=== PATIENT | male | born 1960 | race Caucasian/White ===

== ENCOUNTER 2020-04-09 18:22 | Inpatient (IN) | payer SELFPAY ==
[~2020-04-09] VITALS: Ht 182 cm; Wt 145.0 kg
[2020-04-09] MEDS ORDERED: LACTATED RINGERS 1,000 ML IV ONE (18:55)
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
[2020-04-09 19:14] LABS: BILIRUBIN,URINE 1+ (NEGATIVE); CLARITY,URINE CLEAR; COLOR,URINE YELLOW; GLUCOSE, URINE (UA) NEGATIVE (NEGATIVE); KETONES,URINE NEGATIVE (NEGATIVE); LEUKOCYTE ESTERASE ,URINE NEGATIVE (NEGATIVE); NITRITE,URINE NEGATIVE (NEGATIVE); PROTEIN,URINE 2+ (NEGATIVE)
[2020-04-09] MEDS: dilTIAZem DRIP PRE-MIX 125 ML IV SCH (19:18)
[2020-04-09 19:27] LABS: BACTERIA,URINE FEW /HPF
[2020-04-09 19:33] LABS: BASOPHILS % (AUTO) 0 % (0-10); EOSINOPHILS % (AUTO) 0 % (0-10); HEMATOCRIT 43 % (40-54); HEMOGLOBIN 14.7 G/DL (13.3-17.7); LYMPHOCYTES # (AUTO) 1.2 X 10^3 (1.0-4.0); LYMPHOCYTES % (AUTO) 7 % (12-44); MEAN CORPUSCULAR HEMOGLOBIN 32 PG (25-34); MEAN CORPUSCULAR HGB CONC 35 G/DL (32-36); MEAN CORPUSCULAR VOLUME 92 FL (80-99); MEAN PLATELET VOLUME 11.6 FL (7.4-10.4); MONOCYTES % (AUTO) 6 % (0-12); NEUTROPHILS # (AUTO) 15.4 X 10^3 (1.8-7.8); NEUTROPHILS % (AUTO) 87 % (42-75); PLATELET COUNT 99 10^3/uL (130-400); WHITE BLOOD COUNT 17.6 10^3/uL (4.3-11.0)
[2020-04-09 19:45] LABS: ALBUMIN 3.5 GM/DL (3.2-4.5); CHLORIDE 94 MMOL/L (98-107); SODIUM 127 MMOL/L (135-145)
[2020-04-09 19:46] LABS: CALCIUM 8.5 MG/DL (8.5-10.1)
[2020-04-09 19:47] LABS: GLUCOSE 124 MG/DL (70-105); INR 1.4 (0.8-1.4); PROTHROMBIN TIME PATIENT 17.5 SEC (12.2-14.7); TOTAL PROTEIN 6.8 GM/DL (6.4-8.2)
[2020-04-09 19:48] LABS: CARBON DIOXIDE 21 MMOL/L (21-32)
[2020-04-09 19:51] LABS: ALKALINE PHOSPHATASE 64 U/L (40-136); CREATININE SERUM 1.47 MG/DL (0.60-1.30); GFR ESTIMATED 49
[2020-04-09 19:52] LABS: BUN/CREATININE RATIO 16
[2020-04-09 19:54] LABS: ALANINE AMINOTRANSFERASE 63 U/L (0-55)
--- NOTE | 2020-04-09 19:58 | Diagnostic Imaging Report ---
EXAMINATION: Chest radiograph, portable AP view. DATE: 04/09/2020 7:51 PM. INDICATION: 59-year-old male, sepsis. COMPARISON: None. FINDINGS: There are technical limitations of the study relating to patient body habitus and difficulties with exposure. The heart appears enlarged. There is no identified pneumothorax. There is nonspecific left basilar airspace consolidation. The right lung is grossly clear. IMPRESSION: 1. Technically limited study relating to patient body habitus and difficulties with exposure. 2. Nonspecific left basilar airspace consolidation which could relate to soft tissue overlap, atelectasis, infiltrate and/or effusion. 3. Suspected cardiomegaly. Dictated by: Dictated on workstation # [id number]
--- NOTE | 2020-04-09 19:59 | Diagnostic Imaging Report ---
EXAMINATION: Left tibia and fibula radiographs, 2 views, 3 images. COMPARISON: None. HISTORY: 59-year-old male, left tibia and fibula pain. Blister medially with leakage. FINDINGS: There is a very large abnormal soft tissue prominence medially located at the level of the mid to distal tibial diaphysis which is not specific and not well evaluated radiographically. There is diffuse reticulation of the subcutaneous fat within the included field of view which may relate to nonspecific diffuse subcutaneous edema. There is no identified radiopaque foreign body. There is no identified acute fracture. There is no cortical or aggressive bone destruction. There is no identified periosteal reaction. There is mild degenerative type enthesopathy at the Achilles tendon insertion. IMPRESSION: 1. Very large abnormal soft tissue prominence medially located at the level of the mid to distal tibial diaphysis which is not well evaluated radiographically. 2. Suspected diffuse subcutaneous edema throughout the included field of view of imaging. 3. No acute osseous abnormality. 4. No identified radiopaque foreign body. Dictated by: Dictated on workstation # [id number]
[2020-04-09] MEDS ORDERED: PIPERACILLIN SODIUM/TAZOBACTAM 4.5 GM in NS (IVPB) 100 ML IV ONE (20:00)
[2020-04-09 20:09] LABS: BAND NEUTROPHILS 1 %; LYMPHOCYTES % (MANUAL) 9 %; MONOCYTES % (MANUAL) 4 %; NEUTROPHILS % (MANUAL) 86 %; RBC MORPH NORMAL
[2020-04-09] MEDS ORDERED: LACTATED RINGERS 1,000 ML IV STA ×2 (20:26→20:50)
[2020-04-09] MEDS ORDERED: fentaNYL INJECTION 100 MCG/2 ML AMP IVP STA (20:27)
[2020-04-09] MEDS ORDERED: ENOXAPARIN 100 MG/1 ML (LOVENOX) SYR SC ONE (21:00)
[2020-04-09] MEDS: VANCOMYCIN INJECTION 1,000 MG in NS (IVPB) 250 ML IV SCH ×2 (21:23→22:24)
--- NOTE | 2020-04-09 21:42 | Diagnostic Imaging Report ---
EXAMINATION: Chest radiograph, portable AP view. DATE: 04/09/2020 9:38 PM. INDICATION: 59-year-old male, central line placement. COMPARISON: April 09, 2020 at 1941 hours. FINDINGS: The newly placed right internal jugular central venous line overlies the mid SVC. Heart size and mediastinal contours are unchanged. There is no identified pneumothorax. There is persistent nonspecific left basilar airspace consolidation. There are mildly prominent pulmonary vascular markings, bilaterally, which are increased since the comparison exam. IMPRESSION: 1. Newly placed right internal jugular central venous line overlying the mid SVC. 2. No identified pneumothorax. 3. Persistent and unchanged nonspecific nonspecific left basilar airspace consolidation. 4. More prominent pulmonary vascular markings which potentially could reflect pulmonary edema or atypical infection. Dictated by: Dictated on workstation # [id number]
[2020-04-09 23:00] VITALS: BP 100/72
[2020-04-09] MEDS: LACTATED RINGERS 1,000 ML IV SCH (23:00)
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
[2020-04-09] MEDS ORDERED: VANCOMYCIN INJECTION 0.1 MG in NS (IVPB) 250 ML IV SCH (23:30)
[2020-04-10] VITALS (25 sets, daily range): BP systolic 85–134; BP diastolic 62–97
[2020-04-10] MEDS ORDERED: NS (IVPB) 100 ML ONE (02:16)
[2020-04-10] MEDS ORDERED: PIPERACILLIN/TAZO 4.5 GM VIAL (ZOSYN) IV ONE (02:16)
[2020-04-10] MEDS: PIPERACILLIN/TAZOBACTAM (BULK) 4.5 GM in NS (IVPB) 100 ML IV SCH ×3 (02:38→19:42)
[2020-04-10] MEDS: dilTIAZem DRIP PRE-MIX 125 ML IV SCH ×2 (02:39→23:48)
[2020-04-10] MEDS: LACTATED RINGERS 1,000 ML IV SCH ×6 (02:39→21:19)
[2020-04-10 04:57] LABS: BASOPHILS % (AUTO) 0 % (0-10); EOSINOPHILS % (AUTO) 0 % (0-10); HEMATOCRIT 38 % (40-54); HEMOGLOBIN 12.6 G/DL (13.3-17.7); LYMPHOCYTES # (AUTO) 1.2 X 10^3 (1.0-4.0); LYMPHOCYTES % (AUTO) 8 % (12-44); MEAN CORPUSCULAR HEMOGLOBIN 31 PG (25-34); MEAN CORPUSCULAR HGB CONC 33 G/DL (32-36); MEAN CORPUSCULAR VOLUME 93 FL (80-99); MEAN PLATELET VOLUME 11.6 FL (7.4-10.4); MONOCYTES # (AUTO) 0.9 X 10^3 (0.0-1.0); MONOCYTES % (AUTO) 6 % (0-12); NEUTROPHILS # (AUTO) 13.2 X 10^3 (1.8-7.8); NEUTROPHILS % (AUTO) 86 % (42-75); PLATELET COUNT 92 10^3/uL (130-400); WHITE BLOOD COUNT 15.3 10^3/uL (4.3-11.0)
[2020-04-10 05:13] LABS: ALBUMIN 2.9 GM/DL (3.2-4.5)
[2020-04-10 05:14] LABS: POTASSIUM 3.8 MMOL/L (3.6-5.0)
[2020-04-10 05:15] LABS: CALCIUM 7.9 MG/DL (8.5-10.1)
[2020-04-10 05:16] LABS: TOTAL PROTEIN 5.8 GM/DL (6.4-8.2)
[2020-04-10 05:18] LABS: BILIRUBIN,TOTAL 1.9 MG/DL (0.1-1.0)
[2020-04-10 05:19] LABS: PHOSPHORUS 3.1 MG/DL (2.3-4.7)
[2020-04-10 05:20] LABS: CREATININE SERUM 1.33 MG/DL (0.60-1.30)
[2020-04-10 05:22] LABS: MAGNESIUM 1.7 MG/DL (1.6-2.4)
[2020-04-10] MEDS: fentaNYL INJECTION 100 MCG/2 ML AMP IV PRN (05:53)
[2020-04-10] MEDS: CLINDAMYCIN 600 MG/50 ML IVPB 50 ML IV SCH ×3 (05:54→22:00)
[2020-04-10] MEDS ORDERED: FLU QUADRIvalent (3YOA+) 60 mcg/0.5 ml 2020-21 (AFLURIA) IM ONE (07:30)
--- NOTE | 2020-04-10 08:03 | Diagnostic Imaging Report ---
PROCEDURE: CT left lower extremity without contrast. TECHNIQUE: Multiple contiguous axial images were obtained through the left lower extremity without the use of intravenous contrast. Sagittal and coronal reformations were then performed. Auto Exposure Controls were utilized during the CT exam to meet ALARA standards for radiation dose reduction. INDICATION: Left leg pain and cellulitis. COMPARISON: None available. FINDINGS: Left thigh: No soft tissue gas or fluid collection within the left thigh. Mild subcutaneous reticulations may be due to reported cellulitis. No fracture of the femur. Left hip is normal alignment. Multiple enlarged left inguinal lymph nodes are likely reactive in nature. The largest measures 4.4 cm in size. There is also some lymphadenopathy along the left external iliac chain with lymph node measuring up to 3.0 cm. Left lower leg: Extensive subcutaneous reticulations. There is a superficial blister/bulla present along the medial aspect of the right lower leg. No deep fluid collections are appreciated or soft tissue gas. No fracture or osseous erosions within the tibia or fibula. IMPRESSION: 1. Large superficial bolus/blister on the medial aspect of the calf. No deep soft tissue fluid collection or soft tissue gas within the lower extremity. 2. No CT features to suggest osteomyelitis. 3. Multiple enlarged left inguinal and pelvic lymph nodes are likely reactive in nature. 4. Findings are in agreement with the preliminary report. Dictated by: Dictated on workstation # [id number]
--- NOTE | 2020-04-10 08:29 | Diagnostic Imaging Report ---
CHEST 1 VIEW, AP/PA ONLY Indication: Cellulitis, A. fib with RVR. Comparison: 04/09/2020 Findings: Stable right IJ central venous catheter. Unchanged enlargement of cardiac silhouette. No consolidation. No pleural effusion or pneumothorax. Impression: 1. Stable right central venous catheter. 3. No adverse development. Dictated by: Dictated on workstation # [id number]
--- NOTE | 2020-04-10 08:55 | Progress Note - Surgery ---
MANUEL LOPEZ MED STUDENT 04/10/20 0855: Subjective Date Seen by a Provider: Apr 10, 2020 Time Seen by a Provider: 08:30 Subjective/Events-last exam Zheng states he did not sleep well because the hospital CPAP machine was inferior to his home one. He reports his RLE pain is almost absent except with leg movement or contact to the blister. He states his right thigh cellulitis has spread upwards since yesterday and he thought his blister has changed in appearance overnight but was unable to specify what that meant. The patient denies abdominal pain, chest pain, SOB, other extremity pain. No fever or chills in the past 24 hours. Focused Exam Lactate Level 04/09/20 19:13: Lactic Acid Level 1.98 Objective Exam Vital Signs Date Time Temp Pulse Resp B/P (MAP) Pulse Ox O2 Delivery O2 Flow Rate FiO2 04/10/20 08:00 93 30 124/76 (92) 91 Nasal Cannula 2.00 04/10/20 07:00 101 04/10/20 07:00 112 23 102/91 (95) 99 Nasal Cannula 2.00 04/10/20 06:00 112 21 103/79 (87) 96 Nasal Cannula 2.00 04/10/20 05:05 109 100 36.00 04/10/20 05:00 118 22 105/89 (94) 98 Nasal Cannula 2.00 04/10/20 04:00 99 Nasal Cannula 2.00 04/10/20 04:00 120 20 112/72 (85) 99 Nasal Cannula 2.00 04/10/20 03:00 117 17 94/67 (76) 96 Nasal Cannula 2.00 04/10/20 02:00 103 28 85/62 (70) 96 Nasal Cannula 2.00 04/10/20 01:00 105 22 93/65 (74) 95 Nasal Cannula 2.00 04/10/20 01:00 125 04/10/20 00:30 121 30 114/97 (103) 96 Nasal Cannula 2.00 04/10/20 00:24 96 NIV Bilevel 2.00 04/10/20 00:00 115 27 119/68 (85) 96 Nasal Cannula 2.00 04/09/20 23:45 139 04/09/20 23:00 130 25 100/72 (81) 98 Nasal Cannula 2.00 04/09/20 22:40 36.0 04/09/20 22:40 96 Nasal Cannula 2.00 04/09/20 22:20 36.8 130 23 101/83 98 Nasal Cannula 2.00 04/09/20 18:30 37.2 96 20 105/66 (79) 97 I & O 04/10/20 07:00 Intake Total 2550 ml Output Total 600 ml Balance 1950 ml Capillary Refill : Greater Than 3 Seconds General Appearance: No Apparent Distress, WD/WN, Obese HEENT: PERRL/EOMI, Pharynx Normal Neck: Non Tender, Supple Respiratory: Lungs Clear, Normal Breath Sounds Cardiovascular: No Murmur, Irregularly Irregular, Tachycardia Peripheral Pulses: 0 Dorsalis Pedis (R); 1+ Left Dors-Pedis (L) Neurologic/Psychiatric: Alert, Oriented x3 Skin: Other (minimal LLE swelling. area of erythema at the left medial thigh spreading upwards, stopping about 5 cm inferior to the inguinal ligament. Deep red skin discoloration at the left lower leg extending to the ankle. Large bulla on the left medial jessica draining serosanguinous fluid. Second smaller bulla posterior to the medial malleolus. Tender to touch over the deep red skin, m inimally tender distal to that. ) Results Lab Laboratory Tests 04/09/20 19:05: Urine Color YELLOW, Urine Clarity CLEAR, Urine pH 6.0, Urine Specific [place] 1.025H, Urine Protein 2+H, Urine Glucose (UA) NEGATIVE, Urine Ketones NEGATIVE, Urine Nitrite NEGATIVE, Urine Bilirubin 1+H, Urine Urobilinogen 1.0, Urine Leukocyte Esterase NEGATIVE, Urine RBC (Auto) 3+H, Urine RBC NONE, Urine WBC 2- 5, Urine Crystals NONE, Urine Bacteria FEWH, Urine Casts PRESENT, Urine Coarse Granular Casts 2-5H, Urine Mucus NEGATIVE, Urine Culture Indicated NO 04/09/20 19:13: White Blood Count 17.6H, Red Blood Count 4.65, Hemoglobin 14.7, Hematocrit 43, Mean Corpuscular Volume 92, Mean Corpuscular Hemoglobin 32, Mean Corpuscular Hem oglobin Concent 35, Red Cell Distribution Width 13.5, Platelet Count 99L, Mean Platelet Volume 11.6H, Neutrophils (%) (Auto) 87H, Lymphocytes (%) (Auto) 7L, Monocytes (%) (Auto) 6, Eosinophils (%) (Auto) 0, Basophils (%) (Auto) 0, Neutrophils # (Auto) 15.4H, Lymphocytes # (Auto) 1.2, Monocytes # (Auto) 1.0, Eosinophils # (Auto) 0.0, Basophils # (Auto) 0.0, Neutrophils % (Manual) 86, Lymphocytes % (Manual) 9, Monocytes % (Manual) 4, Band Neutrophils 1, Blood Morphology Comment NORMAL, Prothrombin Time 17.5H, INR Comment 1.4, Activated Partial Thromboplast Time 33, Sodium Level 127L, Potassium Level 4.0, Chloride Level 94L, Carbon Dioxide Level 21, Anion Gap 12, Blood Urea Nitrogen 24H, Cr eatinine 1.47H, Estimat Glomerular Filtration Rate 49, BUN/Creatinine Ratio 16, Glucose Level 124H, Lactic Acid Level 1.98, Calcium Level 8.5, Corrected Calcium 8.9, Total Bilirubin 2.0H, Aspartate Amino Transf (AST/SGOT) 94H, Alanine Aminotransferase (ALT/SGPT) 63H, Alkaline Phosphatase 64, Troponin I < 0.028, Total Protein 6.8, Albumin 3.5 04/10/20 00:40: Total Creatine Kinase 1371H 04/10/20 04:50: White Blood Count 15.3H, Red Blood Count 4.09L, Hemoglobin 12.6L, Hematocrit 38L , Mean Corpuscular Volume 93, Mean Corpuscular Hemoglobin 31, Mean Corpuscular Hemoglobin Concent 33, Red Cell Distribution Width 13.5, Platelet Count 92L, Mean Platelet Volume 11.6H, Neutrophils (%) (Auto) 86H, Lymphocytes (%) (Auto) 8L, Monocytes (%) (Auto) 6, Eosinophils (%) (Auto) 0, Basophils (%) (Auto) 0, Neutrophils # (Auto) 13.2H, Lymphocytes # (Auto) 1.2, Monocytes # (Auto) 0.9, Eosinophils # (Auto) 0.0, Basophils # (Auto) 0.0, Sodium Level 128L, Potassium Level 3.8, Chloride Level 95L, Carbon Dioxide Level 23, Anion Gap 10, Blood Urea Nitrogen 25H, Creatinine 1.33H, Estimat Glomerular Filtration Rate 55, BUN/Creatinine Ratio 19, Glucose Level 118H, Calcium Level 7.9L, Corrected Calcium 8.8, Total Bilirubin 1.9H, Aspartate Amino Transf (AST/SGOT) 75H, Alanine Aminotransferase (ALT/SGPT) 53, Alkaline Phosphatase 51, Total Protein 5.8L, Albumin 2.9L, Phosphorus Level 3.1, Magnesium Level 1.7 Assessment/Plan Assessment/Plan Assessment/Plan left leg cellulitis afib rvr large blister left lower extremity central line placed by ED BREN on CPAP continue antibiotics no fx visualized by x ray or CT outline skin cellulitis to track going forward Clinical Quality Measures DVT/VTE Risk/Contraindication: Risk Factor Score Per Nursin RFS Level Per Nursing on Admit: 4+=Very High KEZIA KHOURY DO 04/10/20 1645: Subjective Subjective/Events-last exam Left leg is feeling better. Less tenderness to left lower extremity. Able to move better. Left blister popped. Denies n/v fever sweats chills shortness of breath or chest pain. Objective Exam General Appearance: No Apparent Distress, WD/WN HEENT: PERRL/EOMI, Normal ENT Inspection Neck: Full Range of Motion, Non Tender Respiratory: Chest Non Tender, No Accessory Muscle Use, No Respiratory Distress Cardiovascular: Irregularly Irregular, Tachycardia Gastrointestinal: non tender, soft Extremity: Swelling, Other (left lower extremity less erythema, large blister popped decreasing in size) Neurologic/Psychiatric: Alert, Oriented x3 Skin: Erythema (lle), Other (minimal LLE swelling. area of erythema at the left medial thigh spreading upwards, stopping about 5 cm inferior to the inguinal ligament. Deep red skin discoloration at the left lower leg extending to the ankle. Large bulla on the left medial jessica draining serous fluid. Second smaller bulla posterior to the medial malleolus. Tender to touch over the deep red skin, minimally tender distal to that. ) Lymphatic: No Adenopathy Assessment/Plan Assessment/Plan Assessment/Plan left leg cellulitis afib rvr large blister left lower extremity central line placed by ED BREN on CPAP continue antibiotics no fx visualized by x ray or CT consistent with cellulitis outline skin cellulitis to track going forward and patient feeling better no surgical intervention will follow Supervisory-Addendum Brief Verification & Attestation Participated in pt care: history, MDM, physical Personally performed: exam, history, MDM, supervision of care Care discussed with: Medical Student Procedures: n/a Results interpretation: Verified all documentation Verification and Attestation of Medical Student E/M Service A medical student performed and documented this service in my presence. I reviewed and verified all information documented by the medical student and made modifications to such information, when appropriate. I personally performed the physical exam and medical decision making. Kezia Khoury, Apr 10, 2020,16:51 MANUEL LOPEZ MED STUDENT Apr 10, 2020 08:55 KEZIA KHOURY DO Apr 10, 2020 16:45
[2020-04-10] MEDS: VANCOMYCIN 1500 MG/NS 500 ML IVPB IV SCH ×4 (08:59→21:19)
[2020-04-10] MEDS ORDERED: NICOTINE 14 MG (NICODERM) PATCH TD SCH (10:30)
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
[2020-04-10] MEDS ORDERED: meTOproloL SUCCINATE 50 MG (TOPROL XL) TAB PO SCH (11:30)
[2020-04-10] MEDS: ENOXAPARIN 300 MG/3 ML (LOVENOX) MULTI-DOSE VIAL SQ SCH ×2 (11:52→23:00)
[2020-04-10] MEDS: meTOproloL SUCCINATE 50 MG (TOPROL XL) TAB PO SCH (11:52)
--- NOTE | 2020-04-10 12:00 | NUR ---
CONTACTED [facility] FOR INSPECTION OF PT'S HOME CPAP DUE TO PT VERY UPSET ABOUT NOT BEING ABLE TO USE HIS OWN AFTER BRINING IT IN FROM HOME. MALACHI FROM [facility] SAID TO INSPECT THE ELECTRICAL COMPONENTS OF UNIT (BATTERY PACK AND ELECTRICAL CORD) WELL MAKING SURE EQUIPMENT IS CLEAN WITH NO MOLD GROWING. THE PT'S HOME CPAP WAS DISASSEMBLED AND CLEANED WITH BLEACH AND COTTON SWABS. ALL VISIBLE ELECTRICAL COMPONENTS ARE INTACT WITH NO BARE WIRES. PT CPAP WAS REASSEMBLED AND PT WAS ALLOWED TO USE HIS HOME EQUIPMENT.
[2020-04-10] MEDS: NICOTINE PATCH REMOVAL TP SCH (12:36)
--- NOTE | 2020-04-10 12:38 | NUR ---
NICOTINE PATCH REMOVED FROM LUE BY PATIENT. PATIENT REPORTS THAT THE 14MG PATCH WAS MAKING HIM TOO JITTERY.
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
[2020-04-10] MEDS ORDERED: ALPRAZolam 0.25 MG (XANAX) TAB PO ONE (17:15)
[2020-04-11] VITALS (13 sets, daily range): BP systolic 104–127; BP diastolic 65–91
[2020-04-11] MEDS: PIPERACILLIN/TAZOBACTAM (BULK) 4.5 GM in NS (IVPB) 100 ML IV SCH ×3 (01:58→18:09)
[2020-04-11 03:08] LABS: BASOPHILS # (AUTO) 0.1 10^3/uL (0.0-0.1); BASOPHILS % (AUTO) 1 % (0-10); EOSINOPHILS % (AUTO) 0 % (0-10); HEMATOCRIT 38 % (40-54); HEMOGLOBIN 12.7 G/DL (13.3-17.7); LYMPHOCYTES # (AUTO) 1.7 X 10^3 (1.0-4.0); LYMPHOCYTES % (AUTO) 9 % (12-44); MEAN CORPUSCULAR HEMOGLOBIN 31 PG (25-34); MEAN CORPUSCULAR HGB CONC 33 G/DL (32-36); MEAN CORPUSCULAR VOLUME 94 FL (80-99); MEAN PLATELET VOLUME 11.7 FL (7.4-10.4); MONOCYTES # (AUTO) 1.1 X 10^3 (0.0-1.0); MONOCYTES % (AUTO) 6 % (0-12); NEUTROPHILS # (AUTO) 14.9 X 10^3 (1.8-7.8); NEUTROPHILS % (AUTO) 84 % (42-75); PLATELET COUNT 116 10^3/uL (130-400); WHITE BLOOD COUNT 17.8 10^3/uL (4.3-11.0)
[2020-04-11 03:20] LABS: POTASSIUM 3.9 MMOL/L (3.6-5.0)
[2020-04-11 03:21] LABS: CALCIUM 8.2 MG/DL (8.5-10.1)
[2020-04-11 03:25] LABS: PHOSPHORUS 3.5 MG/DL (2.3-4.7)
[2020-04-11 03:26] LABS: CREATININE SERUM 1.3 MG/DL (0.60-1.30)
[2020-04-11] MEDS: LACTATED RINGERS 1,000 ML IV SCH (05:40)
--- NOTE | 2020-04-11 06:13 | NUR ---
PT SITTING AT FOOT OF BED, LEAD WIRES ALL OFF, CENTRAL LINE PULLED TIGHT. YELLS "I CAN'T BE TIED UP ANYMORE" DR BRUCE NOTIFIED, STATED PT COULD GO AMA. WENT BACK INTO PTS ROOM AND HE SAID HE WOULD STAY BUT CAN'T HAVE ALL THIS STUFF HOOKED UP TO HIM
--- NOTE | 2020-04-11 06:38 | NUR ---
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
[2020-04-11] MEDS: CLINDAMYCIN 600 MG/50 ML IVPB 50 ML IV SCH ×3 (06:45→22:17)
--- NOTE | 2020-04-11 07:53 | Diagnostic Imaging Report ---
INDICATION: Atrial fibrillation Frontal chest obtained at 3:04 a.m. and compared to the previous day. There is cardiomegaly. There is no change in right IJ central catheter tip overlying the upper SVC. There is minimal central vascular prominence. There is no focal infiltrate or pneumothorax or pleural fluid. IMPRESSION: Cardiomegaly with mild vascular prominence. No focal acute abnormality and no change from the previous day. Dictated by: Dictated on workstation # [id number]
[2020-04-11] MEDS: meTOproloL SUCCINATE 50 MG (TOPROL XL) TAB PO SCH (08:08)
[2020-04-11] MEDS: VANCOMYCIN 1500 MG/NS 500 ML IVPB IV SCH ×4 (08:08→20:24)
[2020-04-11] MEDS: ENOXAPARIN 300 MG/3 ML (LOVENOX) MULTI-DOSE VIAL SQ SCH (08:09)
[2020-04-11] MEDS ORDERED: meTOproloL SUCCINATE 50 MG (TOPROL XL) TAB PO SCH (09:00)
[2020-04-11] MEDS ORDERED: NICOTINE 14 MG (NICODERM) PATCH TD SCH ×2 (09:00)
[2020-04-11] MEDS: APIXABAN 5 MG (ELIQUIS) TABLET PO SCH ×2 (10:00→20:24)
--- NOTE | 2020-04-11 10:02 | Cardiology Progress Note ---
Subjective Date Seen by Provider: Apr 11, 2020 Time Seen by Provider: 10:00 Subjective/Events-last exam Patient is laying down in bed, feeling better, reporting improvement in his symptoms. Heart rate is better Review of Systems General: No Chills, No Night Sweats, No Fatigue, No Malaise, No Appetite, No Other HEENT: No Head Aches, No Visual Changes, No Eye Pain, No Ear Pain, No Dysphasia, No Sinus Congestion, No Post Nasal Drip, No Sore Throat, No Other Pulmonary: No Dyspnea, No Cough, No Pleuritic Chest Pain, No Other Cardiovascular: No: Chest Pain, Palpitations, Orthopnea, Paroxysmal Noc. Dyspnea, Edema, Lt Headedness, Other Focused Exam Lactate Level 04/09/20 19:13: Lactic Acid Level 1.98 Objective-Cardiology Exam Last Set of Vital Signs Vital Signs 04/10/20 04/11/20 18:00 09:00 Pulse 89 Resp 24 B/P (MAP) 104/77 (86) Pulse Ox 95 O2 Delivery Room Air O2 Flow Rate 2.00 Capillary Refill : Less Than 3 Seconds I&O Intake and Output 04/11/20 00:00 Intake Total 4015 ml Output Total 1850 ml Balance 2165 ml Intake Oral 2450 ml IV Total 1565 ml Output Urine Total 1850 ml # Bowel Movements 3 General: Alert, Oriented X3, Cooperative HEENT: Atraumatic, PERRLA Neck: Supple, No JVD, No Thyromegaly Lungs: Clear to Auscultation, Normal Air Movement Heart: Normal S1, Normal S2, No Murmurs, Other (atrial fibrillation with rapid ventricular response) Abdomen: Normal Bowel Sounds, Soft, No Tenderness, No Hepatosplenomegaly, No Masses Extremities: No Clubbing, No Cyanosis, Normal Pulses, No Tenderness/Swelling, Other (peripheral edema) Skin: Other (blister and cellulitis on the left leg) Neuro: Normal Speech, Normal Tone, Sensation Intact Psych/Mental Status: Mental Status NL, Mood NL Results Lab Laboratory Tests 04/11/20 03:00 A/P-Cardiology Admission Diagnosis Sepsis Atrial fibrillation Hypertension Obstructive sleep apnea Assessment/Plan Cellulitis, sepsis, managed by medical team Atrial fibrillation with rapid ventricular response, I will change diltiazem to oral and evaluate tolerance and response, started on oral anticoagulation Hypertension, maintain on Cardizem drip, continue to monitor blood pressure Acute renal insufficiency, receiving IV fluid, monitor renal function closely Elevated BNP, probably secondary to tachycardia, evaluate 2-D echo COPD/obstructive sleep apnea, maintained on C Pap. Morbid obesity, BMI 46, discussed weight loss Clinical Quality Measures DVT/VTE Risk/Contraindication: Risk Factor Score Per Nursin RFS Level Per Nursing on Admit: 4+=Very High JOSE HERNANDEZ MD Apr 11, 2020 10:02
--- NOTE | 2020-04-11 10:20 | Progress Note - Surgery ---
MANUEL LOPEZ MED STUDENT 04/11/20 1020: Subjective Date Seen by a Provider: Apr 11, 2020 Time Seen by a Provider: 08:05 Subjective/Events-last exam Zheng states he feels better today. Decreased leg pain, states cellulitis seems to be improving. Pain from bullae unchanged compared to yesterday, notes a new bulla formed on the left leg. Denies fever, chills, abdominal pain, chest pain, other extremity pain, SOB. Focused Exam Lactate Level 04/09/20 19:13: Lactic Acid Level 1.98 Objective Exam Vital Signs Date Time Temp Pulse Resp B/P (MAP) Pulse Ox O2 Delivery O2 Flow Rate FiO2 04/11/20 10:00 80 27 118/86 (97) 94 Room Air 04/11/20 09:00 89 24 104/77 (86) 95 Room Air 04/11/20 08:00 Room Air 04/11/20 08:00 35.8 04/11/20 08:00 81 21 116/79 (91) 93 Room Air 04/11/20 07:00 88 19 115/74 (88) 91 NIV CPAP 04/11/20 07:00 85 04/11/20 06:00 108 27 92 NIV CPAP 04/11/20 05:00 87 23 104/78 (87) 93 NIV CPAP 04/11/20 04:00 106 32 123/67 (85) 93 NIV CPAP 04/11/20 04:00 Room Air 04/11/20 04:00 36.2 04/11/20 03:00 99 20 110/66 (81) 93 NIV CPAP 04/11/20 02:00 92 31 127/65 (85) 92 NIV CPAP 04/11/20 01:00 91 04/11/20 01:00 106 28 116/91 (99) 92 NIV CPAP 04/11/20 00:00 101 30 112/78 (89) 94 NIV CPAP 04/11/20 00:00 Room Air 04/11/20 00:00 36.2 04/10/20 23:20 NIV CPAP 04/10/20 23:00 107 20 115/77 (90) 95 Room Air 04/10/20 22:00 101 20 96/80 (85) 93 Room Air 04/10/20 21:00 86 20 110/90 (97) 94 Room Air 04/10/20 20:00 Room Air 04/10/20 20:00 92 15 124/84 (97) 94 Room Air 04/10/20 19:00 106 04/10/20 19:00 108 20 113/78 (90) 95 Room Air 04/10/20 18:00 112 18 134/95 (108) 94 NIV CPAP 2.00 04/10/20 17:00 96 30 106/82 (90) 95 NIV CPAP 2.00 04/10/20 16:15 36.4 04/10/20 16:15 NIV CPAP 04/10/20 16:15 NIV CPAP 04/10/20 16:00 98 28 123/64 (83) 94 Nasal Cannula 2.00 04/10/20 15:00 86 25 113/81 (92) 96 Nasal Cannula 2.00 04/10/20 14:00 86 24 109/85 (93) 95 Nasal Cannula 2.00 04/10/20 13:00 98 27 111/75 (87) 97 Nasal Cannula 2.00 04/10/20 12:50 112 04/10/20 12:00 117 33 115/95 (102) 95 Nasal Cannula 2.00 04/10/20 12:00 NIV CPAP 04/10/20 12:00 36.0 04/10/20 11:00 102 26 119/79 (92) 99 Nasal Cannula 2.00 I & O 04/11/20 07:00 Intake Total 4365 ml Output Total 1850 ml Balance 2515 ml Capillary Refill : Less Than 3 Seconds General Appearance: No Apparent Distress, WD/WN, Obese HEENT: PERRL/EOMI, Normal ENT Inspection Neck: Full Range of Motion, Non Tender Respiratory: Chest Non Tender, Lungs Clear, Normal Breath Sounds, No Accessory Muscle Use, No Respiratory Distress Cardiovascular: Irregularly Irregular, Other (regular rate) Peripheral Pulses: 1+ Dorsalis Pedis (R), 1+ Left Dors-Pedis (L) Gastrointestinal: non tender, soft, no organomegaly Extremity: Calf Tenderness (left LE tenderness over erythematous areas), Swelling (left LE at the foot), Other (left lower extremity less erythema, large blister with serosanguinous drainage possibly smaller than yesterday, blister at medial malleolus appears unchanged compared to yesterday, new third smaller blister formed on medial inferior left lower leg, ) Neurologic/Psychiatric: Alert, Oriented x3 Skin: Erythema (lle) Lymphatic: No Adenopathy Results Lab Laboratory Tests 04/11/20 03:00: White Blood Count 17.8H, Red Blood Count 4.07L, Hemoglobin 12.7L, Hematocrit 38L , Mean Corpuscular Volume 94, Mean Corpuscular Hemoglobin 31, Mean Corpuscular Hemoglobin Concent 33, Red Cell Distribution Width 13.5, Platelet Count 116L, Mean Platelet Volume 11.7H, Neutrophils (%) (Auto) 84H, Lymphocytes (%) (Auto) 9L, Monocytes (%) (Auto) 6, Eosinophils (%) (Auto) 0, Basophils (%) (Auto) 1, Neutrophils # (Auto) 14.9H, Lymphocytes # (Auto) 1.7, Monocytes # (Auto) 1.1H, Eosinophils # (Auto) 0.0, Basophils # (Auto) 0.1, Sodium Level 131L, Potassium Level 3.9, Chloride Level 97L, Carbon Dioxide Level 23, Anion Gap 11, Blood Urea Nitrogen 30H, Creatinine 1.30, Estimat Glomerular Filtration Rate 57, BUN/Creatinine Ratio 23, Glucose Level 116H, Calcium Level 8.2L, Phosphorus Level 3.5, Magnesium Level 2.0, Total Creatine Kinase 558H Microbiology 04/09/20 Blood Culture - Preliminary, Resulted No growth 04/09/20 Urine Culture - Final, Complete NO GROWTH Assessment/Plan Assessment/Plan Assessment/Plan left leg cellulitis afib rvr large blister left lower extremity central line placed by ED ct scan left lower extremity 04/09 no fractures WBC up slightly 17.8 from 15.3 CXR this morning without signs of respiratory infection or atelectasis, central line still in place continue antibiotics elevate leg to relieve edema monitor left leg for any changes no surgical intervention at this time will follow Clinical Quality Measures DVT/VTE Risk/Contraindication: Risk Factor Score Per Nursin RFS Level Per Nursing on Admit: 4+=Very High KEZIA KHOURY DO 04/11/20 1100: Subjective Subjective/Events-last exam Feeling better today. Leg maybe a little less tender. He feels the redness overall improving. Serous fluid drainag from big blister that had small hole in it. Blisters lower is getting bigger. Can move foot and leg. Denies n/v fever sweats chills shortness of breath or chest pain. Objective Exam General Appearance: No Apparent Distress, WD/WN, Obese HEENT: PERRL/EOMI, Normal ENT Inspection Neck: Full Range of Motion, Non Tender Respiratory: Chest Non Tender, No Accessory Muscle Use, No Respiratory Distress Cardiovascular: Irregularly Irregular Gastrointestinal: non tender, soft, no organomegaly Extremity: Calf Tenderness (left LE tenderness over erythematous areas), Swelling (left LE at the foot), Other (left lower extremity overall less erythema, large blister with serous drainage possibly smaller than yesterday, blister at medial malleolus appears unchanged compared to yesterday, new third smaller blister formed on medial inferior left lower leg, ) Neurologic/Psychiatric: Alert, Oriented x3 Skin: Erythema (lle), Other (blisters as noted above) Lymphatic: No Adenopathy Assessment/Plan Assessment/Plan Assessment/Plan left leg cellulitis afib rvr large blister left lower extremity 2 smaller blisters now as well central line placed by ED ct scan left lower extremity 04/09 no fractures WBC up slightly 17.8 from 15.3 CXR this morning without signs of respiratory infection or atelectasis, central line still in place continue antibiotics elevate leg to relieve edema monitor left leg for any changes no surgical intervention at this time will follow Supervisory-Addendum Brief Verification & Attestation Participated in pt care: history, MDM, physical Personally performed: exam, history, MDM, supervision of care Care discussed with: Medical Student Procedures: n/a Results interpretation: Verified all documentation Verification and Attestation of Medical Student E/M Service A medical student performed and documented this service in my presence. I reviewed and verified all information documented by the medical student and made modifications to such information, when appropriate. I personally performed the physical exam and medical decision making. Kezia Khoury, Apr 11, 2020,11:00 MANUEL LOPEZ MED STUDENT Apr 11, 2020 10:20 KEZIA KHOURY DO Apr 11, 2020 11:00
--- NOTE | 2020-04-11 11:44 | NUR ---
report given to Lucrecia CAMP
--- NOTE | 2020-04-11 11:44 | NUR ---
Report from Cha CAMP, patient to room 426, patient oriented to room, and call light. Patient sitting in chair with call light within reach. Denies any pain or discomfort at this time. Patient verbalizes understanding of calling for help when needed to get up out of the chair. Will assume care of patient at this time.
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
[2020-04-11] MEDS: ALPRAZolam 0.25 MG (XANAX) TAB PO PRN (22:17)
[2020-04-12] VITALS: BP 106/61
[2020-04-12] MEDS: PIPERACILLIN/TAZOBACTAM (BULK) 4.5 GM in NS (IVPB) 100 ML IV SCH ×3 (01:20→18:28)
[2020-04-12 03:19] VITALS: BP 97/61
[2020-04-12] MEDS: CLINDAMYCIN 600 MG/50 ML IVPB 50 ML IV SCH ×3 (05:28→23:11)
[2020-04-12 05:33] LABS: BASOPHILS # (AUTO) 0.1 10^3/uL (0.0-0.1); BASOPHILS % (AUTO) 1 % (0-10); EOSINOPHILS % (AUTO) 0 % (0-10); HEMATOCRIT 38 % (40-54); HEMOGLOBIN 12.5 G/DL (13.3-17.7); LYMPHOCYTES # (AUTO) 1.8 X 10^3 (1.0-4.0); LYMPHOCYTES % (AUTO) 10 % (12-44); MEAN CORPUSCULAR HEMOGLOBIN 31 PG (25-34); MEAN CORPUSCULAR HGB CONC 33 G/DL (32-36); MEAN CORPUSCULAR VOLUME 95 FL (80-99); MEAN PLATELET VOLUME 11.7 FL (7.4-10.4); MONOCYTES # (AUTO) 1.3 X 10^3 (0.0-1.0); MONOCYTES % (AUTO) 7 % (0-12); NEUTROPHILS # (AUTO) 15.7 X 10^3 (1.8-7.8); NEUTROPHILS % (AUTO) 83 % (42-75); PLATELET COUNT 165 10^3/uL (130-400); WHITE BLOOD COUNT 18.9 10^3/uL (4.3-11.0)
[2020-04-12 05:51] LABS: CHLORIDE 101 MMOL/L (98-107); POTASSIUM 3.8 MMOL/L (3.6-5.0); SODIUM 134 MMOL/L (135-145)
[2020-04-12 05:53] LABS: CALCIUM 8.1 MG/DL (8.5-10.1); GLUCOSE 123 MG/DL (70-105)
[2020-04-12 05:55] LABS: CARBON DIOXIDE 24 MMOL/L (21-32)
[2020-04-12 05:57] LABS: CREATININE SERUM 1.12 MG/DL (0.60-1.30); GFR ESTIMATED > 60; PHOSPHORUS 3.6 MG/DL (2.3-4.7)
[2020-04-12 05:58] LABS: BUN/CREATININE RATIO 24
[2020-04-12 06:00] LABS: MAGNESIUM 2.1 MG/DL (1.6-2.4)
[2020-04-12 08:00] VITALS: BP 107/67
[2020-04-12] MEDS: VANCOMYCIN 1500 MG/NS 500 ML IVPB IV SCH ×4 (08:57→20:06)
[2020-04-12] MEDS: NICOTINE PATCH REMOVAL TP SCH ×2 (09:00→10:03)
[2020-04-12] MEDS: NICOTINE 7 MG (NICODERM) PATCH TD SCH ×2 (09:00→09:55)
--- NOTE | 2020-04-12 09:10 | Progress Note - Surgery ---
MANUEL LOPEZ MED STUDENT 04/12/20 0910: Subjective Date Seen by a Provider: Apr 12, 2020 Time Seen by a Provider: 07:15 Subjective/Events-last exam Zheng states no significant change from yesterday. Reports leg looks about the same or a little better to him. Pain worsens with movement or pressure. He denies fever, chills, abdominal pain, nausea, vomiting, chest pain, SOB. Focused Exam Lactate Level 04/09/20 19:13: Lactic Acid Level 1.98 Objective Exam Vital Signs Date Time Temp Pulse Resp B/P (MAP) Pulse Ox O2 Delivery O2 Flow Rate FiO2 04/12/20 08:00 35.5 113 20 107/67 (80) 93 Room Air 04/12/20 07:00 88 04/12/20 03:19 36.0 85 26 97/61 (73) 94 NIV CPAP 04/12/20 01:00 81 04/12/20 00:00 36.1 89 24 106/61 (76) 93 NIV CPAP 04/11/20 20:22 36.6 90 22 104/72 (83) 92 Room Air 04/11/20 19:30 Room Air 04/11/20 19:00 107 04/11/20 16:00 35.6 87 22 111/73 (86) 96 Room Air 04/11/20 12:34 105 04/11/20 11:35 99 20 105/66 (79) 94 Room Air 04/11/20 10:00 80 27 118/86 (97) 94 Room Air I & O 04/12/20 07:00 Intake Total 3065 ml Output Total 1725 ml Balance 1340 ml Capillary Refill : Less Than 3 Seconds General Appearance: No Apparent Distress, Obese HEENT: PERRL/EOMI, Pharynx Normal Neck: Normal Inspection, Supple Respiratory: Lungs Clear, Normal Breath Sounds, No Respiratory Distress Cardiovascular: No Murmur, Irregularly Irregular, Other (regular rate) Peripheral Pulses: 1+ Dorsalis Pedis (R), 1+ Left Dors-Pedis (L) Gastrointestinal: non tender, soft, no organomegaly Extremity: Inflammation, Swelling (Left foot swelling decreased slightly compared to yesterday) Neurologic/Psychiatric: Alert, Oriented x3, No Motor/Sensory Deficits, Normal Mood/Affect Skin: Erythema (left leg with erythema and warmth, several large blisters on the lower leg. Upper leg erythema staying within margins drawn on skin 2 days ago. ), Mottled Lymphatic: No Adenopathy Results Lab Laboratory Tests 04/12/20 05:30: White Blood Count 18.9H, Red Blood Count 4.03L, Hemoglobin 12.5L, Hematocrit 38L , Mean Corpuscular Volume 95, Mean Corpuscular Hemoglobin 31, Mean Corpuscular Hemoglobin Concent 33, Red Cell Distribution Width 13.8, Platelet Count 165, Mean Platelet Volume 11.7H, Neutrophils (%) (Auto) 83H, Lymphocytes (%) (Auto) 10L, Monocytes (%) (Auto) 7, Eosinophils (%) (Auto) 0, Basophils (%) (Auto) 1, Neutrophils # (Auto) 15.7H, Lymphocytes # (Auto) 1.8, Monocytes # (Auto) 1.3H, Eosinophils # (Auto) 0.0, Basophils # (Auto) 0.1, Sodium Level 134L, Potassium Level 3.8, Chloride Level 101, Carbon Dioxide Level 24, Anion Gap 9, Blood Urea Nitrogen 27H, Creatinine 1.12, Estimat Glomerular Filtration Rate > 60, BUN/Creatinine Ratio 24, Glucose Level 123H, Calcium Level 8.1L, Phosphorus Level 3.6, Magnesium Level 2.1 Microbiology 04/09/20 Blood Culture - Preliminary, Resulted No growth 04/09/20 Urine Culture - Final, Complete NO GROWTH Assessment/Plan Assessment/Plan Assessment/Plan left leg cellulitis afib rvr large blister left lower extremity 2 smaller blisters now as well central line placed by ED ct scan left lower extremity 04/09 no fractures WBC slightly up again 18.9 from 17.8 yesterday continue antibiotics elevate leg to relieve edema monitor left leg for any changes no surgical intervention at this time will follow Clinical Quality Measures DVT/VTE Risk/Contraindication: Risk Factor Score Per Nursin RFS Level Per Nursing on Admit: 4+=Very High KEZIA KHOURY DO 04/12/202051: Subjective Subjective/Events-last exam Leg feeling minimally better than yesterday. Pain occurs when tries to move with big motions or puts pressure on it. WBC up slightly. On Zosyn, Vanc and Clinda. Still serous drainage from popped blister. States the other blisters slightly larger. Denies n/v fever sweats chills shortness of breath or chest pain at this time. Objective Exam General Appearance: No Apparent Distress, Obese HEENT: PERRL/EOMI; No Scleral Icterus (L), No Scleral Icterus (R) Neck: Non Tender, Supple Respiratory: Chest Non Tender, No Accessory Muscle Use, No Respiratory Distress Cardiovascular: No JVD, Irregularly Irregular Gastrointestinal: non tender, soft, no organomegaly Extremity: Inflammation (left lower extremity), Swelling (left lower ext remity/foot), Other (blistering medial aspect 3 larger) Skin: Erythema (left leg with erythema and warmth, several large blisters on the lower leg. Upper leg erythema staying within margins drawn on skin 2 days ago. ), Mottled, Other (skin blistered and serous drainage) Lymphatic: No Adenopathy Assessment/Plan Assessment/Plan Assessment/Plan left leg cellulitis afib rvr large blister left lower extremity 2 smaller blisters now as well central line placed by ED ct scan left lower extremity 04/09 no fractures WBC slightly up again 18.9 from 17.8 yesterday continue antibiotics Vanc/Zosyn/Clinda elevate leg to relieve edema monitor left leg for any changes no surgical intervention at this time will follow u/s left lower extremity no evidence of dvt Supervisory-Addendum Brief Verification & Attestation Participated in pt care: history, MDM, physical Personally performed: exam, history, MDM, supervision of care Care discussed with: Medical Student Procedures: n/a Results interpretation: Verified all documentation Verification and Attestation of Medical Student E/M Service A medical student performed and documented this service in my presence. I reviewed and verified all information documented by the medical student and made modifications to such information, when appropriate. I personally performed the physical exam and medical decision making. Kezia Khoury, Apr 12, 2020,20:54 MANUEL LOPEZ MED STUDENT Apr 12, 2020 09:10 KEZIA KHOURY DO Apr 12, 2020 20:52
--- NOTE | 2020-04-12 09:12 | Diagnostic Imaging Report ---
INDICATION: Left leg pain. Left leg venous Doppler study was performed in the routine fashion with color flow Doppler and waveform analysis. FINDINGS: The left common femoral vein, superficial femoral vein, popliteal vein and visualized portion of the posterior tibial vein show normal compressibility and venous flow patterns. There is normal augmentation. IMPRESSION: No evidence of deep vein thrombosis of the major veins of the left leg. Dictated by: Dictated on workstation # [id number]
[2020-04-12] MEDS: meTOproloL SUCCINATE 50 MG (TOPROL XL) TAB PO SCH (09:55)
[2020-04-12] MEDS: APIXABAN 5 MG (ELIQUIS) TABLET PO SCH ×2 (09:55→20:05)
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
--- NOTE | 2020-04-12 11:53 | NUR ---
SPOKE WITH THE PT (I CALLED HER ROOM PHONE) TO COMPLETE THE MED REC PT DENIES TAKING ANY PRESCRIPTION OR OTC MEDICATIONS I DID UPDATE HIS PREFERRED PHARMACY TO [facility]
[2020-04-12 12:00] VITALS: BP 91/56
--- NOTE | 2020-04-12 14:47 | NUR ---
"RD ASSESSMENT PMHx: unknown PMHx PT INTERACTION: Pt was awake and pleasant during nutrition assessment. Pt states current appetite has been going down for the last 2-3 weeks. Note avg PO intake 83% x2d, per chart review. Pt states following a regular diet at home, and has no issues with chewing/swallowing food. Pt states no recent issues with nausea, vomiting, constipation, or diarrhea. Note last BM was 04/12, and pt not currently on bowel regimen per chart review. Pt states no recent wt changes. Note unable to determine recent wt hx, per chart review. Note presence of wound (L leg), per chart review. ABNORMAL NUTRITION-RELATED LAB VALUES LOW: Na 134; Ca 8.1; HIGH: BUN 27; glu 123 Est. kcal needs: 2025 kcal | 25 kcal/kg IBW, based on IBW of 81 kg (178#) Est. Pro needs: 97 g Pro | 1.2 g Pro/kg IBW PES STATEMENT: Inadequate protein intake ([id number]) related to increased protein needs as evidenced by presence of wound (L leg) INTERVENTION: Continue with current diet order of Regular diet. Add Ensure HP (vary) to meals TID. Provides 160 kcal and 16 g Pro per serving, for perceived benefit to wound healing. Will continue to follow and reassess as pt needs, intake, and status change. Too Santoyo, MS, RD, LD"
[2020-04-12 16:00] VITALS: BP 102/63
--- NOTE | 2020-04-12 17:32 | Cardiology Progress Note ---
Cardiology SOAP Progress Note Subjective: No acute cardiac complaints. Objective: I&O/Vital Signs 04/15/20 04/15/20 04/15/20 08:00 08:00 12:00 Temp 35.6 35.6 Pulse 107 80 Resp 20 20 B/P (MAP) 133/89 (104) 123/76 (92) Pulse Ox 97 98 93 O2 Delivery Room Air NIV CPAP Room Air O2 Flow Rate 0.00 04/15/20 00:00 Intake Total 1640 ml Output Total 600 ml Balance 1040 ml Constitutional: AAO x 3 Respiratory: chest is bilaterally symmetric, lungs clear to auscultation Cardiovascular: irregularly irregular, S1 and S2 Gastrointestional: soft, distended, audible bowel sounds Extremities: abrasion, significant edema, wound Neurologic/Psychiatric: no motor/sensory deficits, alert, normal mood/affect, oriented x 3 Skin: ulcerations on exposed areas Results/Procedures: Labs Laboratory Tests 04/15/20 05:40: White Blood Count 8.6, Red Blood Count 4.18L, Hemoglobin 12.9L, Hematocrit 41, Mean Corpuscular Volume 97, Mean Corpuscular Hemoglobin 31, Mean Corpuscular Hemoglobin Concent 32, Red Cell Distribution Width 13.6, Platelet Count 256, Mean Platelet Volume 10.6, Immature Granulocyte % (Auto) 4, Neutrophils (%) (Auto) 62, Lymphocytes (%) (Auto) 21, Monocytes (%) (Auto) 11, Eosinophils (%) (Auto) 1, Basophils (%) (Auto) 1, Neutrophils # (Auto) 5.4, Lymphocytes # (Auto) 1.8, Monocytes # (Auto) 0.9, Eosinophils # (Auto) 0.1, Basophils # (Auto) 0.1, Immature Granulocyte # (Auto) 0.4H, Sodium Level 138, Potassium Level 4.7, Chloride Level 101, Carbon Dioxide Level 29, Anion Gap 8, Blood Urea Nitrogen 16, Creatinine 1.01, Estimat Glomerular Filtration Rate > 60, BUN/Creatinine Ratio 16, Glucose Level 98, Calcium Level 8.9, Phosphorus Level 4.0, Magnesium Level 1.6 Microbiology 04/14/20 Gram Stain, Resulted Pending 04/14/20 Wound Culture - Preliminary, Resulted No growth 04/09/20 Blood Culture - Preliminary, Resulted No growth 04/09/20 Urine Culture - Final, Complete NO GROWTH A/P: Assessment/Dx: Sepsis, severe lower extremity cellulitis, Persistent Atrial fibrillation Hypertension Obstructive sleep apnea Plan: Cellulitis, sepsis, managed by medical team Persistent Atrial fibrillation with rapid ventricular response, on by mouth Cardizem and oral anticoagulation. Hypertension, Cardizem. Acute renal insufficiency, receiving IV fluid, monitor renal function closely Elevated BNP, probably secondary to tachycardia, evaluate 2-D echo COPD/obstructive sleep apnea, maintained on C Pap. Morbid obesity, BMI 46, discussed weight loss Thank you for your consultation. Please call me if you have any questions. Ralph Christie MD, FACP, FACC, FSCAI, FHRS, CCDS Interventional Cardiology Cardiac Electrophysiology Vascular Medicine and Endovascular Interventions Focused Exam Lactate Level Eva CHRISTIE MD Apr 12, 2020 17:32
[2020-04-12 20:00] VITALS: BP 97/62
[2020-04-12] MEDS: ALPRAZolam 0.25 MG (XANAX) TAB PO PRN (20:05)
[2020-04-13] VITALS: BP 94/53
[2020-04-13] MEDS: PIPERACILLIN/TAZOBACTAM (BULK) 4.5 GM in NS (IVPB) 100 ML IV SCH ×3 (01:06→18:37)
[2020-04-13] MEDS: fentaNYL INJECTION 100 MCG/2 ML AMP IV PRN (03:28)
[2020-04-13 04:00] VITALS: BP 106/64
[2020-04-13 04:58] LABS: BASOPHILS # (AUTO) 0.1 10^3/uL (0.0-0.1); BASOPHILS % (AUTO) 0 % (0-10); EOSINOPHILS # (AUTO) 0.1 10^3/uL (0.0-0.3); EOSINOPHILS % (AUTO) 1 % (0-10); HEMATOCRIT 39 % (40-54); HEMOGLOBIN 12.7 G/DL (13.3-17.7); LYMPHOCYTES % (AUTO) 12 % (12-44); MEAN CORPUSCULAR HEMOGLOBIN 31 PG (25-34); MEAN CORPUSCULAR HGB CONC 33 G/DL (32-36); MEAN CORPUSCULAR VOLUME 96 FL (80-99); MEAN PLATELET VOLUME 11.3 FL (7.4-10.4); MONOCYTES # (AUTO) 1.5 X 10^3 (0.0-1.0); MONOCYTES % (AUTO) 9 % (0-12); NEUTROPHILS # (AUTO) 12.5 X 10^3 (1.8-7.8); NEUTROPHILS % (AUTO) 78 % (42-75); PLATELET COUNT 210 10^3/uL (130-400); WHITE BLOOD COUNT 16.1 10^3/uL (4.3-11.0)
[2020-04-13] MEDS: CLINDAMYCIN 600 MG/50 ML IVPB 50 ML IV SCH ×3 (05:02→22:03)
[2020-04-13 05:11] LABS: CHLORIDE 103 MMOL/L (98-107); POTASSIUM 3.7 MMOL/L (3.6-5.0); SODIUM 136 MMOL/L (135-145)
[2020-04-13 05:12] LABS: CALCIUM 8.2 MG/DL (8.5-10.1)
[2020-04-13 05:13] LABS: GLUCOSE 110 MG/DL (70-105)
[2020-04-13 05:14] LABS: CARBON DIOXIDE 25 MMOL/L (21-32)
[2020-04-13 05:16] LABS: PHOSPHORUS 3.8 MG/DL (2.3-4.7)
[2020-04-13 05:17] LABS: BUN/CREATININE RATIO 20; CREATININE SERUM 0.98 MG/DL (0.60-1.30); GFR ESTIMATED > 60
[2020-04-13 05:19] LABS: MAGNESIUM 1.9 MG/DL (1.6-2.4)
[2020-04-13] MEDS: NICOTINE PATCH REMOVAL TP SCH (07:58)
[2020-04-13 08:00] VITALS: BP 116/88
[2020-04-13] MEDS: meTOproloL SUCCINATE 50 MG (TOPROL XL) TAB PO SCH (08:53)
[2020-04-13] MEDS: APIXABAN 5 MG (ELIQUIS) TABLET PO SCH ×2 (08:54→22:03)
[2020-04-13] MEDS: NICOTINE 7 MG (NICODERM) PATCH TD SCH (08:54)
--- NOTE | 2020-04-13 10:12 | Progress Note - Surgery ---
JESSICAMANUEL MED STUDENT 04/13/20 1012: Subjective Date Seen by a Provider: Apr 13, 2020 Time Seen by a Provider: 07:10 Subjective/Events-last exam Zheng reports his leg feels a little better. Admits his bowel movements have been more frequent over the past several days, states they are "firming up". Denies fever, chills, chest pain, SOB, nausea, vomiting, abdominal pain, blood in the stool. Objective Exam Vital Signs Date Time Temp Pulse Resp B/P (MAP) Pulse Ox O2 Delivery O2 Flow Rate FiO2 04/13/20 08:03 Room Air 04/13/20 08:00 35.6 99 20 116/88 (97) 95 Room Air 04/13/20 04:00 35.8 81 18 106/64 (78) 96 Room Air 0.00 0.00 04/13/20 01:00 82 04/13/20 00:00 35.8 76 16 94/53 (67) 96 NIV CPAP 0.00 04/12/20 20:00 Room Air 04/12/20 20:00 36.0 79 16 97/62 (74) 94 Room Air 04/12/20 19:00 92 04/12/20 16:00 35.9 93 20 102/63 (76) 95 Room Air 04/12/20 13:00 88 04/12/20 12:00 35.9 99 20 91/56 (68) 95 Room Air I & O 04/13/20 07:00 Intake Total 2525 ml Output Total 2170 ml Balance 355 ml Capillary Refill : Less Than 3 Seconds General Appearance: No Apparent Distress, Obese HEENT: PERRL/EOMI; No Scleral Icterus (L), No Scleral Icterus (R) Neck: Non Tender, Supple Respiratory: Chest Non Tender, No Accessory Muscle Use, No Respiratory Distress Cardiovascular: No JVD, Irregularly Irregular Peripheral Pulses: 1+ Dorsalis Pedis (R), 1+ Left Dors-Pedis (L) Gastrointestinal: non tender, soft, no organomegaly Extremity: Inflammation (left lower extremity), Swelling (left lower extremity/foot. Decreased compared to yesterday), Other (blistering medial aspect 3 larger) Neurologic/Psychiatric: Alert, Oriented x3 Skin: Erythema (left leg with erythema and warmth, several large blisters on the lower leg. Upper leg erythema staying within margins drawn on skin 3 days ago, erythema is decreased compared to yesterday.), Other (skin blistered and serous drainage) Lymphatic: No Adenopathy Results Lab Laboratory Tests 04/13/20 04:45: White Blood Count 16.1H, Red Blood Count 4.09L, Hemoglobin 12.7L, Hematocrit 39L , Mean Corpuscular Volume 96, Mean Corpuscular Hemoglobin 31, Mean Corpuscular Hemoglobin Concent 33, Red Cell Distribution Width 14.0, Platelet Count 210, Mean Platelet Volume 11.3H, Neutrophils (%) (Auto) 78H, Lymphocytes (%) (Auto) 12, Monocytes (%) (Auto) 9, Eosinophils (%) (Auto) 1, Basophils (%) (Auto) 0, Neutrophils # (Auto) 12.5H, Lymphocytes # (Auto) 2.0, Monocytes # (Auto) 1.5H, Eosinophils # (Auto) 0.1, Basophils # (Auto) 0.1, Sodium Level 136, Potassium Level 3.7, Chloride Level 103, Carbon Dioxide Level 25, Anion Gap 8, Blood Urea Nitrogen 20H, Creatinine 0.98, Estimat Glomerular Filtration Rate > 60, BUN/Creatinine Ratio 20, Glucose Level 110H, Calcium Level 8.2L, Phosphorus Level 3.8, Magnesium Level 1.9 Microbiology 04/09/20 Blood Culture - Preliminary, Resulted No growth 04/09/20 Urine Culture - Final, Complete NO GROWTH Assessment/Plan Assessment/Plan Assessment/Plan left leg cellulitis afib rvr large blister left lower extremity 2 smaller blisters now as well central line placed by ED ct scan left lower extremity 04/09 no fractures u/s left lower extremity no evidence of dvt WBC decreased 16.1 from 18.9 yesterday continue antibiotics. Vanc completed last night. Continue Zosyn/Clinda elevate leg to relieve edema monitor left leg for any changes no surgical intervention at this time will follow Clinical Quality Measures DVT/VTE Risk/Contraindication: Risk Factor Score Per Nursin RFS Level Per Nursing on Admit: 4+=Very High KEZIA KHOURY DO 04/14/202023: Subjective Subjective/Events-last exam Left leg same to a little better. Erythema on leg slighly better. WBC slightly down. Pain controlled. Denies n/v fever sweats chills shortness of breath or chest pain. Objective Exam General Appearance: No Apparent Distress, Obese HEENT: PERRL/EOMI, Normal ENT Inspection Neck: Non Tender, Supple Respiratory: Chest Non Tender, No Accessory Muscle Use, No Respiratory Distress Cardiovascular: No JVD, Irregularly Irregular Gastrointestinal: non tender, soft, no organomegaly Extremity: Inflammation (left lower extremity), Swelling (left lower e xtremity/foot. Decreased compared to yesterday), Other (blistering medial aspect 3 larger, slightly draining serous fluid) Neurologic/Psychiatric: Alert, Oriented x3 Skin: Erythema (left leg with erythema and warmth, several large blisters on the lower leg. Upper leg erythema staying within margins drawn on skin 3 days ago, erythema is decreased compared to yesterday.), Other (skin blistered and serous drainage) Lymphatic: No Adenopathy Assessment/Plan Assessment/Plan Assessment/Plan left leg cellulitis afib rvr large blister left lower extremity 2 smaller blisters now as well central line placed by ED ct scan left lower extremity 04/09 no fractures u/s left lower extremity no evidence of dvt WBC decreased 16.1 from 18.9 yesterday continue antibiotics. elevate leg to relieve edema monitor left leg for any changes no surgical intervention at this time will follow Supervisory-Addendum Brief Verification & Attestation Participated in pt care: history, MDM, physical Personally performed: exam, history, MDM, supervision of care Care discussed with: Medical Student Procedures: n/a Results interpretation: Verified all documentation Verification and Attestation of Medical Student E/M Service A medical student performed and documented this service in my presence. I reviewed and verified all information documented by the medical student and made modifications to such information, when appropriate. I personally performed the physical exam and medical decision making. Kezia Khoury, Apr 13, 2020,20:24 MANUEL LOPEZ MED STUDENT Apr 13, 2020 10:12 KEZIA KHOURY DO Apr 14, 2020 20:24
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
[2020-04-13 12:00] VITALS: BP 120/82
[2020-04-13] MEDS: HYDROcodone/APAP 5 MG/325 MG (LORTAB) TAB PO PRN ×2 (12:07→22:03)
--- NOTE | 2020-04-13 15:26 | Physical Therapy Progress Note ---
Therapy Progress Note Patient declined to perform standing with therapy on this date. Education on exercises to increase ROM left LE due to edema issued (AP, HS, SLR). Patient continues to have copious amounts of drainage from left LE blisters. Patient did agree to begin in a.m. with PT and ambulating. 1 visit EULALIO REYES PT Apr 13, 2020 15:26
[2020-04-13 15:52] VITALS: BP 108/80
--- NOTE | 2020-04-13 17:52 | Cardiology Progress Note ---
Cardiology SOAP Progress Note Subjective: No cardiac complaints. Objective: I&O/Vital Signs 04/15/20 04/15/20 04/15/20 08:00 08:00 12:00 Temp 35.6 35.6 Pulse 107 80 Resp 20 20 B/P (MAP) 133/89 (104) 123/76 (92) Pulse Ox 97 98 93 O2 Delivery Room Air NIV CPAP Room Air O2 Flow Rate 0.00 04/15/20 00:00 Intake Total 1640 ml Output Total 600 ml Balance 1040 ml Constitutional: AAO x 3 Respiratory: chest is bilaterally symmetric, lungs clear to auscultation Cardiovascular: irregularly irregular, S1 and S2 Gastrointestional: soft, audible bowel sounds Extremities: significant edema, wound Neurologic/Psychiatric: no motor/sensory deficits, alert, normal mood/affect, oriented x 3 Skin: ulcerations on exposed areas Results/Procedures: Labs Laboratory Tests 04/15/20 05:40: White Blood Count 8.6, Red Blood Count 4.18L, Hemoglobin 12.9L, Hematocrit 41, Mean Corpuscular Volume 97, Mean Corpuscular Hemoglobin 31, Mean Corpuscular Hemoglobin Concent 32, Red Cell Distribution Width 13.6, Platelet Count 256, Mean Platelet Volume 10.6, Immature Granulocyte % (Auto) 4, Neutrophils (%) (Auto) 62, Lymphocytes (%) (Auto) 21, Monocytes (%) (Auto) 11, Eosinophils (%) (Auto) 1, Basophils (%) (Auto) 1, Neutrophils # (Auto) 5.4, Lymphocytes # (Auto) 1.8, Monocytes # (Auto) 0.9, Eosinophils # (Auto) 0.1, Basophils # (Auto) 0.1, I mmature Granulocyte # (Auto) 0.4H, Sodium Level 138, Potassium Level 4.7, Chloride Level 101, Carbon Dioxide Level 29, Anion Gap 8, Blood Urea Nitrogen 16, Creatinine 1.01, Estimat Glomerular Filtration Rate > 60, BUN/Creatinine Ratio 16, Glucose Level 98, Calcium Level 8.9, Phosphorus Level 4.0, Magnesium Level 1.6 Microbiology 04/14/20 Gram Stain, Resulted Pending 04/14/20 Wound Culture - Preliminary, Resulted No growth 04/09/20 Blood Culture - Preliminary, Resulted No growth 04/09/20 Urine Culture - Final, Complete NO GROWTH A/P: Assessment/Dx: Sepsis, severe lower extremity cellulitis, Persistent Atrial fibrillation Hypertension Obstructive sleep apnea Plan: Plan: Cellulitis, sepsis, managed by medical team Persistent Atrial fibrillation with controlled ventricular response, on by mouth Cardizem and oral anticoagulation. Hypertension, Cardizem. Acute renal insufficiency, receiving IV fluid, monitor renal function closely Elevated BNP, probably secondary to tachycardia, evaluate 2-D echo COPD/obstructive sleep apnea, maintained on C Pap. Morbid obesity Thank you for your consultation. Please call me if you have any questions. Ralph Christie MD, FACP, FACC, FSCAI, FHRS, CCDS Interventional Cardiology Cardiac Electrophysiology Vascular Medicine and Endovascular Interventions Eva CHRISTIE MD Apr 13, 2020 17:52
[2020-04-13 19:36] VITALS: BP 112/82
[2020-04-14 00:47] VITALS: BP 117/81
--- NOTE | 2020-04-14 01:14 | NUR ---
0100- called to Pt room, Pt asked to have his rectal area wiped, Pt stood while this RN wiped for him. Pt sat back down on edge of bed. When this RN asked if there was anything further Pt needed, he asked to be wiped again. Informed Pt that in working on rehabilitation him to go back home it is important for him to work on performing ADLS as much as he can on his own. This RN went to get Pt more wipes so he could perform self care. 0110- called to pt room again, Pt very upset claiming that he was told not to perform self cares. This nurse and Sneha RN explained to Pt that now that he is on this floor and working with PT he needs to try to work on performing self cares as much as possible. Pt verbalized understanding.
[2020-04-14 04:20] VITALS: BP 139/89
[2020-04-14 05:03] LABS: BASOPHILS # (AUTO) 0.1 10^3/uL (0.0-0.1); BASOPHILS % (AUTO) 1 % (0-10); EOSINOPHILS # (AUTO) 0.1 10^3/uL (0.0-0.3); EOSINOPHILS % (AUTO) 1 % (0-10); HEMATOCRIT 41 % (40-54); HEMOGLOBIN 13.2 g/dL (13.3-17.7); LYMPHOCYTES # (AUTO) 1.9 10^3/uL (1.0-4.0); LYMPHOCYTES % (AUTO) 16 % (12-44); MEAN CORPUSCULAR HEMOGLOBIN 31 pg (25-34); MEAN CORPUSCULAR HGB CONC 32 g/dL (32-36); MEAN CORPUSCULAR VOLUME 96 fL (80-99); MEAN PLATELET VOLUME 10.7 fL (9.0-12.2); MONOCYTES % (AUTO) 9 % (0-12); NEUTROPHILS # (AUTO) 7.8 10^3/uL (1.8-7.8); NEUTROPHILS % (AUTO) 68 % (42-75); PLATELET COUNT 257 10^3/uL (130-400); WHITE BLOOD COUNT 11.5 10^3/uL (4.3-11.0)
[2020-04-14 05:19] LABS: BUN/CREATININE RATIO 19; CALCIUM 8.8 MG/DL (8.5-10.1); CARBON DIOXIDE 27 MMOL/L (21-32); CHLORIDE 103 MMOL/L (98-107); CREATININE SERUM 0.99 MG/DL (0.60-1.30); GFR ESTIMATED > 60; GLUCOSE 102 MG/DL (70-105); MAGNESIUM 1.7 MG/DL (1.6-2.4); PHOSPHORUS 4.4 MG/DL (2.3-4.7); POTASSIUM 4.4 MMOL/L (3.6-5.0); SODIUM 138 MMOL/L (135-145)
[2020-04-14] MEDS: CLINDAMYCIN 600 MG/50 ML IVPB 50 ML IV SCH ×3 (05:38→22:14)
[2020-04-14] MEDS: NICOTINE PATCH REMOVAL TP SCH (07:30)
[2020-04-14] MEDS: NICOTINE 7 MG (NICODERM) PATCH TD SCH (07:31)
[2020-04-14 08:00] VITALS: BP 127/83
--- NOTE | 2020-04-14 08:53 | Physical Therapy Evaluation ---
PT Evaluation-General Medical Diagnosis Admission Date Apr 09, 2020 at 22:07 Medical Diagnosis: sepsis due to cellulitis, left leg Onset Date: Apr 09, 2020 Therapy Diagnosis Therapy Diagnosis: Impaired mobility and ROM Precautions Precautions/Isolations: Fall Prevention, Standard Precautions Weight Bear Status Right Lower Extremity: Right Weight Bearing/Tolerated Left Lower Extremity: Left Weight Bearing/Tolerated Referral Physician: Aaliyah Reason for Referral: Evaluation/Treatment Medical History Pertinent Medical History: Smoking Additional Medical History Appendectomy Reviewed History: Yes Social History Home: Multilevel Current Living Status: Alone Entry Into Home: Stairs Without Railing PT Steps Inside Home: 10 Pt is living in old school house that is 5 floors tall. 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 Prior Prior Level of Function SCALE: Activities may be completed with or without assistive devices. 0-[id number]-[id number] completes the activity by him/herself with no assistance from a helper. 5-Set-up or Clean-up Assistance-helper sets up or cleans up; patient completes activity. Hiland assists only prior to or following the activity. 4-Supervision or Touching Assistance-helper provides verbal cues and/or touching/steadying and/or contact guard assistance as patient completes activity. Assistance may be provided throughout the activity or intermittently. 3-Partial/Moderate Assistance-helper does LESS THAN HALF the effort. Hiland lifts, holds or supports trunk or limbs, but provides less than half the effort. 2-Substantial/Maximal Assistance-helper does MORE THAN HALF the effort. Hiland lifts or holds trunk or limbs and provides more than half the effort. 5-Tzgmhjdqw-mnokgd does ALL the effort. Patient does none of the effort to complete the activity. Or, the assistance of 2 or more helpers is required for the patient to complete the activity. If activity was not attempted, code reason: 7-Patient Refused. 9-Not Applicable-not attempted and the patient did not perform the activity before the current illness, exacerbation or injury. 10-Not Attempted due to Environmental Limitations-(lack of equipment, weather restraints, etc.). 88-Not Attempted due to Medical Conditions or Safety Concerns. Bed Mobility: 6 Transfers (B,C,W/C): 6 Gait: 6 Stairs: 6 Indoor Mobility (Ambulation): Independent Stairs: Independent Prior Devices Use: None PT Evaluation-Current Subjective Pt present supine in bed. Pt agrees to PT. Pt reports discomfort in LLE and describes the skin as tight which is limiting his ROM. 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) Objective Patient Orientation: Person, Place, Time, Eyes Open, Situation ROM/Strength ROM Lower Extremities R WFL L limited by blisters Strength Lower Extremities R gross 5/5 L unable to assess due to blistering Sensory Hearing: Functional Sensation Right Lower Extremit: Intact Sensation Left Lower Extremity: Intact Sensation Lower Extremities B LE sensation intact to light touch L2-S2 Transfers Roll Left to Right (QC): 3 Sit to Lying (QC): 3 Lying to Sitting/Side of Bed(Q: 3 Sit to Stand (QC): 5 Pt required verbal cueing to complete bed mobility without handrail/pull-bar Gait Does the Patient Walk?: No and Walking Goal IS indicated Comments/Gait Description No ambulation at this time, patient has very large seeping blisters on his left leg that will leak all over the floor if he ambulates, also cannot get a non- skid sock on the left foot. Balance Sitting Static: Normal Sitting Dynamic: Normal Standing Static: Normal Treatment RLE: seated LAQ, ankle pumps x20; unable to complete motions on L side B seated hip abd/add x20 Standing Balance 1 min w/o UE support Assessment/Needs Pt limited in LLE ROM, strength, endurance, and weightbearing abilities due to excessive blistering. Rehab Potential: Fair PT Halfway Goals Halfway Goals PT Halfway Goals Time Frame: Apr 21, 2020 Roll Left & Right (QC): 6 Sit to Lying (QC): 6 Lying-Sitting on Side/Bed(QC): 6 Sit to Stand (QC): 6 Chair/Dlc-ek-Gsdmq Xfer(QC): 6 Toilet Transfer (QC): 6 Car Transfer (QC): 5 Does the Patient Walk: No and Walking Goal IS indicated Walk 10 feet (QC): 4 Walk 50ft with 2 Turns (QC): 4 Walk 150 ft (QC): 4 1 Step (curb) (QC): 4 4 Steps (QC): 4 12 Steps (QC): 4 PT Plan Problem List Problem List: Activity Tolerance, Functional Strength, Safety, Balance, Gait, Transfer, Bed Mobility, ROM Treatment/Plan Treatment Plan: Continue Plan of Care Treatment Plan: Bed Mobility, Education, Functional Activity Alondra, Functional Strength, Gait, Safety, Therapeutic Exercise, Transfers Treatment Duration: Apr 21, 2020 Frequency: 6 times per week Estimated Hrs Per Day: .25 hour per day Patient and/or Family Agrees t: Yes Safety Risks/Education Patient Education: Transfer Techniques, Correct Positioning, Safety Issues Teaching Recipient: Patient Teaching Methods: Demonstration, Discussion Response to Teaching: Reinforcement Needed Discharge Recommendations Plan Plan to address LE strengthening, ROM, gait training including weight shifting and stairs, functional activities, balance, and endurance. Therapy Discharge Recommendati: Home & Family Time/GCodes Time In: 819 Time Out: 44 Total Billed Treatment Time: 24 Total Billed Treatment 1 visit EVL 15' EX 9' ERICK QUICK PT Apr 14, 2020 08:53
[2020-04-14] MEDS: meTOproloL SUCCINATE 50 MG (TOPROL XL) TAB PO SCH (10:10)
[2020-04-14] MEDS: APIXABAN 5 MG (ELIQUIS) TABLET PO SCH ×2 (10:10→22:14)
[2020-04-14] MEDS: PIPERACILLIN/TAZOBACTAM (BULK) 4.5 GM in NS (IVPB) 100 ML IV SCH ×2 (10:25→17:54)
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
[2020-04-14 12:00] VITALS: BP 136/97
[2020-04-14] MEDS: LACTOBACILLUS ACIDOPHILUS (PROBIOTIC) CAPSULE PO SCH ×2 (12:40→17:56)
[2020-04-14] MEDS: HYDROcodone/APAP 5 MG/325 MG (LORTAB) TAB PO PRN ×3 (12:40→22:28)
--- NOTE | 2020-04-14 13:39 | Progress Note - Surgery ---
MANUEL LOPEZ MED STUDENT 04/14/20 1339: Subjective Date Seen by a Provider: Apr 14, 2020 Time Seen by a Provider: 06:50 Subjective/Events-last exam Zheng is doing well. states pain level is about the same as yesterday. Admits his left upper leg cellulitis has become less red. Notes blisters are still draining serous drainage. the patient denies fever, chills, chest pain, nausea, vomiting, cough, and SOB. States no new health concerns since yesterday. Objective Exam Vital Signs Date Time Temp Pulse Resp B/P (MAP) Pulse Ox O2 Delivery O2 Flow Rate FiO2 04/14/20 12:00 36.2 82 18 136/97 (110) 97 Room Air 04/14/20 08:00 Room Air 04/14/20 08:00 35.7 98 18 127/83 (98) 97 Room Air 04/14/20 06:36 75 04/14/20 04:20 35.8 91 16 139/89 (106) 97 Room Air 04/14/20 01:00 106 04/14/20 00:47 35.8 91 22 117/81 (93) 95 NIV CPAP 04/13/20 20:15 Room Air 04/13/20 19:36 36.4 74 20 112/82 (92) 98 Room Air 04/13/20 19:00 78 04/13/20 15:52 36.2 75 22 108/80 (89) 97 Room Air I & O 04/14/20 07:00 Intake Total 3785 ml Output Total 1225 ml Balance 2560 ml Capillary Refill : Less Than 3 Seconds General Appearance: No Apparent Distress, Chronically ill, Obese HEENT: PERRL/EOMI; No Scleral Icterus (L), No Scleral Icterus (R) Neck: Non Tender, Supple Respiratory: Lungs Clear, No Respiratory Distress Cardiovascular: Regular Rate, Rhythm, No Murmur Peripheral Pulses: 1+ Dorsalis Pedis (R), 1+ Left Dors-Pedis (L) Gastrointestinal: non tender, soft, no organomegaly Extremity: Other (left leg with persistent but imprving erythema with large draning bullae) Neurologic/Psychiatric: Alert, Oriented x3 Skin: Erythema (left leg with erythema and warmth, several large blisters on the lower leg. ), Other (skin blistered and serous drainage) Lymphatic: No Adenopathy Results Lab Laboratory Tests 04/14/20 03:00: White Blood Count 11.5H, Red Blood Count 4.29L, Hemoglobin 13.2L, Hematocrit 41, Mean Corpuscular Volume 96, Mean Corpuscular Hemoglobin 31, Mean Corpuscular Hemoglobin Concent 32, Red Cell Distribution Width 13.7, Platelet Count 257, Mean Platelet Volume 10.7, Immature Granulocyte % (Auto) 6, Neutrophils (%) (Auto) 68, Lymphocytes (%) (Auto) 16, Monocytes (%) (Auto) 9, Eosinophils (%) (Auto) 1, Basophils (%) (Auto) 1, Neutrophils # (Auto) 7.8, Lymphocytes # (Auto) 1.9, Monocytes # (Auto) 1.0, Eosinophils # (Auto) 0.1, Basophils # (Auto) 0.1, Immature Granulocyte # (Auto) 0.7H, Sodium Level 138, Potassium Level 4.4, Chloride Level 103, Carbon Dioxide Level 27, Anion Gap 8, Blood Urea Nitrogen 19H, Creatinine 0.99, Estimat Glomerular Filtration Rate > 60, BUN/Creatinine Ratio 19, Glucose Level 102, Calcium Level 8.8, Phosphorus Level 4.4, Magnesium Level 1.7 Microbiology 04/09/20 Blood Culture - Preliminary, Resulted No growth 04/09/20 Urine Culture - Final, Complete NO GROWTH Assessment/Plan Assessment/Plan Assessment/Plan left leg cellulitis afib rvr large blister left lower extremity 2 smaller blisters now as well ct scan left lower extremity 04/09 no fractures u/s left lower extremity no evidence of dvt WBC decreased 13.2 from 16.1 yesterday continue antibiotics: Vanc completed 2 days ago. Continue Zosyn/Clinda elevate leg to relieve edema monitor left leg for any changes no surgical intervention at this time will follow Clinical Quality Measures DVT/VTE Risk/Contraindication: Risk Factor Score Per Nursin RFS Level Per Nursing on Admit: 4+=Very High KEZIA KHOURY DO 04/14/202030: Subjective Subjective/Events-last exam Sitting up in chair. Leg he feels is improving, discomfort about the same, pain controlled. Serous drainage from blisters. Denies n/v fever sweats chills shortness of breath or chest pain. patient wbc down. No new complaints. Objective Exam General Appearance: No Apparent Distress, Obese HEENT: PERRL/EOMI Neck: Non Tender, Supple Respiratory: Chest Non Tender, No Accessory Muscle Use, No Respiratory Distress Cardiovascular: Regular Rate, Rhythm, No JVD Gastrointestinal: non tender, soft, no organomegaly Extremity: Other (left leg with persistent but imprving erythema with large draning bullae and 2 others medial aspect) Neurologic/Psychiatric: Alert, Oriented x3, Normal Mood/Affect Skin: Normal Color, Warm/Dry, Erythema (left leg with erythema and warmth, several large blisters on the left lower leg. ), Other (skin blistered and serous drainage) Lymphatic: No Adenopathy Assessment/Plan Assessment/Plan Assessment/Plan left leg cellulitis afib rvr large blister left lower extremity 2 smaller blisters now as well ct scan left lower extremity 04/09 no fractures u/s left lower extremity no evidence of dvt WBC decreased 13.2 from 16.1 yesterday continue antibiotics elevate leg to relieve edema monitor left leg for any changes no surgical intervention at this time will follow Supervisory-Addendum Brief Verification & Attestation Participated in pt care: history, MDM, physical Personally performed: exam, history, MDM, supervision of care Care discussed with: Medical Student Procedures: n/a Results interpretation: Verified all documentation Verification and Attestation of Medical Student E/M Service A medical student performed and documented this service in my presence. I reviewed and verified all information documented by the medical student and made modifications to such information, when appropriate. I personally performed the physical exam and medical decision making. Kezia Khoury, Apr 14, 2020,20:33 MANUEL LOPEZ MED STUDENT Apr 14, 2020 13:39 KEZIA KHOURY DO Apr 14, 2020 20:31
[2020-04-14 16:25] VITALS: BP 134/78
--- NOTE | 2020-04-14 17:26 | Cardiology Progress Note ---
Cardiology SOAP Progress Note Subjective: No cardiac complaints. Objective: I&O/Vital Signs 04/15/20 04/15/20 04/15/20 08:00 08:00 12:00 Temp 35.6 35.6 Pulse 107 80 Resp 20 20 B/P (MAP) 133/89 (104) 123/76 (92) Pulse Ox 97 98 93 O2 Delivery Room Air NIV CPAP Room Air O2 Flow Rate 0.00 04/15/20 00:00 Intake Total 1640 ml Output Total 600 ml Balance 1040 ml Constitutional: AAO x 3 Respiratory: chest is bilaterally symmetric, lungs clear to auscultation Cardiovascular: irregularly irregular, S1 and S2 Gastrointestional: soft Extremities: significant edema, wound Neurologic/Psychiatric: no motor/sensory deficits, alert, normal mood/affect, oriented x 3 Skin: normal color, warm/dry, ulcerations on exposed areas Results/Procedures: Labs Laboratory Tests 04/15/20 05:40: White Blood Count 8.6, Red Blood Count 4.18L, Hemoglobin 12.9L, Hematocrit 41, Mean Corpuscular Volume 97, Mean Corpuscular Hemoglobin 31, Mean Corpuscular Hemoglobin Concent 32, Red Cell Distribution Width 13.6, Platelet Count 256, Mean Platelet Volume 10.6, Immature Granulocyte % (Auto) 4, Neutrophils (%) (Auto) 62, Lymphocytes (%) (Auto) 21, Monocytes (%) (Auto) 11, Eosinophils (%) (Auto) 1, Basophils (%) (Auto) 1, Neutrophils # (Auto) 5.4, Lymphocytes # (Auto) 1.8, Monocytes # (Auto) 0.9, Eosinophils # (Auto) 0.1, Basophils # (Auto) 0.1, Immature Granulocyte # (Auto) 0.4H, Sodium Level 138, Potassium Level 4.7, Chloride Level 101, Carbon Dioxide Level 29, Anion Gap 8, Blood Urea Nitrogen 16, Creatinine 1.01, Estimat Glomerular Filtration Rate > 60, BUN/Creatinine Ratio 16, Glucose Level 98, Calcium Level 8.9, Phosphorus Level 4.0, Magnesium Level 1.6 Microbiology 04/14/20 Gram Stain, Resulted Pending 04/14/20 Wound Culture - Preliminary, Resulted No growth 04/09/20 Blood Culture - Preliminary, Resulted No growth 04/09/20 Urine Culture - Final, Complete NO GROWTH A/P: Assessment/Dx: Sepsis, severe lower extremity cellulitis, Persistent Atrial fibrillation Hypertension Obstructive sleep apnea Morbid obesity Plan: Cellulitis, sepsis, managed by medical team Persistent Atrial fibrillation with controlled ventricular response, on by mouth Cardizem and oral anticoagulation. Hypertension, Cardizem. Acute renal insufficiency, receiving IV fluid, monitor renal function closely Elevated BNP, probably secondary to tachycardia, evaluate 2-D echo COPD/obstructive sleep apnea, maintained on C Pap. Morbid obesity Thank you for your consultation. Please call me if you have any questions. Ralph Christie MD, FACP, FACC, FSCAI, FHRS, CCDS Interventional Cardiology Cardiac Electrophysiology Vascular Medicine and Endovascular Interventions Eva CHRISTIE MD Apr 14, 2020 17:26
[2020-04-14] MEDS: fentaNYL INJECTION 100 MCG/2 ML AMP IV PRN (17:53)
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
[2020-04-14 20:55] VITALS: BP 115/98
[2020-04-15 00:15] VITALS: BP 104/70
[2020-04-15] MEDS: PIPERACILLIN/TAZOBACTAM (BULK) 4.5 GM in NS (IVPB) 100 ML IV SCH ×3 (01:06→16:05)
[2020-04-15 04:15] VITALS: BP 118/86
[2020-04-15] MEDS: HYDROcodone/APAP 5 MG/325 MG (LORTAB) TAB PO PRN ×3 (05:29→20:40)
[2020-04-15 05:55] LABS: BASOPHILS # (AUTO) 0.1 10^3/uL (0.0-0.1); BASOPHILS % (AUTO) 1 % (0-10); EOSINOPHILS # (AUTO) 0.1 10^3/uL (0.0-0.3); EOSINOPHILS % (AUTO) 1 % (0-10); HEMATOCRIT 41 % (40-54); HEMOGLOBIN 12.9 g/dL (13.3-17.7); LYMPHOCYTES # (AUTO) 1.8 10^3/uL (1.0-4.0); LYMPHOCYTES % (AUTO) 21 % (12-44); MEAN CORPUSCULAR HEMOGLOBIN 31 pg (25-34); MEAN CORPUSCULAR HGB CONC 32 g/dL (32-36); MEAN CORPUSCULAR VOLUME 97 fL (80-99); MEAN PLATELET VOLUME 10.6 fL (9.0-12.2); MONOCYTES # (AUTO) 0.9 10^3/uL (0.0-1.0); MONOCYTES % (AUTO) 11 % (0-12); NEUTROPHILS # (AUTO) 5.4 10^3/uL (1.8-7.8); NEUTROPHILS % (AUTO) 62 % (42-75); PLATELET COUNT 256 10^3/uL (130-400); WHITE BLOOD COUNT 8.6 10^3/uL (4.3-11.0)
[2020-04-15 06:04] LABS: CHLORIDE 101 MMOL/L (98-107); POTASSIUM 4.7 MMOL/L (3.6-5.0); SODIUM 138 MMOL/L (135-145)
[2020-04-15 06:05] LABS: CALCIUM 8.9 MG/DL (8.5-10.1)
[2020-04-15 06:06] LABS: GLUCOSE 98 MG/DL (70-105)
[2020-04-15 06:08] LABS: CARBON DIOXIDE 29 MMOL/L (21-32)
[2020-04-15 06:10] LABS: CREATININE SERUM 1.01 MG/DL (0.60-1.30); GFR ESTIMATED > 60
[2020-04-15 06:11] LABS: BUN/CREATININE RATIO 16
[2020-04-15 06:12] LABS: MAGNESIUM 1.6 MG/DL (1.6-2.4)
[2020-04-15] MEDS: LACTOBACILLUS ACIDOPHILUS (PROBIOTIC) CAPSULE PO SCH ×3 (07:38→17:08)
[2020-04-15 08:00] VITALS: BP 133/89
[2020-04-15] MEDS: meTOproloL SUCCINATE 50 MG (TOPROL XL) TAB PO SCH (08:39)
[2020-04-15] MEDS: APIXABAN 5 MG (ELIQUIS) TABLET PO SCH ×2 (08:39→20:40)
[2020-04-15] MEDS: NICOTINE PATCH REMOVAL TP SCH (08:40)
[2020-04-15] MEDS: NICOTINE 7 MG (NICODERM) PATCH TD SCH (09:00)
--- NOTE | 2020-04-15 10:10 | Physical Therapy Daily Note ---
PT Daily Note-Current Subjective Patient just completed a shower independently and returned to bed to elevate LE's. Agrees to exercises. Transfers SCALE: Activities may be completed with or without assistive devices. 7-Yjpxhlaftj-alecfdy completes the activity by him/herself with no assistance from a helper. 5-Set-up or Clean-up Assistance-helper sets up or cleans up; patient completes activity. [place]efors assists only prior to or following the activity. 4-Supervision or Touching Assistance-helper provides verbal cues and/or touching/steadying and/or contact guard assistance as patient completes activity. Assistance may be provided throughout the activity or intermittently. 3-Partial/Moderate Assistance-helper does LESS THAN HALF the effort. [place]efors lifts, holds or supports trunk or limbs, but provides less than half the effort. 2-Substantial/Maximal Assistance-helper does MORE THAN HALF the effort. [place]efors lifts or holds trunk or limbs and provides more than half the effort. 0-Fzpvffeic-iqmpha does ALL the effort. Patient does none of the effort to complete the activity. Or, the assistance of 2 or more helpers is required for the patient to complete the activity. If activity was not attempted, code reason: 7-Patient Refused. 9-Not Applicable-not attempted and the patient did not perform the activity before the current illness, exacerbation or injury. 10-Not Attempted due to Environmental Limitations-(lack of equipment, weather restraints, etc.). 88-Not Attempted due to Medical Conditions or Safety Concerns. Weight Bearing Right Lower Extremity: Right Weight Bearing/Tolerated Left Lower Extremity: Left Weight Bearing/Tolerated Exercises Supine Ex: Ankle pumps, Quad Set, Heel Slides, Straight leg raise Supine Reps: 15 Assessment Patient instructed to perform exercises independently during day to increase mobility and reduce edema. Patient voices understanding. PT Prison Goals Prison Goals PT Prison Goals Time Frame: Apr 21, 2020 Roll Left & Right (QC): 6 Sit to Lying (QC): 6 Lying-Sitting on Side/Bed(QC): 6 Sit to Stand (QC): 6 Chair/Uzp-cr-Qsnaj Xfer(QC): 6 Toilet Transfer (QC): 6 Car Transfer (QC): 5 Does the Patient Walk: No and Walking Goal IS indicated Walk 10 feet (QC): 4 Walk 50ft with 2 Turns (QC): 4 Walk 150 ft (QC): 4 1 Step (curb) (QC): 4 4 Steps (QC): 4 12 Steps (QC): 4 PT Plan Treatment/Plan Treatment Plan: Continue Plan of Care Treatment Plan: Bed Mobility, Education, Functional Activity Alondra, Functional Strength, Gait, Safety, Therapeutic Exercise, Transfers Treatment Duration: Apr 21, 2020 Frequency: 6 times per week Estimated Hrs Per Day: .25 hour per day Patient and/or Family Agrees t: Yes Time/GCodes Time In: 820 Time Out: 831 Total Billed Treatment Time: 11 Total Billed Treatment 1 visit EX 11 min EULALIO REYES PT Apr 15, 2020 10:10
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
[2020-04-15 12:00] VITALS: BP 123/76
--- NOTE | 2020-04-15 12:49 | Progress Note - Surgery ---
MANUEL LOPEZ MED STUDENT 04/15/20 1249: Subjective Date Seen by a Provider: Apr 15, 2020 Time Seen by a Provider: 07:10 Subjective/Events-last exam Zheng states his pain is the same as yesterday. Reports his left leg has become less red. Denies fever, chills, nausea, vomiting, chest pain, abdominal pain, SOB, and cough. Objective Exam Vital Signs Date Time Temp Pulse Resp B/P (MAP) Pulse Ox O2 Delivery O2 Flow Rate FiO2 04/15/20 12:00 35.6 80 20 123/76 (92) 93 Room Air 04/15/20 08:00 98 NIV CPAP 0.00 04/15/20 08:00 35.6 107 20 133/89 (104) 97 Room Air 04/15/20 04:15 35.8 96 20 118/86 (97) 98 NIV CPAP 04/15/20 00:15 35.4 89 22 104/70 (81) 94 NIV CPAP 04/14/20 21:55 Room Air 04/14/20 20:55 35.9 106 18 115/98 (104) 98 Room Air 04/14/20 19:00 90 04/14/20 16:25 36.2 88 18 134/78 (96) 97 NIV CPAP I & O 04/15/20 07:00 Intake Total 1840 ml Output Total 1200 ml Balance 640 ml Capillary Refill : Less Than 3 Seconds General Appearance: No Apparent Distress, Chronically ill, Obese HEENT: PERRL/EOMI Neck: Non Tender, Supple Respiratory: Lungs Clear, Normal Breath Sounds, No Accessory Muscle Use, No Respiratory Distress Cardiovascular: Regular Rate, Rhythm, No JVD, No Murmur Peripheral Pulses: 1+ Dorsalis Pedis (R), 1+ Left Dors-Pedis (L) Gastrointestinal: non tender, soft, no organomegaly Extremity: Other (erythema improving but still persistent on the lower calf, bullae apparent and draining. Edema of the left foot) Neurologic/Psychiatric: Alert, Oriented x3 Skin: Normal Color, Warm/Dry, Erythema (left leg with erythema and warmth, several large blisters on the left lower leg. ), Other (skin blistered and serous drainage) Lymphatic: No Adenopathy Results Lab Laboratory Tests 04/15/20 05:40: White Blood Count 8.6, Red Blood Count 4.18L, Hemoglobin 12.9L, Hematocrit 41, Mean Corpuscular Volume 97, Mean Corpuscular Hemoglobin 31, Mean Corpuscular Hemoglobin Concent 32, Red Cell Distribution Width 13.6, Platelet Count 256, Mean Platelet Volume 10.6, Immature Granulocyte % (Auto) 4, Neutrophils (%) (Auto) 62, Lymphocytes (%) (Auto) 21, Monocytes (%) (Auto) 11, Eosinophils (%) (Auto) 1, Basophils (%) (Auto) 1, Neutrophils # (Auto) 5.4, Lymphocytes # (Auto) 1.8, Monocytes # (Auto) 0.9, Eosinophils # (Auto) 0.1, Basophils # (Auto) 0.1, Immature Granulocyte # (Auto) 0.4H, Sodium Level 138, Potassium Level 4.7, Chloride Level 101, Carbon Dioxide Level 29, Anion Gap 8, Blood Urea Nitrogen 16, Creatinine 1.01, Estimat Glomerular Filtration Rate > 60, BUN/Creatinine Ratio 16, Glucose Level 98, Calcium Level 8.9, Phosphorus Level 4.0, Magnesium Level 1.6 Microbiology 04/14/20 Gram Stain, Resulted Pending 04/14/20 Wound Culture - Preliminary, Resulted No growth 04/09/20 Blood Culture - Preliminary, Resulted No growth 04/09/20 Urine Culture - Final, Complete NO GROWTH Assessment/Plan Assessment/Plan Assessment/Plan left leg cellulitis afib rvr large blister left lower extremity 2 smaller blisters now as well ct scan left lower extremity 04/09 no fractures u/s left lower extremity no evidence of dvt WBC at 8.6 decreased from 11.5 yesterday continue antibiotics elevate leg to relieve edema monitor left leg for any changes no surgical intervention at this time will follow Clinical Quality Measures DVT/VTE Risk/Contraindication: Risk Factor Score Per Nursin RFS Level Per Nursing on Admit: 4+=Very High KEZIA KHOURY DO 04/16/202115: Subjective Subjective/Events-last exam Patient states legs doing little bit better to same. His leg is less erythematous. He feels the swelling is gone down minimally. Not having any significant pain in the left lower extremity. Patient states he is elevating the leg some. Slight yellowish serous drainage. Denies any fever sweats chills shortness of breath or chest pain. Objective Exam General Appearance: No Apparent Distress, Chronically ill, Obese HEENT: PERRL/EOMI Neck: Non Tender, Supple Respiratory: Chest Non Tender, No Accessory Muscle Use, No Respiratory Distress Cardiovascular: Regular Rate, Rhythm, No JVD Gastrointestinal: non tender, soft, no organomegaly Extremity: Other (erythema improving but still persistent on the lower calf, bullae apparent and draining. Edema of the left foot) Neurologic/Psychiatric: Alert, Oriented x3 Skin: Erythema (left leg with erythema and warmth, several large blisters on the left lower leg. ), Other (skin blistered and serous drainage) Lymphatic: No Adenopathy Assessment/Plan Assessment/Plan Assessment/Plan left leg cellulitis afib rvr large blister left lower extremity 2 smaller blisters now as well ct scan left lower extremity 04/09 no fractures u/s left lower extremity no evidence of dvt WBC at 8.6 decreased from 11.5 yesterday continue antibiotics elevate leg to relieve edema monitor left leg for any changes no surgical intervention at this time will follow Supervisory-Addendum Brief Verification & Attestation Participated in pt care: history, MDM, physical Personally performed: exam, history, MDM, supervision of care Care discussed with: Medical Student Procedures: n/a Results interpretation: Verified all documentation Verification and Attestation of Medical Student E/M Service A medical student performed and documented this service in my presence. I reviewed and verified all information documented by the medical student and made modifications to such information, when appropriate. I personally performed the physical exam and medical decision making. Kezia Khoury, Apr 15, 2020,21:15 MANUEL LOPEZ MED STUDENT Apr 15, 2020 12:49 KEZIA KHOURY DO Apr 16, 2020 21:16
[2020-04-15 16:00] VITALS: BP 112/77
[2020-04-15 20:00] VITALS: BP 102/51
[2020-04-16] VITALS: BP 133/87
[2020-04-16] MEDS: PIPERACILLIN/TAZOBACTAM (BULK) 4.5 GM in NS (IVPB) 100 ML IV SCH ×4 (00:07→23:34)
[2020-04-16] MEDS: HYDROcodone/APAP 5 MG/325 MG (LORTAB) TAB PO PRN ×4 (01:06→20:03)
[2020-04-16 04:00] VITALS: BP 130/80
[2020-04-16] MEDS: fentaNYL INJECTION 100 MCG/2 ML AMP IV PRN ×3 (04:08→16:00)
[2020-04-16 04:36] LABS: CHLORIDE 98 MMOL/L (98-107); POTASSIUM 4.4 MMOL/L (3.6-5.0); SODIUM 135 MMOL/L (135-145)
[2020-04-16 04:37] LABS: BASOPHILS # (AUTO) 0.1 10^3/uL (0.0-0.1); BASOPHILS % (AUTO) 1 % (0-10); CALCIUM 8.9 MG/DL (8.5-10.1); EOSINOPHILS # (AUTO) 0.1 10^3/uL (0.0-0.3); EOSINOPHILS % (AUTO) 1 % (0-10); HEMATOCRIT 42 % (40-54); HEMOGLOBIN 13.2 g/dL (13.3-17.7); LYMPHOCYTES # (AUTO) 3.1 10^3/uL (1.0-4.0); LYMPHOCYTES % (AUTO) 30 % (12-44); MEAN CORPUSCULAR HEMOGLOBIN 31 pg (25-34); MEAN CORPUSCULAR HGB CONC 32 g/dL (32-36); MEAN CORPUSCULAR VOLUME 97 fL (80-99); MEAN PLATELET VOLUME 10.7 fL (9.0-12.2); MONOCYTES # (AUTO) 1.1 10^3/uL (0.0-1.0); MONOCYTES % (AUTO) 10 % (0-12); NEUTROPHILS # (AUTO) 5.7 10^3/uL (1.8-7.8); NEUTROPHILS % (AUTO) 55 % (42-75); PLATELET COUNT 309 10^3/uL (130-400); WHITE BLOOD COUNT 10.5 10^3/uL (4.3-11.0)
[2020-04-16 04:38] LABS: GLUCOSE 104 MG/DL (70-105)
[2020-04-16 04:39] LABS: CARBON DIOXIDE 29 MMOL/L (21-32)
[2020-04-16 04:42] LABS: GFR ESTIMATED > 60; PHOSPHORUS 3.8 MG/DL (2.3-4.7)
[2020-04-16 04:43] LABS: BUN/CREATININE RATIO 15
[2020-04-16 04:44] LABS: MAGNESIUM 1.5 MG/DL (1.6-2.4)
[2020-04-16] MEDS: APIXABAN 5 MG (ELIQUIS) TABLET PO SCH ×2 (07:57→20:03)
[2020-04-16] MEDS: meTOproloL SUCCINATE 50 MG (TOPROL XL) TAB PO SCH (07:57)
[2020-04-16] MEDS: LACTOBACILLUS ACIDOPHILUS (PROBIOTIC) CAPSULE PO SCH ×3 (07:57→18:29)
[2020-04-16] MEDS: NICOTINE PATCH REMOVAL TP SCH (07:57)
[2020-04-16] MEDS: NICOTINE 7 MG (NICODERM) PATCH TD SCH (07:57)
[2020-04-16 08:00] VITALS: BP 96/57
--- NOTE | 2020-04-16 09:14 | NUR ---
Received order from Dr Christie for EKG to confirm patient is out of afib.
--- NOTE | 2020-04-16 09:44 | Physical Therapy Progress Note ---
Therapy Progress Note PT assessed patient who is up independently in room and is performing exercises left LE with AP, HS and SLR independently. Patient voices no concern. PT to dismiss patient from services secondary to independent LOF with exercise and mobility safely. 1 visit (905) EULALIO REYES PT Apr 16, 2020 09:44
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
[2020-04-16 12:00] VITALS: BP 135/83
--- NOTE | 2020-04-16 14:16 | Progress Note - Surgery ---
MANUEL LOPEZ MED STUDENT 04/16/20 1416: Subjective Date Seen by a Provider: Apr 16, 2020 Time Seen by a Provider: 07:10 Subjective/Events-last exam Zheng states his left leg is less red and his foot is less swollen. He complains of pain when he lowers his leg due to swelling at the foot. He denies chest pain, abdominal pain, SOB, fever, chills, and new rashes. Objective Exam Vital Signs Date Time Temp Pulse Resp B/P (MAP) Pulse Ox O2 Delivery O2 Flow Rate FiO2 04/16/20 12:00 36.1 117 18 135/83 (100) 97 Room Air 04/16/20 08:05 NIV CPAP 04/16/20 08:00 35.4 88 20 96/57 (70) 95 Room Air 04/16/20 04:00 36.0 95 20 130/80 (97) 92 Room Air 04/16/20 00:00 36.1 96 20 133/87 (102) 94 Room Air 04/15/20 20:00 NIV CPAP 04/15/20 20:00 35.9 89 20 102/51 (68) 96 Room Air 04/15/20 16:00 36.1 97 20 112/77 (89) 96 Room Air I & O 04/16/20 07:00 Intake Total 1200 ml Output Total 2150 ml Balance -950 ml Capillary Refill : Less Than 3 Seconds General Appearance: No Apparent Distress, Chronically ill, Obese HEENT: PERRL/EOMI Neck: Non Tender, Supple Respiratory: No Accessory Muscle Use, No Respiratory Distress Cardiovascular: Regular Rate, Rhythm, No JVD, No Murmur Peripheral Pulses: 1+ Dorsalis Pedis (R), 1+ Left Dors-Pedis (L) Gastrointestinal: non tender, soft, no organomegaly Extremity: Other (continued improving erythema, large bullae apparent still with drainage) Neurologic/Psychiatric: Alert, Oriented x3 Skin: Normal Color, Warm/Dry, Erythema (left leg with erythema and warmth, several large blisters on the left lower leg. ) Lymphatic: No Adenopathy Results Lab Laboratory Tests 04/16/20 04:19: White Blood Count 10.5, Red Blood Count 4.29L, Hemoglobin 13.2L, Hematocrit 42, Mean Corpuscular Volume 97, Mean Corpuscular Hemoglobin 31, Mean Corpuscular Hemoglobin Concent 32, Red Cell Distribution Width 13.6, Platelet Count 309, Mean Platelet Volume 10.7, Immature Granulocyte % (Auto) 4, Neutrophils (%) (Auto) 55, Lymphocytes (%) (Auto) 30, Monocytes (%) (Auto) 10, Eosinophils (%) (Auto) 1, Basophils (%) (Auto) 1, Neutrophils # (Auto) 5.7, Lymphocytes # (Auto) 3.1, Monocytes # (Auto) 1.1H, Eosinophils # (Auto) 0.1, Basophils # (Auto) 0.1, Immature Granulocyte # (Auto) 0.4H, Sodium Level 135, Potassium Level 4.4, Chloride Level 98, Carbon Dioxide Level 29, Anion Gap 8, Blood Urea Nitrogen 16, Creatinine 1.10, Estimat Glomerular Filtration Rate > 60, BUN/Creatinine Ratio 15, Glucose Level 104, Calcium Level 8.9, Phosphorus Level 3.8, Magnesium Level 1.5L Microbiology 04/14/20 Gram Stain - Final, Resulted 04/14/20 Wound Culture - Preliminary, Resulted No growth 04/09/20 Blood Culture - Final, Complete No growth 04/09/20 Urine Culture - Final, Complete NO GROWTH Assessment/Plan Assessment/Plan Assessment/Plan left leg cellulitis afib rvr large blister left lower extremity 2 smaller blisters now as well ct scan left lower extremity 04/09 no fractures u/s left lower extremity no evidence of dvt WBC increased slightly to 10.5 from 8.6 yesterday left foot edema appears improved compared to yesterday continue antibiotics elevate leg to relieve edema monitor left leg for any changes no surgical intervention at this time will follow Clinical Quality Measures DVT/VTE Risk/Contraindication: Risk Factor Score Per Nursin RFS Level Per Nursing on Admit: 4+=Very High KEZIA KHOURY DO 04/16/202122: Subjective Subjective/Events-last exam Leg has improved today he states. Less redness less edema. He has an elevated today. Patient states overall feeling better. Denies any nausea vomiting fever sweats chills shortness of breath or chest pain. Still with some serous drainage. Objective Exam General Appearance: No Apparent Distress, Chronically ill, Obese HEENT: PERRL/EOMI, Normal ENT Inspection Neck: Non Tender, Supple Respiratory: Chest Non Tender, No Accessory Muscle Use, No Respiratory Distress Cardiovascular: Regular Rate, Rhythm, No JVD Gastrointestinal: non tender, soft, no organomegaly Extremity: Pedal Edema, Other (continued improving erythema, large bullae apparent still with drainage) Neurologic/Psychiatric: Alert, Oriented x3 Skin: Erythema (left leg with erythema and warmth, several large blisters on the left lower leg. ) Lymphatic: No Adenopathy Assessment/Plan Assessment/Plan Assessment/Plan left leg cellulitis afib rvr large blister left lower extremity 2 smaller blisters now as well ct scan left lower extremity 04/09 no fractures u/s left lower extremity no evidence of dvt WBC increased slightly to 10.5 from 8.6 yesterday left foot edema appears improved compared to yesterday continue antibiotics elevate leg to relieve edema monitor left leg for any changes no surgical intervention at this time will follow Supervisory-Addendum Brief Verification & Attestation Participated in pt care: history, MDM, physical Personally performed: exam, history, MDM, supervision of care Care discussed with: Medical Student Procedures: n/a Results interpretation: Verified all documentation Verification and Attestation of Medical Student E/M Service A medical student performed and documented this service in my presence. I reviewed and verified all information documented by the medical student and made modifications to such information, when appropriate. I personally performed the physical exam and medical decision making. Kezia Khoury, Apr 16, 2020,21:25 MANUEL LOPEZ MED STUDENT Apr 16, 2020 14:16 KEZIA KHOURY DO Apr 16, 2020 21:23
--- NOTE | 2020-04-16 15:09 | Cardiology Progress Note ---
Cardiology SOAP Progress Note Subjective: No cardiac complaints. No palpitations. Objective: I&O/Vital Signs 04/16/20 04/16/20 04/16/20 04/16/20 04:00 08:00 08:05 12:00 Temp 36.0 35.4 36.1 Pulse 95 88 117 Resp 20 20 18 B/P (MAP) 130/80 (97) 96/57 (70) 135/83 (100) Pulse Ox 92 95 97 O2 Delivery Room Air Room Air NIV CPAP Room Air 04/16/20 00:00 Intake Total 850 ml Output Total 1400 ml Balance -550 ml Constitutional: AAO x 3 Respiratory: chest is bilaterally symmetric, lungs clear to auscultation Cardiovascular: regular rate-rhythm, S1 and S2 Gastrointestional: soft Extremities: significant edema, wound Neurologic/Psychiatric: no motor/sensory deficits, alert, normal mood/affect, oriented x 3 Skin: normal color, warm/dry, ulcerations on exposed areas Results/Procedures: Labs Laboratory Tests 04/16/20 04:19: White Blood Count 10.5, Red Blood Count 4.29L, Hemoglobin 13.2L, Hematocrit 42, Mean Corpuscular Volume 97, Mean Corpuscular Hemoglobin 31, Mean Corpuscular Hemoglobin Concent 32, Red Cell Distribution Width 13.6, Platelet Count 309, Mean Platelet Volume 10.7, Immature Granulocyte % (Auto) 4, Neutrophils (%) (Auto) 55, Lymphocytes (%) (Auto) 30, Monocytes (%) (Auto) 10, Eosinophils (%) ( Auto) 1, Basophils (%) (Auto) 1, Neutrophils # (Auto) 5.7, Lymphocytes # (Auto) 3.1, Monocytes # (Auto) 1.1H, Eosinophils # (Auto) 0.1, Basophils # (Auto) 0.1, Immature Granulocyte # (Auto) 0.4H, Sodium Level 135, Potassium Level 4.4, Chloride Level 98, Carbon Dioxide Level 29, Anion Gap 8, Blood Urea Nitrogen 16, Creatinine 1.10, Estimat Glomerular Filtration Rate > 60, BUN/Creatinine Ratio 15, Glucose Level 104, Calcium Level 8.9, Phosphorus Level 3.8, Magnesium Level 1.5L Microbiology 04/14/20 Gram Stain - Final, Resulted 04/14/20 Wound Culture - Preliminary, Resulted No growth 04/09/20 Blood Culture - Final, Complete No growth 04/09/20 Urine Culture - Final, Complete NO GROWTH A/P: Assessment/Dx: Sepsis, severe lower extremity cellulitis, Persistent Atrial fibrillation Hypertension Obstructive sleep apnea Morbid obesity Plan: Cellulitis, sepsis, managed by medical team Persistent Atrial fibrillation with controlled ventricular response, on by mouth Cardizem and oral anticoagulation. Regular heart rate today. I will request EKG. Hypertension, Cardizem. Acute renal insufficiency, receiving IV fluid, monitor renal function closely Elevated BNP, probably secondary to tachycardia, evaluate 2-D echo COPD/obstructive sleep apnea, maintained on C Pap. Morbid obesity Thank you for your consultation. Please call me if you have any questions. Ralph Christie MD, FACP, FACC, FSCAI, FHRS, CCDS Interventional Cardiology Cardiac Electrophysiology Vascular Medicine and Endovascular Interventions Eva CHRISTIE MD Apr 16, 2020 15:09
[2020-04-16 16:42] VITALS: BP 155/89
[2020-04-16 20:09] VITALS: BP 104/65
[2020-04-16] MEDS: ALPRAZolam 0.25 MG (XANAX) TAB PO PRN (23:34)
[2020-04-17] VITALS: BP 105/65
[2020-04-17] MEDS: fentaNYL INJECTION 100 MCG/2 ML AMP IV PRN ×4 (03:29→23:42)
[2020-04-17] MEDS: HYDROcodone/APAP 5 MG/325 MG (LORTAB) TAB PO PRN ×4 (03:29→16:07)
[2020-04-17 03:32] VITALS: BP 129/79
[2020-04-17 05:28] LABS: BASOPHILS % (AUTO) 1 % (0-10); EOSINOPHILS # (AUTO) 0.1 10^3/uL (0.0-0.3); EOSINOPHILS % (AUTO) 1 % (0-10); HEMATOCRIT 38 % (40-54); HEMOGLOBIN 12.1 g/dL (13.3-17.7); LYMPHOCYTES % (AUTO) 26 % (12-44); MEAN CORPUSCULAR HEMOGLOBIN 31 pg (25-34); MEAN CORPUSCULAR HGB CONC 32 g/dL (32-36); MEAN CORPUSCULAR VOLUME 97 fL (80-99); MEAN PLATELET VOLUME 10.6 fL (9.0-12.2); MONOCYTES # (AUTO) 0.8 10^3/uL (0.0-1.0); MONOCYTES % (AUTO) 11 % (0-12); NEUTROPHILS # (AUTO) 4.5 10^3/uL (1.8-7.8); NEUTROPHILS % (AUTO) 60 % (42-75); PLATELET COUNT 246 10^3/uL (130-400); WHITE BLOOD COUNT 7.4 10^3/uL (4.3-11.0)
[2020-04-17 05:33] LABS: CHLORIDE 98 MMOL/L (98-107); POTASSIUM 4.2 MMOL/L (3.6-5.0); SODIUM 136 MMOL/L (135-145)
[2020-04-17 05:34] LABS: CALCIUM 8.6 MG/DL (8.5-10.1)
[2020-04-17 05:35] LABS: GLUCOSE 106 MG/DL (70-105)
[2020-04-17 05:36] LABS: CARBON DIOXIDE 30 MMOL/L (21-32)
[2020-04-17 05:38] LABS: PHOSPHORUS 3.8 MG/DL (2.3-4.7)
[2020-04-17 05:39] LABS: CREATININE SERUM 1.04 MG/DL (0.60-1.30); GFR ESTIMATED > 60
[2020-04-17 05:40] LABS: BUN/CREATININE RATIO 16
[2020-04-17 05:41] LABS: MAGNESIUM 1.5 MG/DL (1.6-2.4)
[2020-04-17] MEDS: PIPERACILLIN/TAZOBACTAM (BULK) 4.5 GM in NS (IVPB) 100 ML IV SCH ×3 (07:54→23:42)
[2020-04-17] MEDS: LACTOBACILLUS ACIDOPHILUS (PROBIOTIC) CAPSULE PO SCH ×3 (07:55→17:22)
[2020-04-17] MEDS: NICOTINE 7 MG (NICODERM) PATCH TD SCH (07:55)
[2020-04-17] MEDS: NICOTINE PATCH REMOVAL TP SCH (07:55)
[2020-04-17] MEDS: APIXABAN 5 MG (ELIQUIS) TABLET PO SCH ×2 (07:55→20:09)
[2020-04-17 08:00] VITALS: BP 111/84
[2020-04-17] MEDS: meTOproloL SUCCINATE 50 MG (TOPROL XL) TAB PO SCH (09:14)
--- NOTE | 2020-04-17 11:51 | Progress Note - Surgery ---
Subjective Time Seen by a Provider: 10:33 Subjective/Events-last exam Pt seen and examined, he states no new changes and thinks leg looks better. Has some pain but it is controlled; worse if he walks. Review of Systems Pulmonary: No Dyspnea, No Cough Cardiovascular: No: Chest Pain, Palpitations Gastrointestinal: No: Nausea, Vomiting, Abdominal Pain Musculoskeletal: leg pain Objective Exam Vital Signs Date Time Temp Pulse Resp B/P (MAP) Pulse Ox O2 Delivery O2 Flow Rate FiO2 04/17/20 08:00 94 Room Air 0.00 04/17/20 08:00 35.9 97 20 111/84 (93) 94 Room Air 04/17/20 03:32 36.0 72 20 129/79 (96) 95 Room Air 04/17/20 00:00 36.4 71 14 105/65 (78) 93 Room Air 04/16/20 20:09 36.2 85 20 104/65 (78) 96 Room Air 04/16/20 20:00 NIV CPAP 04/16/20 16:42 36.0 70 22 155/89 (111) 92 Room Air 04/16/20 12:00 36.1 117 18 135/83 (100) 97 Room Air I & O 04/17/20 07:00 Intake Total 2275 ml Output Total 1785 ml Balance 490 ml Capillary Refill : Less Than 3 Seconds General Appearance: No Apparent Distress, Obese HEENT: PERRL/EOMI Respiratory: Chest Non Tender, Lungs Clear, Normal Breath Sounds, No Accessory Muscle Use, No Respiratory Distress Cardiovascular: Regular Rate, Rhythm, No JVD Peripheral Pulses: 1+ Dorsalis Pedis (R), 1+ Left Dors-Pedis (L) Gastrointestinal: non tender, soft, no organomegaly, other (has some bruising on abdomen) Extremity: Pedal Edema, Other (continued improving erythema, large bullae apparent still with drainage) Neurologic/Psychiatric: Alert, Oriented x3 Skin: Erythema (left leg with erythema and warmth, several large blisters on the left lower leg. ) Results Lab Laboratory Tests 04/17/20 04:40: White Blood Count 7.4, Red Blood Count 3.88L, Hemoglobin 12.1L, Hematocrit 38L, Mean Corpuscular Volume 97, Mean Corpuscular Hemoglobin 31, Mean Corpuscular Hemoglobin Concent 32, Red Cell Distribution Width 13.3, Platelet Count 246, Mean Platelet Volume 10.6, Immature Granulocyte % (Auto) 1, Neutrophils (%) (Auto) 60, Lymphocytes (%) (Auto) 26, Monocytes (%) (Auto) 11, Eosinophils (%) (Auto) 1, Basophils (%) (Auto) 1, Neutrophils # (Auto) 4.5, Lymphocytes # (Auto) 2.0, Monocytes # (Auto) 0.8, Eosinophils # (Auto) 0.1, Basophils # (Auto) 0.0, Immature Granulocyte # (Auto) 0.1, Sodium Level 136, Potassium Level 4.2, Chloride Level 98, Carbon Dioxide Level 30, Anion Gap 8, Blood Urea Nitrogen 17, Creatinine 1.04, Estimat Glomerular Filtration Rate > 60, BUN/Creatinine Ratio 16, Glucose Level 106H, Calcium Level 8.6, Phosphorus Level 3.8, Magnesium Level 1.5L Microbiology 04/14/20 Gram Stain - Final, Resulted 04/14/20 Wound Culture - Preliminary, Resulted No growth 04/09/20 Blood Culture - Final, Complete No growth 04/09/20 Urine Culture - Final, Complete NO GROWTH Assessment/Plan Assessment/Plan Assessment/Plan Left leg cellulitis Afib with RVR Multiple large blisters left lower extremity u/s left lower extremity no evidence of dvt WBC is 7.4 today, left foot edema appears improved compared to yesterday continue antibiotics elevate leg to relieve edema monitor left leg for any changes no surgical intervention at this time will follow Clinical Quality Measures DVT/VTE Risk/Contraindication: Risk Factor Score Per Nursin RFS Level Per Nursing on Admit: 4+=Very High DAWSON NUGENT DO Apr 17, 2020 11:51
[2020-04-17 12:00] VITALS: BP 124/84
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
--- NOTE | 2020-04-17 15:30 | NUR ---
ASSUMED CARE OF THE PATIENT AT THIS TIME. REPORT RECEIVED FROM ZOË FELIPE. PATIENT HAS HOME CPAP ON AND IS RESTING WITH EYES CLOSED. WILL CONTINUE TO MONITOR.
[2020-04-17 16:14] VITALS: BP 108/73
--- NOTE | 2020-04-17 17:18 | Cardiology Progress Note ---
Cardiology SOAP Progress Note Subjective: no cardiac complaints. Objective: I&O/Vital Signs 04/17/20 04/17/20 04/17/20 04/17/20 08:00 08:00 12:00 16:14 Temp 35.9 36.0 36.2 Pulse 97 106 75 Resp 20 18 20 B/P (MAP) 111/84 (93) 124/84 (97) 108/73 (85) Pulse Ox 94 94 96 96 O2 Delivery Room Air Room Air Room Air Room Air O2 Flow Rate 0.00 04/17/20 00:00 Intake Total 1425 ml Output Total 1510 ml Balance -85 ml Constitutional: AAO x 3 Respiratory: chest is bilaterally symmetric, lungs clear to auscultation Cardiovascular: irregularly irregular, S1 and S2 Gastrointestional: soft Extremities: significant edema, wound Neurologic/Psychiatric: no motor/sensory deficits, alert, normal mood/affect, oriented x 3 Skin: normal color, warm/dry, ulcerations on exposed areas Results/Procedures: Labs Laboratory Tests 04/17/20 04:40: White Blood Count 7.4, Red Blood Count 3.88L, Hemoglobin 12.1L, Hematocrit 38L, Mean Corpuscular Volume 97, Mean Corpuscular Hemoglobin 31, Mean Corpuscular Hemoglobin Concent 32, Red Cell Distribution Width 13.3, Platelet Count 246, Mean Platelet Volume 10.6, Immature Granulocyte % (Auto) 1, Neutrophils (%) (Auto) 60, Lymphocytes (%) (Auto) 26, Monocytes (%) (Auto) 11, Eosinophils (%) (Auto) 1, Basophils (%) (Auto) 1, Neutrophils # (Auto) 4.5, Lymphocytes # (Auto) 2.0, Monocytes # (Auto) 0.8, Eosinophils # (Auto) 0.1, Basophils # (Auto) 0.0, Immature Granulocyte # (Auto) 0.1, Sodium Level 136, Potassium Level 4.2, Chloride Level 98, Carbon Dioxide Level 30, Anion Gap 8, Blood Urea Nitrogen 17, Creatinine 1.04, Estimat Glomerular Filtration Rate > 60, BUN/Creatinine Ratio 16, Glucose Level 106H, Calcium Level 8.6, Phosphorus Level 3.8, Magnesium Level 1.5L Microbiology 04/14/20 Gram Stain - Final, Complete 04/14/20 Wound Culture - Final, Complete No growth 04/09/20 Blood Culture - Final, Complete No growth 04/09/20 Urine Culture - Final, Complete NO GROWTH A/P: Assessment/Dx: Sepsis, severe lower extremity cellulitis, Persistent Atrial fibrillation Hypertension Obstructive sleep apnea Morbid obesity Plan: Cellulitis, sepsis, managed by medical team Persistent Atrial fibrillation with controlled ventricular response, on by mouth Cardizem and oral anticoagulation. still in atrial fibrillation. Hypertension, Cardizem. Acute renal insufficiency, receiving IV fluid, monitor renal function closely Elevated BNP, probably secondary to tachycardia, evaluate 2-D echo COPD/obstructive sleep apnea, maintained on C Pap. Morbid obesity Thank you for your consultation. Please call me if you have any questions. Ralph Christie MD, FACP, FACC, FSCAI, FHRS, CCDS Interventional Cardiology Cardiac Electrophysiology Vascular Medicine and Endovascular Interventions Eva CHRISTIE MD Apr 17, 2020 17:18
[2020-04-17 19:42] VITALS: BP 101/61
[2020-04-17] MEDS: ALPRAZolam 0.25 MG (XANAX) TAB PO PRN (23:42)
[2020-04-18] VITALS: BP 114/78
[2020-04-18] MEDS: HYDROcodone/APAP 5 MG/325 MG (LORTAB) TAB PO PRN ×5 (02:58→22:23)
[2020-04-18] MEDS: fentaNYL INJECTION 100 MCG/2 ML AMP IV PRN ×2 (02:59→05:51)
[2020-04-18 04:01] VITALS: BP 117/99
[2020-04-18 04:39] LABS: CHLORIDE 97 MMOL/L (98-107); SODIUM 135 MMOL/L (135-145)
[2020-04-18 04:40] LABS: CALCIUM 8.3 MG/DL (8.5-10.1)
[2020-04-18 04:41] LABS: GLUCOSE 99 MG/DL (70-105)
[2020-04-18 04:42] LABS: CARBON DIOXIDE 29 MMOL/L (21-32)
[2020-04-18 04:45] LABS: CREATININE SERUM 1.04 MG/DL (0.60-1.30); GFR ESTIMATED > 60; PHOSPHORUS 3.9 MG/DL (2.3-4.7)
[2020-04-18 04:46] LABS: BUN/CREATININE RATIO 15
[2020-04-18 04:47] LABS: MAGNESIUM 1.6 MG/DL (1.6-2.4)
[2020-04-18 04:56] LABS: BASOPHILS # (AUTO) 0.1 10^3/uL (0.0-0.1); BASOPHILS % (AUTO) 1 % (0-10); EOSINOPHILS # (AUTO) 0.1 10^3/uL (0.0-0.3); EOSINOPHILS % (AUTO) 1 % (0-10); HEMATOCRIT 38 % (40-54); HEMOGLOBIN 11.8 g/dL (13.3-17.7); LYMPHOCYTES % (AUTO) 28 % (12-44); MEAN CORPUSCULAR HEMOGLOBIN 30 pg (25-34); MEAN CORPUSCULAR HGB CONC 31 g/dL (32-36); MEAN CORPUSCULAR VOLUME 97 fL (80-99); MEAN PLATELET VOLUME 10.4 fL (9.0-12.2); MONOCYTES # (AUTO) 0.7 10^3/uL (0.0-1.0); MONOCYTES % (AUTO) 9 % (0-12); NEUTROPHILS # (AUTO) 4.4 10^3/uL (1.8-7.8); NEUTROPHILS % (AUTO) 60 % (42-75); PLATELET COUNT 242 10^3/uL (130-400); WHITE BLOOD COUNT 7.3 10^3/uL (4.3-11.0)
[2020-04-18] MEDS: LACTOBACILLUS ACIDOPHILUS (PROBIOTIC) CAPSULE PO SCH ×3 (07:55→16:54)
[2020-04-18 08:00] VITALS: BP 114/69
[2020-04-18] MEDS: NICOTINE 7 MG (NICODERM) PATCH TD SCH (08:43)
[2020-04-18] MEDS: NICOTINE PATCH REMOVAL TP SCH (08:43)
[2020-04-18] MEDS: meTOproloL SUCCINATE 50 MG (TOPROL XL) TAB PO SCH (09:05)
[2020-04-18] MEDS: APIXABAN 5 MG (ELIQUIS) TABLET PO SCH ×2 (09:05→19:51)
--- NOTE | 2020-04-18 10:18 | Progress Note - Surgery ---
Subjective Time Seen by a Provider: 09:25 Subjective/Events-last exam Pt seen and examined, states minimal pain. Review of Systems General: No Chills, No Night Sweats Pulmonary: No Dyspnea, No Cough Cardiovascular: No: Chest Pain, Palpitations Gastrointestinal: No: Nausea, Vomiting, Abdominal Pain Objective Exam Vital Signs Date Time Temp Pulse Resp B/P (MAP) Pulse Ox O2 Delivery O2 Flow Rate FiO2 04/18/20 08:00 NIV CPAP 04/18/20 08:00 36.5 110 20 114/69 (84) 96 Room Air 04/18/20 04:01 36.1 82 18 117/99 (105) 96 NIV CPAP 0.00 04/18/20 00:00 36.2 89 20 114/78 (90) 95 NIV CPAP 0.00 0.00 04/17/20 20:00 NIV CPAP 04/17/20 19:42 36.1 81 20 101/61 (74) 95 Room Air 04/17/20 16:14 36.2 75 20 108/73 (85) 96 Room Air 04/17/20 12:00 36.0 106 18 124/84 (97) 96 Room Air I & O 04/18/20 07:00 Intake Total 2499 ml Output Total 1660 ml Balance 839 ml Capillary Refill : Less Than 3 Seconds General Appearance: No Apparent Distress, Obese HEENT: PERRL/EOMI Respiratory: Lungs Clear, No Accessory Muscle Use, No Respiratory Distress, Other (CPAP in place) Cardiovascular: Regular Rate, Rhythm, No JVD Peripheral Pulses: 1+ Dorsalis Pedis (R), 1+ Left Dors-Pedis (L) Gastrointestinal: non tender, soft, no organomegaly, other (has some bruising on abdomen) Extremity: Other (persisent erythema of left lower extremity with bullae stilling draining but less so) Neurologic/Psychiatric: Alert, Oriented x3 Skin: Erythema (left leg with erythema and warmth, several large blisters on the left lower leg. ) Results Lab Laboratory Tests 04/18/20 03:45: White Blood Count 7.3, Red Blood Count 3.89L, Hemoglobin 11.8L, Hematocrit 38L, Mean Corpuscular Volume 97, Mean Corpuscular Hemoglobin 30, Mean Corpuscular Hemoglobin Concent 31L, Red Cell Distribution Width 13.2, Platelet Count 242, Mean Platelet Volume 10.4, Immature Granulocyte % (Auto) 1, Neutrophils (%) (Auto) 60, Lymphocytes (%) (Auto) 28, Monocytes (%) (Auto) 9, Eosinophils (%) (Auto) 1, Basophils (%) (Auto) 1, Neutrophils # (Auto) 4.4, Lymphocytes # (Auto) 2.0, Monocytes # (Auto) 0.7, Eosinophils # (Auto) 0.1, Basophils # (Auto) 0.1, Immature Granulocyte # (Auto) 0.1, Sodium Level 135, Potassium Level 4.0, Chloride Level 97L, Carbon Dioxide Level 29, Anion Gap 9, Blood Urea Nitrogen 16, Creatinine 1.04, Estimat Glomerular Filtration Rate > 60, BUN/Creatinine Ratio 15, Glucose Level 99, Calcium Level 8.3L, Phosphorus Level 3.9, Magnesium Level 1.6 Microbiology 04/14/20 Gram Stain - Final, Complete 04/14/20 Wound Culture - Final, Complete No growth 04/09/20 Blood Culture - Final, Complete No growth 04/09/20 Urine Culture - Final, Complete NO GROWTH Assessment/Plan Assessment/Plan Assessment/Plan Left leg cellulitis Afib with RVR Multiple large blisters left lower extremity u/s left lower extremity no evidence of dvt WBC is 7.4 today, left foot edema appears improved compared to yesterday continue antibiotics elevate leg to relieve edema This leg is not really improving, but not getting worse. He may need to have surgical debridement to get rid of necrotic tissue, I will discuss with Dr. Khoury. Clinical Quality Measures DVT/VTE Risk/Contraindication: Risk Factor Score Per Nursin RFS Level Per Nursing on Admit: 4+=Very High DAWSON NUGENT DO Apr 18, 2020 10:18
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
[2020-04-18 15:35] VITALS: BP 111/66
--- NOTE | 2020-04-18 15:42 | Cardiology Progress Note ---
Cardiology SOAP Progress Note Subjective: no cardiac complaints. Objective: I&O/Vital Signs 04/18/20 04/18/20 04/18/20 04/18/20 04:01 08:00 08:00 15:35 Temp 36.1 36.5 36.4 Pulse 82 110 85 Resp 18 20 21 B/P (MAP) 117/99 (105) 114/69 (84) 111/66 (81) Pulse Ox 96 96 94 O2 Delivery NIV CPAP Room Air NIV CPAP Room Air O2 Flow Rate 0.00 04/18/20 00:00 Intake Total 1779 ml Output Total 1175 ml Balance 604 ml Constitutional: AAO x 3 Respiratory: chest is bilaterally symmetric, lungs clear to auscultation Cardiovascular: irregularly irregular, S1 and S2 Gastrointestional: soft Extremities: significant edema, wound Neurologic/Psychiatric: no motor/sensory deficits, alert, normal mood/affect, oriented x 3 Skin: normal color, warm/dry, ulcerations on exposed areas Results/Procedures: Labs Laboratory Tests 04/18/20 03:45: White Blood Count 7.3, Red Blood Count 3.89L, Hemoglobin 11.8L, Hematocrit 38L, Mean Corpuscular Volume 97, Mean Corpuscular Hemoglobin 30, Mean Corpuscular Hemoglobin Concent 31L, Red Cell Distribution Width 13.2, Platelet Count 242, Mean Platelet Volume 10.4, Immature Granulocyte % (Auto) 1, Neutrophils (%) (Auto) 60, Lymphocytes (%) (Auto) 28, Monocytes (%) (Auto) 9, Eosinophils (%) (Auto) 1, Basophils (%) (Auto) 1, Neutrophils # (Auto) 4.4, Lymphocytes # (Auto) 2.0, Monocytes # (Auto) 0.7, Eosinophils # (Auto) 0.1, Basophils # (Auto) 0.1, Immature Granulocyte # (Auto) 0.1, Sodium Level 135, Potassium Level 4.0, Chloride Level 97L, Carbon Dioxide Level 29, Anion Gap 9, Blood Urea Nitrogen 16 , Creatinine 1.04, Estimat Glomerular Filtration Rate > 60, BUN/Creatinine Ratio 15, Glucose Level 99, Calcium Level 8.3L, Phosphorus Level 3.9, Magnesium Level 1.6 Microbiology 04/14/20 Gram Stain - Final, Complete 04/14/20 Wound Culture - Final, Complete No growth 04/09/20 Blood Culture - Final, Complete No growth 04/09/20 Urine Culture - Final, Complete NO GROWTH A/P: Assessment/Dx: Sepsis, severe lower extremity cellulitis, Persistent Atrial fibrillation Hypertension Obstructive sleep apnea Morbid obesity Plan: Cellulitis, sepsis, managed by medical team Persistent Atrial fibrillation with controlled ventricular response, on by mouth Cardizem and oral anticoagulation. still in atrial fibrillation. Hypertension, Cardizem. Acute renal insufficiency, receiving IV fluid, monitor renal function closely Elevated BNP, probably secondary to tachycardia, evaluate 2-D echo COPD/obstructive sleep apnea, maintained on C Pap. Morbid obesity Thank you for your consultation. Please call me if you have any questions. Ralph Christie MD, FACP, FACC, FSCAI, FHRS, CCDS Interventional Cardiology Cardiac Electrophysiology Vascular Medicine and Endovascular Interventions Eva CHRISTIE MD Apr 18, 2020 15:42
[2020-04-18] MEDS: AUGMENTIN 875 MG TAB (AMOXICILLIN/CLAVULANATE) PO SCH (16:54)
[2020-04-18 23:12] VITALS: BP 124/72
[2020-04-19] VITALS (11 sets, daily range): BP systolic 106–118; BP diastolic 71–83
[2020-04-19] MEDS: HYDROcodone/APAP 5 MG/325 MG (LORTAB) TAB PO PRN ×2 (02:51→08:25)
--- NOTE | 2020-04-19 06:06 | Progress Note - Surgery ---
MANUEL LOPEZ MED STUDENT 04/19/20 0606: Subjective Date Seen by a Provider: Apr 19, 2020 Time Seen by a Provider: 06:00 Subjective/Events-last exam States increased LLE pain since yesterday, reports intermittent fevers yesterday and stools slightly more loose. Measured as afebrile yesterday as well as this morning. Denies chest pain, abdominal pain, SOB, new rashes. Objective Exam Vital Signs Date Time Temp Pulse Resp B/P (MAP) Pulse Ox O2 Delivery O2 Flow Rate FiO2 04/18/20 23:12 36.0 82 20 124/72 (89) 95 Room Air 04/18/20 20:00 NIV CPAP 04/18/20 15:35 36.4 85 21 111/66 (81) 94 Room Air 04/18/20 08:00 NIV CPAP 04/18/20 08:00 36.5 110 20 114/69 (84) 96 Room Air I & O 04/19/20 07:00 Intake Total 1766 ml Output Total 2400 ml Balance -634 ml Capillary Refill : Less Than 3 Seconds General Appearance: No Apparent Distress, Chronically ill, Obese HEENT: PERRL/EOMI Neck: Normal Inspection, Other (central line in right neck) Respiratory: Lungs Clear, Normal Breath Sounds, No Accessory Muscle Use, No Respiratory Distress Cardiovascular: No Murmur, Irregularly Irregular Peripheral Pulses: 1+ Dorsalis Pedis (R), 1+ Left Dors-Pedis (L) Gastrointestinal: non tender, soft, no organomegaly Extremity: Other (persistent erythema but improving very gradually. Left foot edematous and mildly tender. Edema the same as 3 days ago. Able to move LLE phalanges.) Neurologic/Psychiatric: Alert, Oriented x3 Skin: Erythema (left lower leg with erythema and warmth, several large blisters on the left lower leg. ) Results Lab Microbiology 04/14/20 Gram Stain - Final, Complete 04/14/20 Wound Culture - Final, Complete No growth 04/09/20 Blood Culture - Final, Complete No growth 04/09/20 Urine Culture - Final, Complete NO GROWTH Assessment/Plan Assessment/Plan Assessment/Plan Left leg cellulitis Afib with RVR Multiple large blisters left lower extremity u/s left lower extremity no evidence of dvt continue antibiotics elevate leg to relieve edema remove central line insert PICC line Clinical Quality Measures DVT/VTE Risk/Contraindication: Risk Factor Score Per Nursin RFS Level Per Nursing on Admit: 4+=Very High KEZIA KHOURY DO 04/19/202007: Subjective Subjective/Events-last exam Patient left lower extremity slightly increased pain today. Still has serous drainage from the left lower extremity. The left upper thigh area he feels is improved though. Patient with central line still present. Denies any nausea vomiting fever sweats chills shortness of breath or chest pain at this time. Objective Exam General Appearance: No Apparent Distress, Chronically ill, Obese HEENT: PERRL/EOMI, Normal ENT Inspection Neck: Normal Inspection Respiratory: Chest Non Tender, No Accessory Muscle Use, No Respiratory Distress Cardiovascular: No JVD, Irregularly Irregular Gastrointestinal: non tender, soft, no organomegaly Extremity: No Normal Inspection; Pedal Edema, Other (persistent erythema but improving very gradually. Left foot edematous and mildly tender. Edema the same as 3 days ago. Able to move LLE phalanges.) Neurologic/Psychiatric: Alert, Oriented x3 Skin: No Normal Color; Erythema (left lower leg with erythema and warmth, several large blisters on the left lower leg, draining serous appearing fluid) Lymphatic: No Adenopathy Assessment/Plan Assessment/Plan Assessment/Plan Left leg cellulitis Afib with RVR Multiple large blisters left lower extremity u/s left lower extremity no evidence of dvtarterial study to be done today continue antibiotics elevate leg to relieve edema remove central line insert PICC line if IV access still needed. I do not feel there is any surgical intervention needed at this time. Feel the best thing to do is let this continue to have time to heal and declare the overall wound, the blistering skin is protective, there could be a time where this needs to be debrided and will maybe need further surgical intervention including large skin grafting possibly. Will follow Supervisory-Addendum Brief Verification & Attestation Participated in pt care: history, MDM, physical Personally performed: exam, history, MDM, supervision of care Care discussed with: Medical Student Procedures: n/a Results interpretation: Verified all documentation Verification and Attestation of Medical Student E/M Service A medical student performed and documented this service in my presence. I reviewed and verified all information documented by the medical student and made modifications to such information, when appropriate. I personally performed the physical exam and medical decision making. Kezia Khoury, Apr 19, 2020,20:08 MANUEL LOPEZ MED STUDENT Apr 19, 2020 06:06 KEZIA KHOURY DO Apr 19, 2020 20:08
[2020-04-19 06:25] LABS: BASOPHILS # (AUTO) 0.1 10^3/uL (0.0-0.1); BASOPHILS % (AUTO) 1 % (0-10); EOSINOPHILS # (AUTO) 0.1 10^3/uL (0.0-0.3); EOSINOPHILS % (AUTO) 1 % (0-10); HEMATOCRIT 39 % (40-54); HEMOGLOBIN 12.4 g/dL (13.3-17.7); LYMPHOCYTES % (AUTO) 23 % (12-44); MEAN CORPUSCULAR HEMOGLOBIN 31 pg (25-34); MEAN CORPUSCULAR HGB CONC 32 g/dL (32-36); MEAN CORPUSCULAR VOLUME 97 fL (80-99); MEAN PLATELET VOLUME 10.5 fL (9.0-12.2); MONOCYTES # (AUTO) 0.8 10^3/uL (0.0-1.0); MONOCYTES % (AUTO) 9 % (0-12); NEUTROPHILS # (AUTO) 5.8 10^3/uL (1.8-7.8); NEUTROPHILS % (AUTO) 66 % (42-75); PLATELET COUNT 253 10^3/uL (130-400); WHITE BLOOD COUNT 8.8 10^3/uL (4.3-11.0)
[2020-04-19 06:27] LABS: BUN/CREATININE RATIO 16; CALCIUM 8.4 MG/DL (8.5-10.1); CARBON DIOXIDE 30 MMOL/L (21-32); CHLORIDE 98 MMOL/L (98-107); CREATININE SERUM 0.92 MG/DL (0.60-1.30); GFR ESTIMATED > 60; GLUCOSE 99 MG/DL (70-105); MAGNESIUM 1.7 MG/DL (1.6-2.4); PHOSPHORUS 3.6 MG/DL (2.3-4.7); SODIUM 135 MMOL/L (135-145)
[2020-04-19] MEDS: AUGMENTIN 875 MG TAB (AMOXICILLIN/CLAVULANATE) PO SCH (08:24)
[2020-04-19] MEDS: LACTOBACILLUS ACIDOPHILUS (PROBIOTIC) CAPSULE PO SCH ×3 (08:24→17:45)
[2020-04-19] MEDS: APIXABAN 5 MG (ELIQUIS) TABLET PO SCH ×2 (08:24→17:20)
[2020-04-19] MEDS: meTOproloL SUCCINATE 50 MG (TOPROL XL) TAB PO SCH (08:29)
--- NOTE | 2020-04-19 09:32 | Cardiology Progress Note ---
Subjective Date Seen by Provider: Apr 19, 2020 Time Seen by Provider: 09:15 Subjective/Events-last exam Patient in bed with legs elevated, denies any chest pain or dyspnea. Review of Systems Pulmonary: Dyspnea Cardiovascular: Edema Objective-Cardiology Exam Last Set of Vital Signs Vital Signs 04/18/20 04/19/20 04:01 08:00 Temp 36.0 Pulse 90 Resp 20 B/P (MAP) 114/71 (85) Pulse Ox 95 O2 Delivery Room Air O2 Flow Rate 0.00 Capillary Refill : Less Than 3 Seconds I&O Intake and Output 04/19/20 00:00 Intake Total 2236 ml Output Total 2135 ml Balance 101 ml Intake Oral 2236 ml Output Urine Total 2135 ml # Voids 5 # Bowel Movements 3 General: Alert, Oriented X3, Cooperative HEENT: Atraumatic, PERRLA Neck: Supple, No JVD, No Thyromegaly Lungs: Clear to Auscultation, Normal Air Movement Heart: Normal S1, Normal S2, No Murmurs, Other (irregularly irregular) Abdomen: Normal Bowel Sounds, Soft, No Tenderness, No Hepatosplenomegaly, No Masses Extremities: No Clubbing, No Cyanosis, Normal Pulses, No Tenderness/Swelling, Other (peripheral edema, large blisters to LLE) Skin: Other (blister and cellulitis on the left leg) Neuro: Normal Speech, Normal Tone, Sensation Intact Psych/Mental Status: Mental Status NL, Mood NL Results Lab Laboratory Tests 04/19/20 05:15 A/P-Cardiology Admission Diagnosis Sepsis Atrial fibrillation Hypertension Obstructive sleep apnea Assessment/Plan Cellulitis, sepsis, managed by medical and surgical team, consider debridement, deteriorating, consider referral to a tertiary care center Persistent atrial fibrillation with controlled rate, Maintained on Toprol XL, Cardizem, Eliquis. Hypertension, controlled, continue to monitor. Acute renal insufficiency, improved, continue to monitor. Elevated BNP, probably secondary to tachycardia, 2D Echo COPD/obstructive sleep apnea, maintained on C Pap. Morbid obesity, BMI 46, discussed weight loss Patient was seen and evaluated with Fina, examination performed, management plan was discussed, agree with the current scribed note, I made few changes to the note using Italic font Patient was laying down in bed, his leg appeared to be worse with multiple bullae, discussed the management plan with Dr. George, recommended referral to a tertiary care center or ID consultation Continue on antibiotic at this time, managed by primary care team Clinical Quality Measures DVT/VTE Risk/Contraindication: Risk Factor Score Per Nursin RFS Level Per Nursing on Admit: 4+=Very High FINA HOOVER Apr 19, 2020 09:32 JOSE HERNANDEZ MD Apr 19, 2020 11:29
[2020-04-19] MEDS: NICOTINE 7 MG (NICODERM) PATCH TD SCH (10:48)
[2020-04-19] MEDS: NICOTINE PATCH REMOVAL TP SCH (10:48)
--- NOTE | 2020-04-19 12:05 | NUR ---
DR RANDOLPH GAVE ORDERS TO D/C RIGHT IJ AND TO PLACE ORDER FOR PICC LINE.
--- NOTE | 2020-04-19 12:45 | NUR ---
DR RANDOLPH NOTIFIED VIA PHONE OF PT NOT ON ANY IV FLUIDS AND ON PO ANTIBIOTICS AT THIS TIME. WOULD LIKE THIS RN TO CLARIFY WITH DR BRUCE IF PT NEEDS PICC LINE FOR ANTIBIOTICS. DR BRUCE NOTIFIED AND WILL LET THIS RN KNOW. ORDER LEFT IN PLACE AND SPOKE WITH PICC NURSE ABOUT WAITING TO HEAR BACK FROM DR IF NEEDING PICC LINE. PICC LINE NURSE WILL D/C ORDER IF NOT NEEDED.
--- NOTE | 2020-04-19 13:43 | NUR ---
"RD ASSESSMENT PMHx: unknown PMH PT INTERACTION: Pt was awake and pleasant during nutrition assessment. Pt states he has been eating well since last assessment. Note avg PO intake 100% x4d, per chart review. Pt states no issues with nausea, vomiting, constipation, or diarrhea since last assessment. Note last BM was 04/19, and pt not currently on bowel regimen per chart review. Note presence of wound (L lower extremity), per chart review. ABNORMAL NUTRITION-RELATED LAB VALUES LOW: Ca 8.4 HIGH: Est. kcal needs: 2025 kcal | 25 kcal/kg IBW, based on IBW of 81 kg (178#) Est. Pro needs: 97 g Pro 1.2 g Pro/kg IBW PES STATEMENT: Inadequate protein intake ([id number]) related to increased protein needs as evidenced by presence of wounds (L lower extremity) INTERVENTION: Continue with current diet order of Regular diet. Continue with current supplementation order of Ensure HP (vary) with meals TID. Provides 160 kcal and 16 g Pro per serving, for perceived benefit to wound healing. Will continue to follow and reassess as pt needs, intake, and status change. Too Santoyo, MS, RD, LD"
--- NOTE | 2020-04-19 13:50 | NUR ---
DR RANDOLPH NOTIFIED VIA PHONE OF CENTRAL LINE HAVING PURULENT DRAINAGE. ORDER RECEIVED TO CULTURE CATH TIP.
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
--- NOTE | 2020-04-19 15:59 | NUR ---
DR BRUCE NOTIFIED THIS RN OF PT NEEDING IV. PERIPHERAL IV TO BE PLACED D/T PICC LINE NURSE BEING GONE FOR THE DAY.
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
[2020-04-19] MEDS: cefTRIAXone FOR IV USE 2,000 MG in WATER (STERILE) FOR INJECTION 20 ML IV SCH (16:54)
[2020-04-19] MEDS ORDERED: MIDAZOLAM 5 MG/5 ML (VERSED) VIAL ONE (17:06)
[2020-04-19] MEDS ORDERED: fentaNYL INJECTION 100 MCG/2 ML AMP ONE (17:06)
[2020-04-19] MEDS ORDERED: LIDOCAINE 1% INJ 20 ML 20 ML VIAL ONE (17:06)
[2020-04-19] MEDS ORDERED: HEParin (CATH LAB) 2,000 ML IV ONE (17:07)
[2020-04-19] MEDS ORDERED: NS IV 1000 ML 1,000 ML ONE (17:07)
--- NOTE | 2020-04-19 17:40 | NUR ---
PT TAKEN OFF FLOOR TO HEART CATH
--- NOTE | 2020-04-19 18:39 | Peripheral Report ---
Peripheral Report Physician (s)/Mangle Operator Garments (s) Physician JOSE HERNANDEZ MD Pre-Procedure Diagnosis Pre-Procedure Diagnosis: nonhealing wound Post-Procedure Note Procedure Start Date: Apr 19, 2020 Name of Procedure: Abdominal aortogram Bilateral lower extremity runoff Third order to the level of the popliteal artery Additional imaging to the popliteal artery and the trifurcation Additional imaging at the level of the ankle Findings/Procedure Note PROCEDURE NOTE: 59 years old gentleman admitted with atrial fibrillation and sepsis with cellulitis, severe swelling on his leg with bullous on the left leg, did not respond to antibiotics and continued to deteriorate. There was a concern about ischemia, ultrasound was done and it was suggestive of total occlusion of the popliteal artery with monophasic waves below the trifurcation. After discussing with Dr. Mercer we decided to proceed with peripheral angiogram to evaluate the artery and possible revascularization. After explaining the procedure to the patient, all pros and cons were explained, all questions were answered. The patient signed the consent and then he was placed on the cardiac catheterization laboratory. The patient was placed on the cardiac catheterization laboratory. Groin was prepped SL fashion local anesthesia was used. Sheath placed in the right femoral artery, runoff to the right leg was done with 5 mL of contrast. A rim catheter was advanced to the trifurcation and runoff to the left leg was done, I used 10 mL of contrast and it was flushing very fast. Could not evaluate down at the popliteal level. I advanced a stork wire to the level of popliteal artery and advanced straight catheter down to the level of the popliteal artery, reevalua lynette runoff that showed patent popliteal artery the trifurcation was not well- visualized, I repeated the angiogram using DSA showing excellent flow with no obstructive disease at the trifurcation level. I repeated second imaging at the foot level using DSA and angiogram showed 3 vessel with excellent flow. The catheter was removed and I advanced pigtail catheter to the abdominal aorta performed abdominal aortogram. At the end of the procedure closure device was deployed in the right groin FINDINGS: Abdominal aortogram, normal abdominal aorta, normal renal artery, SMA and ABRIL, bifurcation is normal. No dissection or aneurysm Right lower extremity runoff, good runoff with no obstructive disease down to the trifurcation Left lower extremity runoff, multiple level of runoff was done as described above showing excellent blood flow with no obstructive disease down to the foot CONCLUSIONS: 1. No significant obstructive disease in the lower extremities with excellent flow in both lower extremities down to trifurcation 2. No significant obstructive disease below the trifurcation in the left leg down to the foot 4. Normal abdominal aorta and aortic bifurcation with no significant abnormality DISCUSSION AND RECOMMENDATIONS: The nonhealing inflammation and bullous material is not ischemic, underlying cause is still unknown. Anesthesia Type: Conscious Sedation Estimated blood loss (mL): 25 ml Contrast Amount: 70 ml Total Radiation Dose: 1073 mGy Post-Procedure Diagnosis Post-operative diagnosis: Nonhealing leg ulcer Paroxysmal atrial fibrillation Hypertension Tobaccoism JOSE HERNANDEZ MD Apr 19, 2020 6:39 pm
[2020-04-19] MEDS ORDERED: PATIENT MAY USE OWN MEDS, ALL PO SCH (18:45)
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
[2020-04-19] MEDS: LINEZOLID IVPB 300 ML IV SCH (22:15)
[2020-04-19] MEDS: NS IV 1000 ML 1,000 ML IV SCH (22:15)
--- NOTE | 2020-04-19 23:45 | NUR ---
PT TRANSFERRED BACK TO PREVIOUS ROOM. BEDSIDE REPORT GIVEN TO RECEIVING NURSE. DRESSING INTACT, NO SWELLING OR HARDENING NOTED TO SITE.
--- NOTE | 2020-04-19 23:45 | NUR ---
Pt back to floor from ICU. Report received from ZOË Lisa.
[2020-04-20] MEDS: HYDROcodone/APAP 5 MG/325 MG (LORTAB) TAB PO PRN ×4 (00:24→19:13)
[2020-04-20 03:37] VITALS: BP 104/69
[2020-04-20] MEDS: NS IV 1000 ML 1,000 ML IV SCH (04:33)
[2020-04-20 04:48] LABS: HEMOGLOBIN 12.5 g/dL (13.3-17.7); MEAN PLATELET VOLUME 10.2 fL (9.0-12.2)
[2020-04-20 04:58] LABS: CHLORIDE 101 MMOL/L (98-107); POTASSIUM 4.2 MMOL/L (3.6-5.0); SODIUM 134 MMOL/L (135-145)
[2020-04-20 05:00] LABS: CALCIUM 8.7 MG/DL (8.5-10.1); GLUCOSE 97 MG/DL (70-105)
[2020-04-20 05:01] LABS: CARBON DIOXIDE 25 MMOL/L (21-32)
[2020-04-20 05:04] LABS: CREATININE SERUM 0.95 MG/DL (0.60-1.30); GFR ESTIMATED > 60
[2020-04-20 05:05] LABS: BUN/CREATININE RATIO 14
[2020-04-20 08:00] VITALS: BP 119/80
[2020-04-20] MEDS: LACTOBACILLUS ACIDOPHILUS (PROBIOTIC) CAPSULE PO SCH ×3 (09:09→18:02)
[2020-04-20] MEDS: meTOproloL SUCCINATE 50 MG (TOPROL XL) TAB PO SCH (09:09)
[2020-04-20] MEDS: LINEZOLID IVPB 300 ML IV SCH ×2 (09:09→20:50)
[2020-04-20] MEDS: APIXABAN 5 MG (ELIQUIS) TABLET PO SCH ×2 (09:09→20:49)
[2020-04-20] MEDS: NICOTINE PATCH REMOVAL TP SCH (09:10)
[2020-04-20] MEDS: NICOTINE 7 MG (NICODERM) PATCH TD SCH (09:11)
--- NOTE | 2020-04-20 09:12 | Cardiology Progress Note ---
Subjective Date Seen by Provider: Apr 20, 2020 Time Seen by Provider: 09:07 Subjective/Events-last exam Patient was seen and evaluated, groin is healing well. No chest pain Review of Systems General: No Chills, No Night Sweats; Fatigue, Malaise; No Appetite, No Other HEENT: No Head Aches, No Visual Changes, No Eye Pain, No Ear Pain, No Dysphasia, No Sinus Congestion, No Post Nasal Drip, No Sore Throat, No Other Pulmonary: No Dyspnea, No Cough, No Pleuritic Chest Pain, No Other Cardiovascular: Edema; No: Chest Pain, Palpitations, Orthopnea, Paroxysmal Noc. Dyspnea, Lt Headedness, Other Objective-Cardiology Exam Last Set of Vital Signs Vital Signs 04/18/20 04/20/20 04:01 08:00 Temp 36.3 Pulse 96 Resp 16 B/P (MAP) 119/80 (93) Pulse Ox 96 O2 Delivery NIV CPAP O2 Flow Rate 0.00 Capillary Refill : Less Than 3 Seconds I&O Intake and Output 04/20/20 00:00 Intake Total 1075 ml Output Total 2135 ml Balance -1060 ml Intake Oral 1075 ml Output Urine Total 2135 ml # Bowel Movements 2 General: Alert, Oriented X3, Cooperative HEENT: Atraumatic, PERRLA Neck: Supple, No JVD, No Thyromegaly Lungs: Clear to Auscultation, Normal Air Movement Heart: Normal S1, Normal S2, No Murmurs, Other (irregularly irregular) Abdomen: Normal Bowel Sounds, Soft, No Tenderness, No Hepatosplenomegaly, No Masses Extremities: No Clubbing, No Cyanosis, Normal Pulses, No Tenderness/Swelling, Other (peripheral edema, large blisters to LLE) Skin: Other (blister and cellulitis on the left leg) Neuro: Normal Speech, Normal Tone, Sensation Intact Psych/Mental Status: Mental Status NL, Mood NL Results Lab Laboratory Tests 04/20/20 04:31 A/P-Cardiology Admission Diagnosis Sepsis Atrial fibrillation Hypertension Obstructive sleep apnea Assessment/Plan Cellulitis, sepsis, managed by medical and surgical team, Please consider referral to a tertiary care center Ultrasound was suggestive of severe peripheral arterial disease and possible critical limb ischemia, angiogram was done on April 19, 2020 which showed patent arteries with excellent brisk flow. No atherosclerotic disease was noted. Persistent atrial fibrillation with controlled rate, Maintained on Toprol XL, Cardizem, Eliquis. Hypertension, controlled, continue to monitor. Acute renal insufficiency, improved, continue to monitor. Elevated BNP, probably secondary to tachycardia, 2D Echo COPD/obstructive sleep apnea, maintained on C Pap. Morbid obesity, BMI 46, discussed weight loss Clinical Quality Measures DVT/VTE Risk/Contraindication: Risk Factor Score Per Nursin RFS Level Per Nursing on Admit: 4+=Very High JOSE HERNANDEZ MD Apr 20, 2020 09:12
[2020-04-20] MEDS: ALPRAZolam 0.25 MG (XANAX) TAB PO PRN (09:17)
[2020-04-20 12:00] VITALS: BP 117/77
--- NOTE | 2020-04-20 13:01 | Diagnostic Imaging Report ---
INDICATION: PICC line placement. COMPARISON: April 11, 2020. TECHNIQUE: Single frontal radiograph of the chest dated April 20, 2020. FINDINGS: Previously noted right IJ central venous catheter is no longer visualized. Interval placement of a right-sided PICC line. The distal tip is difficult to visualize though extends at least into the mid aspect of the superior vena cava. No pneumothorax. The cardiac silhouette is enlarged, though stable. Minimal central pulmonary vascular congestion is again noted. The lungs are clear of focal pulmonary opacity. No pleural effusion. No pneumothorax. Osseous structures are stable. IMPRESSION: Interval placement of a right-sided PICC line. The distal tip is difficult to visualize though it extends at least into the mid superior vena cava. No pneumothorax. Persistent cardiomegaly with mild central pulmonary vascular congestion. Dictated by: Dictated on workstation # [id number]
--- NOTE | 2020-04-20 13:18 | NUR ---
THIS RN NOTIFIED DR. BRUCE OF RESISTANCE ON PICC CATHETER WITH INSERTION ATTEMPT ON LEFT SIDE. NO NEW ORDERS RECEIVED.
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
--- NOTE | 2020-04-20 13:31 | Diagnostic Imaging Report ---
EXAMINATION: Left lower extremity arterial Doppler. INDICATION: Leg pain and swelling. TECHNIQUE: Spectral and color flow imaging of the arterial system of the left lower extremity was performed. FINDINGS: The bilateral lower extremity arterial exam performed yesterday suggested that the popliteal artery on the left was occluded. The vessel could not be identified and there were collateral vessels in this area. It is my understanding that the patient subsequently went to the OR for selective arteriogram. The arteriogram revealed that the left popliteal artery was in fact patent. On this study, the popliteal artery was identified and there is good blood flow within the artery. The collateral vessels suggested on the prior exam could not be identified on this study. The overall appearance of the left lower extremity arterial system has not changed significantly since the prior exam. The velocities are quite similar and there is monophasic flow at every level. The reason for the monophasic flow is not certain. Reportedly, there was no sign of a hemodynamically significant stenosis proximal to the common femoral artery on the left on the arteriogram performed yesterday. It is conceivable that the monophasic flow could be related to the diffuse edema of the left lower extremity. IMPRESSION: 1. The popliteal artery is not occluded and there is fairly good arterial blood flow to the left lower extremity. There are monophasic waveforms throughout, however. The reason for this is not certain. 2. These results were discussed with Dr. Jamey Mercer. Dictated by: Dictated on workstation # [id number]
[2020-04-20 15:46] VITALS: BP 118/72
[2020-04-20] MEDS: cefTRIAXone FOR IV USE 2,000 MG in WATER (STERILE) FOR INJECTION 20 ML IV SCH (16:21)
--- NOTE | 2020-04-20 17:05 | Progress Note - Surgery ---
MANUEL LOPEZ MED STUDENT 04/20/20 1705: Subjective Date Seen by a Provider: Apr 20, 2020 Time Seen by a Provider: 07:00 Subjective/Events-last exam Zheng states his pain feels the same or slightly improved compared to yesterday. He reports he is able to move the toes of his left foot and denies worsening rash, fever, chills, nausea, vomiting, abdominal pain, SOB, and chest pain. Objective Exam Vital Signs Date Time Temp Pulse Resp B/P (MAP) Pulse Ox O2 Delivery O2 Flow Rate FiO2 04/20/20 15:46 36.1 68 18 118/72 (87) 94 Room Air 04/20/20 15:27 35.9 04/20/20 12:44 93 04/20/20 12:00 35.9 84 16 117/77 (90) 96 NIV CPAP 04/20/20 08:00 36.3 96 16 119/80 (93) 96 NIV CPAP 04/20/20 08:00 95 Room Air 04/20/20 06:44 81 04/20/20 03:37 36.2 83 22 104/69 (81) 95 NIV CPAP 04/20/20 01:00 95 04/19/20 23:00 103 16 110/83 (92) 95 Room Air 04/19/20 22:00 100 25 113/76 (88) 94 Room Air 04/19/20 21:00 91 25 114/82 (93) 95 Room Air 04/19/20 20:00 74 13 118/83 (95) 96 Room Air 04/19/20 20:00 95 Room Air 04/19/20 19:45 86 29 114/72 (86) 95 Room Air 04/19/20 19:30 97 12 107/78 (88) 94 Room Air 04/19/20 19:15 88 22 106/75 (85) 96 Room Air 04/19/20 19:00 90 26 111/73 (86) 96 Room Air 04/19/20 19:00 90 I & O 04/20/20 06:59 Intake Total 925 ml Output Total 1785 ml Balance -860 ml Capillary Refill : Less Than 3 SecondsLess Than 3 Seconds General Appearance: No Apparent Distress, Obese HEENT: PERRL/EOMI, Normal ENT Inspection Neck: Normal Inspection, Other (bandage over prior central line site) Respiratory: Lungs Clear, Normal Breath Sounds, No Respiratory Distress Cardiovascular: Regular Rate, Rhythm, No Edema, No Murmur Peripheral Pulses: 1+ Dorsalis Pedis (R), 1+ Left Dors-Pedis (L) Gastrointestinal: non tender, soft, no organomegaly Extremity: Inflammation, Pedal Edema (Left foot edema appears improved compared to yesterday), Swelling, Other (left leg with large blister on the medial aspect. ) Neurologic/Psychiatric: Alert, Oriented x3, No Motor/Sensory Deficits (full motion of LLE phalanges), Normal Mood/Affect Skin: Normal Color, Warm/Dry Lymphatic: No Adenopathy Results Lab Laboratory Tests 04/20/20 04:31: White Blood Count 10.0, Red Blood Count 4.04L, Hemoglobin 12.5L, Hematocrit 39L, Mean Corpuscular Volume 96, Mean Corpuscular Hemoglobin 31, Mean Corpuscular Hemoglobin Concent 32, Red Cell Distribution Width 12.9, Platelet Count 243, Mean Platelet Volume 10.2, Sodium Level 134L, Potassium Level 4.2, Chloride Level 101, Carbon Dioxide Level 25, Anion Gap 8, Blood Urea Nitrogen 13, Creatinine 0.95, Estimat Glomerular Filtration Rate > 60, BUN/Creatinine Ratio 14, Glucose Level 97, Calcium Level 8.7 Microbiology 04/19/20 Catheter Tip Culture - Preliminary, Resulted Pseudomonas aeruginosa 04/14/20 Gram Stain - Final, Complete 04/14/20 Wound Culture - Final, Complete No growth 04/09/20 Urine Culture - Final, Complete NO GROWTH Assessment/Plan Assessment/Plan Assessment/Plan Left leg cellulitis Afib with RVR Multiple large blisters left lower extremity continue antibiotics elevate leg to relieve edema central line removed PICC nurse was off yesterday so did not insert per RN note insert PICC line today if IV access still needed. Angiogram yesterday revealed patent left popliteal artery I do not feel there is any surgical intervention needed at this time. Feel the best thing to do is let this continue to have time to heal and declare the overall wound, the blistering skin is protective, there could be a time where this needs to be debrided and will maybe need further surgical intervention including large skin grafting possibly. Will follow Clinical Quality Measures DVT/VTE Risk/Contraindication: Risk Factor Score Per Nursin RFS Level Per Nursing on Admit: 4+=Very High KHOURY,KEZIA D DO 04/20/202035: Subjective Subjective/Events-last exam Patient states his left lower extremity is feeling a little bit better. He still is able to move his toes and seems to have less edema in the left lower extremity. The erythema has continued to decrease. Patient had arteriogram yesterday which showed patent left popliteal artery. Patient with no other complaints at this time denies any nausea vomiting fever sweats chills shortness of breath or chest pain. Objective Exam General Appearance: No Apparent Distress, Obese HEENT: PERRL/EOMI, Normal ENT Inspection Neck: Normal Inspection, Other (Minimal erythema right neck where central line was present) Respiratory: Chest Non Tender, No Accessory Muscle Use, No Respiratory Distress Cardiovascular: Regular Rate, Rhythm, No JVD Gastrointestinal: non tender, soft Extremity: Inflammation, Pedal Edema (Left foot edema appears improved compared to yesterday), Swelling, Other (left leg with large blister/bullae on the medial aspect difficult to tell thickness) Neurologic/Psychiatric: Alert, Oriented x3, No Motor/Sensory Deficits (full motion of LLE phalanges), Normal Mood/Affect Skin: Normal Color, Warm/Dry, Other (Changes to left lower extremity as noted above) Lymphatic: No Adenopathy Assessment/Plan Assessment/Plan Assessment/Plan Left leg cellulitis Afib with RVR Multiple large blisters left lower extremity continue antibiotics elevate leg to relieve edema central line removed tip was cultured PICC nurse was off yesterday so did not insert per RN note insert PICC line today if IV access still needed. Angiogram yesterday revealed patent left popliteal artery I do not feel there is any surgical intervention needed at this time. Feel the best thing to do is let this continue to have time to heal and declare the overall wound, the blistering skin is protective, there could be a time where th is needs to be debrided and will maybe need further surgical intervention including large skin grafting possibly. Will follow Supervisory-Addendum Brief Verification & Attestation Participated in pt care: history, MDM, physical Personally performed: exam, history, MDM, supervision of care Care discussed with: Medical Student Procedures: n/a Results interpretation: Verified all documentation Verification and Attestation of Medical Student E/M Service A medical student performed and documented this service in my presence. I reviewed and verified all information documented by the medical student and made modifications to such information, when appropriate. I personally performed the physical exam and medical decision making. Kezia Khoury, Apr 20, 2020,20:36 MANUEL LOPEZ MED STUDENT Apr 20, 2020 17:05 KEZIA HKOURY DO Apr 20, 2020 20:36
[2020-04-20 20:10] VITALS: BP 93/63
[2020-04-20 23:32] VITALS: BP 104/73
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
[2020-04-21] MEDS: HYDROcodone/APAP 5 MG/325 MG (LORTAB) TAB PO PRN ×3 (02:27→19:49)
[2020-04-21 04:59] VITALS: BP 122/81
[2020-04-21 08:00] VITALS: BP 91/62
[2020-04-21] MEDS: LINEZOLID IVPB 300 ML IV SCH (08:12)
[2020-04-21] MEDS: APIXABAN 5 MG (ELIQUIS) TABLET PO SCH ×2 (08:12→19:49)
[2020-04-21] MEDS: LACTOBACILLUS ACIDOPHILUS (PROBIOTIC) CAPSULE PO SCH ×3 (08:12→17:56)
[2020-04-21] MEDS: meTOproloL SUCCINATE 50 MG (TOPROL XL) TAB PO SCH (08:13)
[2020-04-21] MEDS: NICOTINE 7 MG (NICODERM) PATCH TD SCH (08:14)
[2020-04-21] MEDS: NICOTINE PATCH REMOVAL TP SCH (08:15)
--- NOTE | 2020-04-21 08:56 | Cardiology Progress Note ---
Subjective Date Seen by Provider: Apr 21, 2020 Time Seen by Provider: 08:54 Subjective/Events-last exam Patient asleep in bed, easily awakens to answer questions. Denies any chest pain or dyspnea. Review of Systems General: No Chills, No Night Sweats, No Fatigue, No Malaise, No Appetite, No Other HEENT: No Head Aches, No Visual Changes, No Eye Pain, No Ear Pain, No Dysphasia, No Sinus Congestion, No Post Nasal Drip, No Sore Throat, No Other Pulmonary: No Dyspnea, No Cough, No Pleuritic Chest Pain, No Other Cardiovascular: No: Chest Pain, Palpitations, Orthopnea, Paroxysmal Noc. Dyspnea, Edema, Lt Headedness, Other Objective-Cardiology Exam Last Set of Vital Signs Vital Signs 04/18/20 04:01 O2 Flow Rate 0.00 Capillary Refill : Less Than 3 SecondsLess Than 3 Seconds I&O Intake and Output 04/21/20 00:00 Intake Total 2300 ml Output Total 1775 ml Balance 525 ml Intake Oral 1700 ml IV Total 600 ml Output Urine Total 1775 ml # Bowel Movements 2 General: Alert, Oriented X3, Cooperative HEENT: Atraumatic, PERRLA Neck: Supple, No JVD, No Thyromegaly Lungs: Clear to Auscultation, Normal Air Movement Heart: Normal S1, Normal S2, No Murmurs, Other (irregularly irregular) Abdomen: Normal Bowel Sounds, Soft, No Tenderness, No Hepatosplenomegaly, No Masses Extremities: No Clubbing, No Cyanosis, Normal Pulses, No Tenderness/Swelling, Other (peripheral edema, large blisters to LLE) Skin: Other (blister and cellulitis on the left leg) Neuro: Normal Speech, Normal Tone, Sensation Intact Psych/Mental Status: Mental Status NL, Mood NL A/P-Cardiology Admission Diagnosis Sepsis Atrial fibrillation Hypertension Obstructive sleep apnea Assessment/Plan Cellulitis, sepsis, managed by medical and surgical team, Please consider referral to a tertiary care center Ultrasound was suggestive of severe peripheral arterial disease and possible critical limb ischemia, angiogram was done on April 19, 2020 which showed patent arteries with excellent brisk flow. No atherosclerotic disease was noted. Persistent atrial fibrillation with controlled rate, Maintained on Toprol XL, Cardizem, Eliquis. Hypertension, controlled, continue to monitor. Acute renal insufficiency, improved, continue to monitor. Elevated BNP, probably secondary to tachycardia, 2D Echo done 04/10/2020 showed EF 40-45%, severely dilated LA 5.8cm COPD/obstructive sleep apnea, maintained on C Pap. Morbid obesity, BMI 46, discussed weight loss Patient was seen and evaluated with Fina, examination performed, management plan was discussed, agree with the current scribed note, I made few changes to the note using Italic font Patient is laying in bed, no new complaint Discussed with Dr. Khoury regarding the management plan, currently receiving broad-spectrum antibiotics. Clinical Quality Measures DVT/VTE Risk/Contraindication: Risk Factor Score Per Nursin RFS Level Per Nursing on Admit: 4+=Very High FINA HOOVER Apr 21, 2020 08:56 JOSE HERNANDEZ MD Apr 21, 2020 11:48
[2020-04-21] MEDS ORDERED: METF-397 PO (11:07)
[2020-04-21] MEDS ORDERED: METO50TA7 PO (11:07)
[2020-04-21] MEDS ORDERED: LINE600T12 PO (11:07)
[2020-04-21] MEDS ORDERED: APIX5TAB PO (11:07)
[2020-04-21] MEDS ORDERED: AMOX-358 PO (11:07)
[2020-04-21] MEDS ORDERED: DILT240C91 PO (11:07)
--- NOTE | 2020-04-21 11:30 | Progress Note - Surgery ---
MANUEL LOPEZ MED STUDENT 04/21/20 1130: Subjective Date Seen by a Provider: Apr 21, 2020 Time Seen by a Provider: 07:15 Subjective/Events-last exam Zheng states pain is the same as yesterday. He thinks the swelling has improved a little. Denies new rashes or pain. No fever, chills, nausea, vomiting, SOB, cough, chest pain, abdominal pain. PICC nurse attempted 2x yesterday but failed, has an IV placed in dorsal right forearm. Objective Exam Vital Signs Date Time Temp Pulse Resp B/P (MAP) Pulse Ox O2 Delivery O2 Flow Rate FiO2 04/21/20 08:00 36.0 69 18 91/62 (72) 97 Room Air 04/21/20 08:00 Room Air 04/21/20 04:59 36.5 74 18 122/81 (95) 96 Room Air 04/20/20 23:32 36.0 78 20 104/73 (83) 97 Room Air 04/20/20 20:10 36.2 61 18 93/63 (73) 93 Room Air 04/20/20 19:10 95 Room Air 04/20/20 15:46 36.1 68 18 118/72 (87) 94 Room Air 04/20/20 15:27 35.9 04/20/20 12:44 93 04/20/20 12:00 35.9 84 16 117/77 (90) 96 NIV CPAP I & O 04/21/20 07:00 Intake Total 2500 ml Output Total 1700 ml Balance 800 ml Capillary Refill : Less Than 3 SecondsLess Than 3 Seconds General Appearance: No Apparent Distress, Obese HEENT: PERRL/EOMI, Normal ENT Inspection Neck: Normal Inspection Respiratory: Chest Non Tender, No Accessory Muscle Use, No Respiratory Distress Cardiovascular: Regular Rate, Rhythm, No JVD Peripheral Pulses: 1+ Dorsalis Pedis (R), 1+ Left Dors-Pedis (L) Gastrointestinal: non tender, soft; No tenderness; other (lower abdominal darkly colored rash; states is chronic from umbilical hernia repair 7 years ago) Extremity: Inflammation, Pedal Edema (left; appears improved compared to yesterday), Other (area of blistering with large bulla in right lower leg draining serosanguinous fluid. Decreased warmth at periphery of wound compared to 2 days ago, same as yesterday) Neurologic/Psychiatric: Alert, Oriented x3, No Motor/Sensory Deficits, Normal Mood/Affect Skin: Normal Color, Warm/Dry, Other Lymphatic: No Adenopathy Results Lab Microbiology 04/19/20 Catheter Tip Culture - Preliminary, Resulted Pseudomonas aeruginosa 04/14/20 Gram Stain - Final, Complete 04/14/20 Wound Culture - Final, Complete No growth 04/09/20 Urine Culture - Final, Complete NO GROWTH Assessment/Plan Assessment/Plan Assessment/Plan Left leg cellulitis Afib with RVR Multiple large blisters left lower extremity continue antibiotics elevate leg to relieve edema Angiogram 04/19 revealed patent left popliteal artery repeat labs tomorrow to trend WBCs I do not feel there is any surgical intervention needed at this time. Feel the best thing to do is let this continue to have time to heal and declare the overall wound, the blistering skin is protective, there could be a time where this needs to be debrided and will maybe need further surgical intervention including large skin grafting possibly. Will follow Clinical Quality Measures DVT/VTE Risk/Contraindication: Risk Factor Score Per Nursin RFS Level Per Nursing on Admit: 4+=Very High KEZIA KHOURY DO 04/21/202042: Subjective Subjective/Events-last exam Patient states he is feeling better today as I am seeing him. Patient states the swelling seems to continue to decrease in the left lower extremity. Slight serous drainage from left lower extremity. Overall seems to be improving he feels. Patient hoping to go home soon. Denies any nausea vomiting fever sweats chills shortness of breath or chest pain at this time. Objective Exam General Appearance: No Apparent Distress, Obese HEENT: PERRL/EOMI, Normal ENT Inspection Neck: Full Range of Motion, Normal Inspection, Non Tender Respiratory: Chest Non Tender, No Accessory Muscle Use, No Respiratory Distress Cardiovascular: Regular Rate, Rhythm, No JVD Peripheral Pulses: 1+ Dorsalis Pedis (R), 1+ Left Dors-Pedis (L) Gastrointestinal: non tender, soft; No tenderness Extremity: Inflammation, Pedal Edema (left; appears improved compared to yesterday), Other (area of blistering with large bulla in left lower leg draining serosanguinous fluid. Decreased edema and has palpable pulses left lower extremity, able to move digits of left lower extremity and ankle without significant pain.) Neurologic/Psychiatric: Alert, Oriented x3, No Motor/Sensory Deficits, Normal Mood/Affect Skin: Warm/Dry, Other (Left lower extremity skin changes as noted above) Lymphatic: No Adenopathy Assessment/Plan Assessment/Plan Assessment/Plan Left leg cellulitis Afib with RVR Multiple large blisters left lower extremity continue antibiotics elevate leg to relieve edema Angiogram 04/19 revealed patent left popliteal artery I do not feel there is any surgical intervention needed at this time. Feel the best thing to do is let this continue to have time to heal and declare the overall wound, the blistering skin is protective, there could be a time where this needs to be debrided and will maybe need further surgical intervention including large skin grafting possibly. I feel this is most likely from infectious agent Will follow Supervisory-Addendum Brief Verification & Attestation Participated in pt care: history, MDM, physical Personally performed: exam, history, MDM, supervision of care Care discussed with: Medical Student Procedures: n/a Results interpretation: Verified all documentation Verification and Attestation of Medical Student E/M Service A medical student performed and documented this service in my presence. I reviewed and verified all information documented by the medical student and made modifications to such information, when appropriate. I personally performed the physical exam and medical decision making. Kezia Khoury, Apr 21, 2020,20:43 MANUEL LOPEZ MED STUDENT Apr 21, 2020 11:30 KEZIA KHOURY DO Apr 21, 2020 20:43
[2020-04-21 12:00] VITALS: BP 122/81
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
[2020-04-21] MEDS ORDERED: metFORMIN 500 MG (GLUCOPHAGE) TAB PO NR (15:15)
[2020-04-21] MEDS ORDERED: LEVOFLOXACIN 750 MG TAB (LEVAQUIN) PO NR (15:15)
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
--- NOTE | 2020-04-21 15:33 | NUR ---
PROVIDED EDUCATION TO THE PATIENT ABOUT HIS DISCHARGE MEDICATION. HE DID NOT HAVE ANY QUESTIONS ABOUT HIS MEDICATIONS WORKED WITH [employer] TO PROVIDE [employer]B SAVINGS PROGRAM. WE ALSO PROVIDED (CALLED TO [employer]) THE 30 DAY TASS SAVINGS CARD.
--- NOTE | 2020-04-21 15:54 | NUR ---
CM/SS: Pt contacted his bank - [employer] - to request that 3 months of bank statements to be sent to [facility] based on financial application. They are unable to fax, they will need to email it to pt and it could take 24 to 48 hours. Financial Services ([employer]) is contacted and informed that the bank statements have been requested. They have requested that they also have copies of his last three paycheck stubs. This worker will follow up.
[2020-04-21 16:41] VITALS: BP 127/86
--- NOTE | 2020-04-21 17:25 | NUR ---
CM/SS: Pt is requesting a patient advocate - this worker is contacted by Elisa in Risk Management. This worker will follow up. Plan: Undetermined at this time - Summary: Pt has anxiety about going home. This worker shares with pt that he will not be going home today and that we were working on discharge planning. Pt reports his sister has advised him to have a patient advocate. This worker talks with pt as to his concerns about going home as well as explains her role in the process. Pt verbalizes understanding and that he is concerned that one doctor mentioned about him going to be transferred for infection control and another one wanting his to be discharged. This worker talks with pt and he seems to be more calm the longer that we talk with each other. Pt reports that his sister is coming and should be here shortly. Pt's sister arrives from [place]. She reports that she would like to have pt transferred to [facility] in [place] or . Dr. George, Hospitalist is notified of the request for transfer. He is also given Dr Lee [phone]. Discuss pt's self pay status and go over the need to complete the financial application as well as obtaining the bank records, and copies of the pay stubs. She is aware that pt has requested that bank records to be sent however there is a 24 to 48 hour wait to get those via email. She is also informed that the reason the bank records were needed is based on pt being able to get medial care, once he were to be discharged. She verbalizes understanding. Pt is given the email for financial services to fax the bank statements - [email or web address] Pt thanks this worker for the follow up and they are informed that it may be a process before knowing if or when pt will be transferred. They both verbalize understanding.
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
[2020-04-21] MEDS: LINEZOLID (ZYVOX) 600 MG TAB PO SCH (19:49)
[2020-04-21 19:59] VITALS: BP 128/76
[2020-04-21 23:29] VITALS: BP 114/66
[2020-04-21] MEDS: ALPRAZolam 0.25 MG (XANAX) TAB PO PRN (23:29)
[2020-04-22] MEDS: HYDROcodone/APAP 5 MG/325 MG (LORTAB) TAB PO PRN ×4 (03:55→19:52)
[2020-04-22] MEDS: metFORMIN 500 MG (GLUCOPHAGE) TAB PO SCH (06:28)
--- NOTE | 2020-04-22 07:20 | Progress Note - Surgery ---
EUFEMIA TRUJILLO,MED STUDENT 04/22/20 0720: Subjective Date Seen by a Provider: Apr 22, 2020 Time Seen by a Provider: 06:59 Subjective/Events-last exam Patient seen and examined this morning. He states that he has noticed some darkening of his leg and has had some increase in pain, possible from blood flow returning. He states it is a 0/10 at rest and 10/10 when he tries to put weight on it. He states he is also worried about being discharged and does not feel he is ready. Denies fever, chest pain, shortness of breath, diarrhea/constipation, numbness or tingling. Review of Systems General: No Chills, No Fatigue HEENT: No Head Aches Pulmonary: No Dyspnea, No Cough Cardiovascular: Edema; No: Chest Pain Gastrointestinal: Abdominal Pain (mild LLQ ); No: Nausea, Vomiting, Diarrhea, Constipation Musculoskeletal: leg pain (left lower) Neurological: No: Weakness, Numbness Objective Exam Vital Signs Date Time Temp Pulse Resp B/P (MAP) Pulse Ox O2 Delivery O2 Flow Rate FiO2 04/21/20 23:29 36.4 89 18 114/66 (82) 96 Room Air 04/21/20 19:59 36.4 100 15 128/76 (93) 96 Room Air 04/21/20 19:55 Room Air 04/21/20 16:41 36.5 92 19 127/86 (100) 95 Room Air 04/21/20 12:00 36.1 65 20 122/81 (95) 95 Room Air 04/21/20 08:00 36.0 69 18 91/62 (72) 97 Room Air 04/21/20 08:00 Room Air I & O 04/22/20 07:00 Intake Total 1800 ml Output Total 2175 ml Balance -375 ml Capillary Refill : Less Than 3 SecondsLess Than 3 Seconds General Appearance: No Apparent Distress, Obese HEENT: PERRL/EOMI Respiratory: No Accessory Muscle Use, No Respiratory Distress Cardiovascular: Regular Rate, Rhythm Peripheral Pulses: 1+ Dorsalis Pedis (R), 1+ Left Dors-Pedis (L) Gastrointestinal: soft, tenderness (mild LLQ with palpation), other (bruising to RLQ and middle lower abdomen, patient states it has been there since abd hernia repair) Extremity: Inflammation, Pedal Edema (left; appears improved compared to yesterday), Other (area of blistering with large bulla in left anteromedial lower leg draining serosanguinous fluid. Some edema and darkness around bullae, able to move digits of left lower extremity ) Neurologic/Psychiatric: Alert, No Motor/Sensory Deficits, Normal Mood/Affect Skin: Warm/Dry, Other (Left lower extremity skin changes as noted above) Results Lab Microbiology 04/19/20 Catheter Tip Culture - Final, Complete Pseudomonas aeruginosa 04/14/20 Gram Stain - Final, Complete 04/14/20 Wound Culture - Final, Complete No growth 04/09/20 Urine Culture - Final, Complete NO GROWTH Assessment/Plan Assessment/Plan Assessment/Plan Left leg cellulitis with bullae, likely infectious Angiogram 04/19 showed patent popliteal artery AFib with RVR Continue antibiotics and monitor for changes/signs of systemic infection, in future patient will possibly need debridement and skin grafting. Clinical Quality Measures DVT/VTE Risk/Contraindication: Risk Factor Score Per Nursin RFS Level Per Nursing on Admit: 4+=Very High KEZAI RANDOLPH DO 04/22/20 0955: Subjective Subjective/Events-last exam Patient leg is feeling better. No pain at rest, has increasing pain when trying to ambulate on it. Concerned about going home too soon. The swelling he feels is going down. Has more of purple coloring around the blister. Redness going down. He is wanting to be transferred he states so he can continue to heal. Denies any n/v fever sweats chills shortness of breath or chest pain. Objective Exam General Appearance: No Apparent Distress (laying in bed), Obese HEENT: PERRL/EOMI, Normal ENT Inspection Neck: Full Range of Motion, Non Tender Respiratory: Chest Non Tender, No Accessory Muscle Use, No Respiratory Distress Cardiovascular: Regular Rate, Rhythm, No JVD Gastrointestinal: non tender, soft Extremity: Inflammation, Pedal Edema (left; appears improved compared to yesterday), Other (area of blistering with large bulla in left anteromedial lower leg draining serous fluid. Some edema and purplish color around bullae, able to move digits of left lower extremity and flex foot without pain. ) Neurologic/Psychiatric: Alert, Oriented x3, No Motor/Sensory Deficits, Normal Mood/Affect Skin: Normal Color, Warm/Dry, Other (Left lower extremity skin changes as noted above) Lymphatic: No Adenopathy Assessment/Plan Assessment/Plan Assessment/Plan Left leg cellulitis with bullae, likely infectious Angiogram 04/19 showed patent popliteal artery AFib with RVR Paitent left lower extremity is overall slowly improving. The bullae I do not feel should be debrided at this time for this would increase the risk of infection, since the leg is continuing to improve clinically. I think in near future or if it has a change for the worse then it should be debrided. It would also benefit from plastics evaluation for if it is full thickness it is a significant area that will need large area of skin grafting. Discussed with Dr. George and Dr. Hager Supervisory-Addendum Brief Verification & Attestation Participated in pt care: history, MDM, physical Personally performed: exam, history, MDM, supervision of care Care discussed with: Medical Student Procedures: n/a Results interpretation: Verified all documentation Verification and Attestation of Medical Student E/M Service A medical student performed and documented this service in my presence. I reviewed and verified all information documented by the medical student and made modifications to such information, when appropriate. I personally performed the physical exam and medical decision making. Kezia Randolph, Apr 22, 2020,19:37 EUFEMIA TRUJILLO,MED STUDENT Apr 22, 2020 07:20 KEZIA RANDOLPH DO Apr 22, 2020 09:55
[2020-04-22 07:30] VITALS: BP 118/83
[2020-04-22] MEDS: meTOproloL SUCCINATE 50 MG (TOPROL XL) TAB PO SCH (08:17)
[2020-04-22] MEDS: NICOTINE 7 MG (NICODERM) PATCH TD SCH (08:17)
[2020-04-22] MEDS: APIXABAN 5 MG (ELIQUIS) TABLET PO SCH ×2 (08:17→19:52)
[2020-04-22] MEDS: LINEZOLID (ZYVOX) 600 MG TAB PO SCH ×2 (08:17→19:52)
[2020-04-22] MEDS: NICOTINE PATCH REMOVAL TP SCH (08:17)
[2020-04-22] MEDS: LACTOBACILLUS ACIDOPHILUS (PROBIOTIC) CAPSULE PO SCH ×3 (08:17→17:20)
[2020-04-22] MEDS: ALPRAZolam 0.25 MG (XANAX) TAB PO PRN (08:28)
--- NOTE | 2020-04-22 09:37 | Progress Note - Cardiology ---
Cardiology SOAP Progress Note Subjective: Lying in bed. Reports discomfort to left leg is improving, however he himself is concerned with what he feels is lack of progression regarding healing. He states he is to transfer to [facility], but does not know when. He denies any c/o CP, palpitations or dyspnea at this time. Objective: I&O/Vital Signs Constitutional: AAO x 3 Respiratory: chest is bilaterally symmetric, lungs clear to auscultation Cardiovascular: irregularly irregular, S1 and S2 Gastrointestional: soft, audible bowel sounds Extremities: significant edema (LLE), wound (LLE with large amt of swelling, dark purple discoloration and bullae) Neurologic/Psychiatric: no motor/sensory deficits, alert, normal mood/affect, oriented x 3 Skin: ulcerations on exposed areas Results/Procedures: Labs Microbiology 04/19/20 Catheter Tip Culture - Final, Complete Pseudomonas aeruginosa 04/14/20 Gram Stain - Final, Complete 04/14/20 Wound Culture - Final, Complete No growth 04/09/20 Urine Culture - Final, Complete NO GROWTH A/P: Assessment: Cellulitis, sepsis, managed by medical and surgical team, Please consider referral to a tertiary care center Ultrasound was suggestive of severe peripheral arterial disease and possible critical limb ischemia, angiogram was done on April 19, [address] Robles, which showed patent arteries with excellent brisk flow. No atherosclerotic disease was noted. Persistent atrial fibrillation with controlled rate, Maintained on Toprol XL, Cardizem, Eliquis. Hypertension, controlled Acute renal insufficiency, improved Elevated BNP, probably secondary to tachycardia, 2D Echo done 04/10/[address] Robles showed EF 40-45%, severely dilated LA 5.8cm COPD/obstructive sleep apnea, maintained on C Pap. Morbid obesity, BMI 46, discussed weight loss Plan: Complex management issue Management of cellulitis is with wound care, surgical, medical services - he is awaiting transfer to [facility] in [place] Continue current cardiac regimen Monitor lab EUFEMIA SALAZAR Apr 22, 2020 09:37
[2020-04-22] MEDS ORDERED: LEVOFLOXACIN 750 MG TAB (LEVAQUIN) PO SCH (11:00)
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
--- NOTE | 2020-04-22 14:25 | NUR ---
CM/SS: Pt has called this worker at 8:36am to talk about concerns that he has at this time. This worker shares with pt that she will touch based with him shortly. Plan: Undetermined at this time Summary: Pt expresses anxiety about leaving and feels as if he wants to transfer and does not feel comfortable at this time to discharged to home. Financial application not completed however bank statements have been sent. Dr Hager, and 4th year medical student are consulted - they visit. This worker is present during the medical student exam. Recommendation as for pt to be transferred. Records are sent to the [facility] - Marika Mosher RN per their request for review. Follow up with pt. He is aware that information has been sent to [facility] for review. Pt seems to feel better about his situation, and continues to share that he just wants to have some answers. This worker will follow up.
[2020-04-22 16:22] VITALS: BP 99/71
[2020-04-23 00:19] VITALS: BP 109/76
[2020-04-23] MEDS: HYDROcodone/APAP 5 MG/325 MG (LORTAB) TAB PO PRN ×2 (00:20→06:40)
--- NOTE | 2020-04-23 06:19 | NUR ---
MEDICAL RECORD FAXED TO [facility] IN [place]. REPORT GIVEN TO ZOË PEREZ. ALL HER QUESTIONS ANSWERS
[2020-04-23] MEDS: metFORMIN 500 MG (GLUCOPHAGE) TAB PO SCH (06:39)
[2020-04-23 08:00] VITALS: BP 102/69
[2020-04-23] MEDS ORDERED: LEVO750T39 PO (08:01)
[2020-04-23] MEDS: meTOproloL SUCCINATE 50 MG (TOPROL XL) TAB PO SCH (08:02)
[2020-04-23] MEDS: APIXABAN 5 MG (ELIQUIS) TABLET PO SCH (08:03)
[2020-04-23] MEDS: NICOTINE PATCH REMOVAL TP SCH (08:03)
[2020-04-23] MEDS: NICOTINE 7 MG (NICODERM) PATCH TD SCH (08:03)
[2020-04-23] MEDS: LINEZOLID (ZYVOX) 600 MG TAB PO SCH (08:03)
[2020-04-23] MEDS: LACTOBACILLUS ACIDOPHILUS (PROBIOTIC) CAPSULE PO SCH (08:03)
--- NOTE | 2020-04-23 08:18 | Progress Note - Surgery ---
KEAGAN HOLLEY MED STUDENT 04/23/20 0818: Subjective Date Seen by a Provider: Apr 23, 2020 Time Seen by a Provider: 07:55 Subjective/Events-last exam Zheng Guo states he's doing well this morning. He has no complaints to speak of. Per his report there has been no change in appearance, drainage, or size of his LLE. Overnight he did well and had no issues per his report. Vital signs are stable. Sat's are upper 90's on RA. His last labs were drawn on 04-20. He is tolerating his diet well. No nausea, vomiting, or diarrhea reported. Denies CP, SOB, abdominal pain, fevers, chills, and other complaints. He is ambulating a bit as well. Tolerating all meds well. IV's are saline locked and sites appear WNL. His attending physician is working on transporting his to [facility] in [place] today. There he will be seen by plastic surgery and Infectious disease. Patient has no questions or concerns for me this morning. Focused Exam Capillary Refill: Less Than 3 Seconds Peripheral Pulses: 2+ Dorsalis Pedis (R); 1+ Left Dors-Pedis (L); 2+ Radial Pulses (R), 2+ Radial Pulses (L) Objective Exam Vital Signs Date Time Temp Pulse Resp B/P (MAP) Pulse Ox O2 Delivery O2 Flow Rate FiO2 04/23/20 00:19 36.2 75 18 109/76 (87) 96 Room Air 04/22/20 19:50 Room Air 04/22/20 16:22 36.4 76 18 99/71 (80) 96 Room Air I & O 04/23/20 07:00 Intake Total 1160 ml Output Total 1200 ml Balance -40 ml Capillary Refill : Less Than 3 SecondsLess Than 3 Seconds General Appearance: No Apparent Distress, Chronically ill, Obese HEENT: PERRL/EOMI Neck: Full Range of Motion, Non Tender Respiratory: No Accessory Muscle Use, No Respiratory Distress Cardiovascular: Regular Rate, Rhythm Peripheral Pulses: 1+ Dorsalis Pedis (R), 1+ Left Dors-Pedis (L) Gastrointestinal: non tender, soft Extremity: Inflammation, Pedal Edema (left; appears improved compared to yesterday), Other (area of blistering with large bulla in left anteromedial lower leg draining serosanguinous fluid. Some edema and darkness around bullae, able to move digits of left lower extremity ) Neurologic/Psychiatric: Alert, No Motor/Sensory Deficits, Normal Mood/Affect Skin: Warm/Dry, Other (Left lower extremity skin changes as noted above) Lymphatic: No Adenopathy Results Lab Microbiology 04/19/20 Catheter Tip Culture - Final, Complete Pseudomonas aeruginosa 04/14/20 Gram Stain - Final, Complete 04/14/20 Wound Culture - Final, Complete No growth 04/09/20 Urine Culture - Final, Complete NO GROWTH Assessment/Plan Assessment/Plan Admission Diagonsis Left leg cellulitis Afib/RVR Plan to transfer to [facility] in [place] today, to be arranged by PCP Continue to monitor Vital signs per protocol Continue to assess left leg for signs of deteioration. Continue to perform vascular checks of LLE. Encourage patient to ambulate TID Up to chair TID. Continue antibiotics as ordered. Assessment/Plan Left leg cellulitis with bullae, likely infectious Angiogram 04/19 showed patent popliteal artery AFib with RVR Paitent left lower extremity is overall slowly improving. The bullae I do not feel should be debrided at this time for this would increase the risk of infection, since the leg is continuing to improve clinically. I think in near future or if it has a change for the worse then it should be debrided. It would also benefit from plastics evaluation for if it is full thickness it is a significant area that will need large area of skin grafting. Discussed with Dr. George and Dr. Hager Clinical Quality Measures DVT/VTE Risk/Contraindication: Risk Factor Score Per Nursin RFS Level Per Nursing on Admit: 4+=Very High AMANDA FLOWERS 04/23/20 1415: KEAGAN HOLLEY MED STUDENT Apr 23, 2020 08:18 AMANDA FLOWERS Apr 23, 2020 14:15
[2020-04-23 09:10] VITALS: BP 102/69
--- NOTE | 2020-04-23 10:29 | NUR ---
CM/SS: Visited with pt as to plan for transfer to [facility] in [place], [place]. Plan: Pt to be transferred to [facility] in [place] Summary: Pt is informed that he will be transferred to the [facility] in [place], [place] today. Pt is pleased about the transfer, he does thank this worker for her help in the process. He is reminded that they will have his information on the self pay status. He is also assisted with gathering his things and putting in a belonging bag. Pt is wished well. As this worker finishes talking with pt, EMS has arrived to transport pt to [place].
== END 2020-04-23 09:10 | disposition short-term general hospital (02) | DRG 872 ==
LOC: ER 18:24 → ICU 22:07 → 4TH 04-11 11:46 → UNDODISIN 04-19 15:23
PROVIDERS: ADMIT Internal Medicine; ATTEND Internal Medicine
PROC: 02HV33Z Insertion of Infusion Device into Superior Vena Cava, Percutaneous Approach (ICD-10-PCS; principal; 2020-04-09)
PROC: B4101ZZ Fluoroscopy of Abdominal Aorta using Low Osmolar Contrast (ICD-10-PCS; 2020-04-19)
DX: A41.9 Sepsis, unspecified organism (principal); L03.116 Cellulitis of left lower limb; N17.9 Acute kidney failure, unspecified; Z68.42 Body mass index [BMI] 45.0-49.9, adult; S70.322A Blister (nonthermal), left thigh, initial encounter; S90.522A Blister (nonthermal), left ankle, initial encounter; I48.0 Paroxysmal atrial fibrillation; I12.9 Hypertensive chronic kidney disease with stage 1 through stage 4 chronic kidney disease, or unspecified chronic kidney disease; N18.9 Chronic kidney disease, unspecified; E66.01 Morbid (severe) obesity due to excess calories; G47.33 Obstructive sleep apnea (adult) (pediatric); F17.210 Nicotine dependence, cigarettes, uncomplicated; J44.9 Chronic obstructive pulmonary disease, unspecified; R79.89 Other specified abnormal findings of blood chemistry; V69.9XXA Occupant (driver) (passenger) of heavy transport vehicle injured in unspecified traffic accident, initial encounter
CPT/HCPCS: 36248; 36415; 36569; 71045; 73590; 73700; 75625; 75716; 76937; 80048; 80053; 81000; 82550; 83036; 83605; 83735; 84100; 84484; 85007; 85025; 85027; 85610; 85730; 87040; 87070; 87077; 87088; 87186; 87205; 90686; 93005; 93306; 93925; 93926; 94660; 96361; 96365; 96366; 96367; 96372; 96375

== ENCOUNTER → 2020-06-30 | Outpatient (CLI) | payer OTHER ==
[~2020-06-30] VITALS: Ht 180 cm; Wt 154.0 kg
[~2020-06-30] MED LIST: AMOX-358 PO; APIX5TAB PO; CATHETER FLUSH 10 ML SYR IV PRN; DILT240C91 PO; LEVO750T39 PO; LINE600T12 PO; METF-397 PO; METO50TA7 PO; REGADENOSON 0.4 MG/5 ML SYR (LEXISCAN) IV ONE
[2020-06-30 09:39] VITALS: BP 152/90
[2020-06-30 09:42] VITALS: BP 140/92
[2020-06-30 09:44] VITALS: BP 134/87
--- NOTE | 2020-06-30 13:27 | Cardiology Stress Test Report ---
Stress Test Report Date of Procedure/Referring: Date of Procedure: Jun 30, 2020 PCP Jose Robles MD Admitting Physician Indications: Atrial fibrillation, chest pain Baseline Heart Rate: 99 Baseline Blood Pressure: Blood Pressure Systolic: 134 Blood Pressure Diastolic: 87 Baseline Vitals Vital Signs Date Time Temp Pulse Resp B/P (MAP) Pulse Ox O2 Delivery O2 Flow Rate FiO2 06/30/20 09:39 92 20 152/90 (110) 99 Nasal Cannula 2.00 Baseline EKG: Baseline EKG: atrial fibrillation, nonspecific T wave abnormality Summary After explaining the procedure to the patient, he signed a consent and then br ought to the stress nuclear laboratory. Patient received 0.4 mg Lexiscan for stress test, ECG, heart rate and blood pressure were monitored continuously. Resting and stress dose of radio tracer were injected, imaging was acquired and reviewed in short axis, horizontal long axis and vertical long axis views. TID: 1.13 SSS: 7 SDS: 5 EF: 59 1. Patient tolerated Lexiscan well 2. Baseline atrial fibrillation with controlled rate, persisted during test 3. Mild reversible ischemia involving the mid to apical anterior wall 4. Normal left ventricular size, EF 59 percent, underlying atrial fibrillation affecting the quality of the images JOSE ROBLES MD Jun 30, 2020 13:27
== END ==
LOC: CARD 08:00
PROVIDERS: ATTEND Internal Medicine Cardiovascular Disease
DX: I48.19 Other persistent atrial fibrillation (principal); I10 Essential (primary) hypertension; E78.5 Hyperlipidemia, unspecified
CPT/HCPCS: 78452; 93017; A9502

== ENCOUNTER → 2020-08-09 | Outpatient (CLI) | payer OTHER ==
[~2020-08-09] MED LIST changes: +HOLD METFORMIN - RECEIVED CONTRAST 20 ML VIAL IV SCH; +IOHEXOL 350 MG/ML 100 ML (OMNIPAQUE 350) VIAL IV ONE; +NS 100 ML (IVPB) BAG IV ONE; -REGADENOSON 0.4 MG/5 ML SYR (LEXISCAN) IV ONE; +RT-ALBUTEROL SULF 2.5 MG/3 ML PRE-MIX VIAL INH ONE
[2020-08-09 10:48] LABS: BUN/CREATININE RATIO 19; GFR ESTIMATED > 60
--- NOTE | 2020-08-09 14:49 | Diagnostic Imaging Report ---
EXAMINATION: CT Chest with intravenous contrast. TECHNIQUE: Multiple contiguous axial images were obtained through the chest after the uneventful administration of intravenous contrast. All CT scans use one or more of the following dose optimizing techniques: automated exposure control, MA and/or KvP adjustment based on a patient size and exam type, or iterative reconstruction. HISTORY: Shortness of breath. COMPARISON: None available. FINDINGS: There is no edema or pneumonia. No pleural effusion. No pneumothorax. No suspicious nodules. There is no axillary or supraclavicular lymphadenopathy. Mildly enlarged mediastinal lymph nodes are seen measuring up to 15 mm in short axis. Heart size is normal. There are no coronary artery calcifications. No pericardial effusion. Aorta is normal in caliber. Limited views of the upper abdomen are unremarkable. There are no suspicious osseous lesions. IMPRESSION: 1. Clear lungs. 2. Mildly enlarged mediastinal lymph nodes are nonspecific, consider three month follow-up to ensure stability. Dictated by: Dictated on workstation # [id number]
== END ==
LOC: RT 10:12
PROVIDERS: ATTEND Internal Medicine Critical Care Medicine
DX: Z13.83 Encounter for screening for respiratory disorder NEC (principal); R06.00 Dyspnea, unspecified; R06.02 Shortness of breath; R59.0 Localized enlarged lymph nodes
CPT/HCPCS: 36415; 71260; 82565; 84520; 94060; 94726; 94729

== ENCOUNTER → 2020-08-16 | Outpatient (CLI) | payer OTHER ==
[~2020-08-16] MED LIST changes: +ATOR40TA70 PO; -CATHETER FLUSH 10 ML SYR IV PRN; +FLEC50TA PO; -HOLD METFORMIN - RECEIVED CONTRAST 20 ML VIAL IV SCH; -IOHEXOL 350 MG/ML 100 ML (OMNIPAQUE 350) VIAL IV ONE; +MTP25TSR PO; -NS 100 ML (IVPB) BAG IV ONE; +RIVA20TA PO; -RT-ALBUTEROL SULF 2.5 MG/3 ML PRE-MIX VIAL INH ONE; +TRZ50T PO
== END ==
LOC: LABNPT 07:02
PROVIDERS: ATTEND Internal Medicine Cardiovascular Disease
DX: Z20.822 Contact with and (suspected) exposure to COVID-19 (principal)
CPT/HCPCS: 87635

== ENCOUNTER 2020-08-18 09:30 | Day surgery (SDC) | payer OTHER ==
[~2020-08-18] VITALS: Ht 180.3 cm; Wt 160.2 kg
[2020-08-18] VITALS (12 sets, daily range): BP systolic 110–160; BP diastolic 65–117
[2020-08-18 08:54] LABS: BILIRUBIN,URINE NEGATIVE (NEGATIVE); CLARITY,URINE CLEAR; COLOR,URINE YELLOW; GLUCOSE, URINE (UA) NEGATIVE (NEGATIVE); KETONES,URINE NEGATIVE (NEGATIVE); LEUKOCYTE ESTERASE ,URINE NEGATIVE (NEGATIVE); NITRITE,URINE NEGATIVE (NEGATIVE); PH,URINE 5.5 (5-9); PROTEIN,URINE NEGATIVE (NEGATIVE)
[2020-08-18 08:55] LABS: HEMOGLOBIN 14.8 g/dL (13.3-17.7)
[2020-08-18 08:57] LABS: WHITE BLOOD COUNT 6.6 10^3/uL (4.3-11.0)
[2020-08-18 09:02] LABS: BACTERIA,URINE NEGATIVE /HPF; SQUAMOUS EPITHELIAL CELL,UR 0-2 /HPF; WBC,URINE 0-2 /HPF
--- NOTE | 2020-08-18 09:02 | Diagnostic Imaging Report ---
INDICATION: Coronary artery disease. Compared 04/20/2020 FINDINGS: The heart size is within normal limits. No overt failure pattern, vascular congestion, edema, pneumonia, effusion or pneumothorax. IMPRESSION: No acute appearing abnormality Dictated by: Dictated on workstation # [id number]
--- NOTE | 2020-08-18 09:14 | Cardiac Procedure Note-CS/ASA ---
Pre-Procedure Note Pre-Op Procedure Note H&P Reviewed The H&P was reviewed, patient examined and no changes noted. Date H&P Reviewed: Aug 18, 2020 Time H&P Reviewed: 09:14 Conscious Sedation Pre-Proced Time 09:14 ASA Score 3 For ASA 3 and 4: Consider anesthesia and medical clearance. Also, for patients with a history of failed moderate sedation consider anesthesia. Airway Lungs Heart ASA score ASA 1: a normal healthy patient ASA 2: a patient with a mild systemic disease (mid diabetes, controlled hypertension, obesity x ASA 3: a patient with a severe systemic disease that limits activity (angina, COPD, prior Myocardial infarction) ASA 4: a patient with an incapacitating disease that is a constant threat to life (CHF, renal failure) ASA 5: a moribund patient not expected to survive 24 hrs. (ruptured aneurysm) ASA 6: a declared brain- patient whose organs are being harvested. For emergent operations, add the letter E after the classification Mallampati Classification Grade 3 Sedation Plan Analgesia, Amnesia, Plan communicated to team members, Discussed options with patient/fam, Discussed risks with patient/fam The patient is an appropriate candidate to undergo the planned procedure, sedation, and anesthesia. The patient immediately re-assessed prior to indication. JOSE HERNANDEZ MD Aug 18, 2020 09:14
[2020-08-18 09:15] LABS: ALANINE AMINOTRANSFERASE 41 U/L (0-55); ALBUMIN 4.1 GM/DL (3.2-4.5); ALKALINE PHOSPHATASE 53 U/L (40-136); BILIRUBIN,TOTAL 1.3 MG/DL (0.1-1.0); BUN/CREATININE RATIO 17; CALCIUM 8.9 MG/DL (8.5-10.1); CARBON DIOXIDE 25 MMOL/L (21-32); CHLORIDE 104 MMOL/L (98-107); CHOLESTEROL 98 MG/DL (< 200); CREATININE SERUM 1.15 MG/DL (0.60-1.30); GFR ESTIMATED > 60; GLUCOSE 123 MG/DL (70-105); HDL CHOLESTEROL 40 MG/DL (40-60); POTASSIUM 4.1 MMOL/L (3.6-5.0); SODIUM 138 MMOL/L (135-145); TOTAL PROTEIN 7.4 GM/DL (6.4-8.2); TRIGLYCERIDES 79 MG/DL (<150); VLDL CHOLESTEROL 16 MG/DL (5-40)
[2020-08-18 09:16] LABS: INR 1.3 (0.8-1.4); PROTHROMBIN TIME PATIENT 16.3 SEC (12.2-14.7)
--- NOTE | 2020-08-18 09:16 | Discharge Inst-Cardiology ---
Discharge Inst-Cardiac Patient Instructions Patient Instructions: A Activity & Diet Discharge Diet: No Restrictions JOSE HERNANDEZ MD Aug 18, 2020 09:16
--- NOTE | 2020-08-18 09:17 | Cardioversion ---
Cardioversion PROCEDURE PHYSICIAN: Jose Robles DATE OF PROCEDURE: 08/18/20 DIRECT EXTERNAL ELECTRICAL CARDIOVERSION: Indications: Atrial Fibrillation with rapid ventricular rate Preoperative diagnoses: Atrial Fibrillation Postoperative diagnosis: Atrial fibrillation History: Anesthesia: By Anesthesia services Complications: None Specimen: None Contrast: 0 Flouroscopy: none Procedure Details: The patient was brought the greenhouse laborer after informed consent was taken, all the risks and complications were explained including the risk of stroke. Electrical cardioversion was carried out with anesthesia support with propofol. 200 joules of synchronized shock was delivered through external patches which failed to restore sinus rhythm, patient received a second shot without success. Procedure was aborted Conclusions: 1. Failed 2 attempts for cardioversion to restore sinus rhythm Final Diagnosis: Atrial fibrillation Hypertension Hyperlipidemia Sleep apnea JOSE ROBLES MD Aug 18, 2020 09:17
[~2020-08-18 09:30] MED LIST changes: -FLEC50TA PO; +KETAMINE/NaCl 50 MG/5 ML SYRINGE (ED ONLY) ONE; +LIDOCAINE 2% VISCOUS 15 ML UDC ONE; +LIDOCAINE 2% VISCOUS 15 ML UDC PO ONE; +MIDAZOLAM 5 MG/5 ML (VERSED) VIAL IV ONE; +MIDAZOLAM 5 MG/5 ML (VERSED) VIAL ONE; +NS IV 1000 ML 1,000 ML IV ONE; +NS IV 1000 ML 1,000 ML ONE; +fentaNYL INJECTION 100 MCG/2 ML AMP IV ONE; +proPOfol 200 MG/20 ML (DIPRIVAN) VIAL IV ONE
[2020-08-18] MEDS ORDERED: FLEC50TA PO (10:12)
--- NOTE | 2020-08-18 13:04 | Anesthesia-General Post-Op ---
MAC Patient Condition Mental Status/LOC: Same as Preop Cardiovascular: Satisfactory Nausea/Vomiting: Absent Respiratory: Satisfactory Pain: Controlled Complications: Absent Post Op Complications Complications None Follow Up Care/Instructions Patient Instructions None needed. Anesthesiology Discharge Order Discharge Order Patient is doing well, no complaints, stable vital signs, no apparent adverse anesthesia problems. No complications reported per nursing. MARGRET MARTINEZ CRNA Aug 18, 2020 13:04
== END 2020-08-18 11:35 ==
LOC: CATH 09:30 → SDC 10:12 → CATH 11:35
PROVIDERS: ATTEND Internal Medicine Cardiovascular Disease
DX: I48.0 Paroxysmal atrial fibrillation (principal); I10 Essential (primary) hypertension; E78.5 Hyperlipidemia, unspecified; G47.33 Obstructive sleep apnea (adult) (pediatric); I25.10 Atherosclerotic heart disease of native coronary artery without angina pectoris; Z79.899 Other long term (current) drug therapy; Z80.9 Family history of malignant neoplasm, unspecified
CPT/HCPCS: 36415; 71045; 80053; 80061; 81000; 85027; 85610; 85730; 87081; 92960; 93005; 93312

== ENCOUNTER → 2020-10-06 | Day surgery (SDC) | payer OTHER ==
[~2020-10-06] VITALS: Ht 180 cm; Wt 157.0 kg
[~2020-10-06] MED LIST changes: +DILT240C90 PO; +FLEC50TA PO; +FLUT1DIS26 IH; +HEParin (CATH LAB) 0 ML IV ONE; +IBUP1TAB PO; -KETAMINE/NaCl 50 MG/5 ML SYRINGE (ED ONLY) ONE; +LIDOCAINE 1% INJ 20 ML 20 ML VIAL ONE; -LIDOCAINE 2% VISCOUS 15 ML UDC ONE; -LIDOCAINE 2% VISCOUS 15 ML UDC PO ONE; +MELA5TAB14 PO; -MIDAZOLAM 5 MG/5 ML (VERSED) VIAL IV ONE; +NS IV 1000 ML 0 ML ONE; -NS IV 1000 ML 1,000 ML IV ONE; +NS IV 1000 ML 1,000 ML IV SCH; -NS IV 1000 ML 1,000 ML ONE; +TIOT18CA2 IH; +fentaNYL INJ 100 MCG/2 ML AMP ONE; -fentaNYL INJECTION 100 MCG/2 ML AMP IV ONE; -proPOfol 200 MG/20 ML (DIPRIVAN) VIAL IV ONE
[2020-10-06 07:26] VITALS: BP 121/84
[2020-10-06 07:34] LABS: HEMOGLOBIN 15.9 g/dL (13.3-17.7); MEAN PLATELET VOLUME 10.1 fL (9.0-12.2)
[2020-10-06 07:35] LABS: BILIRUBIN,URINE NEGATIVE (NEGATIVE); CLARITY,URINE CLEAR; COLOR,URINE YELLOW; GLUCOSE, URINE (UA) NEGATIVE (NEGATIVE); KETONES,URINE NEGATIVE (NEGATIVE); LEUKOCYTE ESTERASE ,URINE NEGATIVE (NEGATIVE); NITRITE,URINE NEGATIVE (NEGATIVE); PROTEIN,URINE 1+ (NEGATIVE)
[2020-10-06 07:45] LABS: AMORPHOUS SEDIMENT,UR FEW AMOR URATES /LPF; BACTERIA,URINE TRACE /HPF; HYALINE CASTS, URINE 0-2 /LPF
--- NOTE | 2020-10-06 07:47 | Diagnostic Imaging Report ---
INDICATION: Preop. Comparison with 08/18/2020. FINDINGS: Portable chest. The lungs are well-aerated and clear. Heart mildly enlarged. There are no infiltrates. No pulmonary edema. No pneumothorax or pleural effusion. IMPRESSION: No acute abnormalities when compared with previous exam. Dictated by: Dictated on workstation # [id number]
[2020-10-06 07:49] LABS: INR 1.1 (0.8-1.4); PROTHROMBIN TIME PATIENT 14.6 SEC (12.2-14.7)
[2020-10-06 08:01] LABS: ALANINE AMINOTRANSFERASE 44 U/L (0-55); ALBUMIN 4.2 GM/DL (3.2-4.5); ALKALINE PHOSPHATASE 73 U/L (40-136); BILIRUBIN,TOTAL 1.3 MG/DL (0.1-1.0); BUN/CREATININE RATIO 19; CARBON DIOXIDE 22 MMOL/L (21-32); CHLORIDE 108 MMOL/L (98-107); CREATININE SERUM 1.01 MG/DL (0.60-1.30); GFR ESTIMATED > 60; GLUCOSE 114 MG/DL (70-105); POTASSIUM 4.2 MMOL/L (3.6-5.0); SODIUM 140 MMOL/L (135-145); TOTAL PROTEIN 7.8 GM/DL (6.4-8.2)
== END ==
LOC: CATH 09:00
PROVIDERS: ATTEND Internal Medicine Cardiovascular Disease
DX: I25.10 Atherosclerotic heart disease of native coronary artery without angina pectoris (principal); Z53.9 Procedure and treatment not carried out, unspecified reason; R94.39 Abnormal result of other cardiovascular function study; I48.0 Paroxysmal atrial fibrillation; I10 Essential (primary) hypertension; E78.5 Hyperlipidemia, unspecified; E66.01 Morbid (severe) obesity due to excess calories; Z68.42 Body mass index [BMI] 45.0-49.9, adult; G47.33 Obstructive sleep apnea (adult) (pediatric); Z79.899 Other long term (current) drug therapy; Z87.891 Personal history of nicotine dependence; Z83.3 Family history of diabetes mellitus
CPT/HCPCS: 36415; 71045; 80053; 81000; 85027; 85610; 85730; 87081; 93005

== ENCOUNTER → 2020-11-18 | Outpatient (CLI) | payer OTHER ==
[~2020-11-18] MED LIST changes: +CATHETER FLUSH 10 ML SYR IV PRN; -HEParin (CATH LAB) 0 ML IV ONE; +HOLD METFORMIN - RECEIVED CONTRAST 20 ML VIAL IV SCH; +IOHEXOL 350 MG/ML 100 ML (OMNIPAQUE 350) VIAL IV ONE; -LIDOCAINE 1% INJ 20 ML 20 ML VIAL ONE; -MIDAZOLAM 5 MG/5 ML (VERSED) VIAL ONE; +NS 100 ML (IVPB) BAG IV ONE; -NS IV 1000 ML 0 ML ONE; -NS IV 1000 ML 1,000 ML IV SCH; -fentaNYL INJ 100 MCG/2 ML AMP ONE
[2020-11-18 09:33] LABS: BUN/CREATININE RATIO 22; CREATININE SERUM 1.17 MG/DL (0.60-1.30); GFR ESTIMATED > 60
--- NOTE | 2020-11-18 10:47 | Diagnostic Imaging Report ---
EXAMINATION: CT chest with intravenous contrast. TECHNIQUE: Multiple contiguous axial images were obtained through the chest after the uneventful administration of intravenous contrast. All CT scans use one or more of the following dose optimizing techniques: automated exposure control, MA and/or KvP adjustment based on patient size and exam type or iterative reconstruction. HISTORY: Lymphadenopathy. COMPARISON: 07/30/2020. FINDINGS: There is no edema or pneumonia. No pleural effusion. No pneumothorax. There is an 8 mm left apical nodule previously 6 x 6 mm. There is no axillary or supraclavicular lymphadenopathy. There is a 15 mm paraesophageal lymph node that previously measured 15 mm. Heart size is normal. There are no coronary artery calcifications. No pericardial effusion. Aorta is normal in caliber. Limited views of the upper abdomen are unremarkable. There are no suspicious osseous lesions. IMPRESSION: 1. Persistent mediastinal lymphadenopathy with slight increase in size of a left apical pulmonary nodule. A PET/CT is recommended to evaluate for hypermetabolic activity. Dictated by: Dictated on workstation # [id number]
== END ==
LOC: RAD 08:50
PROVIDERS: ATTEND Internal Medicine Critical Care Medicine
DX: R59.0 Localized enlarged lymph nodes (principal); R91.1 Solitary pulmonary nodule
CPT/HCPCS: 36415; 71260; 82565; 84520

== ENCOUNTER → 2020-12-06 | Outpatient (CLI) | payer OTHER ==
[~2020-12-06] MED LIST changes: -CATHETER FLUSH 10 ML SYR IV PRN; -HOLD METFORMIN - RECEIVED CONTRAST 20 ML VIAL IV SCH; -IOHEXOL 350 MG/ML 100 ML (OMNIPAQUE 350) VIAL IV ONE; -NS 100 ML (IVPB) BAG IV ONE
== END ==
LOC: LABNPT 06:43
PROVIDERS: ATTEND Internal Medicine Cardiovascular Disease
DX: Z20.822 Contact with and (suspected) exposure to COVID-19 (principal)
CPT/HCPCS: 87635

== ENCOUNTER → 2020-12-07 | Outpatient (CLI) | payer OTHER ==
--- NOTE | 2020-12-07 15:53 | Diagnostic Imaging Report ---
INDICATION: Mediastinal lymphadenopathy. TECHNIQUE: Serum blood glucose level at the time of injection is 121 mg/dL. Patient was administered 13.9 mCi F-18 FDG intravenously in the right antecubital location and PET imaging was performed from the top of the skull to mid thighs. Noncontrast CT was also performed for attenuation correction and anatomic correlation. COMPARISON: No prior PET/CT studies are available for comparison. Comparison is made with recent CT chest from 11/18/2020. FINDINGS: There is symmetric activity throughout the brain. The left apical nodule does show some increased activity with an SUV max of 4.6. No other pulmonary parenchymal areas of hypermetabolism are seen. There is no mediastinal or hilar hypermetabolism. There is physiologic activity throughout the GI and tracts. No areas of hypermetabolism in the abdomen or pelvis are identified. There is some muscular activity identified at multiple locations. IMPRESSION: Previously noted 8 mm left apical nodule does show increased FDG avidity, suspicious for a small neoplasm. No metastatic disease is detected. Dictated by: Dictated on workstation # [id number]
== END ==
LOC: RAD 09:43
PROVIDERS: ATTEND Nurse Practitioner Family
DX: R91.1 Solitary pulmonary nodule (principal); R59.0 Localized enlarged lymph nodes; R91.8 Other nonspecific abnormal finding of lung field
CPT/HCPCS: 78815; A9552

== ENCOUNTER 2020-12-14 05:34 | Outpatient (RCR) | payer OTHER ==
[~2020-12-14] VITALS: Ht 182.8 cm; Wt 154.5 kg
== END 2020-12-14 09:20 | disposition home or self-care (01) ==
LOC: PREOP 05:34
PROVIDERS: ATTEND Internal Medicine Critical Care Medicine
DX: Z01.812 Encounter for preprocedural laboratory examination (principal); R91.8 Other nonspecific abnormal finding of lung field; Z20.822 Contact with and (suspected) exposure to COVID-19
CPT/HCPCS: 87635

== ENCOUNTER 2020-12-15 06:32 | Day surgery (SDC) | payer OTHER ==
[2020-12-15] VITALS (14 sets, daily range): BP systolic 98–147; BP diastolic 59–89
[~2020-12-15] VITALS: Ht 182.8 cm; Wt 154.5 kg
[2020-12-15] MEDS ORDERED: LIDOCAINE PF 1% 2 ML AMP IJ ONE (06:33)
[2020-12-15] MEDS ORDERED: LIDOCAINE PF 2% 5 ML (XYLOCAINE) VIAL INJ ONE (06:33)
[2020-12-15] MEDS ORDERED: LACTATED RINGERS 1,000 ML IV ONE (06:45)
[2020-12-15] MEDS ORDERED: GLYCOPYRROLATE 0.2 MG/ML (ROBINUL) 2 ML VIAL ONE (07:06)
[2020-12-15] MEDS ORDERED: SUCCINYLCHOLINE INJ 100 MG/5 ML SYR/VIAL ONE (07:06)
[2020-12-15] MEDS ORDERED: MIDAZOLAM 2 MG/2 ML (VERSED) VIAL ONE (07:06)
[2020-12-15] MEDS ORDERED: fentaNYL INJ 100 MCG/2 ML AMP ONE (07:06)
[2020-12-15] MEDS ORDERED: ONDANSETRON 4 MG/2 ML (SDV) Z0FRAN ONE (07:06)
[2020-12-15] MEDS ORDERED: proPOfol 200 MG/20 ML (DIPRIVAN) VIAL IV ONE (07:06)
[2020-12-15] MEDS ORDERED: NEOSTIGMINE 3 MG/3 ML VIAL ONE (07:07)
[2020-12-15] MEDS ORDERED: ROCURONIUM 10 MG/ML 5 ML SYRINGE IV ONE (07:07)
[2020-12-15] MEDS ORDERED: LACTATED RINGERS 1,000 ML IV STA (07:15)
--- NOTE | 2020-12-15 07:32 | Pulmonary Procedures ---
Pulmonary Procedures Date of Procedure Date of Service: December 15, 2020 Bronch Bronchoscopy with suze brush, UNRULY BAL, and bilateral washes obtained. . Preop DX lung mass Postop DX: same Complications: none After informed consent obtained and formal time out pt was sedated using Fentanyl and Versed. Bronchoscope was advanced through the nare and vocal cords. 1% lidocaine was used to anesthetize vocal cords, epiglottis, suze, and left/ right main stem bronchus. An anatomical tour was undertaken down to the segmental bronchi bilaterally. No endobronchial lesions noted. Bronchoscopy with suze brush, UNRULY BAL, and bilateral washesl washes obtained. . Pt tolerated procedure well. No complications noted. Stat CXR is pending. DEBORA VAZQUEZ DO December 15, 2020 07:32
--- NOTE | 2020-12-15 07:33 | Progress Note-Pre Operative ---
Pre-Operative Progress Note H&P Reviewed The H&P was reviewed, patient examined and no changes noted. Time Seen by Provider: 07:33 Date H&P Reviewed: December 15, 2020 Time H&P Reviewed: 07:33 Pre-Operative Diagnosis: lung mass DEBORA VAZQUEZ DO December 15, 2020 07:33
[2020-12-15] MEDS ORDERED: ONDANSETRON 4 MG/2 ML (SDV) Z0FRAN IVP PRN (09:00)
--- NOTE | 2020-12-15 09:05 | Diagnostic Imaging Report ---
HISTORY: Post bronchoscopy. COMPARISON: 10/06/2020. TECHNIQUE: Frontal view of the chest. FINDINGS: Lung volumes are mildly decreased. There is mild cardiomegaly. No pneumothorax is seen. There is prominence of the jackie bilaterally. No significant pleural effusion is seen. No focal consolidation is seen. IMPRESSION: Prominent jackie which may be due to central vascular congestion or mediastinal lymphadenopathy. No pneumothorax post bronchoscopy. Dictated by: Dictated on workstation # [id number]
--- NOTE | 2020-12-15 10:26 | Anesthesia-General Post-Op ---
General Patient Condition Mental Status/LOC: Same as Preop Cardiovascular: Satisfactory Nausea/Vomiting: Absent Respiratory: Satisfactory Pain: Controlled Complications: Absent Post Op Complications Complications None Follow Up Care/Instructions Patient Instructions None needed. Anesthesia/Patient Condition Patient Condition Patient is doing well, no complaints, stable vital signs, no apparent adverse anesthesia problems. He was on BiPAP initially in PACU which Dr Brice expected. He is now on O2 via NC and doing well. YURY NERI DO December 15, 2020 10:25
== END 2020-12-15 11:00 | disposition home or self-care (01) ==
LOC: ENDO 06:32
PROVIDERS: ATTEND Internal Medicine Critical Care Medicine
DX: J20.9 Acute bronchitis, unspecified (principal); R91.8 Other nonspecific abnormal finding of lung field; I10 Essential (primary) hypertension; I48.91 Unspecified atrial fibrillation; G47.33 Obstructive sleep apnea (adult) (pediatric); E11.9 Type 2 diabetes mellitus without complications; F17.210 Nicotine dependence, cigarettes, uncomplicated; Z79.01 Long term (current) use of anticoagulants; Z79.899 Other long term (current) drug therapy; Z98.890 Other specified postprocedural states
CPT/HCPCS: 71045; 87015; 87070; 87101; 87106; 87116; 87205; 87206; 88112; 88305; 88312; 94640

== ENCOUNTER → 2021-01-04 | Outpatient (CLI) | payer OTHER | LOC: LABNPT 10:47 | DX: Z20.822 Contact with and (suspected) exposure to COVID-19 (principal) | CPT/HCPCS: 87635 ==

== ENCOUNTER 2021-01-27 05:36 | Outpatient (RCR) | payer OTHER ==
[~2021-01-27] VITALS: Ht 182.8 cm; Wt 168.2 kg
[~2021-01-27 05:36] MED LIST changes: +AMIO200T6 PO
== END 2021-01-27 10:16 | disposition home or self-care (01) ==
LOC: PREOP 05:36
PROVIDERS: ATTEND Surgery
DX: Z01.812 Encounter for preprocedural laboratory examination (principal); K92.1 Melena; Z20.822 Contact with and (suspected) exposure to COVID-19
CPT/HCPCS: 87635

== ENCOUNTER → 2021-02-04 | Outpatient (CLI) | payer SELFPAY | LOC: LABNPT 08:00 | PROVIDERS: ATTEND Surgery | DX: Z20.822 Contact with and (suspected) exposure to COVID-19 (principal) | CPT/HCPCS: 87635 ==

== ENCOUNTER 2021-02-07 07:52 | Day surgery (SDC) | payer OTHER ==
[~2021-02-07] VITALS: Ht 182.8 cm; Wt 168.2 kg
[2021-02-07] MEDS ORDERED: LACTATED RINGERS 1,000 ML IV STA (07:53)
[2021-02-07] MEDS ORDERED: LACTATED RINGERS 1,000 ML IV ONE (07:57)
[2021-02-07] MEDS ORDERED: HURRICAINE EXT TUBE (BENZOCAINE) XX PRN (08:00)
[2021-02-07 08:05] VITALS: BP 131/85
[2021-02-07] MEDS ORDERED: MIDAZOLAM 2 MG/2 ML (VERSED) VIAL ONE (08:17)
[2021-02-07] MEDS ORDERED: PROPOFOL INJECTION 50 ML IV ONE (08:17)
--- NOTE | 2021-02-07 08:37 | Progress Note-Pre Operative ---
Pre-Operative Progress Note H&P Reviewed The H&P was reviewed, patient examined and no changes noted. Time Seen by Provider: 08:31 Date H&P Reviewed: Feb 07, 2021 Time H&P Reviewed: 08:31 Pre-Operative Diagnosis: Melena, +Occult blood Addendum Physician Addendum Addendum Pt has no changes and no questions about the EGD and Colonoscopy. My H&P is from November; however, most recent H&P [facility] from [facility] on 01/20. Progress 08:36 DAWSON NUGENT DO Feb 07, 2021 08:37
[2021-02-07] MEDS ORDERED: KETAMINE SYRINGE 50 MG/5 ML SYRINGE ONE (09:01)
[2021-02-07 09:36] VITALS: BP 107/59
--- NOTE | 2021-02-07 09:36 | Progress Note-Post Operative ---
Post-Operative Progess Note Surgeon (s)/Deputy Attorney General (s) Surgeon DAWSON NUGENT DO Deputy Attorney General: Ferny Valdez, OJ Pre-Operative Diagnosis Melena, +Occult blood Post-Operative Diagnosis Severe Gastritis Hiatal hernia Esophagitis Polyps int hemorrhoids retained fecal material Procedure & Operative Findings Date of Procedure 02/07/21 Procedure Performed/Findings EGD with bx Colonoscopy with Snare Polypectomy PROCEDURE NOTE: After informed consent was obtained, the patient was brought to the endoscopy suite, placed in bed in left lateral decubitus position. He was administered IV sedation by the SALES HOST who then monitored vitals the entire time, heart rate, blood pressure and pulse ox and the scope was inserted down the mouth through the esophagus into the stomach. On the way down, noted some esophagitis, took a picture, pushed into the stomach and noted some old blood. Pushed past the antrum into the duodenum. Duodenum appeared to have some inflammation. Pulled back and did a biopsy of antrum; where I saw some severe gastritis, then retroflexed the scope, saw hiatal hernia, took a picture of this and then pulled the scope into the GE junction, took another picture and then did a biopsy of the GE junction. Pushed the scope back into the stomach, suctioned all the air out of the stomach. At this point pulled the scope up the esophagus and out the mouth. Switched camera, switched gloves, went down below, started the colonoscopy. Pushed all the way into about 150 cm to get all the way to cecum. On the way in, in the descending colon saw a polyp and elected to do a snare polypectomy. He also had retained fecal material, pieces too large to suction up or move by flushing. In the cecum took a picture of the appendiceal orifice, noted the ileocecal valve and then slowly withdrew the scope, insufflating to look circumferentially at the martinez. Starting in the cecum, up the ascending colon to the hepatic flexure, then down the transverse colon, splenic flexure, into the descending colon, down into the sigmoid and finally into the rectum. Another large polyp seen in the rectum and another snare polypectomy was performed. Then retroflexed in the rectal vault, saw some minimal internal hemorrhoids and took a picture of this. The patient tolerated the procedure and he recovered in the endoscopy suite. He will need repeat colonoscopy in 3 yrs because of retained fecal material and the polyps; argument could be made for a year. He will probably need repeat EGD in a yr as well. Anesthesia Type IV sedation by SALES HOST Estimated Blood Loss Estimated blood loss (mL): scant Specimens/Packing Specimens Removed antral bx body of stomach bx GE jxn bx Desc colon polyp rectal polyp DAWSON NUGENT DO Feb 07, 2021 09:36
--- NOTE | 2021-02-07 09:38 | Endoscopy Discharge Instruct ---
Endo Procedure/Findings Findings 1.: Hiatal Hernia, Gastritis 2.: Other Findings (Esophagitis) 3.: Polyp 4.: Internal Hemorrhoids, Other Findings (retained fecal material) Discharge Instructions - Activity: You might feel a little sleepy until tomorrow. This is due to the medicine you received to relax you. Until tomorrow, you should: NOT drive a car, operate machinery or power tools. NOT drink any alcoholic beverages. NOT make any important decisions or sign importortant papers. Do not return to work until tomorrow, unless otherwise instructed. Resume previous activities tomorrow. Diet: Start by taking liquids. If you tolerate liquids, advance to solid food. 1.: Colonscopy in 3 years 2.: EGD in 1 year Notify Physician - If you experience excessive bleeding, unusual abdominal pain, fever, or chest pain, contact your doctor immediately. DAWSON NUGENT DO Feb 07, 2021 09:38
[2021-02-07 09:41] VITALS: BP 113/62
[2021-02-07 09:50] VITALS: BP 114/66
[2021-02-07 10:10] VITALS: BP 115/60
== END 2021-02-07 10:18 | disposition home or self-care (01) ==
LOC: ENDO 07:52
PROVIDERS: ATTEND Surgery
DX: D12.8 Benign neoplasm of rectum (principal); K63.5 Polyp of colon; K44.9 Diaphragmatic hernia without obstruction or gangrene; K64.8 Other hemorrhoids; K20.90 Esophagitis, unspecified without bleeding; K29.70 Gastritis, unspecified, without bleeding; I10 Essential (primary) hypertension; I48.0 Paroxysmal atrial fibrillation; G47.33 Obstructive sleep apnea (adult) (pediatric); I65.23 Occlusion and stenosis of bilateral carotid arteries; E66.01 Morbid (severe) obesity due to excess calories; Z68.43 Body mass index [BMI] 50.0-59.9, adult; Z79.899 Other long term (current) drug therapy; Z87.891 Personal history of nicotine dependence
CPT/HCPCS: 88305

== ENCOUNTER → 2021-02-14 | Outpatient (CLI) | payer OTHER | LOC: LABNPT 08:30 | PROVIDERS: ATTEND Internal Medicine Cardiovascular Disease | DX: Z20.822 Contact with and (suspected) exposure to COVID-19 (principal) | CPT/HCPCS: 87635 ==

== ENCOUNTER → 2021-04-06 | Outpatient (CLI) | payer OTHER ==
--- NOTE | 2021-04-06 14:05 | Diagnostic Imaging Report ---
PROCEDURE: CT chest without contrast. TECHNIQUE: Multiple contiguous axial images were obtained through the chest without the use of intravenous contrast. Auto Exposure Controls were utilized during the CT exam to meet ALARA standards for radiation dose reduction. INDICATION: Pulmonary nodule. COMPARISON: 11/18/2020. FINDINGS: The 1 cm subpleural nodule in the apical aspect of left upper lobe has not appreciably changed. Minimal adjacent subpleural nodules are also seen in the upper left hemithorax. There is no evidence of new lesion or significant interval growth. Linear densities are seen in the right middle lobe and lingula as well as both lung bases without evidence of pleural or pericardial fluid. Mildly prominent mediastinal lymph nodes have not appreciably changed. IMPRESSION: Overall stability of approximately 1 cm left upper lobe nodule as well as additional subpleural nodules and mildly prominent mediastinal lymph nodes would be most suggestive of benign etiology. Additional follow-up study could be performed in 6 months to document ongoing stability. Dictated by: Dictated on workstation # [id number]
== END ==
LOC: RAD 13:45
PROVIDERS: ATTEND Internal Medicine Critical Care Medicine
DX: R91.8 Other nonspecific abnormal finding of lung field (principal)
CPT/HCPCS: 71250

== ENCOUNTER 2021-06-05 17:22 | Observation (INO) | payer SELFPAY ==
[~2021-06-05] VITALS: Ht 182.8 cm; Wt 163.3 kg
--- OUTSIDE RECORDS SUMMARY | 2021-06-05 17:27 | XMS REPORT | Clinical Summary ---
Author Author [facility] Organization [facility] Address Unknown Phone Unavailable Care Team Providers Care Vegetables Cook Name Role Phone Tiny Wallace APRN PCP Allergies Not on File Medications Not on file Active Problems Problem Noted Date Paroxysmal atrial fibrillation halfway current use of anticoagulant Social History Date Tobacco Use Types Packs/Day Years Used Never Assessed Sex Assigned at Date Recorded Not on file Last Filed Vital Signs Not on file Plan of Treatment Health Maintenance Due Date Last Done Comments Hepatitis C Screen 1960 Td/Tdap# 1960 COVID-19 Vaccine (1) 1972 Colorectal Screening via 2010 Colonoscopy Zoster Vaccine# (1 of 2) 2010 Influenza Vaccine (#1) 2021 04/24/2020 Pneumococcal Vaccine: Aged Out No longer eligib le based on patient's age to Pediatrics (0 to 5 Years) complete this topic and At-Risk Patients (6 to 64 Years) Results Not on filefrom Last 3 Months Advance Directives For more information, please contact: [phone] Patient Strategic Debriefing Specialist Explanation Type Date Recorded Health Care Directive Care Teams Start Date End Date Vegetables Cook Relationship Specialty 06/13/20 Tiny Wallace APRN PCP - General Nurse [address] [place] [address] [place] [address]
--- OUTSIDE RECORDS SUMMARY | 2021-06-05 17:28 | XMS REPORT | Clinical Summary ---
Author Author [facility] Organization [facility] Address Unknown Phone Unavailable Care Team Providers Care Budget Director Name Role Phone Nunu Patel APRN PCP Source Comments Some departments are not documenting in the electronic medical record. If you d o not see the information that you expected, contact Release of Information in [facility] [employer] Information Management department at [phone] for further assistan ce in locating additional records.[facility] Allergies No known active allergies Medications End Date Status Medication Sig Dispensed Refills Start Date Active atorvastatin (LIPITOR) 40 Take 40 mg by 0 mg tablet mouth daily. Active diltiazem CD (CARDIZEM Take 240 mg 0 CD) 240 mg capsule by mouth daily. Active ibuprofen (IBU PO) Take by 0 mouth. Active metoprolol XL (TOPROL XL) Take 25 mg by 0 25 mg extended release mouth daily. tablet Active traZODone (DESYREL) 50 mg Take 50 mg by 0 tablet mouth at bedtime as needed for Sleep. Active rivaroxaban (XARELTO) 20 Take 20 mg by 0 mg tablet mouth daily. Take with food. Active tiotropium bromide Inhale 2 0 (SPIRIVA RESPIMAT) 2.5 puffs by mcg/actuation inhaler mouth into the lungs daily. Active fluticasone-salmeterol Inhale 1 puff 0 (ADVAIR DISKUS) 250-50 by mouth into mcg/dose inhalation disk the lungs every 12 hours. Active fexofenadine HCl (FRANTZ Take by 0 PO) mouth daily. 05/08/2022 Active amiodarone (PACERONE) 200 Take one 180 tablet 3 mg tablet tablet by 1 mouth three times daily for 30 days, THEN one tablet twice daily for 330 days. Take with food. Active Problems Problem Noted Date Persistent atrial fibrillation 11/25/2020 Morbid obesity 09/14/2020 Cellulitis 09/14/2020 Overview: Formatting of this note might be differ ent from the original. Left leg 04/19/2020 - [facility] - ([facility]) No significant obstructive disease in the lower extremities with excellent flow in BLE down to trifurcation. No s ignificant obstructive disease below the trifurcation in the LLE down to the foot. Normal abdominal aorta and aorta bifurcation with no significant a bnormality Obstructive sleep apnea 09/14/2020 Tobacco abuse 09/14/2020 Coronary artery disease 09/14/2020 Paroxysmal atrial fibrillation 09/14/2020 Overview: Formatting of this note is different fr om the original. Current as of 09/17/2020... Failed DCCV 08/18/20 ([facility]) CHADS-VASC = 2 (HTN, CAD) Currently diagnosed of BREN; wears CPAP Margaret managing BMI = 50 ECHO: [facility]; [facility]; LA: dilated (no measurements provided) RA: dilated (no measurements provided) LVEF: normal (no further detail provide d) Trans-thoracic echo; [facility]; 04/10/2020 LA: severely dilated; 5.8cm RA: normal (no measurements provided) LVEF: 40-45% Hypertension 09/14/2020 Hyperlipidemia 09/14/2020 Encounters Care Team Description Date Type Specialty Chuck Graham MD Follow Up (1-2 mo f/u - cardioversions u nsuccessful) 05/13/2021 Office Visit Cardiology Rohit Schuster RN Paroxysmal atrial fibrillation (HCC) (Pr imary Dx) 05/13/2021 Pre-Admit Cardiology Orders Only 05/13/2021 Travel Unknown, Unknown, Referral 05/10/2021 Telephone Hepatology 05/03/2021 Hospital Radiology Encounter from Last 3 Months Surgical History Surgery Date Site/Laterality Comments ELECTROCARDIOGRAM DOPPLER ECHOCARDIOGRAPHY CARDIAC CATHERIZATION CARDIOVASCULAR STRESS TEST Medical History Medical History Date Comments Morbid obesity (HCC) 09/14/2020 Cellulitis 09/14/2020 Obstructive sleep apnea 09/14/2020 Tobacco abuse 09/14/2020 Coronary artery disease 09/14/2020 Paroxysmal atrial fibrillation (HCC) 09/14/2020 Hypertension 09/14/2020 Hyperlipidemia 09/14/2020 Family History Medical History Relation Name Comments Diabetes Maternal Grandfather Cancer Mother Heart Disease Paternal Grandmother Relation Name Status Comments Maternal Grandfather Mother Paternal Grandmother Social History Date Tobacco Use Types Packs/Day Years Used Current Every Day Smoker Cigarettes 40 Smokeless Tobacco: Never Used Comments: 4 cigarettes a day Comments Alcohol Use Standard Drinks/Week Yes 4 (1 standard drink = 0.6 o z pure alcohol) Sex Assigned at Date Recorded 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 Last Filed Vital Signs Reading Time Taken Comments Vital Sign 122/82 05/13/2021 9:51 AM CDT Blood Pressure 83 05/13/2021 9:51 AM CDT Pulse - - Temperature - - Respiratory Rate 95% 05/13/2021 9:51 AM CDT Oxygen Saturation - - Inhaled Oxygen Concentration 166 kg (366 lb) 05/13/2021 9:51 AM CDT Weight 182.9 cm (6') 05/13/2021 9:51 AM CDT Height 49.64 05/13/2021 9:51 AM CDT Body Mass Index Plan of Treatment Health Maintenance Due Date Last Done Comments HIV SCREENING 1975 DTAP/TDAP VACCINES (1 - 1978 Tdap) HEPATITIS C SCREENING 1978 PHYSICAL (COMPREHENSIVE) 1978 EXAM COLORECTAL CANCER 2010 SCREENING SHINGLES RECOMBINANT 2010 VACCINE (1 of 2) INFLUENZA VACCINE 02/20/2021 04/11/2020 Procedures Comments Procedure Name Priority Date/Time Associated Diag nosis ECG-SCAN 05/13/2021 12:00 AM CDT US ABDOMEN EXTERNAL Routine 05/03/2021 IMAGING 12:00 AM CDT from Last 3 Months Results * ECG-SCAN (05/13/2021 12:00 AM CDT) Narrative 05/13/2021 12:00 AM CDT Ordered by an unspecified provider. * US ABDOMEN EXTERNAL IMAGING (05/03/2021 12:00 AM CDT) Modality Anatomical Region Laterality Computed Radiography Specimen Narrative Scheduling, Silent - 05/11/2021 4:16 PM CDT This order has been auto finalized and does not contain a result. from Last 3 Months Advance Directives Patient Paste Thinner Explanation Type Date Recorded Advance Directive/DPOA Care Teams Start Date End Date Budget Director Relationship Specialty 09/01/20 Nunu Patel, SCAFFOLD SETTER PCP - General Nurse [address] [place] [address]
--- OUTSIDE RECORDS SUMMARY | 2021-06-05 17:28 | XMS REPORT | Encounter Summary ---
[facility] Address Unknown Phone Unavailable Care Team Providers Care Health It Specialist Name Role Phone AlecMollyNunu Jeffrey AGRICULTURAL ECONOMICS TEACHER PCP Reason for Referral * Consult, Test & Treat (Routine) - New Request Diagnoses / Procedures Referred By Contact Referred To [facility] Specialty Procedures REQUEST FOR CARDIOLOGY APPOINTMENT Chuck Graham MD [address] [place] [id number] Referral ID Status Reason Start Date Expiration Visits Vi sits Date Requested Authorized [id number] New Request 05/13/2021 05/13/2022 1 1 Reason for Visit * Reason Comments Follow Up 1-2 mo f/u - cardioversions unsuccessful * Consult, Test & Treat (Routine) - Pending Review Diagnoses / Procedures Referred By Contact Referred To [facility] Specialty Procedures REQUEST FOR CARDIOLOGY APPOINTMENT Chuck Graham MD [address] [place] [id number] Referral ID Status Reason Start Date Expiration Visits Vi sits Date Requested Authorized [id number] Pending 12/22/2020 12/22/2021 1 1 Review Encounter Details Care Team Description Date Type Department Chuck Graham MD [address] [place] [id number] Follow Up (1-2 mo f/u - cardioversions u nsuccessful) 05/13/2021 Office Visit Cardiology: [facility] [address] [place] [address], [facility] [place] [id number] Social History Date Tobacco Use Types Packs/Day Years Used Current Every Day Smoker Cigarettes 40 Smokeless Tobacco: Never Used Comments: 4 cigarettes a day Comments Alcohol Use Standard Drinks/Week Yes 4 (1 standard drink = 0.6 o z pure alcohol) Sex Assigned at Date Recorded 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 documented as of this encounter Last Filed Vital Signs Reading Time Taken [...] 05/13/2021 9:51 AM CDT Body Mass Index documented in this encounter Functional Status Date of Assessment Functional Status Response 01/06/2021 Does the patient have a hearing impairment: No 01/06/2021 Does the patient have a visual impairment: Yes 01/06/2021 Does the patient have impaired ambulation: No 01/06/2021 Does the patient have an activity of daily living No (ADL) impairment: 01/06/2021 Does the patient have an instrumental activity of No daily living (IADL) impairment: Date of Assessment Cognitive Status Response 01/06/2021 Does the patient have a cognitive impairment: No documented as of this encounter Ordered Prescriptions Start Date End Date Prescription Sig Dispensed Refills 05/13/2021 05/08/2022 amiodarone (PACERONE) 200 Take one 180 tablet 3 mg tablet tablet by mouth three times daily for 30 days, THEN one tablet twice daily for 330 days. Take with food. documented in this encounter Progress Notes * Chuck Graham MD - 05/13/2021 10:00 AM CDT Date of Service: 05/13/2021 Zheng Guo is a 60 y.o. male. HPI I had the pleasure of seeing Zheng Guo in the Atrial Fibrillation Clinic at [facility] for follow up for management of paroxysmal atrial fibrillation. He was referred to the Atrial Fibrillation Clinic followi ng failed cardioversion on 08/18/2020. Referral source: Dr. Chirag Robles, last seen 08/27/20 Primary care physician: Dr. Nunu Patel Primary auto salvage worker: Dr. Chirag Robles Initial diagnosis of AF (date): March 2020 His PMHx briefly includes: Paroxysmal Atrial Fibrillation; S/P Successful DCCV (12/08/2020 & 02/16/2021); Unsuccessful DCCV (01/07/2021); Essential Hypertension; Nonobstructive CAD by Cardiac Catheterization by Dr. Robles (07/09/2020); Severely Dilated LA by Echo by Dr. Robles; Morbid Obesity with a BMI of 48Weighing 345 pounds; OSAS; Mixed Hyperlipidemia; "Extensive Cellulitis" of the Left Leg> [facility] with Extensive Debridement and Surgery and Fully Recovered; Severe Cellulitis prompting Peripheral Angiogram (03/2020 by ) showing No Significant Obstructive Disease in the Lower Extremities with Excellent Flow in Both Lower Extremities and No Significant Obstructive Disease below the Trifurcation. Normal Abdominal Aorta and Aortic Bifurcation; Tobaccoism, still smoking 5 cigarettes per day. He has a [id number] score of 1: HTN To Review Detailed Updated PMHx see below the ASSESSMENT AND PLAN section of thi s note. He STATES that he continues to feel fatigued and short of breath while he is in atrial fibrillation. He states that he has had multiple cardioversions in the p ast, most recently 1 month ago and states that when he is in normal sinus rhythm he feels much better. He states that for the last cardioversion, he was put on amiodarone for 1 month prior to that and was only able to maintain sinus rhythm for approximately 4 days after cardioversion. He did stop taking his amiodarone at that time and is no longer taking it to this day. He denies any palpitations or episodes of syncope. He does have obstructive sleep apnea and is compliant with his CPAP on a nightly basis. He does continue to smoke 4 cigarettes/day. He has been unsuccessful in losing weight and does not currently exercise or diet. He denies any chest discomfort, palpitations, lightheadedness, near syncope or s yncope, PND or orthopnea. FHx, SHx and ROS documented and I have reviewed, with some pertinent features to include: No FHx of premature CAD. He is a Prior-Smoker quit 04/2020. Most pert inent ROS is included/discussed throughout the note, e.g. HPI and A/P. ASSESSMENT AND PLAN: -- CURRENTLY Persistent Coarse Atrial Fibrillation -- S/P Successful DCCV (12/08/2020 & 02/16/2021) -- Unsuccessful DCCV (01/07/2021) -- Severe LA Dilatation -- Essential Hypertension -- Morbid Obesity with a BMI of 48 and weight of 345 pounds -- OSAS Mr. Guo is presenting today for follow-up of his persistent atrial fibrillati on. He is in atrial fibrillation today. He continues to be symptomatic while in atrial fibrillation however we have had difficulty in trying to restore normal sinus rhythm. He was previously on flecainide and amiodarone and was successful ly cardioverted back to sinus rhythm, however he is not able to maintain sinus r hythm for very long. He is currently not on any antiarrhythmic medications at t his time. His overall obesity and severe left atrial enlargement will make achi eving sustainable sinus rhythm very difficult. At this time we will try and tina d him again with amiodarone for extended period of time with increased doses and then try another cardioversion. We will see him back in the office in 3 months on the day of the cardioversion. See additional plan details below. PLAN: -- He will initiate Amiodarone 200 mg TID x 2 weeks and then decrease Amiodarone 200 mg BID. -- We will proceed with DCCV day of but after OV in 3 months. ATTESTATION/ADDENDUM: I have personally seen, and examined the pt. and performed the mckeon portions of t he E/M visit or Consultation. I have reviewed and concur with the medical docum entation including the history, ROS, physical exam, ECGs, telemetry, labs, & pertinent radiologic studies as noted by the fellow. I, also, have jointly for mulated the problem list, assessment & treatment plan as outlined by the fellow, with comments and amends to the note made as needed. Mr. Guo failed flecainide for rhythm control. We then switch him to amiodaro ne. His amiodarone, however, has since been discontinued. I anticipate that was don e by Dr. Robles but I have no records of that. We will try and obtain those to d etermine when exactly the amiodarone was discontinued as the patient has no zheng llection of frankly even being on it. After failing flecainide we initiated amiodarone with a somewhat loading dose of 200 3 times daily for 2 weeks then 400 mg a day. We then proceeded with cardio version. His cardioversion was approximately 6 weeks after his amiodarone initi ation. The cardioversion succeeded but he went back into A. fib at some point. Mr. Guo states he believes he feels significantly better when he is in sinus rhythm. He feels his breathing is better his fatigue is less. Unfortunately rather than continuing the amiodarone and reattempting cardioversi on and maintenance of sinus rhythm the amiodarone was discontinued. Again that was either done by Dr. Robles when he went back into A. fib or by the patient him self. He has no recollection again of even being on the medication so he certai nly has no recollection of stopping on his own. Also unfortunately his LA dimension has been markedly or severely enlarged. It has not been reassessed however for quite some time. Therefore we will pursue a n echo as described above and reassess his LA size. The benefit of an A. fib ablation if he has a markedly dilated LA and the risk e specially and benefit of his weight remains over 300 pounds is low. We reviewed this extensively with Mr. Guo today. His weight has not signific antly changed. He believes he is down 10 pounds however in fact all of our scal es in the past have shown him at 345 pounds in her current scale although a diff erent one shows him at 366. He states he is at home weighing 370 pounds. I do not feel he is taking aggressive measures to lose weight which would allow him to have a potentially more successful and lower risk procedure. Or frankly even make the procedure worth pursuing. That of course is depending on his LA afshan bordene. Since the duration of his amiodarone has been unclear and potentially was short and it is a medication that accumulates over time, and since we are able to rest ore sinus rhythm with a cardioversion but not maintain it, and ablation is not g oing to be a good option by itself, we will reinitiate Amiodarone. Details of capri mitchell etc. described above. After 3 months on amiodarone will proceed with cardioversion. Even if that fail s to maintain sinus rhythm, we will continue up to 6-month and reattempt. I have asked him to monitor his pulse at home because of his pulse rate decrease s on the amiodarone we may need to adjust his diltiazem or Toprol. He will cont act if his heart rate is below 60 bpm. Have asked him to check it daily. I have asked him to pursue smoking cessation. He states he is down to 4 cigaret breanna a day. He will continue to work on it. I think he understands that his weight is a big impediment to optimizing his the rapy. Hopefully he will be more aggressive in trying to pursue weight loss. He states his blood pressure at home is typically in the 120s/80s. Unfortunately, and ultimately, we may need to accept his AFIB is permanent. We discussed the association between obstructive sleep apnea and AFIB and that i nadequately Tx'd sleep apnea will increase the risk of recurrent AFIB and make c ontrolling the AFIB much more difficult. Thus I emphasized the need to be stric tly compliant with his CPAP, etc. And asked him to discuss with his PMD reassess ing his CPAP settings if it hadn't been done over the last year. We discussed the association between inadequately treated BP and AFIB and that i nadequately treated HTN will increase the risk of recurrent AFIB and make contro lling the AFIB much more difficult. Thus I emphasized the need to monitor his B P at home and ensure his BP stays within the target range discussed. Note--The Complexity of medical decision making is high due to the multi-system diseases present and the complexity and acuity of the pt's current heart/rhythm condition with concerns including but not limited to complexity/severity and gra vity of the patient's underlying cardiac illnesses and interplay of other issues . Chuck Graham M.D., [facility], [facility] Staff Director Of Software Engineering glass cylinder flanger Cardiology and Electrophysiology Dept. [facility] Cardiology [facility] Pager: [phone] Total Time Today was 52 minutes in the following activities: Preparing to see th e patient, Obtaining and/or reviewing separately obtained history, Performing a medically appropriate examination and/or evaluation, Counseling and educating th e patient/family/caregiver, Ordering medications, tests, or procedures, Referrin g and communication with other health college and career counselor (when not separately re ported) and Documenting clinical information in the electronic or other health r ecord Mr. Guo was educated regarding plan of care. He was instructed to call our of fice with any questions or concerns, as well as to notify us of any new or worse marce symptoms. He verbalized understanding. I appreciate the opportunity to participate in the care of your patient. Please do not hesitate to contact me directly if you have any questions or furth er insights into his care. I have scheduled his follow-up with me in 3 month(s) . DETAILED UPDATED PMHx: -- 03/2020: Onset of AFIB during active acute cellulitis. Diltiazem, Eliquis, To prol all initiated -- 03/2020: Echo with EF 40 to 45%, severely dilated LA at 5.8 cm, mild MR -- 03/2020: Peripheral Angiogram at [facility]: Showing no significant obstructi ve disease in the lower extremities with excellent flow in both lower extremitie s. Normal abdominal aorta and aortic bifurcation. -- 06/2020: Initial OV with Dr. Robles -- 06/2020: Lexiscan stress test at [facility] by Dr. Lizy pulido, mild reversible ischemia involving the mid to apical anterior wall. Normal EF. -- 08/18/20: KAE at [facility] by Dr. Riveraormal systolic function, dila lynette LA, no evidence of LA appendage thrombus, no PFO or shunt -- 08/18/20: DC Synchronous Cardioversion in [place], [place]--> Reportedly Unable to Restore NSR-->INITIATED FLECAINIDE -- 09/21/2020: Initial EP Consultation (Dr. Graham): Pt CURRENTLY IN PERSISTENT A FIB. Will proceed with KAE and if pt does not show thrombus we will increase Fl ecainide to 100 mg BID with cardioversion 2 weeks later. Increased Flecainide to 100 mg BID. -- 11/23/2020: HYDRAULIC TESTER OV (Eliseo): Pt with fatigue and YL. Pt with very dark black l oose stools. Follow up with PMD before proceeded with DCCV. -- 12/08/2020: KAE: Severe biatrial enlargement. No thrombus seen in the left a trium or left atrial appendage. Right ventricular chamber size is mildly dilated ; function is normal. Left ventricular chamber size is normal; without left vent ricular hypertrophy. Normal left ventricular systolic function, with an ejection fraction estimated at 60%. No hemodynamically significant valvular abnormalities identified. LA severely dilated. -- 12/08/2020: Successful DCCV of AFIB TO NSR -- 01/07/2021: Unsuccessful DC cardioversion of Atrial fibrillation to sinus rhy thm. -- 02/16/2021: Successful DCCV of AFIB TO NSR -- 02/16/2021: KAE: The left atrium and left atrial appendage are free of throm bus. The left ventricular size and function is normal. The estimated ejection fr action is 60%. Normal right ventricular size and systolic function. No significa nt valvular abnormalities. No pericardial effusion. There are no significant reginaldo nges when compared with prior transesophageal echocardiogram on 12/08/2020. LA m ildly dilated -- 12/15/2020: Pt reported recurrent AFIB per ECG with Dr. Robles. Will repeat EC G. Pt with with extreme fatigue and SOA since 12/11. -- 12/21/2020: Stopped Flecainide. Initiated Amiodarone 200 TID x 2 weeks then de crease to 200 mg BID. Will proceed with repeat DCCV. -- 01/05/2021: Decrease Amiodarone to 400 mg/d. -- 01/06/2021: HYDRAULIC TESTER OV (Mele): Pt with recurrent AFIB. Pt with continued fati deborah. Will proceed with DCCV. -- 02/02/2021: Increased Amiodarone to 200 mg TID. Vitals: 05/13/21 0951 BP: 122/82 BP Source: Arm, Left Upper Patient Position: Sitting Pulse: 83 SpO2: 95% Weight: (!) 166 kg (366 lb) Height: 1.829 m (6') PainSc: Zero Body mass index is 49.64 kg/m. Past Medical History Patient Active Problem List Diagnosis Date Noted Persistent atrial fibrillation (HCC) 11/25/2020 Morbid obesity (HCC) 09/14/2020 Cellulitis 09/14/2020 Left leg 04/19/2020 - AARO - ([facility]) No significant o bstructive disease in the lower extremities with excellent flow in BLE down to t rifurcation. No significant obstructive disease below the trifurcation in the L LE down to the foot. Normal abdominal aorta and aorta bifurcation with no signi ficant abnormality Obstructive sleep apnea 09/14/2020 Tobacco abuse 09/14/2020 Coronary artery disease 09/14/2020 Paroxysmal atrial fibrillation (HCC) 09/14/2020 Current as of 09/17/2020... Failed DCCV 08/18/20 ([facility]) CHADS-VASC = 2 (HTN, CAD) Currently diagnosed of BREN; wears CPAP Margaret managing BMI = 50 ECHO: KAE; [facility]; 08/18/20 LA: dilated (no measurements provided) RA: dilated (no measurements provided) LVEF: normal (no further detail provided) Trans-thoracic echo; [facility]; 04/10/2020 LA: severely dilated; 5.8cm RA: normal (no measurements provided) LVEF: 40-45% Hypertension 09/14/2020 Hyperlipidemia 09/14/2020 Review of Systems Constitutional: Positive for malaise/fatigue. HENT: Negative. Eyes: Negative. Cardiovascular: Positive for irregular heartbeat. Respiratory: Positive for shortness of breath. Endocrine: Negative. Hematologic/Lymphatic: Negative. Skin: Negative. Musculoskeletal: Negative. Gastrointestinal: Negative. Genitourinary: Negative. Neurological: Negative. Psychiatric/Behavioral: Negative. Allergic/Immunologic: Negative. Physical Exam Constitutional: He is in no acute distress, resting comfortably. Skin/Integument: Warm and dry. Eyes: PERRL, sclera are non-icteric and no xanthelasmas noted. ENT: Hearing is intact. Heme/Lym/Immun: Supple neck, without thyromegaly. Respiratory-Pulmonary/Chest: Effort normal and breath sounds normal. No respira tory distress or accessory muscle use. No obvious tracheal deviation. Clear to auscultation bilaterally. Cardiovascular: No evidence of increased jugular venous pressure, carotids are 2+/4+ equal bilaterally, without obvious bruit. Regular rhythm, S1, S2. I do n ot appreciate any significant murmur today. No heaves, thrills or rubs. Musc/Skeletal-Extremities: Without significant peripheral edema. With what appe ars to be full ROM. Neuro: Patient is alert and oriented to person, place, and time. Psych: Patient does not appear anxious, he appears appropriate, with normal non -pressured speech and what appears to be appropriate judgement Cardiovascular Studies ECG today demonstrates atrial fibrillation with nonspecific ST and T wave change s. Cardiovascular Health Factors Vitals BP Readings from Last 3 Encounters: 05/13/21 122/82 02/16/21 103/60 01/07/21 110/65 Wt Readings from Last 3 Encounters: 05/13/21 (!) 166 kg (366 lb) 02/16/21 (!) 156.5 kg (345 lb) 01/07/21 (!) 156.5 kg (345 lb) BMI Readings from Last 3 Encounters: 05/13/21 49.64 kg/m 02/16/21 48.12 kg/m 01/07/21 48.12 kg/m Smoking Social History Tobacco Use Smoking Status Current Every Day Smoker Years: 40.00 Types: Cigarettes Smokeless Tobacco Never Used Tobacco Comment 4 cigarettes a day Lipid Profile No results found for: CHOL No results found for: HDL No results found for: LDL No results found for: TRIG Blood Sugar No results found for: HGBA1C No results found for: GLU, GLUF, GLUPOC Problems Addressed Today No diagnosis found. Current Medications (including today's revisions) atorvastatin (LIPITOR) 40 mg tablet Take 40 mg by mouth daily. diltiazem CD (CARDIZEM CD) 240 mg capsule Take 240 mg by mouth daily. fexofenadine HCl (FRANTZ PO) Take by mouth daily. fluticasone-salmeterol (ADVAIR DISKUS) 250-50 mcg/dose inhalation disk Inhal e 1 puff by mouth into the lungs every 12 hours. ibuprofen (IBU PO) Take by mouth. metoprolol XL (TOPROL XL) 25 mg extended release tablet Take 25 mg by mouth daily. rivaroxaban (XARELTO) 20 mg tablet Take 20 mg by mouth daily. Take with food . tiotropium bromide (SPIRIVA RESPIMAT) 2.5 mcg/actuation inhaler Inhale 2 puf fs by mouth into the lungs daily. traZODone (DESYREL) 50 mg tablet Take 50 mg by mouth at bedtime as needed fo r Sleep. Documentation recorded by Darlin Leonardo, acting as scribe for Chuck Graham M.D. documented in this encounter Miscellaneous Notes * Patient Instructions - Rohit Schuster RN - 05/13/2021 10:00 AM CDT Please schedule an appointment with Dr. Graham in 3 months. To schedule an appointment call [phone]. START amiodarone 200mg, three times per day until 06/13/2021. Then on 06/14/2021, decrease to 200mg twice per day. -- Since you are on anticoagulation, monitor for any signs or symptoms of bleedi ng, including blood in the stool or urine, etc and to contact your Primary Care Physician if any occurs. In order to provide you the best care possible we ask that you follow up as keke cardozo: For non-urgent questions please contact us through your [employer] account. For all medication refills please contact your pharmacy or send a request jhony morales Mobile Authenticationshalini. For all questions that may need to be addressed urgently please call the nursing triage voicemail at [phone] Sunday - Sunday 8-5 only. Please leave a detai led message with your name, date of , and reason for your call. Please allow ~ 10 business days for the results of any testing to be reviewed. Skyler gong call our office if you have not heard from a nurse within this time frame. documented in this encounter Plan of Treatment Order Schedule Name Type Priority Associated Diag noses Ordered: 05/13/2021 ECG 12-LEAD ECG Routine Paroxysmal atri al fibrillation (HCC) Primary hypertension Expected: 08/16/2021 (Approximate), Expi res: 05/13/2022 COVID-19 (SARS-COV-2) PCR Microbiology Routine Enco unter for screening laboratory testing for COVID-19 virus in asymptomatic patient documented as of this encounter Procedures Comments Procedure Name Priority Date/Time Associated Diag nosis ECG-SCAN 05/13/2021 12:00 AM CDT documented in this encounter Results * ECG-SCAN (05/13/2021 12:00 AM CDT) Narrative 05/13/2021 12:00 AM CDT Ordered by an unspecified provider. documented in this encounter Visit Diagnoses Diagnosis Paroxysmal atrial fibrillation (HCC) - Primary Atrial fibrillation Primary hypertension Unspecified essential hypertension Encounter for screening laboratory test ing for COVID-19 virus in asymptomatic patient documented in this encounter Historical Medications * This list may reflect changes made after this encounter. Start Date End Date Medication Sig Dispensed Refills fexofenadine HCl (FRANTZ Take by 0 PO) mouth daily. added in this encounter Orders First Ordered Date Appointment Count Last Ordered Date REQUEST FOR CARDIOLOGY APPOINTMENT 2 documented in this encounter Additional Health Concerns Noted Time Assessment 05/13/2021 9:51 AM CDT A fall risk assessment has been complet ed for the patient 05/13/2021 9:52 AM CDT PHQ-2 Depression Total Score: 0 documented as of this encounter Care Teams Start Date End Date Health It Specialist Relationship Specialty 09/01/20 Nunu Patel, AGRICULTURAL ECONOMICS TEACHER PCP - General Nurse [address] [place] [address] documented as of this encounter
--- OUTSIDE RECORDS SUMMARY | 2021-06-05 17:28 | XMS REPORT | Encounter Summary ---
Author Author [facility] Organization [facility] Address Unknown Phone Unavailable Care Team Providers Care Support Services Manager Name Role Phone Nunu Patel APRN PCP Encounter Details Care Team Description Date Type Department 05/03/2021 Hospital Imaging: [facility] 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 diltiazem CD (CARDIZEM Take 240 mg 0 CD) 240 mg capsule by mouth daily. fluticasone-salmeterol Inhale 1 puff 0 (ADVAIR DISKUS) 250-50 by mouth into mcg/dose inhalation disk the lungs every 12 hours. ibuprofen (IBU PO) Take by 0 mouth. metoprolol XL (TOPROL XL) Take 25 mg by 0 25 mg extended release mouth daily. tablet rivaroxaban (XARELTO) 20 Take 20 mg by 0 mg tablet mouth daily. Take with food. tiotropium bromide Inhale 2 0 (SPIRIVA RESPIMAT) 2.5 puffs by mcg/actuation inhaler mouth into the lungs daily. traZODone (DESYREL) 50 mg Take 50 mg by 0 tablet mouth at bedtime as needed for Sleep. documented as of this encounter Discharge Disposition Code Departure Means Destination Disposition Home Home or Self Care documented in this encounter Plan of Treatment Not on filedocumented as of this encounter Procedures Comments Procedure Name Priority Date/Time Associated Diag nosis US ABDOMEN EXTERNAL Routine 05/03/2021 IMAGING 12:00 AM CDT documented in this encounter Results * US ABDOMEN EXTERNAL IMAGING (05/03/2021 12:00 AM CDT) Modality Anatomical Region Laterality Computed Radiography Specimen Narrative Scheduling, Silent - 05/11/2021 4:16 PM CDT This order has been auto finalized and does not contain a result. documented in this encounter Visit Diagnoses Not on filedocumented in this encounter Additional Health Concerns Noted Time Assessment 02/16/2021 12:27 PM CDT A fall risk assessment has been complet ed for the patient documented as of this encounter Care Teams Start Date End Date Support Services Manager Relationship Specialty 09/01/20 Nunu Patel APRN PCP - General Nurse [address] [place] [address] documented as of this encounter
--- OUTSIDE RECORDS SUMMARY | 2021-06-05 17:28 | XMS REPORT | Encounter Summary ---
Author Author [facility] Organization [facility] Address Unknown Phone Unavailable Care Team Providers Care Gymnastic Coach Name Role Phone Amanda Nunu K TRANSPORT SPECIALIST PCP Encounter Details Care Team Description Date Type Department Rhoit Schuster RN Paroxysmal atrial fibrillation (HCC) (Pr imary Dx) 05/13/2021 Pre-Admit Cardiology: [facility] [address] 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 documented as of this encounter Functional Status [...] impairment: No documented as of this encounter Plan of Treatment Order Schedule Name Type Priority Associated Diag noses Expected: 08/19/2021, Expires: 10/22/202 2 CARDIOVERSION, EXTERNAL Heart Rhythm Routine Paroxy smal atrial Management fibrillation (HCC) documented as of this encounter Visit Diagnoses Diagnosis Paroxysmal atrial fibrillation (HCC) - Primary Atrial fibrillation documented in this encounter Additional Health Concerns Noted Time Assessment 05/13/2021 9:51 AM CDT A fall risk assessment has been complet ed for the patient 05/13/2021 9:52 AM CDT PHQ-2 Depression Total Score: 0 documented as of this encounter Care Teams Start Date End Date Gymnastic Coach Relationship Specialty 09/01/20 Nunu Patle, TRANSPORT SPECIALIST PCP - General Nurse [address] [place] [address] documented as of this encounter
--- OUTSIDE RECORDS SUMMARY | 2021-06-05 17:28 | XMS REPORT | Encounter Summary ---
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 COVID-19 Exposure Response 05/13/2021 9:44 [...] as of this encounter Plan of Treatment Not on filedocumented as of this encounter Visit Diagnoses Not on filedocumented in this encounter Additional Health Concerns Noted Time Assessment 05/13/2021 9:51 AM CDT A fall risk assessment has been complet ed for the patient 05/13/2021 9:52 AM CDT PHQ-2 Depression Total Score: 0 documented as of this encounter Care Teams Start Date End Date Sand Control Worker Relationship Specialty 09/01/20 Nunu Patel, CIRCUIT BOARD INSPECTOR PCP - General Nurse [address] [place] [phone] documented as of this encounter
--- OUTSIDE RECORDS SUMMARY | 2021-06-05 17:28 | XMS REPORT | Encounter Summary ---
Author Author [facility] Organization [facility] Address Unknown Phone Unavailable Care Team Providers Care Kerrick Kleaner Operator Name Role Phone Nunu Patel APRN PCP Reason for Visit * Reason Onset Date Comments Referral 05/10/2021 Encounter Details Care Team Description Date Type Department Unknown, Unknown, MD Referral 05/10/2021 Telephone Hepatology: Main [facility], [facility] [address] [facility] [address] [place] [address] Social History Date Tobacco Use Types Packs/Day Years Used Current Every Day Smoker Cigarettes 40 Smokeless Tobacco: Never Used Comments: 4 cigarettes a day Comments Alcohol Use Standard Drinks/Week Yes 4 (1 standard drink = 0.6 o z pure alcohol) Sex Assigned at Date Recorded 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 Pt scheduled for appt w/ Dr. Jarvis on 07/08. Emilie farooq pt does not have INS> Notified pt 100.00 fee due at time of visit. Pt V/U. * Telephone Encounter - Sushila Jaeger - 05/11/2021 12:58 PM CDT LVM asking pt to CB and schedule appt w/ Dr. Jarvis. * Telephone Encounter - Loraine Senior - 05/11/2021 12:46 PM CDT READY TO SCHED NEXT AVAIL [facility] * Telephone Encounter - Fernandez Robles, ZOË - 05/11/2021 11:52 AM CDT Hepatology Referral Summary Zheng Guo, 1960, [id number] Reason for Visit/Diagnosis: Fatty liver HPI Summary: 60yo who went to PCP for loose stools that he states he has had all his life. L abs and sono completed. Sono showing fatty liver. Pt also with A-fib, treated at [facility] PMH & Social Hx: MELD: Unable to calculate. No INR. If INR was normal. MELD 11 Labs: In CareEverywhere 05/03/2021- [facility]. Radiology/Facility: In Outside Records Scanned 05/10 > pg 22 Sono Pathology/Facility: N/A Endoscopy/Facility: N/A Appointment Needs -- - Provider: Flaquita Brown MD - Urgency: Next Available - Department: LTC - Other: None Insurance: No billing information found for this encounter. Provider Info -- Referring: Nunu Patel APRN [address] [place] [facility] [place] [address] PCP: Nunu Patel [address] [facility] [phone] * Telephone Encounter - Chrissie Glover - 05/10/2021 3:16 PM CDT Received new referral via fax. Docs scanned in 05/10. Patient is private pay--I have left fees on his vm documented in this encounter Plan of Treatment Not on filedocumented as of this encounter Visit Diagnoses Not on filedocumented in this encounter Additional Health Concerns Noted Time Assessment 02/16/2021 12:27 PM CDT A fall risk assessment has been complet ed for the patient documented as of this encounter Care Teams Start Date End Date Kerrick Kleaner Operator Relationship Specialty 09/01/20 Nunu Patel, DEBBIE PCP - General Nurse [address] [place] [address] documented as of this encounter
[2021-06-05 19:33] LABS: BASOPHILS # (AUTO) 0.1 10^3/uL (0.0-0.1); BASOPHILS % (AUTO) 1 % (0-10); EOSINOPHILS # (AUTO) 0.1 10^3/uL (0.0-0.3); EOSINOPHILS % (AUTO) 1 % (0-10); HEMATOCRIT 48 % (40-54); HEMOGLOBIN 15.4 g/dL (13.3-17.7); LYMPHOCYTES % (AUTO) 27 % (12-44); MEAN CORPUSCULAR HEMOGLOBIN 32 pg (25-34); MEAN CORPUSCULAR HGB CONC 32 g/dL (32-36); MEAN CORPUSCULAR VOLUME 100 fL (80-99); MEAN PLATELET VOLUME 10.6 fL (9.0-12.2); MONOCYTES # (AUTO) 1.1 10^3/uL (0.0-1.0); MONOCYTES % (AUTO) 10 % (0-12); NEUTROPHILS # (AUTO) 6.8 10^3/uL (1.8-7.8); NEUTROPHILS % (AUTO) 61 % (42-75); PLATELET COUNT 186 10^3/uL (130-400); WHITE BLOOD COUNT 11.2 10^3/uL (4.3-11.0)
--- NOTE | 2021-06-05 19:33 | ED Cardiac General ---
History of Present Illness General Chief Complaint: Cardiac/General Problems Stated Complaint: LIGHTHEADED/HX AFIB Nursing Triage Note: Pt arrival to ER via wheelchair with complaints of Bradycardia, Dizziness since this AM. PT states that this has been going on since mid morning. Denies chest pain. States that he was admitted here for almost a month recently after issues with Atrial Fib. Sees Dr. Eaton. Pt states that he is a little SOA, but this is noirmal for him. Source: patient Exam Limitations: no limitations History of Present Illness Date Seen by Provider: Jun 05, 2021 Time Seen by Provider: 19:17 Initial Comments The patient presents to the ER by private conveyance from home with chief complaint of dizziness that has lasted all day. He reports that as feeling lightheaded like he might pass out. He says he never has passed out. Its a little worse after he first stands up. He has a history of atrial fibrillation under the care of Dr. Robles it was discovered incidentally when he was in the hospital for cellulitis treatment. He has been following with a doctor up in and has had 5 attempts at cardioversion. He recently reduced his amiodarone he is at 3 times a day 200 mg and soon to go down to 2 times a day. He is also on metoprolol 25 mg twice daily and Cardizem 360 mg daily. He has not taken his evening dose of medication yet and says that he is feeling a little better since he got to the ER. He does not feel a fast resting pulse. He is not having any chest pain shortness of air fevers chills nausea vomiting diarrhea Allergies and Home Medications Allergies Coded Allergies: No Known Drug Allergies (Unverified , 04/09/20) Patient Home Medication List Home Medication List Reviewed: Yes Amiodarone HCl (Amiodarone HCl) 200 Mg Tablet, 200 MG PO BID, (Reported) Entered as Reported by: SUNIL STEWART on 01/20/21 1030 Atorvastatin Calcium (Atorvastatin Calcium) 40 Mg Tablet, 40 MG PO DAILY, ( Reported) Entered as Reported by: ODIN PAZ on 08/18/20 0906 Diltiazem HCl (Diltiazem 24Hr ER) 240 Mg Cap.er.24h, 240 MG PO DAILY, (Reported) Entered as Reported by: CHINO DUNCAN on 10/06/20 0835 Flecainide Acetate (Flecainide Acetate) 50 Mg Tablet, 50 MG PO Q12H, (Reported) Entered as Reported by: CHINO DUNCAN on 10/06/20813 Fluticasone/Salmeterol (Advair 250-50 Diskus) 1 Each Blst.w.dev, 1 EACH IH BID, (Reported) Entered as Reported by: CHINO DUNCAN on 10/06/20813 Ibuprofen/Diphenhydramine Cit (Ibuprofen Pm Caplet) 1 Each Tablet, 1-2 EACH PO HS PRN for SLEEP, (Reported) Entered as Reported by: CHINO DUNCAN on 10/06/20813 Melatonin (Melatonin) 5 Mg Tablet, 5 MG PO HS PRN for SLEEP, (Reported) Entered as Reported by: CHINO DUNCAN on 10/06/20813 Metoprolol Succinate (Metoprolol Succinate) 25 Mg Tab.er.24h, 25 MG PO DAILY, (Reported) Entered as Reported by: ODIN PAZ on 08/18/20905 Rivaroxaban (Xarelto) 20 Mg Tablet, 20 MG PO DAILY, (Reported) Entered as Reported by: ODIN PAZ on 08/18/20905 Tiotropium [place] (Spiriva) 1 Inh Aerp, 1 INH IH DAILY, (Reported) Entered as Reported by: CHINO DUNCAN on 10/06/20813 Trazodone HCl (Trazodone HCl) 50 Mg Tablet, 50-100 MG PO HS PRN for SLEEP, (Rep orted) Entered as Reported by: ODIN PAZ on 08/18/20905 Review of Systems Review of Systems Constitutional: No chills, No diaphoresis EENTM: No Blurred Vision, No Double Vision Respiratory: Denies Cough, Denies Shortness of Air Cardiovascular: Denies Chest Pain, Denies Lightheadedness Gastrointestinal: Denies Abdomen Distended, Denies Abdominal Pain Genitourinary: Denies Burning, Denies Discharge Musculoskeletal: No back pain, No joint pain Psychiatric/Neurological: Denies Anxiety, Denies Depressed All Other Systems Reviewed Negative Unless Noted: Yes Past Akuwavi-Pjzbkl-Iworuy Hx Patient Social History Tobacco Use?: No Smoking Status: Former Smoker Use of E-Cig and/or Vaping dev: No Substance use?: No Alcohol Use?: No Pt feels they are or have been: No Immunizations Up To Date Tetanus Booster (TDap): Less than 5yrs Influenza Vaccine Up-to-Date: No; Not Current Seasonal Allergies Seasonal Allergies: No Past Medical History Surgeries: Yes (hernia,debridement of foot) Appendectomy Respiratory: Yes Sleep Apnea Currently Using CPAP: Yes Currently Using BIPAP: No Cardiac: No Atrial Fibrillation, Chronic Edema/Swelling Neurological: No Genitourinary: No Gastrointestinal: No Musculoskeletal: No Arthritis, Chronic Back Pain Endocrine: No HEENT: No Cancer: No Psychosocial: No Integumentary: No Blood Disorders: No Family Medical History No Pertinent Family Hx Physical Exam Vital Signs Vital Signs - First Documented 06/05/21 18:44 Temp 36.5 Pulse 47 Resp 24 B/P (MAP) 116/76 (89) Pulse Ox 96 O2 Delivery Room Air Capillary Refill : Less Than 3 Seconds Height, Weight, BMI Height: '" Weight: lbs. oz. kg; 48.00 BMI Method: General Appearance: No Apparent Distress, Obese HEENT: PERRL/EOMI, Pharynx Normal, Moist Mucous Membranes Neck: Full Range of Motion, Normal Inspection Respiratory: No Accessory Muscle Use, No Respiratory Distress Cardiovascular: Normal Peripheral Pulses, Bradycardia, Irregularly Irregular Extremity: Pedal Edema (Venous stasis discoloration bilateral lower extremities, chronic edema) Neurologic/Psychiatric: Alert, Oriented x3 Skin: Warm/Dry Progress/Results/Core Measures Results/Orders Lab Results Laboratory Tests Test 06/05/21 18:59 Range/Units White Blood Count 11.2 H 4.3-11.0 10^3/uL Red Blood Count 4.83 4.30-5.52 10^6/uL Hemoglobin 15.4 13.3-17.7 g/dL Hematocrit 48 40-54 % Mean Corpuscular Volume 100 H 80-99 fL Mean Corpuscular Hemoglobin 32 25-34 pg Mean Corpuscular Hemoglobin Concent 32 32-36 g/dL Red Cell Distribution Width 13.3 10.0-14.5 % Platelet Count 186 130-400 10^3/uL Mean Platelet Volume 10.6 9.0-12.2 fL Immature Granulocyte % (Auto) 1 % Neutrophils (%) (Auto) 61 42-75 % Lymphocytes (%) (Auto) 27 12-44 % Monocytes (%) (Auto) 10 0-12 % Eosinophils (%) (Auto) 1 0-10 % Basophils (%) (Auto) 1 0-10 % Neutrophils # (Auto) 6.8 1.8-7.8 10^3/uL Lymphocytes # (Auto) 3.0 1.0-4.0 10^3/uL Monocytes # (Auto) 1.1 H 0.0-1.0 10^3/uL Eosinophils # (Auto) 0.1 0.0-0.3 10^3/uL Basophils # (Auto) 0.1 0.0-0.1 10^3/uL Immature Granulocyte # (Auto) 0.1 0.0-0.1 10^3/uL Sodium Level 135 135-145 MMOL/L Potassium Level 5.7 H 3.6-5.0 MMOL/L Chloride Level 103 98-107 MMOL/L Carbon Dioxide Level 19 L 21-32 MMOL/L Anion Gap 13 5-14 MMOL/L Blood Urea Nitrogen 22 H 7-18 MG/DL Creatinine 1.71 H 0.60-1.30 MG/DL Estimat Glomerular Filtration Rate 41 BUN/Creatinine Ratio 13 Glucose Level 117 H 70-105 MG/DL Calcium Level 8.9 8.5-10.1 MG/DL Corrected Calcium 8.9 8.5-10.1 MG/DL Total Bilirubin 1.3 H 0.1-1.0 MG/DL Aspartate Amino Transf (AST/SGOT) 34 5-34 U/L Alanine Aminotransferase (ALT/SGPT) 28 0-55 U/L Alkaline Phosphatase 57 40-136 U/L Troponin I < 0.028 <0.028 NG/ML C-Reactive Protein High Sensitivity 0.58 H 0.00-0.50 MG/DL B-Type Natriuretic Peptide 132.8 H <100.0 PG/ML Total Protein 7.8 6.4-8.2 GM/DL Albumin 4.0 3.2-4.5 GM/DL My Orders Orders - EM CHEN Cbc With Automated Diff (06/05/21 19:) Comprehensive Metabolic Panel (06/05/21 19:) Hs C Reactive Protein (06/05/21 19:) Troponin I (06/05/21 19:26) Ekg Tracing (06/05/21:) Continuous Ekg Monitoring (11/14/21 19:26) BNP (06/05/21 19:26) Orthostatic Vital Signs (Adult (06/05/21 19:37) Vital Signs/I&O 06/05/21 06/05/21 18:44 20:22 Temp 36.5 Pulse 47 55 54 51 Resp 24 B/P (MAP) 116/76 (89) 116/79 (91) 132/92 (105) 143/100 (114) Pulse Ox 96 O2 Delivery Room Air Blood Pressure Mean: 89 Progress Progress Note : Time: 19:32 Progress Note Patient is in fibrillation with bradycardia. Suspect that he has too much of his calcium channel blockers, beta-blockers and amiodarone on board. Will obtain some basic labs and discussed the case with Dr. Robles, cardiology about possible overnight stay versus just making some changes and follow-up in the clinic in the morning. He states he is feeling better now and has not had any syncopal episodes. Initial ECG Impression Date: Jun 05, 2021 Initial ECG Impression Time: 18:50 Initial ECG Rate: 38 Initial ECG Rhythm: A Fib/Flutter (Bradycardia) Initial ECG Intervals: QT (423) Initial ECG Impression: Atrial Fibrillation (With bradycardia) Initial ECG Comparisson: Changed Comment Atrial fibrillation with bradycardia Departure Communication (Admissions) Time/Spoke to Admitting Phy: 20:45 Discussed the case with Dr. Hope and she agrees to observe the patient with consult to cardiology Time/Spoke to Consulting Phy: 20:30 Discussed the case with Dr. Robles and because of the FATMATA he would like to gently hydrate him overnight and repeat labs and hold his Cardizem, amiodarone. Impression Primary Impression: Bradycardia Additional Impression: Postural dizziness with near syncope Disposition: ADMITTED INPATIENT Condition: Stable Admissions Decision to Admit Reason: Admit from ER (General) Decision to Admit/Date: Jun 05, 2021 Time/Decision to Admit Time: 20:30 Departure-Patient Inst. Referrals: NO,LOCAL PHYSICIAN (PCP/Family) Primary Care Physician EM CHEN Jun 05, 2021 19:33
[2021-06-05 19:51] LABS: ALANINE AMINOTRANSFERASE 28 U/L (0-55); ALKALINE PHOSPHATASE 57 U/L (40-136); BILIRUBIN,TOTAL 1.3 MG/DL (0.1-1.0); BUN/CREATININE RATIO 13; CALCIUM 8.9 MG/DL (8.5-10.1); CARBON DIOXIDE 19 MMOL/L (21-32); CHLORIDE 103 MMOL/L (98-107); CREATININE SERUM 1.71 MG/DL (0.60-1.30); GFR ESTIMATED 41; GLUCOSE 117 MG/DL (70-105); POTASSIUM 5.7 MMOL/L (3.6-5.0); SODIUM 135 MMOL/L (135-145); TOTAL PROTEIN 7.8 GM/DL (6.4-8.2)
[2021-06-05 20:22] VITALS: BP_SYST 116; BP_SYST 132; BP_SYST 143; BP_DIAS 100; BP_DIAS 79; BP_DIAS 92
[2021-06-05] MEDS ORDERED: NS IV 1000 ML 1,000 ML ONE (21:34)
[2021-06-05 21:42] VITALS: BP 119/79
[2021-06-05] MEDS ORDERED: ACETAMINOPHEN 500 MG TAB (TYLENOL) PO PRN (22:00)
[2021-06-05] MEDS ORDERED: PATIENT MAY USE OWN MEDS, ALL MC SCH (22:00)
[2021-06-05] MEDS ORDERED: ANTACID SUSP 30 ML UDC (MYLANTA) PO PRN (22:00)
[2021-06-05] MEDS ORDERED: ONDANSETRON 4 MG/2 ML (SDV) Z0FRAN IV PRN (22:00)
[2021-06-05] MEDS: NS IV 1000 ML 1,000 ML IV SCH (22:02)
[2021-06-06] VITALS: BP 117/87
[2021-06-06 04:00] VITALS: BP 120/79
[2021-06-06 05:07] LABS: BASOPHILS # (AUTO) 0.1 10^3/uL (0.0-0.1); BASOPHILS % (AUTO) 1 % (0-10); EOSINOPHILS # (AUTO) 0.2 10^3/uL (0.0-0.3); EOSINOPHILS % (AUTO) 2 % (0-10); HEMATOCRIT 47 % (40-54); HEMOGLOBIN 14.8 g/dL (13.3-17.7); LYMPHOCYTES # (AUTO) 3.3 10^3/uL (1.0-4.0); LYMPHOCYTES % (AUTO) 37 % (12-44); MEAN CORPUSCULAR HEMOGLOBIN 31 pg (25-34); MEAN CORPUSCULAR HGB CONC 31 g/dL (32-36); MEAN CORPUSCULAR VOLUME 99 fL (80-99); MEAN PLATELET VOLUME 10.2 fL (9.0-12.2); MONOCYTES % (AUTO) 11 % (0-12); NEUTROPHILS # (AUTO) 4.4 10^3/uL (1.8-7.8); NEUTROPHILS % (AUTO) 49 % (42-75); PLATELET COUNT 178 10^3/uL (130-400); WHITE BLOOD COUNT 8.9 10^3/uL (4.3-11.0)
[2021-06-06 05:21] LABS: POTASSIUM 4.5 MMOL/L (3.6-5.0)
[2021-06-06 05:22] LABS: CALCIUM 9.1 MG/DL (8.5-10.1)
[2021-06-06 05:26] LABS: CREATININE SERUM 1.56 MG/DL (0.60-1.30)
[2021-06-06] MEDS: NS IV 1000 ML 1,000 ML IV SCH (05:48)
[2021-06-06] MEDS ORDERED: FLU QUADRIvalent (3YOA+) 60 mcg/0.5 ml 2021-22(AFLURIA) IM ONE (08:00)
--- NOTE | 2021-06-06 08:19 | Consultation-Cardiology ---
HPI-Cardiology Cardiology Consultation Date of Consultation 06/06/21 Date of Admission Time Seen by Provider: 08:14 Indication: Bradycardia HPI 60 years old gentleman with history of paroxysmal atrial fibrillation, has been doing well until yesterday when he started to feel lightheaded, patient reported that he had heart rate in the 30s. He denied any chest pain. No syncope but continued to feel tired and fatigued. No shortness of breath. On arrival to the ER he was bradycardic with a heart rate in the 40s. I held all his medication and his heart rate has improved this morning. He is feeling better today. No new complaint Home Medications & Allergies Allergies: Coded Allergies: No Known Drug Allergies (Unverified , 04/09/20) Home Medication List Reviewed: Yes [id number] Hx Patient Social History Marital Status: Employed/Student: employed Smoking Status: Current Everyday Smoker Type Used: Cigarettes 2nd Hand Smoke Exposure: Yes Recent Hopitalizations: Yes Have you traveled recently?: No Alcohol Use?: Yes Immunizations Up To Date Tetanus Booster (TDap): Less than 5yrs Date of Influenza Vaccine: Mar 30, 2020 Past Medical History Discussed below Family Medical History Significant Family History: No Pertinent Family Hx Family Medical Hx Noncontributory Review of Systems-General Review of Systems Constitutional: see HPI; No chills, No diaphoresis; malaise EENTM: see HPI, no symptoms reported Respiratory: see HPI; No cough; dyspnea on exertion; No hemoptysis, No orthopnea, No phlegm, No short of breath, No stridor, No wheezing, No other Cardiovascular: see HPI; No chest pain; edema; No Hx of Intervention, No palpitations, No syncope, No vascular heart diseas, No other Gastrointestinal: no symptoms reported, see HPI Genitourinary: no symptoms reported, see HPI Musculoskeletal: see HPI; No back pain, No joint pain Skin: no symptoms reported, see HPI Psychiatric/Neurological: See HPI; Denies Anxiety, Denies Depressed All Other Systems Reviewed Negative Unless Noted: Yes Reviewed Test Results Reviewed Test Results Lab Laboratory Tests Test 06/05/21 18:59 06/06/21 04:05 Range/Units White Blood Count 11.2 H 8.9 4.3-11.0 10^3/uL Red Blood Count 4.83 4.76 4.30-5.52 10^6/uL Hemoglobin 15.4 14.8 13.3-17.7 g/dL Hematocrit 48 47 40-54 % Mean Corpuscular Volume 100 H 99 80-99 fL Mean Corpuscular Hemoglobin 32 31 25-34 pg Mean Corpuscular Hemoglobin Concent 32 31 L 32-36 g/dL Red Cell Distribution Width 13.3 13.2 10.0-14.5 % Platelet Count 186 178 130-400 10^3/uL Mean Platelet Volume 10.6 10.2 9.0-12.2 fL Immature Granulocyte % (Auto) 1 0 % Neutrophils (%) (Auto) 61 49 42-75 % Lymphocytes (%) (Auto) 27 37 12-44 % Monocytes (%) (Auto) 10 11 0-12 % Eosinophils (%) (Auto) 1 2 0-10 % Basophils (%) (Auto) 1 1 0-10 % Neutrophils # (Auto) 6.8 4.4 1.8-7.8 10^3/uL Lymphocytes # (Auto) 3.0 3.3 1.0-4.0 10^3/uL Monocytes # (Auto) 1.1 H 1.0 0.0-1.0 10^3/uL Eosinophils # (Auto) 0.1 0.2 0.0-0.3 10^3/uL Basophils # (Auto) 0.1 0.1 0.0-0.1 10^3/uL Immature Granulocyte # (Auto) 0.1 0.0 0.0-0.1 10^3/uL Sodium Level 135 139 135-145 MMOL/L Potassium Level 5.7 H 4.5 3.6-5.0 MMOL/L Chloride Level 103 105 98-107 MMOL/L Carbon Dioxide Level 19 L 21 21-32 MMOL/L Anion Gap 13 13 5-14 MMOL/L Blood Urea Nitrogen 22 H 22 H 7-18 MG/DL Creatinine 1.71 H 1.56 H 0.60-1.30 MG/DL Estimat Glomerular Filtration Rate 41 46 BUN/Creatinine Ratio 13 14 Glucose Level 117 H 93 70-105 MG/DL Calcium Level 8.9 9.1 8.5-10.1 MG/DL Corrected Calcium 8.9 8.5-10.1 MG/DL Total Bilirubin 1.3 H 0.1-1.0 MG/DL Aspartate Amino Transf (AST/SGOT) 34 5-34 U/L Alanine Aminotransferase (ALT/SGPT) 28 0-55 U/L Alkaline Phosphatase 57 40-136 U/L Troponin I < 0.028 0.035 H <0.028 NG/ML C-Reactive Protein High Sensitivity 0.58 H 0.00-0.50 MG/DL B-Type Natriuretic Peptide 132.8 H <100.0 PG/ML Total Protein 7.8 6.4-8.2 GM/DL Albumin 4.0 3.2-4.5 GM/DL Physical Exam Physical Exam Vital Signs Vital Signs - First Documented 06/05/21 06/05/21 18:44 21:42 Temp 36.5 Pulse 47 Resp 24 B/P (MAP) 116/76 (89) Pulse Ox 96 O2 Delivery Room Air O2 Flow Rate 2.00 Capillary Refill : Less Than 3 Seconds Height, Weight, BMI Height: '" Weight: lbs. oz. kg; 48.86 BMI Method: General Appearance: No Apparent Distress, Obese Eyes: Bilateral Eye Normal Inspection, Bilateral Eye PERRL, Bilateral Eye EOMI HEENT: PERRL/EOMI, Pharynx Normal, Moist Mucous Membranes Neck: Full Range of Motion, Normal Inspection Respiratory: No Accessory Muscle Use, No Respiratory Distress Cardiovascular: Normal Peripheral Pulses, Bradycardia, Irregularly Irregular Gastrointestinal: Normal Bowel Sounds, No Organomegaly, No Pulsatile Mass, Non Tender, Soft Back: Normal Inspection, No CVA Tenderness, No Vertebral Tenderness Extremity: Pedal Edema (Venous stasis discoloration bilateral lower extremities, chronic edema) Neurologic/Psychiatric: Alert, Oriented x3 Skin: Warm/Dry Lymphatic: No Adenopathy A/P-Cardiology Admission Diagnosis Bradycardia Persistent atrial fibrillation Dyspnea Hypertension Assessment/Plan Permanent atrial fibrillation, patient has failed multiple attempt for cardioversion and treatment with flecainide and amiodarone without success. He is currently bradycardic. I will discontinue amiodarone, continue on Cardizem and monitor tolerance and response. Dizziness and lightheadedness probably secondary to bradycardia. I am discontinuing amiodarone, holding metoprolol and continue on Cardizem. Dyspnea on exertion and fatigue likely due to body habitus and atrial fibrillation Mild peripheral arterial disease per angiogram in March 2020. [id number] score of 2, maintained on Xarelto History of extensive cellulitis in his lower extremities, had extensive debridement. Hypertension, restarting Cardizem and holding metoprolol for now and monitor tolerance and response Hyperlipidemia maintained on Lipitor, continue to monitor Mild bilateral carotid stenosis, ultrasound was done in January 2021 Obesity, BMI 48, we discussed weight loss. JOSE HERNANDEZ MD Jun 06, 2021 08:19
[2021-06-06 08:43] VITALS: BP 114/80
[2021-06-06] MEDS ORDERED: PANTOPRAZOLE 40 MG (PROTONIX) TAB PO SCH (09:00)
[2021-06-06] MEDS ORDERED: AMIO200T6 PO ×2 (09:57→10:07)
[2021-06-06] MEDS ORDERED: RT-ALBUINH IH (10:02)
[2021-06-06] MEDS ORDERED: MELA5LIQ2 PO (10:02)
[2021-06-06] MEDS ORDERED: ALTERIL PO (10:02)
[2021-06-06] MEDS ORDERED: DILT240C86 PO (10:02)
--- NOTE | 2021-06-06 11:44 | Short Stay Summary-Hospitalist ---
DANIELITO HAYDEN Jef 06/06/21 1144: History of Present Illness HPI/Chief Complaint CC: Near syncope HPI: Mr. Gou is a 60 y/o male with a PMHx of atrial fibrillation diagnosed March 2020 and BREN treated with CPAP. He reports feeling dizzy and lightheaded yesterday morning around 0400. The episode persisted throughout the day. The patient says he went to the ED around 1700 by which point the episode had nearly self-resolved. He denies any syncope or falls. He denies any associated pain. He said nothing improved his dizziness and movement and postura l changes made it worse. He endorsed associated nausea and vomiting. This morning he reports no symptoms and is eager to go home. Source: patient, old records Exam Limitations: no limitations Date Seen 06/06/21 Time Seen by a Provider: 07:46 Attending Physician Alicia Jaramillo DO PCP No,Local Physician Referring Physician Date of Admission Jun 05, 2021 at 20:46 Home Medications & Allergies Home Medications Reviewed patient Home Medication Reconciliation performed by pharmacy medication reconciliations satellite installation technician and/or nursing. Patients Allergies have been reviewed. Allergies Allergies Coded Allergies No Known Drug Allergies (Unverified04/09/20) Past Medical/Social/Family Hx Patient Social History Marrital Status: Employed/Student: employed Tobacco Use?: Yes Tobacco type used: Cigarettes Smoking Status: Former Smoker (Quit 1 month ago. Smoked 0.5 - 1 pack per day for 40 years) Use of E-Cig and/or Vaping dev: No Substance use?: No Alcohol Use?: Yes Alcohol type: Beer, Hard Liquor, Wine Alcohol Frequency: Once in a while ("Couple drinks per month") Pt stated abuse/neglect: No Immunizations Up To Date Influenza Vaccine Up-to-Date: No; Not Current Tetanus Booster (TDap): Less Than 5 Years Current Status Advance Directives: No Communicates: Verbally Primary Language: Burkinan Preferred Spoken Language: Burkinan Is interpretation needed?: No Implanted or Applied Medical D: CPAP Past Medical History Atrial Fibrillation - Diagnosed March 2020 BREN - Treated with CPAP Family Medical History Family Hx: Breast cancer - Mother Siblings in good health. No kids. Review of Systems Constitutional: No chills, No fever Respiratory: No cough, No dyspnea on exertion, No short of breath Cardiovascular: No chest pain; edema (LE edema); No palpitations, No syncope Gastrointestinal: No abdominal pain, No constipation, No diarrhea, No nausea, No vomiting Genitourinary: No dysuria, No frequency Musculoskeletal: No joint pain, No muscle pain Psychiatric/Neurological: Denies Headache, Denies Weakness Physical Exam Physical Exam Vital Signs Vital Signs - First Documented 06/05/21 06/05/21 18:44 21:42 Temp 36.5 Pulse 47 Resp 24 B/P (MAP) 116/76 (89) Pulse Ox 96 O2 Delivery Room Air O2 Flow Rate 2.00 Capillary Refill : Less Than 3 Seconds Height, Weight, BMI Height: '" Weight: lbs. oz. kg; 48.86 BMI Method: General Appearance: No Apparent Distress, WD/WN, Obese HEENT: PERRL/EOMI, Moist Mucous Membranes; No Scleral Icterus (L), No Scleral Icterus (R) Neck: Normal Inspection, Non Tender; No Lymphadenopathy (L), No Lymphadenopathy (R) Respiratory: Chest Non Tender, Lungs Clear, Normal Breath Sounds, No Accessory Muscle Use, No Respiratory Distress Cardiovascular: Normal Peripheral Pulses, Irregularly Irregular Gastrointestinal: Normal Bowel Sounds, Non Tender Extremity: Normal Capillary Refill, Normal Inspection, Non Tender; No Calf Tenderness; Pedal Edema (B/L LE edema) Neurologic/Psychiatric: Alert, Oriented x3, No Motor/Sensory Deficits, Normal Mood/Affect, quality controller II-XII Norm as Tested Skin: Warm/Dry Lymphatic: No Adenopathy (Head and neck) Results Results/Procedures Labs Laboratory Tests 06/05/21 18:59 06/06/21 04:05 Patient resulted labs reviewed. Short Stay Diagnosis Conclusion Plan Assessment Permanent atrial fibrillation - Patient failed multiple cardioversion in past - Unsuccessful treatment with flecainide and amiodarone in past - Continue on diltiazem - Managed by Dr. Robles Near syncope and bradycardia - Most likely d/t medications causing bradycardia BREN - Treated with CPAP Obesity Plan AFib and near syncope being managed by cardiology Discharge home with outpatient f/u ALICIA JARAMILLO DO 06/07/21 0542: History of Present Illness HPI/Chief Complaint CC: Syncopal episode HPI: This is a 60yoWM clinic Pt of [facility] and Dr. Robles in addition to Dr. Graham teletype telegrapher up at , who has a past medical history of AFIB who had a near syncope episode at home prior to coming to the ER. He had no other s ymptoms, after he was assessed in the ER he was admitted for close observation. Dr. Robles has seen him, adjusted a few medications with decreasing Amiodarone BID and maintaining Cardizem daily and DC the Metoprolol, and he is ready to go. Source: patient Exam Limitations: no limitations Past Medical/Social/Family Hx Patient Social History Marrital Status: single Tobacco type used: Cigarettes Smoking Status: Former Smoker (Quit 1 month ago. Smoked 0.5 - 1 pack per day for 40 years) Current Status Implanted or Applied Medical D: CPAP Past Medical History Atrial fibrillation BREN on CPAP Review of Systems Constitutional: see HPI, dizziness EENTM: no symptoms reported Respiratory: no symptoms reported Cardiovascular: palpitations Gastrointestinal: no symptoms reported Genitourinary: no symptoms reported Musculoskeletal: no symptoms reported Skin: no symptoms reported Psychiatric/Neurological: No Symptoms Reported All Other Systems Reviewed Negative Unless Noted: Yes Physical Exam Physical Exam General Appearance: No Apparent Distress, WD/WN, Chronically ill, Obese Eyes: Bilateral Eye Normal Inspection, Bilateral Eye PERRL HEENT: PERRL/EOMI, Normal ENT Inspection, Pharynx Normal Neck: Full Range of Motion, Normal Inspection, Non Tender, Supple, Carotid Bruit Respiratory: Chest Non Tender, Lungs Clear, Normal Breath Sounds, No Accessory Muscle Use, No Respiratory Distress Cardiovascular: No Edema, No Gallop, No JVD, No Murmur, Normal Peripheral Pulses, Irregularly Irregular Gastrointestinal: Normal Bowel Sounds, No Organomegaly, No Pulsatile Mass, Non Tender, Soft Back: Normal Inspection, No CVA Tenderness, No Vertebral Tenderness Extremity: Normal Capillary Refill, Normal Inspection, Normal Range of Motion, Non Tender, No Calf Tenderness, No Pedal Edema Neurologic/Psychiatric: Alert, Oriented x3, No Motor/Sensory Deficits, Normal Mood/Affect Skin: Normal Color, Warm/Dry Lymphatic: No Adenopathy Short Stay Diagnosis Discharge Diagnosis-Short Stay Admission Diagnosis Assessment: Syncopal episode Atrial fibrillation on high doses of antiarrhythmics BREN on CPAP Final Discharge Diagnosis Assessment: Syncopal episode Atrial fibrillation on high doses of antiarrhythmics BREN on CPAP Conclusion Plan Discharge home Supervisory-Addendum Brief Verification & Attestation Participated in pt care: history, MDM, physical Personally performed: exam, history, MDM, supervision of care Care discussed with: Medical Student Procedures: n/a Results interpretation: Verified all documentation Verification and Attestation of Medical Student E/M Service A medical student performed and documented this service in my presence. I reviewed and verified all information documented by the medical student and made modifications to such information, when appropriate. I personally performed the physical exam and medical decision making. Alicia Jaramillo, Jun 07, 2021,05:42 DANIELITO HAYDEN Jun 06, 2021 11:44 ALICIA JARAMILLO DO Jun 07, 2021 05:42
[2021-06-06] MEDS ORDERED: RIVAROXABAN 20 MG TABLET (XARELTO) PO SCH (17:00)
== END 2021-06-06 11:40 | disposition home or self-care (01) ==
LOC: EDUNIT# 17:22 → ER 17:24 → CSD 20:46
PROVIDERS: ADMIT Internal Medicine; ATTEND Internal Medicine
DX: I48.21 Permanent atrial fibrillation (principal); R42 Dizziness and giddiness; R00.1 Bradycardia, unspecified; R55 Syncope and collapse; M19.90 Unspecified osteoarthritis, unspecified site; G89.29 Other chronic pain; G47.33 Obstructive sleep apnea (adult) (pediatric); E66.9 Obesity, unspecified; E78.5 Hyperlipidemia, unspecified; M54.9 Dorsalgia, unspecified; Z68.42 Body mass index [BMI] 45.0-49.9, adult; Z79.899 Other long term (current) drug therapy; Z87.891 Personal history of nicotine dependence; Z99.89 Dependence on other enabling machines and devices; Z90.89 Acquired absence of other organs; Z80.3 Family history of malignant neoplasm of breast
CPT/HCPCS: 36415; 80048; 80053; 83880; 84484; 85025; 86141; 93005; 94760

== ENCOUNTER 2021-08-14 03:46 | Emergency (ER) | payer SELFPAY ==
[~2021-08-14] VITALS: Ht 182.3 cm; Wt 163.3 kg
[~2021-08-14 03:46] MED LIST changes: +ALTERIL PO; -AMIO200T6 PO; +AMIO200T65 PO; +DILT240C86 PO; +MELA5LIQ2 PO; +RT-ALBUINH IH
[2021-08-14 03:50] VITALS: BP 137/81
--- OUTSIDE RECORDS SUMMARY | 2021-08-14 03:50 | XMS REPORT | Encounter Summary ---
Author Author [facility] Organization [facility] Address Unknown Phone Unavailable Care Team Providers Care Oracle Business Intelligence Developer Name Role Phone Nunu Patel APRN PCP Reason for Visit * Reason Onset Date Comments Follow-up Phone Call 07/11/2021 Encounter Details Care Team Description Date Type Department Roc Jarvis MD [address] [place] [address] Follow-up Phone Call 07/11/2021 Telephone Transplant: [facility] [address] 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 documented as of this encounter Functional Status Date of Assessment Functional Status Response 07/08/2021 Does the patient have a hearing impairment: No 07/08/2021 Does the patient have a visual impairment: Yes 07/08/2021 Does the patient have impaired ambulation: No 07/08/2021 Does the patient have an activity of daily living No (ADL) impairment: 07/08/2021 Does the patient have an instrumental activity of No daily living (IADL) impairment: Date of Assessment Cognitive Status Response 07/08/2021 Does the patient have a cognitive impairment: No documented as of this encounter Miscellaneous Notes * Telephone Encounter - Genny Laura, RN - 07/11/2021 1:10 PM SENIOR MECHANICAL DESIGN ENGINEER Spoke with pt notifying him that lab orders have been sent to his PCP office via [employer] - Smartphone RFID. Also requested colon and EGD reports from [facility]. Pt verb alized understanding and will let us know once he has them drawn. OR MECHANICAL DESIGN ENGINEER documented in this encounter Plan of Treatment Not on filedocumented as of this encounter Visit Diagnoses Not on filedocumented in this encounter Additional Health Concerns Noted Time Assessment 07/08/2021 9:47 AM SENIOR MECHANICAL DESIGN ENGINEER A fall risk assessment has been complet ed for the patient 07/08/2021 9:47 AM SENIOR MECHANICAL DESIGN ENGINEER PHQ-2 Depression Total Score: 0 documented as of this encounter Care Teams Start Date End Date Oracle Business Intelligence Developer Relationship Specialty 09/01/20 Nunu Patel, DIRECTOR OF OFFICIATING PCP - General Nurse [address] [place] [address] documented as of this encounter
--- OUTSIDE RECORDS SUMMARY | 2021-08-14 03:50 | XMS REPORT | Encounter Summary ---
Author Author [facility] Organization [facility] Address Unknown Phone Unavailable Care Team Providers Care Contractor Buyer Name Role Phone Nunu Patel APRN PCP Encounter Details Care Team Description Date Type Department Luisito Posada Fatty liver 07/20/2021 Orders Only Transplant: Main [facility] mp, [facility] [address] [facility] [address] [place] [address] Social History Date Tobacco Use Types Packs/Day Years Used Current Every Day Smoker Cigarettes 40 Smokeless Tobacco: Never Used Comments: 4 cigarettes a day Comments Alcohol Use Standard Drinks/Week Yes 4 (1 standard drink = 0.6 o z pure alcohol) Sex Assigned at Date Recorded Male 09/20/2020 11:58 AM PRODUCTION MATERIAL COORDINATOR Date Recorded COVID-19 Exposure Response 07/08/2021 9:49 AM PRODUCTION MATERIAL COORDINATOR In the last month, have you been [...] Procedure Name Priority Date/Time Associated Diag nosis CBC AND DIFF Routine 07/15/2021 Fatty liver 12:00 AM PRODUCTION MATERIAL COORDINATOR documented in this encounter Results * CBC AND DIFF (07/15/2021 12:00 AM PRODUCTION MATERIAL COORDINATOR) White Blood 5.9 LABDE INTERFACE Cells RBC 4.49 LABDE INTERFACE Hemoglobin 14.1 LABDE INTERFACE Hematocrit 42.8 LABDE INTERFACE MCV 95.3 LABDE INTERFACE MCH 31.4 LABDE INTERFACE MCHC 32.9 LABDE INTERFACE RDW 12.3 LABDE INTERFACE Platelet Count 140 LABDE INTERFACE Neutrophils 50.7 LABDE INTERFACE Absolute 2,991 LABDE INTERFACE Neutrophil Count Lymphocytes 38.2 LABDE INTERFACE Absolute Lymph 2,254 LABDE INTERFACE Count Monocytes 8.0 LABDE INTERFACE Absolute 472 LABDE INTERFACE Monocyte Count Eosinophil 2.4 LABDE INTERFACE Absolute 142 LABDE INTERFACE Eosinophil Count Basophil 0.7 LABDE INTERFACE Absolute 41 LABDE INTERFACE Basophil Count MPV 11.2 LABDE INTERFACE Specimen Blood (substance) Narrative LABDE INTERFACE - 07/20/2021 12:00 AM PRODUCTION MATERIAL COORDINATOR Outside Lab Verified by Luisito Posada on 07/20/2021. Performing Organization Address City/State/ZIP Code P iveth Number LABDE INTERFACE documented in this encounter Visit Diagnoses Diagnosis Fatty liver Other chronic nonalcoholic liver diseas e documented in this encounter Additional Health Concerns Noted Time Assessment 07/08/2021 9:47 AM PRODUCTION MATERIAL COORDINATOR A fall risk assessment has been complet ed for the patient 07/08/2021 9:47 AM PRODUCTION MATERIAL COORDINATOR PHQ-2 Depression Total Score: 0 documented as of this encounter Care Teams Start Date End Date Contractor Buyer Relationship Specialty 09/01/20 Nunu Patel, HR PAYROLL COORDINATOR PCP - General Nurse [address] [place] [id number] documented as of this encounter
--- OUTSIDE RECORDS SUMMARY | 2021-08-14 03:50 | XMS REPORT | Encounter Summary ---
Author Author [facility] Organization [facility] Address Unknown Phone Unavailable Care Team Providers Care Congressional Aide Name Role Phone Nunu Patel APRN PCP Encounter Details Care Team Description Date Type Department Trupti Tristan RN Fatty liver (Primary Dx) 07/20/2021 Orders Only Transplant: Main [facility], [facility] [address] [facility] [address] [place] [address] Social History Date Tobacco Use Types Packs/Day Years Used Current Every Day Smoker Cigarettes 40 Smokeless Tobacco: Never Used Comments: 4 cigarettes a day Comments Alcohol Use Standard Drinks/Week Yes 4 (1 standard drink = 0.6 o z pure alcohol) Sex Assigned at Date Recorded Male 09/20/2020 11:58 AM 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 Performing Organization Address City/State/ZIP Code P iv[place] Number LABDE INTERFACE documented in this encounter Visit Diagnoses Diagnosis Fatty liver - Primary Other chronic nonalcoholic liver diseas e Fatty liver Other chronic nonalcoholic liver diseas e documented in this encounter Additional Health Concerns Noted Time Assessment 07/08/2021 9:47 AM NATIONAL ACCOUNTS SALES A fall risk assessment has been complet ed for the patient 07/08/2021 9:47 AM NATIONAL ACCOUNTS SALES PHQ-2 Depression Total Score: 0 documented as of this encounter Care Teams Start Date End Date Congressional Aide Relationship Specialty 09/01/20 Nunu Patel, SPONGE FISHERMAN PCP - General Nurse [address] [place] [phone] documented as of this encounter
--- OUTSIDE RECORDS SUMMARY | 2021-08-14 03:50 | XMS REPORT | Encounter Summary ---
Author Author [facility] Organization [facility] Address Unknown Phone Unavailable Care Team Providers Care Clinical Operations Leader Name Role Phone Nunu Patel INSTRUMENTATION TECHNOLOGIST PCP Reason for Visit * Reason Onset Date Comments Follow-up Phone Call 08/04/2021 Encounter Details Care Team Description Date Type Department Genny Laura, RN Follow-up Phone Call 08/04/2021 Telephone Transplant: Main [facility], [facility] [address] [place] [address] Social History Date Tobacco Use Types Packs/Day Years Used Current Every Day Smoker Cigarettes 40 Smokeless Tobacco: Never Used Comments: 4 cigarettes a day Comments Alcohol Use Standard Drinks/Week Yes 4 (1 standard drink = 0.6 o z pure alcohol) Sex Assigned at Date Recorded Male 09/20/2020 11:58 AM COMMERCIAL CENSUS TAKER Date Recorded COVID-19 Exposure Response 07/08/2021 9:49 AM COMMERCIAL CENSUS TAKER In the last month, have you been [...] Telephone Encounter - Genny Laura, RN - 08/04/2021 9:54 AM COMMERCIAL CENSUS TAKER Spoke with pt on the phone regarding the liver biopsy. The liver biopsy is the only way to confirm if he has advance scarring in the liver from fatty liver dis ease. However we understand that without insurance pt can not afford to pay for the procedure out of pocket. At this time there is no sign of liver decompensa tion. After talking with Dr. Jarvis we are only wanting to rule out development of cir rhosis with the liver biopsy no special testing. Recommended that he contact hi s PCP to see if they could make arrangements through their office as it may be malathi finley. He will look into that. Also he is working on getting approved for dis ability. He will keep us updated. Encouraged pt to work on treatment of fatty liver which is weight reduction thro ugh diet and exercise. Focusing more on diet to start. Pt verbalized annaan salome and will keep us updated on insurance and PCP ordering liver biopsy. ERCIAL CENSUS TAKER documented in this encounter Plan of Treatment Not on filedocumented as of this encounter Visit Diagnoses Not on filedocumented in this encounter Additional Health Concerns Noted Time Assessment 07/08/2021 9:47 AM COMMERCIAL CENSUS TAKER A fall risk assessment has been complet ed for the patient 07/08/2021 9:47 AM COMMERCIAL CENSUS TAKER PHQ-2 Depression Total Score: 0 documented as of this encounter Care Teams Start Date End Date Clinical Operations Leader Relationship Specialty 09/01/20 Nunu Patel, INSTRUMENTATION TECHNOLOGIST PCP - General Nurse [address] [place] [address] documented as of this encounter
--- OUTSIDE RECORDS SUMMARY | 2021-08-14 03:50 | XMS REPORT | Encounter Summary ---
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
--- OUTSIDE RECORDS SUMMARY | 2021-08-14 03:50 | XMS REPORT | Encounter Summary ---
Author Author [facility] Organization [facility] Address Unknown Phone Unavailable Care Team Providers Care Rapid Extractor Operator Name Role Phone Nnuu Patel APRN PCP Encounter Details Care Team Description Date [place] [address] [facility] [address] [place] [address] 06/18/2021 Hospital Laboratory: Main Ca mpus, [facility] [address] [place] [address] [address], [address] [place] [address] Social History Date Tobacco Use Types Packs/Day Years Used Current Every Day Smoker Cigarettes 40 Smokeless Tobacco: Never Used Comments: 4 cigarettes a day Comments Alcohol Use Standard Drinks/Week Yes 4 (1 standard drink = 0.6 o z pure alcohol) Sex Assigned at Date Recorded Male 09/20/2020 11:58 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 Take with food. atorvastatin (LIPITOR) 40 Take 40 mg by 0 mg tablet mouth daily. diltiazem CD (CARDIZEM Take 240 mg 0 CD) 240 mg capsule by mouth daily. fexofenadine HCl (FRANTZ Take by 0 PO) mouth daily. fluticasone-salmeterol Inhale 1 puff 0 (ADVAIR DISKUS) 250-50 by mouth into mcg/dose inhalation disk the lungs every 12 hours. ibuprofen (IBU PO) Take by 0 mouth. rivaroxaban (XARELTO) 20 Take 20 mg by 0 mg tablet mouth daily. Take with food. tiotropium bromide Inhale 2 0 (SPIRIVA RESPIMAT) 2.5 puffs by mcg/actuation inhaler mouth into the lungs daily. traZODone (DESYREL) 50 mg Take 50 mg by 0 tablet mouth at bedtime as needed for Sleep. 06/07/2021 zolpidem (AMBIEN) 5 mg Take one 14 tablet 0 tablet tablet by mouth at bedtime daily. documented as of this encounter Discharge Disposition Code Departure Means Destination Disposition Home Home or Self Care documented in this encounter Plan of Treatment Not on filedocumented as of this encounter Procedures Comments Procedure Name Priority Date/Time Associated Diag nosis HC *FREE T4 (REFLEX) Routine 06/18/2021 Obstructi ve sleep apnea 11:24 AM BELL CLERK Primary hypertension Mixed hyperlipidemia Class 3 severe obesity due to excess calories with serious comorbidity and body mass index (BMI) of 45.0 to 49.9 in adult (HCC) Body mass index (BMI) 45.0-49.9, adult ([facility]) HC TSH SCREEN Routine 06/18/2021 Obstructive sle ep apnea 11:24 AM BELL CLERK Primary hypertension Mixed hyperlipidemia Persistent atrial fibrillation (HCC) Class 3 severe obesity due to excess calories with serious comorbidity and body mass index (BMI) of 45.0 to 49.9 in adult ([facility]) HC CBC,AUTOMATED Routine 06/18/2021 Obstructive s leep apnea 11:24 AM BELL CLERK Primary hypertension Mixed hyperlipidemia Persistent atrial fibrillation (HCC) Class 3 severe obesity due to excess calories with serious comorbidity and body mass index (BMI) of 45.0 to 49.9 in adult (HCC) HC HEMOGLOBIN A1C Routine 06/18/2021 Obstructive sleep apnea 11:24 AM BELL CLERK Primary hypertension Mixed hyperlipidemia Persistent atrial fibrillation (HCC) Class 3 severe obesity due to excess calories with serious comorbidity and body mass index (BMI) of 45.0 to 49.9 in adult (HCC) HC Routine 06/18/2021 Obstructive sle ep apnea LIPID-5:CHOL/TRG/HDL/LDL+ 11:24 AM BELL CLERK Primary hyp ertension VLDL Mixed hyperlipidemia Persistent atrial fibrillation (HCC) Class 3 severe obesity due to excess calories with serious comorbidity and body mass index (BMI) of 45.0 to 49.9 in adult (HCC) HC COMPREHENSIVE Routine 06/18/2021 Obstructive s leep apnea METABOLIC PANEL 11:24 AM BELL CLERK Primary hypertensio n Mixed hyperlipidemia Persistent atrial fibrillation (HCC) Class 3 severe obesity due to excess calories with serious comorbidity and body mass index (BMI) of 45.0 to 49.9 in adult ([facility]) documented in this encounter Results * FREE T4-FREE THYROXINE (06/18/2021 11:24 AM BELL CLERK) T4-Free 1.1 0.6 - 1.6 NG/DL [facility] Specimen Performing Organization Address City/[facility]/ZIP Code P iveth Number [facility] [address] [place] [address] * (ABNORMAL) HEMOGLOBIN A1C (06/18/2021 11:24 AM BELL CLERK) Hemoglobin A1C 6.7 (H) 4.0 - 6.0 % [facility] Comment: The ADA recommends that most patients with type 1 and type 2 diabetes maintain an A1c level <7%. Specimen Blood (substance) Performing Organization Address City/State/ZIP [facility] P iveth Number [facility] [address] [place] [address] * LIPID PROFILE (06/18/2021 11:24 AM BELL CLERK) Cholesterol 116 <200 MG/DL [facility] Triglycerides 101 <150 MG/DL [facility] HDL 42 >40 MG/DL [facility] LDL 64 <100 mg/dL [facility] VLDL 20 MG/DL [facility] Non HDL 74 MG/DL [facility] Cholesterol Comment: Calculated non-HDL Cholesterol (non-HDL-C) indirectly measures LDL-C, Lp(a), IDL-C, and VLDL-C. It is a surrogate marker for Apoprotein B. Goal should be less than 130 mg/dL. Specimen Blood (substance) Performing Organization Address City/State/ZIP Code P iveth Number [facility] [address] [place] [address] * (ABNORMAL) COMPREHENSIVE METABOLIC PANEL (06/18/2021 11:24 AM BELL CLERK) Sodium 142 137 - 147 MMOL/L [facility] Potassium 4.6 3.5 - 5.1 MMOL/L [facility] Chloride 102 98 - 110 MMOL/L [facility] Glucose 128 (H) 70 - 100 MG/DL [facility] Blood Urea 25 7 - 25 MG/DL [facility] Nitrogen Creatinine 1.28 (H) 0.4 - 1.24 MG/DL [facility] Calcium 9.4 8.5 - 10.6 MG/DL [facility] Total Protein 7.3 6.0 - 8.0 G/DL [facility] Total Bilirubin 1.2 0.3 - 1.2 MG/DL [facility] Albumin 4.1 3.5 - 5.0 G/DL [facility] Alk Phosphatase 60 25 - 110 U/L [facility] AST (SGOT) 35 7 - 40 U/L [facility] CO2 27 21 - 30 MMOL/L [facility] ALT (SGPT) 32 7 - 56 U/L [facility] Anion Gap 13 (H) 3 - 12 [facility] eGFR Non 57 (L) >60 mL/min [facility] Comment: [place] The eGFR is not validated f or use in drug dosing adjustments. Continue to use estimated creatinine clearance per dosing reference text. Please contact the Clinical Pharmacist for questions. eGFR >60 >60 mL/min [facility] [place] Comment: The eGFR is not validated for use in drug dosing adjustments. Continue to use estimated creatinine clearance per dosing reference text. Please contact the Clinical Pharmacist for questions. Specimen Blood (substance) Performing Organization Address City/State/ZIP Code P iveth Number [facility] [address] [place] [address] * (ABNORMAL) TSH WITH FREE T4 REFLEX (06/18/2021 11:24 AM BELL CLERK) TSH 6.41 (H) 0.35 - 5.00 MCU/ML [facility] Specimen Blood (substance) Performing Organization Address [facility]/ZIP Code P iveth Number [facility] [address] [place] [address] * CBC (06/18/2021 11:24 AM BELL CLERK) White Blood 8.3 4.5 - 11.0 K/UL [facility] Cells RBC 4.68 4.4 - 5.5 M/UL [facility] Hemoglobin 14.8 13.5 - 16.5 GM/DL [facility] Hematocrit 45.5 40 - 50 % [facility] MCV 97.1 80 - 100 FL [facility] MCH 31.7 26 - 34 PG [facility] MCHC 32.6 32.0 - 36.0 G/DL [facility] RDW 14.2 11 - 15 % [facility] Platelet Count 166 150 - 400 K/UL [facility] MPV 8.6 7 - 11 FL [facility] Specimen Blood (substance) Performing Organization Address [facility] P iveth Number [facility] [address] [place] [address] documented in this encounter Visit Diagnoses Diagnosis Obstructive sleep apnea Obstructive sleep apnea (adult) (pediat janelle) Primary hypertension Unspecified essential hypertension Mixed hyperlipidemia Persistent atrial fibrillation (HCC) Atrial fibrillation Class 3 severe obesity due to excess ca lories with serious comorbidity and body mass index (BMI) of 45.0 to 49.9 in adult (HCC) documented in this encounter Additional Health Concerns Noted Time Assessment 05/13/2021 9:51 AM CDT A fall risk assessment has been complet ed for the patient 05/13/2021 9:52 AM CDT PHQ-2 Depression Total Score: 0 documented as of this encounter Care Teams Start Date End Date Rapid Extractor Operator Relationship Specialty 09/01/20 Nunu Patel, SHIFT SUPERVISOR PCP - General Nurse [address] [place] [address] documented as of this encounter
--- OUTSIDE RECORDS SUMMARY | 2021-08-14 03:50 | XMS REPORT | Encounter Summary ---
Author Author [facility] Organization [facility] Address Unknown Phone Unavailable Care Team Providers Care Section Plotter Operator Name Role Phone Nunu Patel APRN PCP Encounter Details Care Team Description Date Type Department Luisito Posada Fatty liver 07/19/2021 Orders Only Transplant: Main Ca mp, [facility] [address] [place] [address] Social History Date Tobacco Use Types Packs/Day Years Used Current Every Day Smoker Cigarettes 40 Smokeless Tobacco: Never Used Comments: 4 cigarettes a day Comments Alcohol Use Standard Drinks/Week Yes 4 (1 standard drink = 0.6 o z pure alcohol) Sex Assigned at Date Recorded Male 09/20/2020 11:58 AM LAPEL PADDER BLINDSTITCH Date Recorded COVID-19 Exposure Response 07/08/2021 9:49 AM LAPEL PADDER BLINDSTITCH In the last month, have you been [...] Procedure Name Priority Date/Time Associated Diag nosis HEPATITIS C AB Routine 07/15/2021 Fatty liver 12:00 AM LAPEL PADDER BLINDSTITCH HEPATITIS B CORE AB TOT Routine 07/15/2021 Fatty liver (IGG+IGM) 12:00 AM LAPEL PADDER BLINDSTITCH HEPATITIS A TOTAL AB Routine 07/15/2021 Fatty paulino er (IGG+IGM) 12:00 AM LAPEL PADDER BLINDSTITCH HEPATITIS B SURFACE AG Routine 07/15/2021 Fatty l iver 12:00 AM LAPEL PADDER BLINDSTITCH HEPATITIS B SURFACE AB Routine 07/15/2021 Fatty l iver 12:00 AM LAPEL PADDER BLINDSTITCH PROTIME INR (PT) Routine 07/15/2021 Fatty liver 12:00 AM LAPEL PADDER BLINDSTITCH COMPREHENSIVE METABOLIC Routine 07/15/2021 Fatty liver PANEL 12:00 AM LAPEL PADDER BLINDSTITCH documented in this encounter Results * (ABNORMAL) HEPATITIS B CORE AB TOT (IGG+IGM) (07/15/2021 12:00 AM LAPEL PADDER BLINDSTITCH) Anti HBc Total REACTIVE (A) NON-REACTIVE [facility] INTERFACE Specimen Blood (substance) [facility] LABDE INTERFACE - 07/19/2021 12:00 AM LAPEL PADDER BLINDSTITCH Outside Lab Verified by Luisito Dale on 07/20/2021. Performing Organization Address City/State/ZIP Code P iveth Number LABDE INTERFACE * (ABNORMAL) HEPATITIS A TOTAL AB (IGG+IGM) (07/15/2021 12:00 AM LAPEL PADDER BLINDSTITCH) Hepatitis A, REACTIVE (A) NON-REACTIVE LAB[facility] INTERFACE Total Specimen Blood (substance) Narrative LABDE INTERFACE - 07/19/2021 12:00 AM LAPEL PADDER BLINDSTITCH Outside Lab Verified by Luisito Dale on 07/20/2021. Performing Organization Address City/State/ZIP Code P iveth Number LABDE INTERFACE * HEPATITIS B SURFACE AG (07/15/2021 12:00 AM LAPEL PADDER BLINDSTITCH) HBsAg NON-REACTIVE LABDE INTERFACE Specimen Blood (substance) Narrative LABDE INTERFACE - 07/19/2021 12:00 AM LAPEL PADDER BLINDSTITCH Outside Lab Verified by Luisito Albino on 07/20/2021. Performing Organization Address City/State/ZIP Code P iveth Number LABDE INTERFACE * HEPATITIS B SURFACE AB (07/15/2021 12:00 AM LAPEL PADDER BLINDSTITCH) Anti HBs 18 LABDE INTERFACE Specimen Blood (substance) Narrative LABDE INTERFACE - 07/19/2021 12:00 AM LAPEL PADDER BLINDSTITCH Outside Lab Verified by Luisitoyolande Posada on 07/20/2021. Performing Organization Address City/State/ZIP Code P iveth Number LABDE INTERFACE * HEPATITIS C ANTIBODY W REFLEX HCV PCR QUANT (07/15/2021 12:00 AM LAPEL PADDER BLINDSTITCH) Anti HCV NON-REACTIVE LABDE INTERFACE Specimen Blood (substance) Narrative LABDE INTERFACE - 07/19/2021 12:00 AM LAPEL PADDER BLINDSTITCH Outside Lab Verified by Luisito Posada on 07/20/2021. Performing Organization Address City/State/ZIP Code P iveth Number LABDE INTERFACE * (ABNORMAL) PROTIME INR (PT) (07/15/2021 12:00 AM LAPEL PADDER BLINDSTITCH) Protime 11.9 (H) 9.0 - 11.5 sec LABDE INTERFACE INR 1.1 LABDE INTERFACE Specimen Blood (substance) Narrative LABDE INTERFACE - 07/19/2021 12:00 AM LAPEL PADDER BLINDSTITCH Outside Lab Verified by Luisito Posada on 07/20/2021. Performing Organization Address City/State/ZIP Code P iveth Number LABDE INTERFACE * (ABNORMAL) COMPREHENSIVE METABOLIC PANEL (07/15/2021 12:00 AM LAPEL PADDER BLINDSTITCH) Glucose 204 (H) 65 - 99 LABDE INTERFACE Blood Urea 21 LABDE INTERFACE Nitrogen Creatinine 1.19 LABDE INTERFACE eGFR Non 66 LABDE INTERFACE eGFR 76 LABDE INTERFACE [place] Sodium 141 LABDE INTERFACE Potassium 4.1 LABDE INTERFACE Chloride 101 LABDE INTERFACE CO2 30 LABDE INTERFACE Calcium 9.2 LABDE INTERFACE Total Protein 6.8 LABDE INTERFACE Albumin 4.1 LABDE INTERFACE Total Bilirubin 0.8 LABDE INTERFACE Alk Phosphatase 107 LABDE INTERFACE AST (SGOT) 24 LABDE INTERFACE ALT (SGPT) 29 LABDE INTERFACE Specimen Blood (substance) Narrative LABDE INTERFACE - 07/19/2021 12:00 AM LAPEL PADDER BLINDSTITCH Outside Lab Verified by Luisito Posada on 07/20/2021. Performing Organization Address City/State/ZIP Code P iveth Number LABDE INTERFACE documented in this encounter Visit Diagnoses Diagnosis Fatty liver Other chronic nonalcoholic liver diseas e documented in this encounter Additional Health Concerns Noted Time Assessment 07/08/2021 9:47 AM LAPEL PADDER BLINDSTITCH A fall risk assessment has been complet ed for the patient 07/08/2021 9:47 AM LAPEL PADDER BLINDSTITCH PHQ-2 Depression Total Score: 0 documented as of this encounter Care Teams Start Date End Date Section Plotter Operator Relationship Specialty 09/01/20 Nunu Patel, PLASTIC MAKER PCP - General Nurse [address] [place] [address] documented as of this encounter
--- OUTSIDE RECORDS SUMMARY | 2021-08-14 03:50 | XMS REPORT | Encounter Summary ---
Author Author [facility] Organization [facility] Address Unknown Phone Unavailable Care Team Providers Care Track And Field Coach Name Role Phone Nunu Patel FLOWER PLANTER PCP Reason for Visit * Radiology Services (Routine) - New Request Diagnoses / Procedures [facility] By [facility] Fatty liver Procedures IR PERCUTANEOUS LIVER BIOPSY Roc Jarvis MD [address] [place] [address] Radiology Referral ID Status Reason Start Date Expiration Visits Vi sits Date Requested Authorized [id number] New Request 07/08/2021 07/08/2022 1 1 Encounter Details Care Team Description Date Type Department Roc Jarvis MD [address] [place], [place] [id number] Anibal Mccracken MD [address] [facility] 2nd Fl[address] [place], [place] [id number] Canceled (Patient-Financial/Insurance Is ale) 07/28/2021 Hospital Interventional Radi ology: Encounter [facility] [address] [facility] Level 2, [id number] [place] [address] Social History Date Tobacco Use Types Packs/Day Years Used Current Every Day Smoker Cigarettes 40 Smokeless Tobacco: Never Used Comments: 4 cigarettes a day Comments Alcohol Use Standard Drinks/Week Yes 4 (1 standard drink = 0.6 o z pure alcohol) Sex Assigned at Date Recorded Male 09/20/2020 11:58 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 Name of Procedure(s): Perc Liver Bx ASA 4. No covid test per management. 2. Date of Procedure: 07/28/21 3. Arrival Time: 0630 4. Procedure Time: 0800 5. Correct Procedural Room Assignment: [facility] 6. Blood Thinners Triaged and instructed per protocol: Y/N/NA: Yes, Xarelto. Pt to hold 1/4, 1/5, 1/6 doses. Confirmed accurate instructions sent to patient: Y/N: yes 7. Procedure Order Verified: Y/N: Yes 9. Patient instructed to have a m48/m60 tank driver: Y/N/NA: Yes 10. Patient instructed on NPO status: Y/N/NA: Yes midnight strict Confirmed accurate instructions sent to patient: Y/N: Yes 11. Specimen needed: Y/N/NA: Yes Verified Order placed: Y/N: Yes 12. Allergies Verified: Y/N: Yes 13. Is there an Iodine Allergy: Y/N: No Does the Procedure Require contrast: Y/N: na If so, was the IR- Contrast Allergy Pre-Procedure Medication protocol ordered: Y /NA: NA 14. Does the patient have labs according to IR Pre-procedure Laboratory Paramet er policy: Y/N/NA: Yes If No, was the patient instructed to obtain labs prior to procedure: Y/N/NA: NA 15. Will the patient need to be admitted or have a possible admission: Y/N: No If yes, confirmed accurate instructions sent to patient: Y/N/NA: NA 16. Patient States Understanding: Y/N: Yes 17. History of BREN: Y/N: Yes, cpap. Anesthesia on board. If yes, confirm request to bring CPAP sent to patient: Y/N/NA: NA 18. Does the patient have an insulin pump or continuous glucose monitor? Y/N If yes, was the patient instructed that this will need to be removed for this p rocedure and to bring supplies to reapply once the procedure is complete? Y/N 19. Patient was sent electronic procedure instructions: Y/N: Yes, mychart. RIOR DOOR INSTALLER documented in this encounter Miscellaneous Notes * Patient Education - Ganesh Simpson RN - 07/28/2021 8:00 AM EXTERIOR DOOR INSTALLER Dear Brant, Thank you for choosing [facility] Interventional Rad iology for your procedure. Your appointment information is listed below: Appointment Date: 07/28/21 Appointment Time: 8:00am Arrival Time: 6:30am Location: ? [facility]: [address] [place] [id number] Parking: [address] Interventional Radiology is located on the 2nd floor of the [facility]. INTERVENTIONAL RADIOLOGY PRE-PROCEDURE INSTRUCTIONS SEDATION You are scheduled for a procedure in Interventional Radiology with procedural se dation. Please follow these instructions and any direction from your Primary Ca re/Managing Physician. If you have questions about your procedure or need to re schedule please call [phone]. Medication Instructions: You may take the following medications with a small sip of water: < ALL MEDICATIONS BEFORE 6am, except Xarelto > Do not take the following medications: <Do NOT take Xarelto on 07/26, 07/27, 07/28. You may resume Xarelto 24 hours after the procedure. Per our phone call, please contact prescribing physician to confirm they approve the request to hold the medication. If the physician disagrees with this reques t, please contact us at [phone]. Diet Instructions: a. Nothing to Eat or Drink after 12:00AM. You should have nothing by mouth. Thi s includes GUM or CANDY. b. (2) hours before your procedure (6:00am) stop taking any medications. Day of Exam Instructions: 1. Bathe or shower with an antibacterial soap prior to your appointment. 2. If you have a history of Obstructive Sleep Apnea (BREN) bring your CPAP/BIPAP. 3. Bring a list of your current medications and the dosages. 4. Wear comfortable clothing and leave valuables at home. 5. Arrive (1.5) hours prior to your appointment. This time will be spent regist ering, interviewing, assessing, educating and preparing you for the test. You will be with us anywhere from 30 minutes to 6 hours after your exam depe nding on your procedure. 6. You may be sedated for the procedure. A responsible adult must drive you home (no Uber, taxis or buses are allowed) and stay with you overnight. If you do not have a m48/m60 tank driver we will be unable to perform your procedure. 7. You will not be able to return to work or drive the same day if receiving sed ation. RIOR DOOR INSTALLER documented in this encounter Plan of Treatment Not on filedocumented as of this encounter Visit Diagnoses Not on filedocumented in this encounter Additional Health Concerns Noted Time Assessment 07/08/2021 9:47 AM EXTERIOR DOOR INSTALLER A fall risk assessment has been complet ed for the patient 07/08/2021 9:47 AM EXTERIOR DOOR INSTALLER PHQ-2 Depression Total Score: 0 documented as of this encounter Care Teams Start Date End Date Track And Field Coach Relationship Specialty 09/01/20 Nunu Patel, FLOWER PLANTER PCP - General Nurse [address] [place] [phone] documented as of this encounter
--- OUTSIDE RECORDS SUMMARY | 2021-08-14 03:50 | XMS REPORT | Clinical Summary ---
Author Author [facility] Organization [facility] Address Unknown Phone Unavailable Care Team Providers Care Roll Scale Man Name Role Phone Nunu Patel APRN PCP Source Comments Some departments are not documenting in the electronic medical record. If you d o not see the information that you expected, contact Release of Information in [facility] dateIITians Information Management department at [phone] for further assistan ce in locating additional records.[facility] Allergies No known active allergies Medications End Date Status Medication Sig Dispensed Refills Start Date Active atorvastatin (LIPITOR) 40 Take 40 mg by 0 mg tablet mouth daily. Active diltiazem CD (CARDIZEM Take 240 mg 0 CD) 240 mg capsule by mouth daily. Active ibuprofen (IBU PO) Take by 0 mouth. Active traZODone (DESYREL) 50 mg Take 50 [...] for 330 days. Take with food. Active zolpidem (AMBIEN) 5 mg Take one 14 tablet 0 tablet tablet by 1 mouth at bedtime daily. Active Problems Problem Noted Date Persistent atrial fibrillation 11/25/2020 Morbid obesity 09/14/2020 Cellulitis 09/14/2020 Overview: Formatting of this note might be differ ent from the original. Left leg 04/19/2020 - AARO - ([facility]) No significant obstructive disease in the lower [...] Current as of 09/17/2020... Failed DCCV 08/18/20 ([facility]) CHADS-VASC = 2 (HTN, CAD) Currently diagnosed of BREN; wears CPAP Margaret managing BMI = 50 ECHO: KAE; [facility]; LA: dilated (no measurements provided) RA: dilated (no measurements provided) LVEF: normal (no further detail provide d) Trans-thoracic echo; [facility]; 04/10/2020 LA: severely dilated; 5.8cm RA: normal (no measurements provided) LVEF: 40-45% Hypertension 09/14/2020 Hyperlipidemia 09/14/2020 Encounters Care Team Description Date Type Turbine Room AttendantGenny Laura RN Follow-up Phone Call 08/04/2021 Telephone Transplant Surgery Roc Jarvis MD Lemons, Steven M, MD Canceled (Patient-Financial/Insurance Is ale) 07/28/2021 Hospital Radiology Encounter Luisito Posada Fatty liver 07/20/2021 Orders Only Transplant Surgery Trupti Tristan RN Fatty liver (Primary Dx) 07/20/2021 Orders Only Transplant Surgery Luisito Posada Fatty liver 07/19/2021 Orders Only Transplant Surgery Roc Jarvis MD Fatty liver (Primary Dx) 07/11/2021 Office Visit Hepatology Telehealth Roc Jarvis MD Follow-up Phone Call 07/11/2021 Telephone Transplant Surgery 07/08/2021 Sushila Santos MD 06/18/2021 Hospital Lab Encounter 06/18/2021 Sushila Santos MD Obstructive sleep apnea (Primary Dx); Primary hypertension; Mixed hyperlipidemia; Coronary artery disease involving [place] coronary artery of [place] heart without angina pectoris; Persistent atrial fibrillation (HCC); Obesity (BMI 30-39.9); Class 3 severe obesity due to excess calories with serious comorbidity and body mass index (BMI) of 45.0 to 49.9 in adult (HCC) 06/07/2021 Office Visit General [facility] Telehealth from Last 3 Months Surgical History Surgery [...] Smoker Cigarettes 40 Smokeless Tobacco: Never Used Tobacco Cessation: Ready to Quit: Yes; C ounseling Given: No Comments: 4 cigarettes a day Comments Alcohol Use Standard Drinks/Week Yes 4 (1 standard drink = 0.6 o z pure alcohol) Sex Assigned at Date Recorded Male 09/20/2020 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 Last Filed Vital Signs Reading Time Taken Comments Vital Sign 139/91 06/07/2021 12:40 PM PRODUCT/DEVICE TECHNOLOGIST pt reported Blood Pressure 89 06/07/2021 12:40 PM PRODUCT/DEVICE TECHNOLOGIST pt reported Pulse - - Temperature - - Respiratory Rate 95% 05/13/2021 9:51 AM CDT Oxygen Saturation - - Inhaled Oxygen Concentration 163.3 kg (360 lb) 06/07/2021 12:40 PM PRODUCT/DEVICE TECHNOLOGIST pt reported Weight 182.9 cm (6') 06/07/2021 12:40 PM PRODUCT/DEVICE TECHNOLOGIST Height 48.82 06/07/2021 12:40 PM PRODUCT/DEVICE TECHNOLOGIST Body Mass Index Plan of Treatment Health Maintenance Due Date Last Done Comments HIV SCREENING 1975 DTAP/TDAP VACCINES (1 - 1978 Tdap) PHYSICAL (COMPREHENSIVE) 1978 EXAM COLORECTAL CANCER 2010 SCREENING SHINGLES RECOMBINANT 2010 VACCINE (1 of 2) INFLUENZA VACCINE 02/20/2021 04/11/2020 HEPATITIS C SCREENING Completed 07/15/2021 Procedures Comments Procedure Name Priority Date/Time Associated Diag nosis CBC AND DIFF Routine 07/15/2021 Fatty liver 12:00 AM PRODUCT/DEVICE TECHNOLOGIST HEPATITIS B CORE AB TOT Routine 07/15/2021 Fatty liver (IGG+IGM) 12:00 AM PRODUCT/DEVICE TECHNOLOGIST HEPATITIS A TOTAL AB Routine 07/15/2021 Fatty paulino er (IGG+IGM) 12:00 AM PRODUCT/DEVICE TECHNOLOGIST HEPATITIS B SURFACE AG Routine 07/15/2021 Fatty l iver 12:00 AM PRODUCT/DEVICE TECHNOLOGIST HEPATITIS B SURFACE AB Routine 07/15/2021 Fatty l iver 12:00 AM PRODUCT/DEVICE TECHNOLOGIST HEPATITIS C AB Routine 07/15/2021 Fatty liver 12:00 AM PRODUCT/DEVICE TECHNOLOGIST PROTIME INR (PT) Routine 07/15/2021 Fatty liver 12:00 AM PRODUCT/DEVICE TECHNOLOGIST COMPREHENSIVE METABOLIC Routine 07/15/2021 Fatty liver PANEL 12:00 AM PRODUCT/DEVICE TECHNOLOGIST HC *FREE T4 (REFLEX) Routine 06/18/2021 Obstructi ve sleep apnea 11:24 AM PRODUCT/DEVICE TECHNOLOGIST Primary hypertension Mixed hyperlipidemia Class 3 severe obesity due to excess calories with serious comorbidity and body mass index (BMI) of 45.0 to 49.9 in adult (HCC) Body mass index (BMI) 45.0-49.9, adult (HCC) HC HEMOGLOBIN A1C Routine 06/18/2021 Obstructive sleep apnea 11:24 AM PRODUCT/DEVICE TECHNOLOGIST Primary hypertension Mixed hyperlipidemia Persistent atrial fibrillation (HCC) Class 3 severe obesity due to excess calories with serious comorbidity and body mass index (BMI) of 45.0 to 49.9 in adult (HCC) HC Routine 06/18/2021 Obstructive sle ep apnea LIPID-5:CHOL/TRG/HDL/LDL+ 11:24 AM PRODUCT/DEVICE TECHNOLOGIST Primary hyp ertension VLDL Mixed hyperlipidemia Persistent atrial fibrillation (HCC) Class 3 severe obesity due to excess calories with serious comorbidity and body mass index (BMI) of 45.0 to 49.9 in adult (HCC) HC COMPREHENSIVE Routine 06/18/2021 Obstructive s leep apnea METABOLIC PANEL 11:24 AM PRODUCT/DEVICE TECHNOLOGIST Primary hypertensio n Mixed hyperlipidemia Persistent atrial fibrillation (HCC) Class 3 severe obesity due to excess calories with serious comorbidity and body mass index (BMI) of 45.0 to 49.9 in adult (HCC) HC TSH SCREEN Routine 06/18/2021 Obstructive sle ep apnea 11:24 AM PRODUCT/DEVICE TECHNOLOGIST Primary hypertension Mixed hyperlipidemia Persistent atrial fibrillation (HCC) Class 3 severe obesity due to excess calories with serious comorbidity and body mass index (BMI) of 45.0 to 49.9 in adult (HCC) HC CBC,AUTOMATED Routine 06/18/2021 Obstructive s leep apnea 11:24 AM PRODUCT/DEVICE TECHNOLOGIST Primary hypertension Mixed hyperlipidemia Persistent atrial fibrillation (HCC) Class 3 severe obesity due to excess calories with serious comorbidity and body mass index (BMI) of 45.0 to 49.9 in adult (HCC) from Last 3 Months Results * HEPATITIS C ANTIBODY W REFLEX HCV PCR QUANT (07/15/2021 12:00 AM PRODUCT/DEVICE TECHNOLOGIST) Anti HCV NON-REACTIVE LABDE INTERFACE Specimen Blood (substance) Narrative LABDE INTERFACE - 07/19/2021 12:00 AM PRODUCT/DEVICE TECHNOLOGIST Outside Lab Verified by Luisito Thief [place] on 07/20/2021. Performing Organization Address City/State/ZIP Code P iveth Number LABDE INTERFACE * (ABNORMAL) HEPATITIS B CORE AB TOT (IGG+IGM) (07/15/2021 12:00 AM PRODUCT/DEVICE TECHNOLOGIST) Anti HBc Total REACTIVE (A) NON-REACTIVE LABDE INTERFACE Specimen Blood (substance) Narrative LABDE INTERFACE - 07/19/2021 12:00 AM PRODUCT/DEVICE TECHNOLOGIST Outside Lab Verified by Luisito Albino on 07/20/2021. Performing Organization Address City/State/ZIP Code P iv[place] Number LABDE INTERFACE * (ABNORMAL) HEPATITIS A TOTAL AB (IGG+IGM) (07/15/2021 12:00 AM PRODUCT/DEVICE TECHNOLOGIST) Hepatitis A, REACTIVE (A) NON-REACTIVE LABDE INTERFACE Total Specimen Blood (substance) Narrative LABDE INTERFACE - 07/19/2021 12:00 AM PRODUCT/DEVICE TECHNOLOGIST Outside Lab Verified by Luisito Albino on 07/20/2021. Performing Organization Address City/State/ZIP Code P iv[place] Number LABDE INTERFACE * HEPATITIS B SURFACE AG (07/15/2021 12:00 AM PRODUCT/DEVICE TECHNOLOGIST) HBsAg NON-REACTIVE LABDE INTERFACE Specimen Blood (substance) Narrative LABDE INTERFACE - 07/19/2021 12:00 AM PRODUCT/DEVICE TECHNOLOGIST Outside Lab Verified by Luisito Albino on 07/20/2021. Performing Organization Address City/State/ZIP Code P iv[place] Number LABDE INTERFACE * HEPATITIS B SURFACE AB (07/15/2021 12:00 AM PRODUCT/DEVICE TECHNOLOGIST) Anti HBs 18 LABDE INTERFACE Specimen Blood (substance) Narrative LABDE INTERFACE - 07/19/2021 12:00 AM PRODUCT/DEVICE TECHNOLOGIST Outside Lab Verified by Luisito Thief [place] on 07/20/2021. Performing Organization Address City/State/ZIP Code P iv[place] Number LABDE INTERFACE * (ABNORMAL) PROTIME INR (PT) (07/15/2021 12:00 AM PRODUCT/DEVICE TECHNOLOGIST) Protime 11.9 (H) 9.0 - 11.5 sec LABDE INTERFACE INR 1.1 LABDE INTERFACE Specimen Blood (substance) Narrative LABDE INTERFACE - 07/19/2021 12:00 AM PRODUCT/DEVICE TECHNOLOGIST Outside Lab Verified by Luisito Albino on 07/20/2021. Performing Organization Address City/State/ZIP Code P iv[place] Number LABDE INTERFACE * CBC AND DIFF (07/15/2021 12:00 AM PRODUCT/DEVICE TECHNOLOGIST) White Blood 5.9 LABDE INTERFACE Cells RBC [...] Narrative LABDE INTERFACE - 07/20/2021 12:00 AM PRODUCT/DEVICE TECHNOLOGIST Outside Lab Verified by Luisito Albino on 07/20/2021. Performing Organization Address City/State/ZIP Code P iv[place] Number LABDE INTERFACE * (ABNORMAL) COMPREHENSIVE METABOLIC PANEL (07/15/2021 12:00 AM PRODUCT/DEVICE TECHNOLOGIST) Only the most recent of 2 results within the time period is included. Glucose 204 (H) 65 - 99 LABDE INTERFACE Blood Urea 21 LABDE INTERFACE Nitrogen Creatinine 1.19 LABDE INTERFACE eGFR Non 66 LABDE INTERFACE eGFR 76 LABDE INTERFACE [place] Sodium 141 LABDE INTERFACE Potassium 4.1 LABDE INTERFACE Chloride 101 LABDE INTERFACE CO2 30 LABDE INTERFACE Calcium 9.2 LABDE INTERFACE Total Protein 6.8 LABDE INTERFACE Albumin 4.1 LABDE INTERFACE Total Bilirubin 0.8 LABDE INTERFACE Alk Phosphatase 107 LABDE INTERFACE AST (SGOT) 24 LABDE INTERFACE ALT (SGPT) 29 LABDE INTERFACE Specimen Blood (substance) Narrative LABDE INTERFACE - 07/19/2021 12:00 AM PRODUCT/DEVICE TECHNOLOGIST Outside Lab Verified by Luisito Posada on 07/20/2021. Performing Organization Address City/State/ZIP Code P iv[place] Number LABDE INTERFACE * FREE T4-FREE THYROXINE (06/18/2021 11:24 AM PRODUCT/DEVICE TECHNOLOGIST) T4-Free 1.1 0.6 - 1.6 NG/DL [facility] Specimen Performing Organization Address City/State/ZIP Code P iveth Number [facility] [address] [place] [address] * (ABNORMAL) TSH WITH FREE T4 REFLEX (06/18/2021 11:24 AM PRODUCT/DEVICE TECHNOLOGIST) TSH 6.41 (H) 0.35 - 5.00 MCU/ML [facility] Specimen Blood (substance) Performing Organization Address [facility] P iveth Number [facility] [address] [place] [address] * CBC (06/18/2021 11:24 AM PRODUCT/DEVICE TECHNOLOGIST) White Blood 8.3 4.5 - 11.0 K/UL [...] LAB Specimen Blood (substance) Performing Organization Address [facility] P iveth Number [facility] [address] [place] [address] * (ABNORMAL) HEMOGLOBIN A1C (06/18/2021 11:24 AM PRODUCT/DEVICE TECHNOLOGIST) Hemoglobin A1C 6.7 (H) 4.0 - 6.0 % [facility] Comment: The ADA recommends that most patients with type 1 and type 2 diabetes maintain an A1c level <7%. Specimen Blood (substance) Performing Organization Address [facility] P iveth Number [facility] [address] [place] [address] * LIPID PROFILE (06/18/2021 11:24 AM PRODUCT/DEVICE TECHNOLOGIST) Cholesterol 116 <200 MG/DL [facility] [...] mg/dL. Specimen Blood (substance) Performing Organization Address [facility]/ZIP Code P iveth Number [facility] [address] [place] [address] from Last 3 Months Advance Directives Patient Roll Cutter Explanation Type Date Recorded Advance Directive/DPOA Care Teams Start Date End Date Roll Scale Man Relationship Specialty 09/01/20 Nunu Patel, DEBBIE PCP - General Nurse [address] [place] [address]
--- OUTSIDE RECORDS SUMMARY | 2021-08-14 03:50 | XMS REPORT | Encounter Summary ---
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
--- OUTSIDE RECORDS SUMMARY | 2021-08-14 03:50 | XMS REPORT | Encounter Summary ---
Author Author [facility] Organization [facility] Address Unknown Phone Unavailable Care Team Providers Care Offshore Diver Name Role Phone Nunu Patel GRADES 1 THRU 6 HOME TEACHER PCP Reason for Referral * Radiology Services (Routine) - New Request Diagnoses / Procedures Referred By Contact Referred To Conta ct Specialty Diagnoses Fatty liver Procedures IR PERCUTANEOUS LIVER BIOPSY Roc Jarvis MD [address] [place] [address] Radiology Referral ID Status Reason Start Date Expiration Visits Vi sits Date Requested Authorized [id number] New Request 07/08/2021 07/08/2022 1 1 IN WORKER Reason for Visit * Reason Comments Fatty Liver * Consult, Test & Treat (Routine) - Authorized Diagnoses / Procedures Referred By Contact Referred To Conta ct Specialty Diagnoses Elevated liver enzymes Fatty liver Nunu Patel, GRADES 1 THRU 6 HOME TEACHER [address] [place] [address] Roc Jarvis MD [address] [place] [address] Hepatology Referral ID Status Reason Start Date Expiration Visits Vi sits Date Requested Authorized [id number] Authorized 05/09/2021 05/09/2022 1 1 Encounter Details Care Team Description Date Type Department Roc Jarvis MD [address] [place], [place] [id number] Fatty liver (Primary Dx) 07/11/2021 Office Visit Hepatology: Main [place] [facility], Telehealth [facility] [address], [address] [place] [address] Social History Date Tobacco Use Types Packs/Day Years Used Current Every Day Smoker Cigarettes 40 Smokeless Tobacco: Never Used Comments: 4 cigarettes a day Comments Alcohol Use Standard Drinks/Week Yes 4 (1 standard drink = 0.6 o z pure alcohol) Sex Assigned at Date Recorded Male 09/20/2020 11:58 AM WARM IN WORKER Date Recorded COVID-19 Exposure Response 07/08/2021 9:49 AM WARM IN WORKER In the last month, have you been [...] impairment: No documented as of this encounter Progress Notes * Roc Jarvis MD - 07/08/2021 10:00 AM WARM IN WORKER Hepatology Tele-Health Note Patient Name:Zheng Guo Date of Service: 07/08/2021 Referring: Nunu Patel APRN Obtained patient's verbal consent to treat them and their agreement to [facility] policy and NPP via this telehealth visit during the Coronavirus Public He [facility] Emergency CHIEF COMPLAINT/PURPOSE OF VISIT: Chief Complaint Patient presents with Fatty Liver HISTORY OF PRESENT ILLNESS: 60 y.o.male with history of hyperlipidemia, hypertension, morbid obesity (BMI = 46) who is seen today for fatty liver. In 04/2021 the patient had abdominal ultrasound to assess for abdominal pain leanna t showed hepatic steatosis. In 05/2021 blood work showed AST 35, ALT 32, alkaline phosphatase 60, albumin 4. 1, total bilirubin 1.2, total protein 7.3, hemoglobin A1c 6.7, triglycerides 101 , HDL 42, LDL 64. CBC showed platelets 166. He was seen at the weight management clinic and additional work-up revealed hypo thyroidism and elevated hemoglobin A1c. The patient does not smoke. He rarely drink alcohol. The patient denies any ov gr-ptb-lzgalto herbs or supplements In early 2020 the patient reported bright red blood per rectum and he reports un dergoing EGD and colonoscopy that were both negative. Patient denies any hepatic decompensation events such as ascites, variceal hemor rhage, encephalopathy or jaundice. The patient currently denies any abdominal pain, nausea, vomiting, constipation, bowel movement changes, chest pain, shortness of breath or fever REVIEW OF SYSTEMS: A 10 point review of systems was performed, with the excepti ons outlined in the HPI. PMH: Medical History: Diagnosis Date Cellulitis 09/14/2020 Coronary artery disease 09/14/2020 Hyperlipidemia 09/14/2020 Hypertension 09/14/2020 Morbid obesity (HCC) 09/14/2020 Obstructive sleep apnea 09/14/2020 Paroxysmal atrial fibrillation (HCC) 09/14/2020 Tobacco abuse 09/14/2020 Current medications: Current Outpatient Medications on File Prior to Visit Medication Sig Dispense Refill amiodarone (PACERONE) 200 mg tablet Take one tablet by mouth three times carlos a ly for 30 days, THEN one tablet twice daily for 330 days. Take with food. 180 ta blet 3 atorvastatin (LIPITOR) 40 mg tablet Take 40 mg by mouth daily. diltiazem CD (CARDIZEM CD) 240 mg capsule Take 240 mg by mouth daily. fexofenadine HCl (FRANTZ PO) Take by mouth daily. fluticasone-salmeterol (ADVAIR DISKUS) 250-50 mcg/dose inhalation disk Inhal e 1 puff by mouth into the lungs every 12 hours. ibuprofen (IBU PO) Take by mouth. rivaroxaban (XARELTO) 20 mg tablet Take 20 mg by mouth daily. Take with food . tiotropium bromide (SPIRIVA RESPIMAT) 2.5 mcg/actuation inhaler Inhale 2 puf fs by mouth into the lungs daily. traZODone (DESYREL) 50 mg tablet Take 50 mg by mouth at bedtime as needed fo r Sleep. zolpidem (AMBIEN) 5 mg tablet Take one tablet by mouth at bedtime daily. 14 tablet 0 No current facility-administered medications on file prior to visit. PSH: Surgical History: Procedure Laterality Date CARDIAC CATHERIZATION CARDIOVASCULAR STRESS TEST DOPPLER ECHOCARDIOGRAPHY ELECTROCARDIOGRAM SH: Social History Tobacco Use Smoking status: Current Every Day Smoker Years: 40.00 Types: Cigarettes Smokeless tobacco: Never Used Tobacco comment: 4 cigarettes a day Vaping Use Vaping Use: Never used Substance Use Topics Alcohol use: Yes Alcohol/week: 4.0 standard drinks Types: 4 Shots of liquor per week Drug use: Not Currently FH: Family History Problem Relation Age of Onset Cancer Mother Diabetes Maternal Grandfather Heart Disease Paternal Grandmother LIMITED PHYSICAL EXAM: GENERAL: Appears comfortable without apparent distress RESPIRATORY: Normal respiratory effort noted, no increased work of breathing. NEUROLOGIC: Oriented to person, place, time, and event. Impression/Assessment/Plan/Recommendations: 60 y.o. male with morbid obesity, hypothyroidism, diabetes mellitus, hyperlipide rito and fatty liver who presents establish care with hepatology. Despite the finding of steatosis on his ultrasound the patient has normal synthe tic hepatic function. We will major concern is his low platelets which might indicate advanced fibrosi s/cirrhosis. We will therefore proceed with a transcutaneous liver biopsy since a FibroScan would not be feasible with his elevated BMI I had a long discussion with the patient about nonalcoholic fatty liver dise ase (NAFLD/KELLEY). The patient has normal LFTs therefore no further work-up would be required t o identify other etiologies We discussed how fat deposits in the liver and lead to inflammation. With ch ronic inflammation, KELLEY can ultimately lead to scarring and cirrhosis. The long -term complications of fatty liver disease were discussed with the patient, incl uding variable progression to cirrhosis and end stage liver disease. Recommendation for NAFLD management: It is recommended to lose 5% of body weight in order to reduce steatosis; 10 % to reduce inflammation associated with KELLEY. Weight loss may be achieved through a combination of diet (such as the medit erranean diet), in conjunction with exercise. Goal is to exercise >150 minutes week. Consider liberalizing coffee and black tea consumption as data suggest this may slow progression of KELLEY-related fibrosis. The highest mortality in NAFLD/KELLEY is from cardiovascular disease and caref ul attention should be paid to associated risk factors, including management of HTN, HLP, DM2. Statin use is safe and encouraged. He is currently working closely with weight management clinic Routine Health Care in Patient with Chronic Liver Disease: We recommend screening for hepatitis A and B, and vaccination if not immune. All patients with liver disease are at an increased risk for osteoporosis. We strongly recommend screening for Vitamin D deficiency with aggressive supplem entation/replacement, as indicated. Screening for all fat soluble vitamin defici encies should be performed in those patients with cholestatic liver disease. Baseline DEXA scan should be performed to evaluate for decreased bone minera l density. If present, Ca/Vit D +/- bisphosphonate therapy should be considered. Follow up DEXA scans shall be based on prior scans as well as therapies. It is n ot uncommon for our patients to be referred to an Rug Inspector Helper/bone health sp ecialist. The preferred analgesic in cirrhosis and liver disease is Tylenol, up to 2g daily. For his newly diagnosed hypothyroidism we will refer the patient to PCP to initi ate thyroid replacement We will obtain serology to determine immunity against HAV and HBV and vaccinate if not immune. We will also check anti-HCV antibody ICD-9-CM ICD-10-CM 1. Fatty liver 571.8 K76.0 HEPATITIS B SURFACE AB HEPATITIS B SURFACE AG HEPATITIS A TOTAL AB (IGG+IGM) HEPATITIS B CORE AB TOT (IGG+IGM) CBC COMPREHENSIVE METABOLIC PANEL PROTIME INR (PT) HEPATITIS C ANTIBODY W REFLEX HCV PCR QUANT IR PERCUTANEOUS LIVER BIOPSY Follow up: 1 year Total E/M time related to today's Zoom Telehealth visit 45 minutes. IN WORKER * Kelsi Crowley - 07/08/2021 10:00 AM WARM IN WORKER The patient reviewed the three documents sent via Ber[employer], agrees with the info rmation and provided verbal consent for this visit. IN WORKER documented in this encounter Miscellaneous Notes * Patient Instructions - Bria Hoskins, ZOË - 07/08/2021 10:00 AM WARM IN WORKER Images from the original note were not included. 07/08/21 Prior to Leaving, please Schedule: 1. Return to General Hepatology Clinic in 1 year, Dr. Jarvis. Patient Information/Education: Labs: Due now. We will arrange for this to be completed locally. The interventional radiology department will call and schedule your procedure. If you have questions about the procedure, or need to re-schedule, you can conta ct them at [phone] Fatty liver disease is when fat deposits in the liver. This can lead to inflamma tion, and chronic inflammation can ultimately lead to scarring and cirrhosis. Re commendations for fatty liver disease include: Exercise. We recommend 30-45 minutes of exercise, 4-5 days a week. Goal to lose 10% of your body weight. Eat a healthy, well-balanced diet. Black coffee or black tea may have some benefit to fatty liver. Work with your PCP to ensure your blood pressure, blood sugar and cholestero l are well-controlled. o Goal LDL less than 100 o Goal Triglycerides less than 150 o Hemoglobin A1C less than 7 Two ways to determine Cirrhosis: Fibroscan vs. Liver Biopsy. The Liver Biopsy is the most accurate way to determine the amount of fat and scar tissue on the paulino er. The Fibroscan has some limitations. Notify our office if you experience yellowing of the eyes or skin, dark richardson ur ine, memory loss, confusion, swelling of the extremities or abdomen as these can all be complications from liver disease. General Instructions: How to reach us: Please send a Berst message to the Transplant Hepatology clinic or call us at [phone] and ask for ZOË Givens. How to get a medication refill: Please use the [employer] Refill request or con tact your pharmacy directly to request medication refills. Please allow 48 hours . How to receive your test results: Results are released to your [employer] immediately, please ensure you are utilizing this tool to review results afte r your clinic visit. Please allow time for Dr. Jarvis to review your results. If you don't have a My-Chart account, you will receive a phone call or letter. If you are expecting results and have not heard from our office within 10 business days of your testing, please call me! Scheduling: Our Scheduling phone number is [phone]. Appointment Reminders on your cell phone: Make sure we have your cell phone n ai, and Text [facility] to [phone]. Support groups for many chronic illnesses are available through [employer]: t [employer] or [phone]. [facility] Dr. Matheus Laura, RN [phone] Back Office Staff Follow-Up: 1. EGD/Colonoscopy completed at [facility] [address] [place] 2. Fax labs to PCP ([facility] in [place]) Liver Biopsy A liver biopsy is when a small piece of liver tissue is removed. The tissue is s ent to a lab. It is looked at with a microscope. To do the biopsy, your healthca re provider puts a needle throughyour skin and into your liver. In some cases, the biopsy is done by moving a thin tube through a vein into the liver area. Th is method is less common. Your health care provider will give you an ultrasound or CT scan of your lower c hest and upper abdominal area to help find the best site for your biopsy. Getting ready Before your biopsy: Have blood tests as directed. Follow instructions for not eating or drinking before the biopsy. Arrange for someone to drive you home after your biopsy. Talk with your healthcare provider if you have any questions or concerns. Also, tell your provider about all of the medicines, drugs, and supplements you take. This includes: Medicines that thin the blood and prevent blood clots, such as warfarin. Other medicines that thin the blood. This includes aspirin. It also includes non-steroidal anti-inflammatory drugs (NSAIDs) such as ibuprofen and naproxen. Medicines for heart conditions Vtag-cpb-fsrklrn medicines All prescription medicines Illegal drugs Herbs, vitamins, and other supplements Stop taking aspirin and NSAIDS 1 week before the biopsy. Ask what other medicine s you may need to stop. During the procedure You will change into a hospital gown. You will lie on your back or your left side. Part of your body is draped. Your healthcare provider checks your blood pressure, pulse, breathing, and te mperature. Your provider may give you medicine through an IV (intravenous) line to help you relax. He or she will also put medicine on your skin around the biopsy site to numb it. He or she puts a small needle through a tiny cut (incision) in your belly (ab dominal) wall into the liver. He or she will take out a small sample of liver tissue. You will be told to h old your breath while this is done. The needle is taken out. A healthcare provider placesa bandage over the incision site. He or she may ask you to lie on your right side for a while. A pillow or special sandbag may be used to put pressure on the incision site. You will be watched for a few hours after your biopsy. You can then go home i f you are stable and comfortable and you have no signs of bleeding. After the procedure Have someone drive you home after your liver biopsy. You may feel some pain near the biopsy site or in your right shoulder. This shoulder pain is called referre dpain. When you are home: Get plenty of rest. Don't drink alcohol. Dont lift anything more than 15 to 20 pounds for a week. Dont exercise for 5 to 7 days. Don't take aspirin. Ask your provider when you can start taking other blood-thinning medicines as needed. Follow any other directions from your healthcare provider. Getting your results Your biopsy results may take a few days. When the results are ready, your health care provider will discuss them with you. When to call your healthcare provider Call your healthcare provider right away if you have any of these: Severe pain near the biopsy site or in your belly or chest Fainting or feeling lightheaded Trouble breathing A fever of 100.4F (38C) or higher, or as directed by your healthcare prov ider Feeling weak Sweating Bleeding from the incision site Blood in your stool or black, tarry stools Swollen belly Yamila last reviewed this educational content on 12/21/201819991536-1914 [employer]). All rights reserved. This information is not intended as a substitute for professional medical care. Always follow your healthcare professional's instructions. IN WORKER documented in this encounter Plan of Treatment Order Schedule Name Type Priority Associated Diag noses Expected: 07/08/2021 (Approximate), Expi res: 07/08/2022 CBC Lab Routine Fatty liver Expected: 07/08/2021 (Approximate), Expi res: 07/08/2022 IR PERCUTANEOUS LIVER Imaging Routine Fatty li jenny BIOPSY documented as of this encounter Results * HEPATITIS C ANTIBODY W REFLEX HCV PCR QUANT (07/15/2021 12:00 AM WARM IN WORKER) Anti HCV NON-REACTIVE LABDE INTERFACE Specimen Blood (substance) Narrative LABDE INTERFACE - 07/19/2021 12:00 AM WARM IN WORKER Outside Lab Verified by Luisito Posada on 07/20/2021. Performing Organization Address City/State/ZIP Code P iv[place] Number LABDE INTERFACE * (ABNORMAL) PROTIME INR (PT) (07/15/2021 12:00 AM WARM IN WORKER) Protime 11.9 (H) 9.0 - 11.5 sec LABDE INTERFACE INR 1.1 LABDE INTERFACE Specimen Blood (substance) Narrative LABDE INTERFACE - 07/19/2021 12:00 AM WARM IN WORKER Outside Lab Verified by Luisito Posada on 07/20/2021. Performing Organization Address City/State/ZIP Code P iveth Number LABDE INTERFACE * (ABNORMAL) COMPREHENSIVE METABOLIC PANEL (07/15/2021 12:00 AM WARM IN WORKER) Glucose 204 (H) 65 - 99 LABDE INTERFACE Blood Urea 21 LABDE INTERFACE Nitrogen Creatinine 1.19 LABDE INTERFACE eGFR Non 66 LABDE INTERFACE eGFR 76 LABDE INTERFACE [place] Sodium 141 LABDE INTERFACE Potassium 4.1 LABDE INTERFACE Chloride 101 LABDE INTERFACE CO2 30 LABDE INTERFACE Calcium 9.2 LABDE INTERFACE Total Protein 6.8 LABDE INTERFACE Albumin 4.1 LABDE INTERFACE Total Bilirubin 0.8 LABDE INTERFACE Alk Phosphatase 107 LABDE INTERFACE AST (SGOT) 24 LABDE INTERFACE ALT (SGPT) 29 LABDE INTERFACE Specimen Blood (substance) Narrative LABDE INTERFACE - 07/19/2021 12:00 AM WARM IN WORKER Outside Lab Verified by Luisito Posada on 07/20/2021. Performing Organization Address City/State/ZIP Code P [place] Number LABDE INTERFACE * (ABNORMAL) HEPATITIS B CORE AB TOT (IGG+IGM) (07/15/2021 12:00 AM WARM IN WORKER) Anti HBc Total REACTIVE (A) NON-REACTIVE LABDE INTERFACE Specimen Blood (substance) Narrative LABDE INTERFACE - 07/19/2021 12:00 AM WARM IN WORKER Outside Lab Verified by Luisito Posada on 07/20/2021. Performing Organization Address City/State/ZIP Code P [place] Number LABDE INTERFACE * (ABNORMAL) HEPATITIS A TOTAL AB (IGG+IGM) (07/15/2021 12:00 AM WARM IN WORKER) Hepatitis A, REACTIVE (A) NON-REACTIVE LABDE INTERFACE Total Specimen Blood (substance) Narrative LABDE INTERFACE - 07/19/2021 12:00 AM WARM IN WORKER Outside Lab Verified by Luisito [place] on 07/20/2021. Performing Organization Address City/State/ZIP Code P iv[place] Number LABDE INTERFACE * HEPATITIS B SURFACE AG (07/15/2021 12:00 AM WARM IN WORKER) HBsAg NON-REACTIVE LABDE INTERFACE Specimen Blood (substance) Narrative LABDE INTERFACE - 07/19/2021 12:00 AM WARM IN WORKER Outside Lab Verified by Luisito [place] on 07/20/2021. Performing Organization Address City/State/ZIP Code P [place] Number LABDE INTERFACE * HEPATITIS B SURFACE AB (07/15/2021 12:00 AM WARM IN WORKER) Anti HBs 18 LABDE INTERFACE Specimen Blood (substance) Narrative LABDE INTERFACE - 07/19/2021 12:00 AM WARM IN WORKER Outside Lab Verified by Luisito Albino on 07/20/2021. Performing Organization Address City/State/ZIP Code P iv[place] Number LABDE INTERFACE documented in this encounter Visit Diagnoses Diagnosis Fatty liver - Primary Other chronic nonalcoholic liver diseas e Fatty liver Other chronic nonalcoholic liver diseas e documented in this encounter Additional Health Concerns Noted Time Assessment 07/08/2021 9:47 AM WARM IN WORKER A fall risk assessment has been complet ed for the patient 07/08/2021 9:47 AM WARM IN WORKER PHQ-2 Depression Total Score: 0 documented as of this encounter Care Teams Start Date End Date Offshore Diver Relationship Specialty 09/01/20 Nunu Patel, GRADES 1 THRU 6 HOME TEACHER PCP - General Nurse [address] [place] [address] documented as of this encounter
--- NOTE | 2021-08-14 04:09 | ED Lower Extremity ---
General Chief Complaint: Skin/Wound Problems Stated Complaint: FEVER - L LEG SWELLING / REDNESS Source: patient (EXTREMELY VAGUE, EXTREMELY DIFFICULT AND HOSTILE. REFUSES TO ANSWER MANY QUESTIONS), old records (ALL PMH IS FROM OLD CHARTS) History of Present Illness Date Seen by Provider: Aug 14, 2021 Time Seen by Provider: 03:55 Initial Comments PT ARRIVES VIA POV STATES "INFECTION IN MY LEG" --"I THINK--I DON'T KNOW" ANSWERS "I DON'T KNOW" OR SIMPLY DOES NOT ANSWER SIMPLE, DIRECT AND YES/NO QUESTIONS AND TALKS AT LENGTH ABOUT THINGS THAT ARE NOT RELEVANT TODAY WHEN ASKED HOW LONG HE HAS HAD THIS PROBLEM, HE STATES "I DON'T KNOW--A DAY AND A HALF OR A YEAR AND A HALF" DOES NOT KNOW IF HE HAS HAD FEVER UNABLE TO STATE WHAT IS DIFFERENT TONIGHT, AND DOES STATE HE HAS HAD A PROBLEM WITH THIS LEG FOR "A LONG TIME" WHEN ASKED WHEN HE LAST SAW A DR FOR THIS PROBLEM, HE REFUSES TO ANSWER AND HE SIMPLY STOPS TALKING, RIPS OFF BP CUFF, AND PROMPTLY WALKS OUT OF ER AT 0401. PCP: MARILU PEDRAZA-- "O'DELL" Allergies and Home Medications Allergies Coded Allergies: No Known Drug Allergies (Unverified , 04/09/20) Patient Home Medication List Home Medication List Reviewed: Yes Albuterol Sulfate (Proair Hfa) 1 Puff Puff, 2 PUFF IH Q4H PRN for SHORTNESS OF BREATH, (Reported) Entered as Reported by: CHINO DUNCAN on 06/06/21 1002 Amiodarone HCl (Amiodarone HCl) 200 Mg Tablet, 200 MG PO BID Prescribed by: DAVINA JARAMILLO on 06/06/21 1007 Atorvastatin Calcium (Atorvastatin Calcium) 40 Mg Tablet, 40 MG PO DAILY, (Reported) Entered as Reported by: ODIN PAZ on 08/18/20 0906 Diltiazem HCl (Cardizem Cd) 240 Mg Cap.er.24h, 240 MG PO DAILY, (Reported) Entered as Reported by: CHINO DUNCAN on 06/06/21 1002 Fluticasone/Salmeterol (Advair 250-50 Diskus) 1 Each Blst.w.dev, 1 EACH IH BID, (Reported) Entered as Reported by: CHINO DUNCAN on 10/06/20 0814 Ibuprofen/Diphenhydramine Cit (Ibuprofen Pm Caplet) 1 Each Tablet, 1-2 EACH PO HS PRN for SLEEP, (Reported) Entered as Reported by: CHINO DUNCAN on 10/06/20 0814 Melatonin (Melatonin) 5 Mg/15 Ml Liquid, 5 MG PO HS PRN for SLEEP, (Reported) Entered as Reported by: CHINO DUNCAN on 06/06/21 1002 Rivaroxaban (Xarelto) 20 Mg Tablet, 20 MG PO 1500, (Reported) Entered as Reported by: ODIN PAZ on 08/18/20 0906 Tiotropium [place] (Spiriva) 1 Inh Aerp, 1 INH IH DAILY, (Reported) Entered as Reported by: CHINO DUNCAN on 10/06/20 0814 [Alteril] T TAB, 2 EA PO HS PRN for SLEEP, (Reported) Entered as Reported by: CHINO DUNCAN on 06/06/21 1002 Review of Systems Constitutional: see HPI Musculoskeletal: see HPI Past Lavmnsk-Albihn-Cqjnnc Hx Immunizations Up To Date Tetanus Booster (TDap): Less than 5yrs Seasonal Allergies Seasonal Allergies: No Past Medical History Surgeries: Yes (hernia,debridement of foot) Appendectomy Respiratory: Yes Sleep Apnea Currently Using CPAP: Yes Currently Using BIPAP: No Cardiac: No Atrial Fibrillation, Chronic Edema/Swelling Neurological: No Genitourinary: No Gastrointestinal: No Musculoskeletal: Yes Arthritis, Chronic Back Pain Endocrine: Yes (MORBID OBESITY) Diabetes, Non-Insulin dep HEENT: No Cancer: No Psychosocial: No Integumentary: Yes (CHRONIC LEG WOUNDS) Blood Disorders: No Family Medical History No Pertinent Family Hx Breast cancer - Mother Siblings in good health. No kids. Physical Exam Vital Signs Capillary Refill : Height, Weight, BMI Height: '" Weight: lbs. oz. 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 ) Legs: left leg other (LEFT LEG WITH EXTENSIVE CHRONIC VENOUS STASIS CHANGES TO LOWER LEG, AND EXTENDING UP TO LEFT MEDIAL THIGH. AREAS ARE VERY HARD WITH WOODY INDURATION. SKIN IS NOT WARMER TO TOUCH THAN OTHER PARTS OF LEG. ) Feet: bilateral foot other (UNABLE TO DETERMINE DEGREEE OF EDEMA DUE TO BODY HABITUS) Departure Impression Primary Impression: Left against medical advice Disposition: 07 AGAINST MEDICAL ADVICE Condition: Against Medical Advice Departure-Patient Inst. Referrals: NO,LOCAL PHYSICIAN (PCP/Family) Primary Care Physician LIZA GUEVARA DO Aug 14, 2021 04:09
[2021-08-14] MEDS ORDERED: CLIN-144 PO (06:38)
== END 2021-08-14 04:00 | disposition left against medical advice (07) ==
LOC: EDUNIT# 03:46 → ER 03:47
DX: L08.9 Local infection of the skin and subcutaneous tissue, unspecified (principal); G47.30 Sleep apnea, unspecified; I48.91 Unspecified atrial fibrillation; E66.01 Morbid (severe) obesity due to excess calories; E11.9 Type 2 diabetes mellitus without complications; Z68.42 Body mass index [BMI] 45.0-49.9, adult; Z79.01 Long term (current) use of anticoagulants
CPT/HCPCS: 99281

== ENCOUNTER 2021-08-14 04:58 | Emergency (ER) | payer SELFPAY ==
[~2021-08-14] VITALS: Ht 183 cm; Wt 163.0 kg
--- OUTSIDE RECORDS SUMMARY | 2021-08-14 05:08 | XMS REPORT | Encounter Summary ---
Author Author [facility] Organization [facility] Address Unknown Phone Unavailable Care Team Providers Care Construction Management Assistant Name Role Phone Nunu Patel UNDERWRITER PCP Reason for Visit * Radiology Services (Routine) - New Request Diagnoses / Procedures [facility]erred By [facility] Fatty liver Procedures IR PERCUTANEOUS LIVER BIOPSY Roc Jarvis MD [address] [place] [address] Radiology Referral ID Status Reason Start Date Expiration Visits Vi sits Date Requested Authorized [id number] New Request 07/08/2021 07/08/2022 1 1 Encounter Details Care Team Description Date Type Department Roc Jarvis MD [address] [place], [place] [id number] Anibal Mccracken MD [address] [facility] [address] [place], [place] [phone] Canceled (Patient-Financial/Insurance Is ale) 07/28/2021 Hospital Interventional Radi ology: Encounter [facility] [place] [address] [facility] [address], [id number] [place] [address] Social History Date Tobacco Use Types Packs/Day Years Used Current Every Day Smoker Cigarettes 40 Smokeless Tobacco: Never Used Comments: 4 cigarettes a day Comments Alcohol Use Standard Drinks/Week Yes 4 (1 standard drink = 0.6 o z pure alcohol) Sex Assigned at Date Recorded Male 09/20/2020 11:58 AM SAW FILER Date Recorded COVID-19 Exposure Response 07/08/2021 9:49 AM SAW FILER In the last month, have you been [...] Ganesh Simpson RN - 07/28/2021 8:00 AM SAW FILER Interventional Radiology Outpatient Scheduling Checklist 1. Name of Procedure(s): Perc Liver Bx ASA 4. No covid test per management. 2. Date of Procedure: 07/28/21 3. Arrival Time: 0630 4. Procedure Time: 0800 5. Correct Procedural Room Assignment: [facility] 6. Blood Thinners Triaged and instructed per protocol: Y/N/NA: Yes, Xarelto. Pt to hold 1/4, 1/5, 1/6 doses. Confirmed accurate instructions sent to patient: Y/N: yes 7. Procedure Order Verified: Y/N: Yes 9. Patient instructed to have a driver license reviewing officer: Y/N/NA: Yes 10. Patient instructed on NPO [...] sent electronic procedure instructions: Y/N: Yes, mychart. FILER documented in this encounter Miscellaneous Notes * Patient Education - Ganesh Simpson RN - 07/28/2021 8:00 AM SAW FILER Dear Brant, Thank you for choosing [facility] Interventional Rad iology for your procedure. Your appointment information is listed below: Appointment Date: 07/28/21 Appointment Time: 8:00am Arrival Time: 6:30am Location: ? [facility] [place]: [address] [place] [address] Parking: [address] Interventional Radiology is located on the 2nd floor of the Main [place]. INTERVENTIONAL RADIOLOGY PRE-PROCEDURE INSTRUCTIONS SEDATION You are scheduled for a procedure in Interventional Radiology with procedural se dation. Please follow these instructions and any direction from your Primary Ca re/Managing Physician. If you have questions about your procedure or need to re schedule please call [phone]. Medication Instructions: You may take the following [...] this reques t, please contact us at [phone]. Diet Instructions: a. Nothing to Eat or [...] overnight. If you do not have a driver license reviewing officer we will be unable to perform your procedure. 7. You will not be able to return to work or drive the same day if receiving sed ation. FILER documented in this encounter Plan of Treatment Not on filedocumented as of this encounter Visit Diagnoses Not on filedocumented in this encounter Additional Health Concerns Noted Time Assessment 07/08/2021 9:47 AM SAW FILER A fall risk assessment has been complet ed for the patient 07/08/2021 9:47 AM SAW FILER PHQ-2 Depression Total Score: 0 documented as of this encounter Care Teams Start Date End Date Construction Management Assistant Relationship Specialty 09/01/20 Nunu Patel, UNDERWRITER PCP - General Nurse [address] [place] [address] documented as of this encounter
[2021-08-14] MEDS ORDERED: CLINDAMYCIN 900 MG/50 ML IVPB 50 ML IV ONE (05:45)
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
[2021-08-14 06:17] LABS: BASOPHILS % (AUTO) 0 % (0-10); EOSINOPHILS % (AUTO) 1 % (0-10); HEMATOCRIT 45 % (40-54); LYMPHOCYTES % (AUTO) 28 % (12-44); MEAN CORPUSCULAR HEMOGLOBIN 32 pg (25-34); MEAN CORPUSCULAR HGB CONC 31 g/dL (32-36); MEAN CORPUSCULAR VOLUME 32 fL (80-99); MONOCYTES % (AUTO) 14 % (0-12); NEUTROPHILS # (AUTO) 4.6 X 10^3 (1.8-7.8); NEUTROPHILS % (AUTO) 56 % (42-75); PLATELET COUNT 131 10^3/uL (130-400); WHITE BLOOD COUNT 8.2 10^3/uL (4.3-11.0)
[2021-08-14 06:18] LABS: EOSINOPHILS # (AUTO) 0.1 10^3/uL (0.0-0.3); LYMPHOCYTES # (AUTO) 2.3 X 10^3 (1.0-4.0); MONOCYTES # (AUTO) 1.2 X 10^3 (0.0-1.0)
[2021-08-14 06:37] LABS: CALCIUM 9.2 MG/DL (8.5-10.1); CREATININE SERUM 1.07 MG/DL (0.60-1.30); POTASSIUM 4.2 MMOL/L (3.6-5.0)
[2021-08-14] MEDS ORDERED: CLIN-144 PO (06:38)
[2021-08-14] MEDS ORDERED: NS IV 500 ML 500 ML IV ONE (06:45)
[2021-08-14 06:50] LABS: INR 1.2 (0.8-1.4); PROTHROMBIN TIME PATIENT 15.6 SEC (12.2-14.7)
[2021-08-14 07:07] LABS: FIBRIN DEGRADATION PRODUCTS 0.46 UG/ML (0.00-0.49)
[2021-08-14 07:40] VITALS: BP 105/62
--- NOTE | 2021-08-14 07:51 | Diagnostic Imaging Report ---
PROCEDURE: CT left lower extremity without contrast. TECHNIQUE: Multiple contiguous axial images were obtained through the left lower extremity without the use of intravenous contrast. Sagittal and coronal reformations were then performed. Auto Exposure Controls were utilized during the CT exam to meet ALARA standards for radiation dose reduction. INDICATION: History of necrotizing fasciitis. The study is performed to evaluate for gas forming infection. Correlation is made with prior CT from 04/09/2020. Imaging of the left thigh was performed. Images were carried out from the base of the left supra-acetabular region to the knee. No definite soft tissue gas is identified. There are enlarged lymph nodes in the left groin, similar to prior CT. There does appear to be some edema in the subcutaneous tissues as well as associated skin thickening particularly medially. No superficial or deep soft tissue fluid collection or abscess is identified. Left femur is unremarkable, without evidence of bony destructive changes. IMPRESSION: Cellulitic changes to the medial left thigh. No soft tissue gas is identified. No superficial or deep soft tissue fluid collection or abscess is detected. Dictated by: Dictated on workstation # [id number]
== END 2021-08-14 07:41 | disposition home or self-care (01) ==
LOC: EDUNIT# 04:58 → ER FS 05:02
DX: L03.116 Cellulitis of left lower limb (principal); M79.89 Other specified soft tissue disorders; G47.30 Sleep apnea, unspecified; I48.91 Unspecified atrial fibrillation; E66.01 Morbid (severe) obesity due to excess calories; E11.9 Type 2 diabetes mellitus without complications; Z79.899 Other long term (current) drug therapy; Z79.01 Long term (current) use of anticoagulants
CPT/HCPCS: 36415; 73700; 80048; 83605; 85025; 85379; 85610; 85730; 86141

== ENCOUNTER → 2021-08-16 | Outpatient (CLI) | payer SELFPAY ==
[~2021-08-16] MED LIST changes: +CLIN-144 PO
[2021-08-16 10:58] LABS: HEMATOCRIT 43 % (40-54); HEMOGLOBIN 13.4 g/dL (13.3-17.7); MEAN CORPUSCULAR HEMOGLOBIN 31 pg (25-34); WHITE BLOOD COUNT 7.6 10^3/uL (4.3-11.0)
[2021-08-16 10:59] LABS: BASOPHILS # (AUTO) 0.1 10^3/uL (0.0-0.1); BASOPHILS % (AUTO) 1 % (0-10); EOSINOPHILS # (AUTO) 0.1 10^3/uL (0.0-0.3); EOSINOPHILS % (AUTO) 2 % (0-10); LYMPHOCYTES # (AUTO) 1.9 X 10^3 (1.0-4.0); LYMPHOCYTES % (AUTO) 26 % (12-44); MEAN CORPUSCULAR HGB CONC 32 g/dL (32-36); MEAN CORPUSCULAR VOLUME 100 fL (80-99); MEAN PLATELET VOLUME 10.1 fL (9.0-12.2); MONOCYTES # (AUTO) 0.8 X 10^3 (0.0-1.0); MONOCYTES % (AUTO) 10 % (0-12); NEUTROPHILS # (AUTO) 4.6 X 10^3 (1.8-7.8); NEUTROPHILS % (AUTO) 61 % (42-75); PLATELET COUNT 150 10^3/uL (130-400)
[2021-08-16 11:22] LABS: ATYPICAL LYMPHOCYTES 10 %; BAND NEUTROPHILS 10 %; BASOPHILS % (MANUAL) 0 %; EOSINOPHILS % (MANUAL) 0 %; LYMPHOCYTES % (MANUAL) 16 %; MONOCYTES % (MANUAL) 9 %; NEUTROPHILS % (MANUAL) 55 %
[2021-08-16 11:23] LABS: PLATELET ESTIMATE NORMAL
[2021-08-16 11:24] LABS: ALBUMIN 3.7 GM/DL (3.2-4.5); BILIRUBIN,TOTAL 0.5 MG/DL (0.1-1.0); CALCIUM 8.8 MG/DL (8.5-10.1); CREATININE SERUM 0.93 MG/DL (0.60-1.30); POTASSIUM 4.4 MMOL/L (3.6-5.0); TOTAL PROTEIN 7.4 GM/DL (6.4-8.2)
== END ==
LOC: LAB FS 10:23
PROVIDERS: ATTEND Nurse Practitioner Family
DX: L03.116 Cellulitis of left lower limb (principal)
CPT/HCPCS: 36415; 80053; 83605; 85007; 85027; 85379

== ENCOUNTER → 2021-08-16 | Outpatient (CLI) | payer SELFPAY | LOC: LABNPT 06:23 | PROVIDERS: ATTEND Internal Medicine Cardiovascular Disease | DX: Z01.812 Encounter for preprocedural laboratory examination (principal); Z53.9 Procedure and treatment not carried out, unspecified reason ==

== ENCOUNTER 2021-12-04 10:57 | Emergency (ER) | payer SELFPAY ==
[~2021-12-04] VITALS: Ht 182.8 cm; Wt 176.4 kg
--- NOTE | 2021-12-04 12:55 | ED GU-Male ---
General Chief Complaint: - Reproductive Stated Complaint: TESTICLE PAIN Nursing Triage Note: Patient presents to the ED with c/o testicle pain. Reports he was sitting on a exercise bike when the seat broke. Patient states, "I fell backward and my shoulders landed on a table while my balls were caught on the spiky part of the broken exercise seat." Reports he had to pull himself back up in order to get off the broken seat. History of Present Illness Date Seen by Provider: December 04, 2021 Time Seen by Provider: 11:50 Initial Comments 61 yr M is here with c/o using his stationary exercise bike today and somehow the seat on the bike popped off while he was sitting on it, causing the pole the seat was initially sitting on, 2 puncture through his scrotum causing the patient to fall backwards and patient was hanging by his scrotum. Patient stated there was a lot of bleeding and he was concerned since he now has testicular and scrotal pain. Denies head strike, LOC, nausea and vomiting, active bleeding. Allergies and Home Medications Allergies Coded Allergies: No Known Drug Allergies (Unverified , 04/09/20) Patient Home Medication List Home Medication List Reviewed: Yes Albuterol Sulfate (Proair Hfa) 1 Puff Puff, 2 PUFF IH Q4H PRN for SHORTNESS OF BREATH, (Reported) Entered as Reported by: CHINO DUNCAN on 06/06/21 1002 Amiodarone HCl (Amiodarone HCl) 200 Mg Tablet, 200 MG PO BID Prescribed by: DAVINA JARAMILLO on 06/06/21 1007 Atorvastatin Calcium (Atorvastatin Calcium) 40 Mg Tablet, 40 MG PO DAILY, (Reported) Entered as Reported by: ODIN PAZ on 08/18/20 0906 Clindamycin HCl (Clindamycin HCl) 300 Mg Capsule, 300 MG PO QID Prescribed by: RITESH FELIX on 08/14/21 0638 Diltiazem HCl (Cardizem Cd) 240 Mg Cap.er.24h, 240 MG PO DAILY, (Reported) Entered as Reported by: CHINO DUNCAN on 06/06/21 1002 Fluticasone/Salmeterol (Advair 250-50 Diskus) 1 Each Blst.w.dev, 1 EACH IH BID, (Reported) Entered as Reported by: CHINO DUNCAN on 10/06/20 0814 Ibuprofen/Diphenhydramine Cit (Ibuprofen Pm Caplet) 1 Each Tablet, 1-2 EACH PO HS PRN for SLEEP, (Reported) Entered as Reported by: CHINO DUNCAN on 10/06/20 0814 Melatonin (Melatonin) 5 Mg/15 Ml Liquid, 5 MG PO HS PRN for SLEEP, (Reported) Entered as Reported by: CHINO DUNCAN on 06/06/21 1002 Rivaroxaban (Xarelto) 20 Mg Tablet, 20 MG PO 1500, (Reported) Entered as Reported by: ODIN PAZ on 08/18/20 0906 Tiotropium [place] (Spiriva) 1 Inh Aerp, 1 INH IH DAILY, (Reported) Entered as Reported by: CHINO DUNCAN on 10/06/20 0814 [Alteril] T TAB, 2 EA PO HS PRN for SLEEP, (Reported) Entered as Reported by: CHINO DUNCAN on 06/06/21 1002 Review of Systems Review of Systems Constitutional: no symptoms reported EENTM: no symptoms reported Respiratory: no symptoms reported Cardiovascular: no symptoms reported Gastrointestinal: no symptoms reported Genitourinary: other (scrotal abrasion on the inferior pole of the right side of the scrotal sace, meausring 4x3 cm. Dried blood seen on pt's scrotum and inner thighs. No active bleeding at this time. Pt has severe tenderness of his right testicle. Transillumination negative.) Musculoskeletal: no symptoms reported Endocrine: No Symptoms Reported Hematologic/Lymphatic: No Symptoms Reported Past Cuquiir-Zxzuxo-Qsiwwv Hx Patient Social History Tobacco Use?: No Smoking Status: Former Smoker Substance use?: No Alcohol Use?: Yes Alcohol Frequency: Rarely Pt feels they are or have been: No Immunizations Up To Date Tetanus Booster (TDap): Less than 5yrs Seasonal Allergies Seasonal Allergies: No Past Medical History Surgery/Hospitalization HX: COPD, HTN, AFIB, LEFT LEG INFECTION. Surgeries: Yes (hernia,debridement of foot) Appendectomy Respiratory: Yes Sleep Apnea Currently Using CPAP: Yes Currently Using BIPAP: No Cardiac: No Atrial Fibrillation, Chronic Edema/Swelling Neurological: No Genitourinary: No Gastrointestinal: No Musculoskeletal: Yes Arthritis, Chronic Back Pain Endocrine: Yes (MORBID OBESITY) Diabetes, Non-Insulin dep HEENT: No Cancer: No Psychosocial: No Integumentary: Yes (CHRONIC LEG WOUNDS) Blood Disorders: No Family Medical History No Pertinent Family Hx Breast cancer - Mother Siblings in good health. No kids. Physical Exam Vital Signs Vital Signs - First Documented 12/04/21 11:06 Temp 35.7 Pulse 104 Resp 16 B/P (MAP) 154/119 (131) Pulse Ox 95 O2 Delivery Room Air Capillary Refill : Less Than 3 Seconds Height, Weight, BMI Height: '" Weight: lbs. oz. kg; 52.00 BMI Method: General Appearance: no apparent distress HEENT: PERRL/EOMI Neck: full range of motion Respiratory: lungs clear Genital/Rectal: tenderness (scrotal abrasion on the inferior pole of the right side of the scrotal sace, meausring 4x3 cm. Dried blood seen on pt's scrotum and inner thighs. No active bleeding at this time. Pt has severe tenderness of his right testicle. Transillumination negative.) Extremities: normal range of motion Neurologic/Psychiatric: no motor/sensory deficits, alert, oriented x 3 Progress/Results/Core Measures Suspected Sepsis SIRS Temperature: Pulse: 104 Respiratory Rate: 16 Blood Pressure 154 /119 Mean: 131 Results/Orders My Orders Orders - ADAM ADKINS MD Scrotum (Testicle) [id number] (12/04/21 13:07) Dipht,Pertuss(Acell),Tet Adult (Boostrix (12/04/21 14:30) Medications Given in ED Current Medications Medications Dose Ordered Sig/Robert Route Start Time Stop Time Status Last Admin Dose Admin Diphtheria/ Tetanus/Acell Pertussis 0.5 ml ONCE ONCE IM 12/04/21 14:30 12/04/21 14:31 DC 12/04/21 14:46 0.5 ML Vital Signs/I&O 12/04/21 11:06 Temp 35.7 Pulse 104 Resp 16 B/P (MAP) 154/119 (131) Pulse Ox 95 O2 Delivery Room Air Capillary Refill : Less Than 3 Seconds Blood Pressure Mean: 131 Progress Note : Progress Note 1. SCROTAL & TESTICULAR INJURY/ ABRASION vs PUNCTURE: - u/s scrotum: normal testis, no hematoma or blood collection scrotum - Called [facility] and u[facility]s [facility] lives in [place] so will come to ER to perform u/s for pt. No need to transfer pt at this time - Tdap STAT - Augmentin for 7 days - F/u with PCP in 3 to 7 days - Pt able to void urine - Tylenol prn pain -The patient was seen in the ED, and treated appropriately to presentation at a specific point in time. Patient is informed that there is a possibility that disease and illness can evolve and change in acuity rapidly or slowly after patient is discharged from the ER. Precautionary advice given to the patient for immediate return to ER if symptoms worsen or do not resolve, and to seek emergency care sooner rather than later. Pt also advised on the importance of PCP follow up and compliance with management and follow up plan with PCP and/or specialist, as this is part of the management plan. Pt verbally expressed understanding. Diagnostic Imaging Diagonstic Imaging: Ultrasound Plain Films/CT/US/NM/MRI: other Comments PT STATUS: REG ER : 1960 PHYSICIAN: ADAM ADKINS MD ADMIT DATE: 12/04/21/ER FS Signed Date of Exam:12/04/21 US SCROTUM (TESTICLE) [id number] PROCEDURE: US Scrotum. TECHNIQUE: Multiple real-time grayscale images were obtained over the scrotum in various projections bilaterally. INDICATION: Testicular injury. COMPARISON: None available. FINDINGS: Right: The right testis is normal in size measuring 4.5 x 2.2 x 2.9 cm. It has homogenous echogenicity without mass or microcalcification. Blood flow is present in the right testis by color doppler imaging, and low resistance waveforms are present. The epididymis is normal. No hydrocele or varicole. Left: The left testis is normal in size measuring 4.2 x 2.1 x 2.7 cm. It has homogenous echogenicity without mass or microcalcification. Blood flow is present in the left testis by color doppler imaging, and low resistance waveforms are present. There are a few simple cysts in the head of the left epididymis measuring up to 0.4 cm. No hydrocele or varicole. No fluid collection within the scrotum. IMPRESSION: 1. No testicular mass or torsion. 2. No hydrocele or scrotal wall fluid collection. Dictated by: Dictated on workstation # [id number] Dict: 12/04/21 1418 Trans: 12/04/21 1448 [facility] [id number] Interpreted by: ZAINA NESBITT MD Electronically signed by: ZAINA NESBITT MD 12/04/21 1448 Departure Impression Primary Impression: Scrotal injury Qualified Codes: S39.94XA - Unspecified injury of external genitals, initial encounter Disposition: HOME, SELF-CARE Condition: Stable Departure-Patient Inst. Referrals: TED DUNHAM APRN (PCP) Primary Care Physician [facility] (Family) Primary Care Physician Patient Instructions: Taking Care of Cuts, Scrapes, and Puncture Wounds, Wound Care (DC) Add. Discharge Instructions: Augmentin for 7 days Follow up with PCP in 3 to 7 days Tylenol prn pain Wound care instructions All discharge instructions reviewed with patient and/or family. Voiced understanding. Scripts Amoxicillin/Potassium Clav (Augmentin 500-125 Tablet) 500 Mg-125 Mg Tablet 1 EACH PO BID for 7 Days, #14 TAB Prov: ADAM ADKINS MD 12/04/21 ADAM ADKINS MD December 04, 2021 12:55
--- NOTE | 2021-12-04 14:27 | Diagnostic Imaging Report ---
PROCEDURE: US Scrotum. TECHNIQUE: Multiple real-time grayscale images were obtained over the scrotum in various projections bilaterally. INDICATION: Testicular injury. COMPARISON: None available. FINDINGS: Right: The right testis is normal in size measuring 4.5 x 2.2 x 2.9 cm. It has homogenous echogenicity without mass or microcalcification. Blood flow is present in the right testis by color doppler imaging, and low resistance waveforms are present. The epididymis is normal. No hydrocele or varicole. Left: The left testis is normal in size measuring 4.2 x 2.1 x 2.7 cm. It has homogenous echogenicity without mass or microcalcification. Blood flow is present in the left testis by color doppler imaging, and low resistance waveforms are present. There are a few simple cysts in the head of the left epididymis measuring up to 0.4 cm. No hydrocele or varicole. No fluid collection within the scrotum. IMPRESSION: 1. No testicular mass or torsion. 2. No hydrocele or scrotal wall fluid collection. Dictated by: Dictated on workstation # [id number]
[2021-12-04] MEDS ORDERED: TETANUS,DIPTH,PERTUSS P/F (BOOSTRIX) 0.5 ML VIAL IM ONE (14:30)
[2021-12-04] MEDS ORDERED: AMOX-355 PO ×2 (15:01→15:11)
[2021-12-04] MEDS ORDERED: AUGMENTIN 875 MG TAB (AMOXICILLIN/CLAVULANATE) PO STA (15:04)
[2021-12-04] MEDS ORDERED: RX-OXYCODONE/APAP 5-325 MG #4 TAB PK PO PRN (15:15)
[2021-12-04 15:22] VITALS: BP 135/91
== END 2021-12-04 15:22 | disposition home or self-care (01) ==
LOC: EDUNIT# 10:57 → ER FS 10:58
DX: S30.813A Abrasion of scrotum and testes, initial encounter (principal); E66.01 Morbid (severe) obesity due to excess calories; G47.30 Sleep apnea, unspecified; Z99.89 Dependence on other enabling machines and devices; Z87.891 Personal history of nicotine dependence; W45.8XXA Other foreign body or object entering through skin, initial encounter; W17.89XA Other fall from one level to another, initial encounter; Y93.A1 Activity, exercise machines primarily for cardiorespiratory conditioning
CPT/HCPCS: 76870; 90715

== ENCOUNTER 2022-02-14 01:26 | Emergency (ER) | payer SELFPAY ==
[~2022-02-14] VITALS: Ht 182.8 cm; Wt 176.4 kg
[~2022-02-14 01:26] MED LIST changes: +AMOX-355 PO
--- NOTE | 2022-02-14 02:16 | ED General ---
General Stated Complaint: RIGHT THUMB LACERATION Source of Information: Patient Exam Limitations: No Limitations History of Present Illness Date Seen by Provider: Feb 14, 2022 Time Seen by Provider: 01:45 Initial Comments Patient is a 61-year-old right-handed male presents with an 6 cm isolated deep semi circumferential laceration to the palmar base of his right thumb, 3. Motor function and sensation are intact. Patient was holding onto a coffee cup when he lost balance driving his hand into the ground while falling and shattering leg on the ground. Injury occurred 2 hours prior to ED arrival. Patient a rrives by private vehicle. Tetanus is up-to-date. Patient is currently on Xarelto. Timing/Duration: 1-3 Hours Severity: Moderate Modifying Factors: improves with Other Associated Systoms: Other Allergies and Home Medications Allergies Coded Allergies: No Known Drug Allergies (Unverified , 04/09/20) Patient Home Medication List Home Medication List Reviewed: Yes Albuterol Sulfate (Proair Hfa) 1 Puff Puff, 2 PUFF IH Q4H PRN for SHORTNESS OF B REATH, (Reported) Entered as Reported by: CHINO DUNCAN on 06/06/21 1002 Amiodarone HCl (Amiodarone HCl) 200 Mg Tablet, 200 MG PO BID Prescribed by: DAVINA JARAMILLO on 06/06/21 1007 Amoxicillin/Potassium Clav (Augmentin 500-125 Tablet) 500 Mg-125 Mg Tablet, 1 EACH PO BID Prescribed by: ADAM ADKINS MD on 12/04/21 1511 Atorvastatin Calcium (Atorvastatin Calcium) 40 Mg Tablet, 40 MG PO DAILY, ( Reported) Entered as Reported by: ODIN PAZ on 08/18/20 0906 Clindamycin HCl (Clindamycin HCl) 300 Mg Capsule, 300 MG PO QID Prescribed by: RITESH FELIX on 08/14/21 0638 Diltiazem HCl (Cardizem Cd) 240 Mg Cap.er.24h, 240 MG PO DAILY, (Reported) Entered as Reported by: CHINO DUNCAN on 06/06/21 1002 Fluticasone/Salmeterol (Advair 250-50 Diskus) 1 Each Blst.w.dev, 1 EACH IH BID, (Reported) Entered as Reported by: CHINO DUNCAN on 10/06/20 0814 Ibuprofen/Diphenhydramine Cit (Ibuprofen Pm Caplet) 1 Each Tablet, 1-2 EACH PO HS PRN for SLEEP, (Reported) Entered as Reported by: CHINO DUNCAN on 10/06/20 0814 Melatonin (Melatonin) 5 Mg/15 Ml Liquid, 5 MG PO HS PRN for SLEEP, (Reported) Entered as Reported by: CHINO DUNCAN on 06/06/21 1002 Rivaroxaban (Xarelto) 20 Mg Tablet, 20 MG PO 1500, (Reported) Entered as Reported by: ODIN PAZ on 08/18/20 0906 Tiotropium [place] (Spiriva) 1 Inh Aerp, 1 INH IH DAILY, (Reported) Entered as Reported by: CHINO DUNCAN on 10/06/20 0814 [Alteril] T TAB, 2 EA PO HS PRN for SLEEP, (Reported) Entered as Reported by: CHINO DUNCAN on 06/06/21 1002 Review of Systems Review of Systems Constitutional: see HPI Musculoskeletal: see HPI Skin: see HPI Past Vplpiof-Ckrawh-Uzjuel Hx Patient Social History Tobacco Use?: No Immunizations Up To Date Tetanus Booster (TDap): Less than 5yrs Seasonal Allergies Seasonal Allergies: No Past Medical History Surgery/Hospitalization HX: COPD, HTN, AFIB, LEFT LEG INFECTION. Surgeries: Yes (hernia,debridement of foot) Appendectomy Respiratory: Yes Sleep Apnea Currently Using CPAP: Yes Currently Using BIPAP: No Cardiac: No Atrial Fibrillation, Chronic Edema/Swelling Neurological: No Genitourinary: No Gastrointestinal: No Musculoskeletal: Yes Arthritis, Chronic Back Pain Endocrine: Yes (MORBID OBESITY) Diabetes, Non-Insulin dep HEENT: No Cancer: No Psychosocial: No Integumentary: Yes (CHRONIC LEG WOUNDS) Blood Disorders: No Family Medical History No Pertinent Family Hx Breast cancer - Mother Siblings in good health. No kids. Physical Exam Vital Signs Capillary Refill : Height, Weight, BMI Height: '" Weight: lbs. oz. kg; 52.00 BMI Method: General Appearance: No Apparent Distress, WD/WN Eyes: Bilateral Eye Normal Inspection, Bilateral Eye PERRL HEENT: Normal ENT Inspection Extremity: Other (R hand: 6 cm isolated deep semi circumferential laceration to the palmar base of his right thumb) Neurologic/Psychiatric: Alert, Oriented x3 Focused Exam Sepsis Stage: Ruled Out Progress/Results/Core Measures Suspected Sepsis SIRS Temperature: Pulse: Respiratory Rate: Blood Pressure / Mean: Results/Orders Vital Signs/I&O Capillary Refill : Departure Communication (Admissions) Laceration repair procedure note Patient had a blood pressure cuff inflated to his right forearm to act as a tourniquet for right arm bleeding. 6 mL of 1% lidocaine was then injected into the edges of the laceration with the right thumb base. The wound was then explored. No foreign body was present. No vascular wound was identified. 11 running interlocked 5-0 Prolene sutures were used to close the wound. Superficial lacerations of the patient's right palm and radial aspect of his index finger were closed with glue and4 additional locking sutures. Wounds were then recleansed and bandaged. ED course Right hand wound. Wounds cleansed, closed and bandaged patient's tetanus is up-to-date. Typical wound care instructions provided. Patient verbalizes understanding agreement discharge instruction prior to departure. Impression Primary Impression: Thumb laceration Disposition: HOME, SELF-CARE Condition: Stable Departure-Patient Inst. Decision time for Depature: 02:57 Referrals: TED DUNHAM APRN (PCP) Primary Care Physician [facility] (Family) Primary Care Physician Patient Instructions: Laceration Repair With Stitches (DC), Laceration Repair With Glue ED Add. Discharge Instructions: Please keep wounds clean covered and dry and limit right hand use. Take Tylenol for pain and complete full course of antibiotics. Return to the ED in 12 days for suture removal. Return sooner if signs of infection. Scripts Cephalexin (Cephalexin) 500 Mg Tablet 500 MG PO BID, #10 TAB Prov: DORY GODWIN DO 02/14/22 DORY GODWIN DO Feb 14, 2022 02:16
[2022-02-14] MEDS ORDERED: CEPH500T PO (02:59)
[2022-02-14 03:00] VITALS: BP 114/53
== END 2022-02-14 03:00 | disposition home or self-care (01) ==
LOC: EDUNIT# 01:26 → ER FS 01:30
DX: S61.021A Laceration with foreign body of right thumb without damage to nail, initial encounter (principal); G47.30 Sleep apnea, unspecified; E66.01 Morbid (severe) obesity due to excess calories; I48.91 Unspecified atrial fibrillation; Z68.43 Body mass index [BMI] 50.0-59.9, adult; Z99.89 Dependence on other enabling machines and devices; Z79.01 Long term (current) use of anticoagulants; Z28.310 Unvaccinated for COVID-19; W45.8XXA Other foreign body or object entering through skin, initial encounter
CPT/HCPCS: 12002

== ENCOUNTER 2022-08-05 11:40 | Emergency (ER) | payer MEDICAID ==
[~2022-08-05 11:40] MED LIST changes: +ALBU8.5H6 IH; +CEPH500T PO; +LEVO750T PO; -LEVO750T39 PO; -RT-ALBUINH IH
[2022-08-05] MEDS ORDERED: ASPIRIN 81 MG CHEW (CHILDREN'S ASA) PO ONE (12:00)
[2022-08-05 12:05] LABS: BASOPHILS # (AUTO) 0.1 10^3/uL (0.0-0.1); BASOPHILS % (AUTO) 1 % (0-10); EOSINOPHILS # (AUTO) 0.2 10^3/uL (0.0-0.3); EOSINOPHILS % (AUTO) 1 % (0-10); HEMATOCRIT 52 % (40-54); HEMOGLOBIN 17.2 g/dL (13.3-17.7); LYMPHOCYTES # (AUTO) 2.8 10^3/uL (1.0-4.0); LYMPHOCYTES % (AUTO) 24 % (12-44); MEAN CORPUSCULAR HEMOGLOBIN 31 pg (25-34); MEAN CORPUSCULAR HGB CONC 33 g/dL (32-36); MEAN CORPUSCULAR VOLUME 95 fL (80-99); MEAN PLATELET VOLUME 10.5 fL (9.0-12.2); MONOCYTES % (AUTO) 9 % (0-12); NEUTROPHILS # (AUTO) 7.3 10^3/uL (1.8-7.8); NEUTROPHILS % (AUTO) 64 % (42-75); PLATELET COUNT 217 10^3/uL (130-400); WHITE BLOOD COUNT 11.4 10^3/uL (4.3-11.0)
[2022-08-05 12:11] LABS: ALBUMIN 3.9 GM/DL (3.2-4.5); POTASSIUM 4.9 MMOL/L (3.6-5.0)
[2022-08-05 12:12] LABS: CALCIUM 9.6 MG/DL (8.5-10.1)
[2022-08-05 12:13] LABS: TOTAL PROTEIN 7.7 GM/DL (6.4-8.2)
[2022-08-05 12:15] LABS: BILIRUBIN,TOTAL 0.8 MG/DL (0.1-1.0); PROTHROMBIN TIME PATIENT 13.8 SEC (12.2-14.7)
[2022-08-05 12:17] LABS: CREATININE SERUM 1.27 MG/DL (0.60-1.30)
--- NOTE | 2022-08-05 12:19 | ED Cardiac General ---
History of Present Illness General Chief Complaint: General Problems/Pain Stated Complaint: LEFT SHOULDER PAIN, SOB Nursing Triage Note: pt to ed per ems from [facility] with c/o increased left shoulder pain that begins in the back and wraps around to the side/front on the left side. states intermittent shortness of breath for a couple months History of Present Illness Date Seen by Provider: Aug 05, 2022 Time Seen by Provider: 12:15 Initial Comments 62 year old male presents via EMS for left subscapular pain that radiates to his left anterior chest. 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 X-rays of the left shoulder were completed at [facility] 3 months ago, he was told no acute findings. He has tried muscle relaxants and pain medications with no improvement. Pain is intermittent and seems to exacerbate his asthma. History of a-fib, takes diltiazem and Xarelto. He has not taken any of his morning medications today. He has a history of COPD. He reports running errands this morning and being at the store when his symptoms got worse. He did not have his rescue inhaler so he went to [facility] and they referred him here. He denies any active chest pain, nausea, vomiting, or diaphoresis. He follows with a tow truck driver at [facility] and with Dr. Robles. No history of angina. His SaO2 is 94-96% on room air, he does not wear O2 at home. Bilat lower legs are discolored, chronic from a wound infection. He has a new burn to his right lower leg, anterior. Timing/Duration: other (3-6months. ) Severity: mild Location: central, shoulder Activities at Onset: none Prior CP/Workup: cardiac cath Modifying Factors: improves with rest Associated Systoms: Chest Pain; No Cough, No Diaphoresis, No Fever/Chills, No Headaches, No Loss of Appetite, No Malaise, No Nausea/Vomiting; Shortness of Air (chronic); No Syncope, No Weakness Allergies and Home Medications Allergies Coded Allergies: No Known Drug Allergies (Unverified , 04/09/20) Patient Home Medication List Home Medication List Reviewed: Yes Albuterol Sulfate (Ventolin Hfa) 1 Puff Puff, 2 PUFF IH Q4H PRN for SHORTNESS OF BREATH, (Reported) Entered as Reported by: CHINO DUNCAN on 06/06/211001 Amiodarone HCl (Amiodarone HCl) 200 Mg Tablet, 200 MG PO BID Prescribed by: DAVINA JARAMILLO on 06/06/21 1007 Amoxicillin/Potassium Clav (Augmentin 500-125 Tablet) 500 Mg-125 Mg Tablet, 1 EACH PO BID Prescribed by: ADAM ADKINS MD on 12/04/21 1511 Atorvastatin Calcium (Atorvastatin Calcium) 40 Mg Tablet, 40 MG PO DAILY, (Rep orted) Entered as Reported by: ODIN PAZ on 08/18/20 0906 Cephalexin (Cephalexin) 500 Mg Tablet, 500 MG PO BID Prescribed by: DORY GODWIN on 02/14/22 0259 Diltiazem HCl (Cardizem Cd) 240 Mg Cap.er.24h, 240 MG PO DAILY, (Reported) Entered as Reported by: CHINO DUNCAN on 06/06/211001 Fluticasone/Salmeterol (Advair 250-50 Diskus) 1 Each Blst.w.dev, 1 EACH IH BID, (Reported) Entered as Reported by: CHINO DUNCAN on 10/06/20 0814 Ibuprofen/Diphenhydramine Cit (Ibuprofen Pm Caplet) 1 Each Tablet, 1-2 EACH PO HS PRN for SLEEP, (Reported) Entered as Reported by: CHINO DUNCAN on 10/06/20 08 Melatonin (Melatonin) 5 Mg/15 Ml Liquid, 5 MG PO HS PRN for SLEEP, (Reported) Entered as Reported by: CHINO DUNCAN on 06/06/211001 Rivaroxaban (Xarelto) 20 Mg Tablet, 20 MG PO 1500, (Reported) Entered as Reported by: ODIN PAZ on 08/18/20 09 Tiotropium [place] (Spiriva) 1 Inh Aerp, 1 INH IH DAILY, (Reported) Entered as Reported by: CHINO DUNCAN on 10/06/20 0814 Tramadol HCl (Tramadol HCl) 50 Mg Tablet, 50 MG PO Q6H PRN for PAIN-MODERATE (5- 7) Prescribed by: VA VALDIVIA on 08/05/22 1408 [Alteril] T TAB, 2 EA PO HS PRN for SLEEP, (Reported) Entered as Reported by: CHINO DUNCAN on 06/06/211001 Review of Systems Review of Systems Constitutional: see HPI; No weight gain, No weight loss EENTM: No Symptoms Reported, See HPI Respiratory: See HPI, Shortness of Air (chronic due to comorbidities and body habitus. Recently quit smoking. ) Cardiovascular: See HPI, Chest Pain, Edema, Irregular Heart Rate; Denies Palpitations Gastrointestinal: No Symptoms Reported, See HPI, Abdomen Distended Genitourinary: No Symptoms Reported, See HPI Musculoskeletal: see HPI, joint pain (left shoulder/subscap. ) Skin: see HPI, change in color (bilat LEs) All Other Systems Reviewed Negative Unless Noted: Yes Past Gxcpfaa-Vchoci-Xyeakf Hx Patient Social History Tobacco Use?: Yes Tobacco type used: Cigarettes Smoking Status: Current Someday Smoker Substance use?: No Alcohol Use?: No Pt feels they are or have been: No Immunizations Up To Date Tetanus Booster (TDap): Less than 5yrs First/Initial COVID19 Vaccinat: unvaccinated Second COVID19 Vaccination Vishal: unvaccinated Third COVID19 Vaccination Date: unvaccinated Seasonal Allergies Seasonal Allergies: No Past Medical History Surgery/Hospitalization HX: COPD, HTN, AFIB, LEFT LEG INFECTION, TRAUMATIC INJURY PERINEUM Surgeries: Yes (hernia,debridement of foot) Appendectomy Respiratory: Yes Sleep Apnea Currently Using CPAP: Yes Currently Using BIPAP: No Cardiac: No Atrial Fibrillation, Chronic Edema/Swelling Neurological: No Genitourinary: No Gastrointestinal: No Musculoskeletal: Yes Arthritis, Chronic Back Pain Endocrine: Yes (MORBID OBESITY) Diabetes, Non-Insulin dep HEENT: No Cancer: No Psychosocial: No Integumentary: Yes (CHRONIC LEG WOUNDS) Blood Disorders: No Family Medical History Reviewed Nursing Family Hx No Pertinent Family Hx Breast cancer - Mother Siblings in good health. No kids. Physical Exam Vital Signs Vital Signs - First Documented 08/05/22 08/05/22 11:46 14:16 Temp 36.1 Pulse 110 Resp 18 B/P (MAP) 118/77 (91) Pulse Ox 96 O2 Delivery Room Air Capillary Refill : Less Than 3 Seconds Height, Weight, BMI Height: '" Weight: lbs. oz. kg; 52.00 BMI Method: General Appearance: No Apparent Distress, WD/WN, Obese HEENT: PERRL/EOMI, TMs Normal, Normal ENT Inspection, Pharynx Normal Neck: Full Range of Motion, Normal Inspection, Non Tender, Supple Respiratory: Chest Non Tender, Lungs Clear, Normal Breath Sounds Cardiovascular: Normal Peripheral Pulses, Irregularly Irregular, Tachycardia Gastrointestinal: Normal Bowel Sounds, Non Tender, Soft, Distended Extremity: Normal Range of Motion, Non Tender, No Calf Tenderness, Pedal Edema (2+), Other (Full ROM to Left UE without pain) Neurologic/Psychiatric: Alert, Oriented x3, No Motor/Sensory Deficits, Normal Mood/Affect Skin: Normal Color (UEs, deep purple color bilat LEs from below knees to toes. ), Warm/Dry Progress/Results/Core Measures Results/Orders Lab Results Laboratory Tests Test 08/05/22 11:53 Range/Units White Blood Count 11.4 H 4.3-11.0 10^3/uL Red Blood Count 5.49 4.30-5.52 10^6/uL Hemoglobin 17.2 13.3-17.7 g/dL Hematocrit 52 40-54 % Mean Corpuscular Volume 95 80-99 fL Mean Corpuscular Hemoglobin 31 25-34 pg Mean Corpuscular Hemoglobin Concent 33 32-36 g/dL Red Cell Distribution Width 13.2 10.0-14.5 % Platelet Count 217 130-400 10^3/uL Mean Platelet Volume 10.5 9.0-12.2 fL Immature Granulocyte % (Auto) 0 % Neutrophils (%) (Auto) 64 42-75 % Lymphocytes (%) (Auto) 24 12-44 % Monocytes (%) (Auto) 9 0-12 % Eosinophils (%) (Auto) 1 0-10 % Basophils (%) (Auto) 1 0-10 % Neutrophils # (Auto) 7.3 1.8-7.8 10^3/uL Lymphocytes # (Auto) 2.8 1.0-4.0 10^3/uL Monocytes # (Auto) 1.0 0.0-1.0 10^3/uL Eosinophils # (Auto) 0.2 0.0-0.3 10^3/uL Basophils # (Auto) 0.1 0.0-0.1 10^3/uL Immature Granulocyte # (Auto) 0.0 0.0-0.1 10^3/uL Prothrombin Time 13.8 12.2-14.7 SEC INR Comment 1.0 0.8-1.4 Activated Partial Thromboplast Time 30 24-35 SEC Sodium Level 136 135-145 MMOL/L Potassium Level 4.9 3.6-5.0 MMOL/L Chloride Level 100 98-107 MMOL/L Carbon Dioxide Level 23 21-32 MMOL/L Anion Gap 13 5-14 MMOL/L Blood Urea Nitrogen 26 H 7-18 MG/DL Creatinine 1.27 0.60-1.30 MG/DL Estimat Glomerular Filtration Rate 64 BUN/Creatinine Ratio 20 Glucose Level 168 H 70-105 MG/DL Calcium Level 9.6 8.5-10.1 MG/DL Corrected Calcium 9.7 8.5-10.1 MG/DL Magnesium Level 1.8 1.6-2.4 MG/DL Total Bilirubin 0.8 0.1-1.0 MG/DL Aspartate Amino Transf (AST/SGOT) 25 5-34 U/L Alanine Aminotransferase (ALT/SGPT) 33 0-55 U/L Alkaline Phosphatase 95 40-136 U/L Myoglobin 105.4 H 10.0-92.0 NG/ML Troponin I < 0.028 <0.028 NG/ML B-Type Natriuretic Peptide 48.8 <100.0 PG/ML Total Protein 7.7 6.4-8.2 GM/DL Albumin 3.9 3.2-4.5 GM/DL My Orders Orders - [facility]ING FEEDER Cbc With Automated Diff (08/05/22 11:57) Magnesium (08/05/22 11:57) Chest 1 View, Ap/Pa Only (08/05/22 11:57) Ekg Tracing (08/05/22 11:57) Comprehensive Metabolic Panel (08/05/22 11:57) Myoglobin Serum (08/05/22 11:57) Protime With Inr (08/05/22 11:57) Partial Thromboplastin Time (08/05/22 11:57) O2 (08/05/22 11:57) Monitor-Rhythm Ecg Trace Only (08/05/22 11:57) Ed Iv/Invasive Line Start (08/05/22 11:57) Bnp Alix (08/05/22 11:57) Troponin I Alix (08/05/22 11:57) Aspirin Chewable Tablet (Baby Aspirin Ch (08/05/22 12:00) Diltiazem Injection (Cardizem Injection) (08/05/22 11:57) Medications Given in ED Current Medications Medications Dose Ordered Sig/Robert Route Start Time Stop Time Status Last Admin Dose Admin Aspirin 324 mg ONCE ONCE PO 08/05/22 12:00 08/05/22 12:01 DC 08/05/22 12:13 324 MG Vital Signs/I&O 08/05/22 08/05/22 08/05/22 11:46 12:13 14:16 Temp 36.1 Pulse 110 108 99 Resp 18 16 B/P (MAP) 118/77 (91) 117/82 125/91 Pulse Ox 96 98 O2 Delivery Room Air Blood Pressure Mean: 94 Progress Progress Note : Time: 12:15 Progress Note Patient assessed, will obtain labs, chest x-ray and EKG. Apsirin 324 mg orally. Cardizem 30 mg IV for a fib, HR 90s-120 1315 labs all WNL. Patient denies any chest pain and left shoulder pain is 2/10 at this time. HR 80s, A-fib. Patient reports he is very seldom in SR, but medication keeps rate controlled. He has failed cardioversion. Discussed with paulo Tirado with d/c to home and follow up with cardiology next week outpatient. 1330 Discharge instructions and return precautions reviewed. Initial ECG Impression Date: Aug 05, 2022 Initial ECG Impression Time: 12:01 Initial ECG Rate: 105 Initial ECG Rhythm: A Fib/Flutter Initial ECG Intervals QRST 92, QT 362, QTc 423. [place] R 85, T5. A. fib with RVR incomplete right bundle branch block. Diagnostic Imaging Diagonstic Imaging: Xray Plain Films/CT/US/NM/MRI: chest Comments NAME: CLAUDETTE SEGOVIA [facility] REC#: [id number] PT STATUS: REG ER : 1960 PHYSICIAN: [facility] FEEDER ADMIT DATE: 08/05/22/ER Signed Date of Exam:08/05/22 CHEST 1 VIEW, AP/PA ONLY EXAMINATION: Chest 1 view HISTORY: Chest pain. COMPARISON: 12/15/2020. FINDINGS: The lung volumes are normal. No focal consolidation is seen. No large pleural effusion or pneumothorax is seen. The cardiomediastinal silhouette is normal in size and contour. No acute osseous abnormality is seen. IMPRESSION: 1. No acute pleuroparenchymal process. Dictated by: Dictated on workstation # [id number] Dict: 08/05/22 1232 Trans: 08/05/22 1237 [facility] [id number] Interpreted by: LUL VALENZUELA DO Electronically signed by: LUL VALENZUELA DO 08/05/22 1237 Reviewed: Reviewed by Me Departure Impression Primary Impression: Atrial fibrillation with RVR Additional Impressions: Shoulder pain Qualified Codes: M25.512 - Pain in left shoulder Asthma Qualified Codes: J45.20 - Mild intermittent asthma, uncomplicated Disposition: HOME, SELF-CARE Condition: Stable Departure-Patient Inst. Decision time for Depature: 13:15 Referrals: TED DUNHAM APRN (PCP) Primary Care Physician [facility] (Family) Primary Care Physician Patient Instructions: Atrial Fibrillation (DC), Rotator Cuff Injury (DC) Add. Discharge Instructions: Take all morning medications when you get home. Continue all medications and follow up with Ted Dunham at [facility] and Dr. Robles. Call for appts Sunday. Return to emergency dept for chest pain, shortness of breath or other new/urgent healthcare problems. All discharge instructions reviewed with patient and/or family. Voiced understanding. Scripts Tramadol HCl (Tramadol HCl) 50 Mg Tablet 50 MG PO Q6H PRN for PAIN-MODERATE (5-7), #20 TAB 0 Refills Prov: [facility] VALDIVIA 08/05/22 Copy Copies To 1: VALENTINE MCMILLAN DO; JOSE ROBLES MD, AMY ARNP Aug 05, 2022 12:19
[2022-08-05 12:20] LABS: MAGNESIUM 1.8 MG/DL (1.6-2.4)
--- NOTE | 2022-08-05 12:36 | Diagnostic Imaging Report ---
EXAMINATION: Chest 1 view HISTORY: Chest pain. COMPARISON: 12/15/2020. FINDINGS: The lung volumes are normal. No focal consolidation is seen. No large pleural effusion or pneumothorax is seen. The cardiomediastinal silhouette is normal in size and contour. No acute osseous abnormality is seen. IMPRESSION: 1. No acute pleuroparenchymal process. Dictated by: Dictated on workstation # [id number]
[2022-08-05] MEDS ORDERED: TRAM50TA3 PO (14:08)
[2022-08-05 14:16] VITALS: BP 125/91
== END 2022-08-05 14:16 | disposition home or self-care (01) ==
LOC: EDUNIT# 11:40 → ER 11:41
DX: M25.512 Pain in left shoulder (principal); I48.91 Unspecified atrial fibrillation; J45.909 Unspecified asthma, uncomplicated; G47.30 Sleep apnea, unspecified; E66.01 Morbid (severe) obesity due to excess calories; F17.210 Nicotine dependence, cigarettes, uncomplicated; Z99.89 Dependence on other enabling machines and devices; Z68.43 Body mass index [BMI] 50.0-59.9, adult; Z79.01 Long term (current) use of anticoagulants; Z28.310 Unvaccinated for COVID-19
CPT/HCPCS: 36415; 71045; 80053; 83735; 83874; 83880; 84484; 85025; 85610; 85730; 93005; 93041

== ENCOUNTER 2022-11-13 14:26 | Observation (INO) | payer MEDICAID ==
[~2022-11-13] VITALS: Ht 180 cm; Wt 160.2 kg
[~2022-11-13 14:26] MED LIST changes: +TRAM50TA3 PO
--- NOTE | 2022-11-13 14:45 | ED General ---
General Chief Complaint: Respiratory Problems Stated Complaint: LOW O2/HIGH CO2 LEVELS | HEADACHES |DIZZINESS Source of Information: Patient Exam Limitations: No Limitations History of Present Illness Date Seen by Provider: Nov 13, 2022 Time Seen by Provider: 14:35 Initial Comments 62-year-old male presents to the emergency department today for headaches, dizziness. He was discharged from the [facility] last week where he was found to have profound hypercarbia. He was actually just presenting because he felt as though he had an infection in his legs again. He apparently passed out in the emergency department and was found to be hypercarbic, placed on the ventilator. He states he woke up 2 days later in the ICU. He was sent home with a BiPAP machine. On Sunday he started to have a headache. Since then he has had episodes of lightheadedness and some mild increasing fatigue. He denies any chest pain or shortness of breath. All other systems reviewed and negative except documented per HPI. Voice recognition software was used to help create this chart Allergies and Home Medications Allergies Coded Allergies: No Known Drug Allergies (Unverified , 04/09/20) Patient Home Medication List Home Medication List Reviewed: Yes Albuterol Sulfate (Ventolin Hfa) 1 Puff Puff, 2 PUFF IH Q4H PRN for SHORTNESS OF BREATH, (Reported) Entered as Reported by: CHINO DUNCAN on 06/06/21 1002 Amiodarone HCl (Amiodarone HCl) 200 Mg Tablet, 200 MG PO BID Prescribed by: DAVINA JARAMILLO on 06/06/21 1007 Amoxicillin/Potassium Clav (Augmentin 500-125 Tablet) 500 Mg-125 Mg Tablet, 1 EACH PO BID Prescribed by: ADAM ADKINS MD on 12/04/21 1511 Atorvastatin Calcium (Atorvastatin Calcium) 40 Mg Tablet, 40 MG PO DAILY, (Reported) Entered as Reported by: ODIN PAZ on 08/18/20 0906 Cephalexin (Cephalexin) 500 Mg Tablet, 500 MG PO BID Prescribed by: DORY GODWIN on 02/14/22 0259 Diltiazem HCl (Cardizem Cd) 240 Mg Cap.er.24h, 240 MG PO DAILY, (Reported) Entered as Reported by: CHINO DUNCAN on 06/06/21 1002 Fluticasone/Salmeterol (Advair 250-50 Diskus) 1 Each Blst.w.dev, 1 EACH IH BID, (Reported) Entered as Reported by: CHINO DUNCAN on 10/06/20 0814 Ibuprofen/Diphenhydramine Cit (Ibuprofen Pm Caplet) 1 Each Tablet, 1-2 EACH PO HS PRN for SLEEP, (Reported) Entered as Reported by: CHINO DUNCAN on 10/06/20 0814 Melatonin (Melatonin) 5 Mg/15 Ml Liquid, 5 MG PO HS PRN for SLEEP, (Reported) Entered as Reported by: CHINO DUNCAN on 06/06/21 1002 Rivaroxaban (Xarelto) 20 Mg Tablet, 20 MG PO 1500, (Reported) Entered as Reported by: ODIN PAZ on 08/18/20 0906 Tiotropium [place] (Spiriva) 1 Inh Aerp, 1 INH IH DAILY, (Reported) Entered as Reported by: CHINO DUNCAN on 10/06/20 0814 Tramadol HCl (Tramadol HCl) 50 Mg Tablet, 50 MG PO Q6H PRN for PAIN-MODERATE (5- 7) Prescribed by: VA VALDIVIA on 08/05/22 1408 [Alteril] T TAB, 2 EA PO HS PRN for SLEEP, (Reported) Entered as Reported by: CHINO DUNCAN on 06/06/21 1002 Review of Systems Review of Systems Constitutional: see HPI Past Nqrxjug-Mcbaeo-Hmagry Hx Patient Social History Tobacco Use?: No Use of E-Cig and/or Vaping dev: No Substance use?: No Alcohol Use?: No Immunizations Up To Date Tetanus Booster (TDap): Less than 5yrs First/Initial COVID19 Vaccinat: unvaccinated Second COVID19 Vaccination Vishal: unvaccinated Third COVID19 Vaccination Date: unvaccinated Seasonal Allergies Seasonal Allergies: No Past Medical History Surgery/Hospitalization HX: COPD, HTN, AFIB, LEFT LEG INFECTION, TRAUMATIC INJURY PERINEUM Surgeries: Yes (hernia,debridement of foot) Appendectomy Respiratory: Yes Sleep Apnea Currently Using CPAP: Yes Currently Using BIPAP: No Cardiac: No Atrial Fibrillation, Chronic Edema/Swelling Neurological: No Genitourinary: No Gastrointestinal: No Musculoskeletal: Yes Arthritis, Chronic Back Pain Endocrine: Yes (MORBID OBESITY) Diabetes, Non-Insulin dep HEENT: No Cancer: No Psychosocial: No Integumentary: Yes (CHRONIC LEG WOUNDS) Blood Disorders: No Family Medical History No Pertinent Family Hx Breast cancer - Mother Siblings in good health. No kids. Physical Exam Vital Signs Vital Signs - First Documented 11/13/22 14:30 Temp 36.2 Pulse 114 Resp 29 B/P (MAP) 132/91 (105) Pulse Ox 96 O2 Delivery Nasal Cannula O2 Flow Rate 2.00 Capillary Refill : Height, Weight, BMI Height: '" Weight: lbs. oz. kg; 52.00 BMI Method: General Appearance: No Apparent Distress, WD/WN HEENT: Normal ENT Inspection, Pharynx Normal Neck: Normal Inspection, Supple Respiratory: Chest Non Tender, Lungs Clear, Normal Breath Sounds, No Accessory Muscle Use, No Respiratory Distress Cardiovascular: Irregularly Irregular, Tachycardia Gastrointestinal: Normal Bowel Sounds, No Organomegaly, No Pulsatile Mass, Non Tender, Soft, Other (Morbidly obese) Extremity: Other (Changes consistent with chronic venous stasis bilateral lower extremities below the knee. Neurovascular exams are intact. Chronic swelling bilateral lower extremities left greater than right.) Neurologic/Psychiatric: Alert, Oriented x3, No Motor/Sensory Deficits Skin: Normal Color, Warm/Dry Progress/Results/Core Measures Suspected Sepsis SIRS Temperature: Pulse: Respiratory Rate: Laboratory Tests 11/13/22 15:30: White Blood Count 8.2 Blood Pressure / Mean: Laboratory Tests 11/13/22 15:30: Creatinine 0.88, Platelet Count 176, Total Bilirubin 1.1H Results/Orders Lab Results Laboratory Tests Test 11/13/22 14:54 11/13/22 15:30 Range/Units Blood Gas Puncture Site r radial Blood Gas Patient Temperature 36.2 Arterial Blood pH 7.33 *L 7.37-7.43 Arterial Blood Partial Pressure CO2 62 H 35-45 MMHG Arterial Blood Partial Pressure O2 88 79-93 MMHG Arterial Blood HCO3 32 H 23-27 MMOL/L Arterial Blood Total CO2 34.1 H 21.0-31.0 MMOL/L Arterial Blood Oxygen Saturation 97 94-100 % Arterial Blood Base Excess 6.3 H -2.5-2.5 MMOL/L Jasiel Test Blood Gas Ventilator Setting NO Blood Gas Inspired Oxygen 2 White Blood Count 8.2 4.3-11.0 10^3/uL Red Blood Count 4.33 4.30-5.52 10^6/uL Hemoglobin 13.4 13.3-17.7 g/dL Hematocrit 44 40-54 % Mean Corpuscular Volume 102 H 80-99 fL Mean Corpuscular Hemoglobin 31 25-34 pg Mean Corpuscular Hemoglobin Concent 30 L 32-36 g/dL Red Cell Distribution Width 14.4 10.0-14.5 % Platelet Count 176 130-400 10^3/uL Mean Platelet Volume 10.0 9.0-12.2 fL Immature Granulocyte % (Auto) 0 % Neutrophils (%) (Auto) 66 42-75 % Lymphocytes (%) (Auto) 22 12-44 % Monocytes (%) (Auto) 10 0-12 % Eosinophils (%) (Auto) 1 0-10 % Basophils (%) (Auto) 1 0-10 % Neutrophils # (Auto) 5.4 1.8-7.8 X 10^3 Lymphocytes # (Auto) 1.8 1.0-4.0 X 10^3 Monocytes # (Auto) 0.8 0.0-1.0 X 10^3 Eosinophils # (Auto) 0.1 0.0-0.3 10^3/uL Basophils # (Auto) 0.1 0.0-0.1 10^3/uL Immature Granulocyte # (Auto) 0.0 0.0-0.1 10^3/uL Sodium Level 140 135-145 MMOL/L Potassium Level 4.7 3.6-5.0 MMOL/L Chloride Level 102 98-107 MMOL/L Carbon Dioxide Level 31 21-32 MMOL/L Anion Gap 7 5-14 MMOL/L Blood Urea Nitrogen 13 7-18 MG/DL Creatinine 0.88 0.60-1.30 MG/DL Estimat Glomerular Filtration Rate 97 BUN/Creatinine Ratio 15 Glucose Level 119 H 70-105 MG/DL Calcium Level 9.1 8.5-10.1 MG/DL Corrected Calcium 9.5 8.5-10.1 MG/DL Total Bilirubin 1.1 H 0.1-1.0 MG/DL Aspartate Amino Transf (AST/SGOT) 23 5-34 U/L Alanine Aminotransferase (ALT/SGPT) 26 0-55 U/L Alkaline Phosphatase 90 40-136 U/L Total Protein 7.1 6.4-8.2 GM/DL Albumin 3.5 3.2-4.5 GM/DL My Orders Orders - JULIO GALLEGOS DO Comprehensive Metabolic Panel (11/13/22 14:42) Cbc With Automated Diff (11/13/22 14:42) Arterial Blood Gas (11/13/22 15:01) Chest 1 View, Ap/Pa Only (11/13/22 15:10) Ed Admission (Communication) (11/13/22 17:02) Vital Signs/I&O 11/13/22 11/13/22 11/13/22 11/13/22 14:30 14:30 14:32 17:58 Temp 36.2 Pulse 114 107 Resp 29 18 B/P (MAP) 132/91 (105) 127/84 Pulse Ox 96 98 99 O2 Delivery Nasal Cannula Nasal Cannula Nasal Cannula Nasal Cannula O2 Flow Rate 2.00 2.00 Capillary Refill : Departure Communication (Admissions) Patient is hemodynamically stable. His CO2 is elevated at 62 with a pH of 7.33. It is unclear exactly what his pH was discharged from . Given his current symptoms and recent history however I believe it admitted to the hospital to observe his CO2 and ensure that it is not climbing and that he does not have any trouble going home. We have requested the records from twice now and have not yet received a fax with this information. I did review his labs on his phone that he had from that admission. His CO2 was as high as 105 during his stay. There is no evidence of another emergent medical condition at this time. 1700: I spoke to Dr Richardson who accepts admission. She will place acute orders. Impression Primary Impression: Hypercarbia Additional Impression: Respiratory acidosis Disposition: ADMITTED INPATIENT Condition: Stable Admissions Decision to Admit Reason: Admit from ER (General) Departure-Patient Inst. Referrals: [facility] (PCP/Family) Primary Care Physician JULIO GALLEGOS DO Nov 13, 2022 14:45
[2022-11-13 15:12] LABS: ABG BASE EXCESS 6.3 MMOL/L (-2.5-2.5); ABG OXYGEN SATURATION 97 % (94-100); ABG PCO2 62 MMHG (35-45); ABG PO2 88 MMHG (79-93); ABG TCO2 34.1 MMOL/L (21.0-31.0)
[2022-11-13 15:13] LABS: ABG PH 7.33 (7.37-7.43); INSPIRED O2 2; PATIENT TEMP 36.2; VENTILATOR NO
--- NOTE | 2022-11-13 15:32 | Diagnostic Imaging Report ---
CLINICAL INDICATION: Patient was having severe headache on Sunday with dizziness which began last night. Follow-up with patient being on a vent for high CO2. Patient complains of shortness of breath. EXAM: Portable chest x-ray, upright view. COMPARISON: Chest x-ray dated 08/05/2022. FINDINGS: Lungs/pleura: There is interval development of a mass-like area of consolidation involving the left lung apex. There are no definite bony destructive changes seen as visualized. The remainder of the lungs are clear. There is no pneumothorax. Stable blunting of the left costophrenic angle, which may be related to scarring. Mediastinum: Unremarkable. Pulmonary vasculature: Unremarkable. Heart: Stable cardiomegaly. Bones/extrathoracic soft tissue: Unremarkable. IMPRESSION: 1: There is interval development of mass-like consolidation involving the left lung apex. Unknown if this is related to a mass versus pleural effusion and/or lung consolidation. CT scan of the chest with contrast is suggested for further evaluation. 2: Stable cardiomegaly with no significant pulmonary vascular congestion. Dictated by: Dictated on workstation # [id number]
[2022-11-13 15:44] LABS: BASOPHILS # (AUTO) 0.1 10^3/uL (0.0-0.1); BASOPHILS % (AUTO) 1 % (0-10); EOSINOPHILS # (AUTO) 0.1 10^3/uL (0.0-0.3); EOSINOPHILS % (AUTO) 1 % (0-10); HEMATOCRIT 44 % (40-54); HEMOGLOBIN 13.4 g/dL (13.3-17.7); LYMPHOCYTES # (AUTO) 1.8 X 10^3 (1.0-4.0); LYMPHOCYTES % (AUTO) 22 % (12-44); MEAN CORPUSCULAR HEMOGLOBIN 31 pg (25-34); MEAN CORPUSCULAR HGB CONC 30 g/dL (32-36); MEAN CORPUSCULAR VOLUME 102 fL (80-99); MONOCYTES # (AUTO) 0.8 X 10^3 (0.0-1.0); MONOCYTES % (AUTO) 10 % (0-12); NEUTROPHILS # (AUTO) 5.4 X 10^3 (1.8-7.8); NEUTROPHILS % (AUTO) 66 % (42-75); PLATELET COUNT 176 10^3/uL (130-400); WHITE BLOOD COUNT 8.2 10^3/uL (4.3-11.0)
[2022-11-13 15:49] LABS: ALBUMIN 3.5 GM/DL (3.2-4.5); POTASSIUM 4.7 MMOL/L (3.6-5.0)
[2022-11-13 15:50] LABS: CALCIUM 9.1 MG/DL (8.5-10.1)
[2022-11-13 15:51] LABS: TOTAL PROTEIN 7.1 GM/DL (6.4-8.2)
[2022-11-13 15:53] LABS: BILIRUBIN,TOTAL 1.1 MG/DL (0.1-1.0)
[2022-11-13 15:55] LABS: CREATININE SERUM 0.88 MG/DL (0.60-1.30)
[2022-11-13] MEDS ORDERED: PATIENT MAY USE OWN MEDS, ALL PO SCH (18:15)
[2022-11-13 19:31] VITALS: BP 132/70
[2022-11-13] MEDS ORDERED: IOHEXOL 350 MG/ML 100 ML (OMNIPAQUE 350) VIAL IV ONE (19:45)
[2022-11-13] MEDS ORDERED: NS 100 ML (IVPB) BAG IV ONE (19:45)
--- NOTE | 2022-11-13 20:24 | Diagnostic Imaging Report ---
PROCEDURE: CT chest with contrast only. TECHNIQUE: Multiple contiguous axial images were obtained through the chest after administration of intravenous contrast. Auto Exposure Controls were utilized during the CT exam to meet ALARA standards for radiation dose reduction. INDICATION: Mass seen on previous radiograph. COMPARISON: CT dated 04/06/2021 FINDINGS: Heterogeneously enhancing solid mass of the posterior left apex is identified. It measures 7.1 x 6.6 cm in axial dimension and appears to erode the posterior left 3rd rib. Left hilar lymph node measures 2.6 x 2.1 cm and is suggestive of metastatic disease. There are multiple enlarged mediastinal lymph nodes as well, also consistent with metastatic disease. No abnormal axillary adenopathy is seen. Remainder of the lungs are clear. No large effusion or pneumothorax is seen on either side. Heart size is within normal limits. There is no large pericardial effusion. Included portions of the upper abdomen are unremarkable. IMPRESSION: 1. Large posterior left apical mass with erosion of the underlying posterior left 3rd rib. This is in a position amenable to CT-guided biopsy and should be considered malignant until proven otherwise. 2. Multiple enlarged left hilar and mediastinal lymph nodes consistent with metastatic disease. Dictated by: Dictated on workstation # [id number]
[2022-11-13] MEDS: ACETAMINOPHEN 500 MG TAB (TYLENOL) PO SCH (20:35)
[2022-11-13] MEDS: inSUlin ASPART (NovoLOG) 1 UNIT/0.01 ML (CHARGE PER UNIT) SC SCH (20:35)
[2022-11-13] MEDS: ZOLPIDEM 5 MG (AMBIEN) TAB PO SCH (21:24)
[2022-11-13 23:57] VITALS: BP 118/71
[2022-11-14 03:44] VITALS: BP 107/67
[2022-11-14] MEDS: inSUlin ASPART (NovoLOG) 1 UNIT/0.01 ML (CHARGE PER UNIT) SC SCH ×4 (05:35→21:10)
[2022-11-14] MEDS: ACETAMINOPHEN 500 MG TAB (TYLENOL) PO SCH ×3 (05:37→21:10)
[2022-11-14 05:45] LABS: HEMATOCRIT 40 % (40-54); HEMOGLOBIN 12.2 g/dL (13.3-17.7); MEAN CORPUSCULAR HEMOGLOBIN 31 pg (25-34); MEAN CORPUSCULAR HGB CONC 31 g/dL (32-36); MEAN CORPUSCULAR VOLUME 101 fL (80-99); MEAN PLATELET VOLUME 10.1 fL (9.0-12.2); PLATELET COUNT 135 10^3/uL (130-400); WHITE BLOOD COUNT 7.9 10^3/uL (4.3-11.0)
[2022-11-14 05:51] LABS: POTASSIUM 4.6 MMOL/L (3.6-5.0)
[2022-11-14 05:52] LABS: CALCIUM 8.8 MG/DL (8.5-10.1)
[2022-11-14 05:56] LABS: CREATININE SERUM 0.81 MG/DL (0.60-1.30)
[2022-11-14 07:43] VITALS: BP 116/70
[2022-11-14] MEDS ORDERED: ENOXAPARIN 40 MG/0.4 ML (LOVENOX) SYR SC SCH ×2 (09:00)
[2022-11-14 10:16] LABS: ABG BASE EXCESS 7.9 MMOL/L (-2.5-2.5); ABG OXYGEN SATURATION 99 % (94-100); ABG PCO2 64 MMHG (35-45); ABG PO2 128 MMHG (79-93)
[2022-11-14 10:23] LABS: ABG PH 7.34 (7.37-7.43); ALLENS TEST YES-POS; INSPIRED O2 40%; PATIENT TEMP 35.9; VENTILATOR YES
[2022-11-14 11:09] VITALS: BP 112/79
--- NOTE | 2022-11-14 11:12 | History & Physical ---
HPI History of Present Illness: Pt on bipap at time of exam and frequently appears to fall asleep, but then does answer questions appropriately. Limited history due to bipap and sleepiness. He says he was sent home from [facility] with bipap but it hasn't been working, and someone did come yesterday to get it working, but he has had headache which led to him coming in. He was still hypercapneic in ER and admitted for bipap overnight. He denies being told of any lung problem/mass at . Date seen by provider: Nov 14, 2022 Time Seen by Provider: 11:10 Attending Physician [facility] PCP Admitting Physician: Viviana Richardson MD Attending Physician: Viviana Richardson MD Consult Date of Admission Nov 13, 2022 at 17:58 Home Medications Home Medications Reviewed patient Home Medication Reconciliation performed by pharmacy medication reconciliations piano technician and/or nursing. Patients Allergies have been reviewed. Allergies Coded Allergies: No Known Drug Allergies (Unverified , 04/09/20) LIY-Zzaakj-Jsmtme Hx Patient Social History Smoking Status: Current Someday Smoker 2nd Hand Smoke Exposure: Yes Recent Hopitalizations: Yes Alcohol Use?: No Tobacco type used: Cigarettes Have you traveled recently?: No Immunizations Up To Date Tetanus Booster (TDap): Less than 5yrs Influenza Vaccine Up-to-Date: Yes; Up-to-Date First/Initial COVID19 Vaccinat: X1 Second COVID19 Vaccination Vishal: unvaccinated Third COVID19 Vaccination Date: unvaccinated Past Medical History PMHx: Atrial fibrillation BREN DMII HLD Insomnia Peripheral neuropathy PMHx: Hernia repair Appendectomy Cardioversion Debridement of left leg cellulitis Family Medical History Significant Family History: Cancer (mother breast) Other Significan Family Hx: Siblings in good health. No kids. Review of Systems ([facility]) Constitutional: other (unable to obtain) Reviewed Test Results Reviewed Test Results Lab Laboratory Tests Test 11/13/22 14:54 11/13/22 15:30 11/13/22 20:21 11/14/22 05:07 Range/Units Blood Gas Puncture Site r radial Blood Gas Patient Temperature 36.2 Arterial Blood pH 7.33 *L 7.37-7.43 Arterial Blood Partial Pressure CO2 62 H 35-45 MMHG Arterial Blood Partial Pressure O2 88 79-93 MMHG Arterial Blood HCO3 32 H 23-27 MMOL/L Arterial Blood Total CO2 34.1 H 21.0-31.0 MMOL/L Arterial Blood Oxygen Saturation 97 94-100 % Arterial Blood Base Excess 6.3 H -2.5-2.5 MMOL/L Jasiel Test Blood Gas Ventilator Setting NO Blood Gas Inspired Oxygen 2 White Blood Count 8.2 4.3-11.0 10^3/uL Red Blood Count 4.33 4.30-5.52 10^6/uL Hemoglobin 13.4 13.3-17.7 g/dL Hematocrit 44 40-54 % Mean Corpuscular Volume 102 H 80-99 fL Mean Corpuscular Hemoglobin 31 25-34 pg Mean Corpuscular Hemoglobin Concent 30 L 32-36 g/dL Red Cell Distribution Width 14.4 10.0-14.5 % Platelet Count 176 130-400 10^3/uL Mean Platelet Volume 10.0 9.0-12.2 fL Immature Granulocyte % (Auto) 0 % Neutrophils (%) (Auto) 66 42-75 % Lymphocytes (%) (Auto) 22 12-44 % Monocytes (%) (Auto) 10 0-12 % Eosinophils (%) (Auto) 1 0-10 % Basophils (%) (Auto) 1 0-10 % Neutrophils # (Auto) 5.4 1.8-7.8 X 10^3 Lymphocytes # (Auto) 1.8 1.0-4.0 X 10^3 Monocytes # (Auto) 0.8 0.0-1.0 X 10^3 Eosinophils # (Auto) 0.1 0.0-0.3 10^3/uL Basophils # (Auto) 0.1 0.0-0.1 10^3/uL Immature Granulocyte # (Auto) 0.0 0.0-0.1 10^3/uL Sodium Level 140 135-145 MMOL/L Potassium Level 4.7 3.6-5.0 MMOL/L Chloride Level 102 98-107 MMOL/L Carbon Dioxide Level 31 21-32 MMOL/L Anion Gap 7 5-14 MMOL/L Blood Urea Nitrogen 13 7-18 MG/DL Creatinine 0.88 0.60-1.30 MG/DL Estimat Glomerular Filtration Rate 97 BUN/Creatinine Ratio 15 Glucose Level 119 H 70-105 MG/DL Calcium Level 9.1 8.5-10.1 MG/DL Corrected Calcium 9.5 8.5-10.1 MG/DL Total Bilirubin 1.1 H 0.1-1.0 MG/DL Aspartate Amino Transf (AST/SGOT) 23 5-34 U/L Alanine Aminotransferase (ALT/SGPT) 26 0-55 U/L Alkaline Phosphatase 90 40-136 U/L Total Protein 7.1 6.4-8.2 GM/DL Albumin 3.5 3.2-4.5 GM/DL Glucometer 170 H 85 70-110 MG/DL Test 11/14/22 05:34 11/14/22 10:00 11/14/22 10:54 11/14/22 15:27 Range/Units White Blood Count 7.9 4.3-11.0 10^3/uL Red Blood Count 3.97 L 4.30-5.52 10^6/uL Hemoglobin 12.2 L 13.3-17.7 g/dL Hematocrit 40 40-54 % Mean Corpuscular Volume 101 H 80-99 fL Mean Corpuscular Hemoglobin 31 25-34 pg Mean Corpuscular Hemoglobin Concent 31 L 32-36 g/dL Red Cell Distribution Width 14.0 10.0-14.5 % Platelet Count 135 130-400 10^3/uL Mean Platelet Volume 10.1 9.0-12.2 fL Sodium Level 138 135-145 MMOL/L Potassium Level 4.6 3.6-5.0 MMOL/L Chloride Level 102 98-107 MMOL/L Carbon Dioxide Level 27 21-32 MMOL/L Anion Gap 9 5-14 MMOL/L Blood Urea Nitrogen 13 7-18 MG/DL Creatinine 0.81 0.60-1.30 MG/DL Estimat Glomerular Filtration Rate 100 BUN/Creatinine Ratio 16 Glucose Level 93 70-105 MG/DL Calcium Level 8.8 8.5-10.1 MG/DL Blood Gas Puncture Site LT RAD Blood Gas Patient Temperature 35.9 Arterial Blood pH 7.34 *L 7.37-7.43 Arterial Blood Partial Pressure CO2 64 H 35-45 MMHG Arterial Blood Partial Pressure O2 128 H 79-93 MMHG Arterial Blood HCO3 34 H 23-27 MMOL/L Arterial Blood Total CO2 36.0 H 21.0-31.0 MMOL/L Arterial Blood Oxygen Saturation 99 94-100 % Arterial Blood Base Excess 7.9 H -2.5-2.5 MMOL/L Jasiel Test YES-POS Blood Gas Ventilator Setting YES Blood Gas Inspired Oxygen 40% Glucometer 112 H 135 H 70-110 MG/DL Test 11/14/22 15:30 Range/Units Radiology CT chest 11/13/22: IMPRESSION: 1. Large posterior left apical mass with erosion of the underlying posterior left 3rd rib. This is in a position amenable to CT-guided biopsy and should be considered malignant until proven otherwise. 2. Multiple enlarged left hilar and mediastinal lymph nodes consistent with metastatic disease. Physical Exam-([facility]) Physical Exam Vital Signs VS - Last 72 Hours, by Label 11/13/22 11/13/22 11/13/22 11/13/22 14:30 14:30 14:32 17:58 Temp 36.2 Pulse 114 107 Resp 29 18 B/P (MAP) 132/91 (105) 127/84 Pulse Ox 96 98 99 O2 Delivery Nasal Cannula Nasal Cannula Nasal Cannula Nasal Cannula O2 Flow Rate 2.00 2.00 11/13/22 11/13/22 11/13/22 11/13/22 18:39 19:31 19:40 23:57 Temp 36.5 36.5 Pulse 98 98 Resp 19 18 B/P (MAP) 132/70 (90) 118/71 (87) Pulse Ox 96 93 99 O2 Delivery Nasal Cannula Room Air Room Air NIV CPAP 11/14/22 11/14/22 11/14/22 11/14/22 02:37 03:44 07:43 08:00 Temp 36.9 36.3 Pulse 92 86 85 Resp 20 18 18 B/P (MAP) 107/67 (80) 116/70 (85) Pulse Ox 98 100 94 96 O2 Delivery NIV CPAP Room Air Nasal Cannula O2 Flow Rate 40.00 11/14/22 11/14/22 11/14/22 11/14/22 09:58 10:35 11:09 13:44 Temp 35.9 Pulse 95 95 88 98 Resp 19 20 18 18 B/P (MAP) 112/79 (90) Pulse Ox 98 98 94 99 O2 Delivery Room Air O2 Flow Rate 40.00 30.00 30.00 11/14/22 15:17 Temp 36.3 Pulse 96 Resp 20 B/P (MAP) 122/82 (95) Pulse Ox 91 O2 Delivery Room Air Capillary Refill : Less Than 3 Seconds General Appearance: mild distress Respiratory: decreased breath sounds Cardiovascular: regular rate, rhythm Gastrointestinal: normal bowel sounds Extremities: pedal edema (2+) Neurologic/Psychiatric: oriented x 3 Skin: other (venous stasis changes both legs to level of knee) Assessment/Plan Assessment/Plan Admission Status: Observation (1) Lung mass Status: Acute Assessment & Plan: Discussed with IR, hopeful to biopsy tomorrow am. (2) Hypercarbia Status: Acute Assessment & Plan: Stable after bipap all night, uncertain baseline given he had hypercapnea up to above 100 per ER notes on review of [facility] labs per patient portal. Continue bipap and repeat ABG. (3) Respiratory acidosis Status: Acute (4) Diabetes mellitus, type 2 Status: Chronic Assessment & Plan: Hold home metformin and glipizide. Diabetic diet, sliding scale insulin. Qualifiers: (5) Hyperlipidemia Status: Chronic Assessment & Plan: Resume home statin (6) Atrial fibrillation Status: Chronic Assessment & Plan: Hold home rivaroxaban for lung biopsy. Resume home amiodarone and carvedilol. (7) Obstructive sleep apnea Status: Chronic Assessment & Plan: Previously on CPAP, recently started bipap but not able to function. Bipap at night. (8) Morbid obesity Status: Chronic (9) DVT prophylaxis Status: Acute Assessment & Plan: Hold pharmacologic until after lung biopsy VIVIANA RICHARDSON MD Nov 14, 2022 11:12
[2022-11-14] MEDS ORDERED: ACET-2267 PO (14:20)
[2022-11-14] MEDS ORDERED: TIOT4MIS2 INH (14:20)
[2022-11-14] MEDS ORDERED: SPIR25TA5 PO (14:20)
[2022-11-14] MEDS ORDERED: AMIO200T65 PO (14:20)
[2022-11-14] MEDS ORDERED: POTA-179 PO (14:20)
[2022-11-14] MEDS ORDERED: IBUP-2473 PO (14:20)
[2022-11-14] MEDS ORDERED: CARV12.53 PO (14:20)
[2022-11-14] MEDS ORDERED: GLIP10TA13 PO (14:20)
[2022-11-14] MEDS ORDERED: ACET-3075 PO (14:20)
[2022-11-14] MEDS ORDERED: METF-865 PO (14:20)
[2022-11-14] MEDS ORDERED: FURO40TA4 PO (14:20)
[2022-11-14] MEDS ORDERED: ZOLP10TA PO (14:20)
[2022-11-14] MEDS ORDERED: GABA-486 PO (14:20)
[2022-11-14] MEDS ORDERED: RT-ALBUTEROL SULF 2.5 MG/3 ML PRE-MIX VIAL IH PRN (15:15)
[2022-11-14 15:17] VITALS: BP 122/82
[2022-11-14 15:49] LABS: INR 1.1 (0.8-1.4); PROTHROMBIN TIME PATIENT 15.1 SEC (12.2-14.7)
[2022-11-14 19:21] VITALS: BP 100/68
[2022-11-14] MEDS ORDERED: NALOXONE 0.4 MG/ML 1 ML (NARCAN) VIAL IV PRN (21:00)
[2022-11-14] MEDS ORDERED: GABAPENTIN 100 MG (NEURONTIN) CAP PO SCH (21:00)
[2022-11-14] MEDS: ZOLPIDEM 5 MG (AMBIEN) TAB PO SCH (21:10)
[2022-11-14 23:48] VITALS: BP 114/71
[2022-11-15] VITALS (15 sets, daily range): BP systolic 111–134; BP diastolic 66–96
[2022-11-15] MEDS: ACETAMINOPHEN 500 MG TAB (TYLENOL) PO SCH ×2 (05:28→14:03)
[2022-11-15] MEDS: inSUlin ASPART (NovoLOG) 1 UNIT/0.01 ML (CHARGE PER UNIT) SC SCH ×2 (05:39→10:52)
[2022-11-15 06:07] LABS: HEMATOCRIT 39 % (40-54); MEAN CORPUSCULAR HEMOGLOBIN 31 pg (25-34); MEAN CORPUSCULAR HGB CONC 31 g/dL (32-36); MEAN CORPUSCULAR VOLUME 99 fL (80-99); MEAN PLATELET VOLUME 10.4 fL (9.0-12.2); PLATELET COUNT 141 10^3/uL (130-400); WHITE BLOOD COUNT 6.9 10^3/uL (4.3-11.0)
[2022-11-15 06:24] LABS: ALBUMIN 3.3 GM/DL (3.2-4.5); BILIRUBIN,TOTAL 1.1 MG/DL (0.1-1.0); CALCIUM 8.7 MG/DL (8.5-10.1); CREATININE SERUM 0.81 MG/DL (0.60-1.30); TOTAL PROTEIN 6.5 GM/DL (6.4-8.2)
[2022-11-15] MEDS ORDERED: UMECLIDINIUM BROMIDE (INCRUSE ELLIPTA) 7'S IH SCH (08:00)
[2022-11-15] MEDS ORDERED: NS IV 1000 ML 1,000 ML IV STA (08:10)
[2022-11-15] MEDS ORDERED: LIDOCAINE 1% INJ 10 ML VIAL INJ ONE (08:15)
[2022-11-15] MEDS ORDERED: fentaNYL INJ 100 MCG/2 ML AMP IVP ONE (08:15)
[2022-11-15] MEDS ORDERED: MIDAZOLAM 2 MG/2 ML (VERSED) VIAL IVP ONE (08:15)
[2022-11-15] MEDS ORDERED: SPIRONOLACTONE 25 MG (ALDACTONE) TAB PO SCH (09:00)
[2022-11-15] MEDS ORDERED: FUROSEMIDE 40 MG (LASIX) TAB PO SCH (09:00)
[2022-11-15] MEDS ORDERED: NON-FORMULARY MEDICATION 1 EA EA (Tiotropium Bromide (Spiriva Respimat 2.5MCG/ACTUATION) 2 INH SCH (09:00)
[2022-11-15] MEDS: morphine INJ 4 MG/ML 1 ML (VIAL/SYRINGE) IV PRN ×2 (09:06→11:51)
--- NOTE | 2022-11-15 10:30 | Pre-Op Note & Conscious Sedat ---
Pre-Operative Progress Note Date of Available H&P: Nov 15, 2022 Date H&P Reviewed: Nov 15, 2022 Time H&P Reviewed: 09:00 Pre-Op Diagnosis: lung mass Moderate Sedation PreProcedure Time 09:00 ASA Score 2 Airway Lungs Heart ASA score ASA 1: a normal healthy patient ASA 2: a patient with a mild systemic disease (mid diabetes, controlled hypertension, obesity ASA 3: a patient with a severe systemic disease that limits activity (angina, COPD, prior Myocardial infarction) ASA 4: a patient with an incapacitating disease that is a constant threat to life (CHF, renal failure) ASA 5: a moribund patient not expected to survive 24 hrs. (ruptured aneurysm) ASA 6: a declared brain- patient whose organs are being harvested. For emergent operations, add the letter E after the classification Mallampati Classification Grade 2 Sedation Plan Analgesia, Amnesia, Plan communicated to team members, Discussed options with patient/fam, Discussed risks with patient/fam The patient is an appropriate candidate to undergo the planned procedure, sedation, and anesthesia. The patient immediately re-assessed prior to indication. BERTA AU MD Nov 15, 2022 10:30
--- NOTE | 2022-11-15 11:03 | Diagnostic Imaging Report ---
INDICATION: Left lung mass. Patient presents for CT-guided biopsy. TECHNIQUE: All CT scans use one or more of the following dose optimizing techniques: Automated exposure control, MA and/or KvP adjustment based on patient size and exam type or iterative reconstruction. The patient was brought to the CT suite placed on table in [id number] decubitus position. Axial imaging through the chest was performed to evaluate appropriate entry site. The left upper posterior thorax was prepped and draped in the usual sterile fashion. A small amount of 1% lidocaine was utilized for local anesthesia. Patient was administered 50 mcg of fentanyl intravenously. Total procedure time was approximately 8 minutes. An 18-gauge coaxial Temno needle was advanced from a posterior approach and placed within the left apical lesion. Four core biopsies were obtained. Needle was removed, and hemostasis was obtained. Follow-up imaging shows no complicating features. Patient tolerated the procedure well and left the department in stable condition. IMPRESSION: Successful CT-guided biopsy of the left apical lung mass. Pathology results are currently pending. Dictated by: Dictated on workstation # [id number]
--- NOTE | 2022-11-15 11:51 | Diagnostic Imaging Report ---
PROCEDURE: CT head without contrast. TECHNIQUE: Multiple contiguous axial images were obtained through the brain without the use of intravenous contrast. Auto Exposure Controls were utilized during the CT exam to meet ALARA standards for radiation dose reduction. INDICATION: Headache. FINDINGS: Ventricles are normal in size, without evidence of hydrocephalus. There is an area of low attenuation in the left cerebellar hemisphere. There appears to be some slight effacement of the fourth ventricle. In addition, there is a subtle area of low attenuation in the left temporal lobe. No midline shift is identified. No acute intra-axial or extra-axial hemorrhage is detected. There does appear to be some slight effacement of the basilar cisterns. The visualized paranasal sinuses are clear. IMPRESSION: There are areas of low attenuation in the left cerebellar hemisphere and left temporal lobe. In a patient with known lung mass, features are concerning for an intracranial mass and potentially intracranial metastatic disease. There is no intracranial hemorrhage identified. Further evaluation with MRI with and without IV contrast would be recommended. Dictated by: Dictated on workstation # [id number]
--- NOTE | 2022-11-15 11:56 | Diagnostic Imaging Report ---
INDICATION: Left lung mass. Patient status post CT-guided left lung biopsy. TIME OF EXAM: 11:28 a.m. Comparison is made with prior chest radiograph from 11/13/2022. FINDINGS: Left apical lung mass is again noted. There is no evidence of pneumothorax, status post lung biopsy. Right lung is clear. There is no effusion. IMPRESSION: Left apical lung mass. No pneumothorax is identified, status post left lung biopsy. Dictated by: Dictated on workstation # [id number]
--- NOTE | 2022-11-15 14:51 | Discharge Summary ---
Discharge Summary Hospital Course Problems/Diagnosis: (1) Lung mass Status: Acute Assessment & Plan: CT guided biopsy done 11/15, result pending at discharge. (2) Hypercarbia Status: Acute Assessment & Plan: Stable after bipap all night after admission, uncertain baseline given he had hypercapnea up to above 100 per ER notes on review of [facility] labs per patient portal. Has home bipap reportedly ready at this time. (3) Respiratory acidosis Status: Acute (4) Diabetes mellitus, type 2 Status: Chronic Qualifiers: (5) Hyperlipidemia Status: Chronic Assessment & Plan: Resume home statin (6) Atrial fibrillation Status: Chronic Assessment & Plan: Held home rivaroxaban for lung biopsy. Resumed home amiodarone and carvedilol and rivaroxaban on d/c (7) Obstructive sleep apnea Status: Chronic Assessment & Plan: Previously on CPAP, recently started bipap but not able to function prior to admission. Bipap at night. (8) Morbid obesity Status: Chronic (9) Headache Status: Acute Assessment & Plan: Due to lung mass and new onset headache, CT done which did show concerning low attenuation areas, needs MRI with and without contrast at an open MRI due to body habitus. Hospital Course Date of Admission: Nov 13, 2022 at 17:58 Admission Diagnosis : Family Physician/Provider: [facility] Date of Discharge: 11/15/22 Discharge Diagnosis: See problem list Hospital Course: See problem list Labs and Pending Lab Test: Laboratory Tests 11/14/22 15:27: Glucometer 135H 11/14/22 15:30: Prothrombin Time 15.1H, INR Comment 1.1, Activated Partial Thromboplast Time 32 11/14/22 19:45: Glucometer 127H 11/15/22 05:26: Glucometer 112H 11/15/22 05:39: White Blood Count 6.9, Red Blood Count 3.91L, Hemoglobin 12.0L, Hematocrit 39L, Mean Corpuscular Volume 99, Mean Corpuscular Hemoglobin 31, Mean Corpuscular Hemoglobin Concent 31L, Red Cell Distribution Width 13.8, Platelet Count 141, Mean Platelet Volume 10.4, Sodium Level 138, Potassium Level 4.0, Chloride Level 100, Carbon Dioxide Level 30, Anion Gap 8, Blood Urea Nitrogen 13, Creatinine 0.81, Estimat Glomerular Filtration Rate 100, BUN/Creatinine Ratio 16, Glucose Level 113H, Calcium Level 8.7, Corrected Calcium 9.3, Total Bilirubin 1.1H, Aspartate Amino Transf (AST/SGOT) 19, Alanine Aminotransferase (ALT/SGPT) 23, Alkaline Phosphatase 81, Total Protein 6.5, Albumin 3.3 11/15/22 10:48: Glucometer 117H Home Meds Active Reported Amiodarone HCl 200 Mg Tablet 200 Mg PO DAILY LAST FILLED 05-18-2022 #30/30 DAY SUPPLY Ibuprofen 200 Mg Tablet 400 Mg PO Q8H PRN Tylenol Extra Strength (Acetaminophen) 500 Mg Tablet 1,000 Mg PO Q8H PRN Tylenol Pm Ex-Strength Caplet (Acetaminophen/Diphenhydramine) 500 Mg-25 Mg Tablet 2 Each PO HS PRN Ambien (Zolpidem Tartrate) 10 Mg Tablet 5 Mg PO HS TAKES OF A 10MG Spiriva Respimat 2.5MCG/ACTUATION (Tiotropium [place]) 2.5 Mcg/Actuation Mist.inhal 2 Puff INH DAILY Metformin HCl ER (Metformin HCl) 500 Mg Tab.er.24h 1,000 Mg PO 1800 W/MEAL TAKES 2 (500MG) TABS Potassium Chloride 20 Meq Tab.er.prt 20 Meq PO DAILY Carvedilol 12.5 Mg Tablet 12.5 Mg PO BID WITH MEALS Furosemide 40 Mg Tablet 40 Mg PO DAILY Glipizide 10 Mg Tablet 10 Mg PO DAILY Spironolactone 25 Mg Tablet 25 Mg PO DAILY Gabapentin 100 Mg Capsule 200 Mg PO HS TAKES 2 (100MG) CAPS Ventolin Hfa (Albuterol Sulfate) 1 Puff Puff 2 Puff IH Q4H PRN Xarelto (Rivaroxaban) 20 Mg Tablet 20 Mg PO HS Atorvastatin Calcium 40 Mg Tablet 40 Mg PO DAILY Assessment/Pt DC Instructions Follow up with primary doctor within a week of discharge. You will need to get an MRI of the brain scheduled at an open MRI, your primary doctor can order this. Additionally, the results of your biopsy are pending and will need to be followed up on. Discharge Diet: ADA Diet Activity as Tolerated: Yes Discharge Physical Examination Allergies: Coded Allergies: No Known Drug Allergies (Unverified , 04/09/20) General Appearance: Obese HEENT: PERRL/EOMI Respiratory: Lungs Clear, Normal Breath Sounds Cardiovascular: Irregularly Irregular Gastrointestinal: Normal Bowel Sounds, Non Tender, Soft Extremity: Other (marked venous stasis dermatitis changes of both legs to knee level) Neurologic/Psychiatric: Alert, Oriented x3, Abnormal Cerebellar Tests (some back and forth before reaching finger with finger to nose testing, normal heel to jessica on both sides), Other (CN II-XII intact except unable to hear finger rub on either side) CIELO CAMACHO MD Nov 15, 2022 14:51
== END 2022-11-15 14:43 | disposition home or self-care (01) ==
LOC: EDUNIT# 14:26 → ER 14:29 → 4TH 17:58 → UNDOADMOB 17:58 → 4TH 18:08 → UNDODISOB 11-15 15:20
PROVIDERS: ADMIT Family Medicine; ATTEND Family Medicine
DX: C34.92 Malignant neoplasm of unspecified part of left bronchus or lung (principal); E66.01 Morbid (severe) obesity due to excess calories; E87.29 Other acidosis; J96.02 Acute respiratory failure with hypercapnia; E11.9 Type 2 diabetes mellitus without complications; E78.5 Hyperlipidemia, unspecified; I48.91 Unspecified atrial fibrillation; G47.33 Obstructive sleep apnea (adult) (pediatric); F17.210 Nicotine dependence, cigarettes, uncomplicated; Z79.84 Long term (current) use of oral hypoglycemic drugs; Z99.81 Dependence on supplemental oxygen; Z79.899 Other long term (current) drug therapy
CPT/HCPCS: 32408 ×4; 36600; 70450; 71045 ×2; 71260; 77012; 80048; 80053 ×2; 82805 ×2; 82947 ×3; 85025; 85027 ×2; 85610; 85730; 94660 ×3; 94760; 96372; 96375 ×2; 96376; 99285; G0378; 36415

== ENCOUNTER 2022-12-02 15:10 | Emergency (ER) | payer MEDICAID ==
[~2022-12-02] VITALS: Ht 182.9 cm; Wt 163.3 kg
[~2022-12-02 15:10] MED LIST changes: +ACET-2267 PO; +ACET-3075 PO; +CARV12.53 PO; +FURO40TA4 PO; +GABA-486 PO; +GLIP10TA13 PO; +IBUP-2473 PO; +METF-865 PO; +POTA-179 PO; +SPIR25TA5 PO; +TIOT4MIS2 INH; +ZOLP10TA PO
--- NOTE | 2022-12-02 15:18 | ED General ---
General Stated Complaint: SOB History of Present Illness Date Seen by Provider: December 02, 2022 Time Seen by Provider: 15:07 Initial Comments 62-year-old male with PMH of COPD on home oxygen of 2 L/DM2/A-fib on Xarelto/BREN on home CPAP/new lung mass seen on 11/13/2022, is brought in by EMS for shortness of breath. Patient was driving around town doing errands, without his usual oxygen, and police pulled him over due to extreme swerving on the road. The police found him to be short of breath and called an ambulance. EMS reports that patient's heart rate was in the 130s to 140s upon arrival with oxygen saturations in the low 80s. EMS proceeded to give a DuoNeb treatment and put him on 4 L of oxygen with improvement in his symptoms and oxygen saturation increased to 96 to 97%. In the ER patient's heart rate was in the 130s and patient was complaining of shortness of breath and some mild palpitations. P atient was able to speak about 2 sentences before getting short of breath. On the director of operations he was seen to be in A-fib with RVR with a heart rate in the 130s. Treatment was initiated for A-fib and in the ongoing exams I found the patient to be lethargic and dozing off every couple of minutes. Outside of this, patient is able to give a clear history and is able to follow all commands. After seeing patients CAT scans, patient was questioned further and patient is unclear about his lung mass and did not know he had cancer or any brain lesions. He did state that he has been having headaches more often in the past couple of weeks. Denies chest pain, fever and chills, abdominal pain, diaphoresis, dizziness, nausea and vomiting, diarrhea, dysuria. Patient denies using alcohol or drugs. Allergies and Home Medications Allergies Coded Allergies: No Known Drug Allergies (Unverified , 04/09/20) Patient Home Medication List Home Medication List Reviewed: Yes Acetaminophen (Tylenol Extra Strength) 500 Mg Tablet, 1,000 MG PO Q8H PRN for PAIN-MILD (1-4), (Reported) Entered as Reported by: CHINO DUNCAN on 11/14/22 1420 Acetaminophen/Diphenhydramine (Tylenol Pm Ex-Strength Caplet) 500 Mg-25 Mg Tablet, 2 EACH PO HS PRN for SLEEP, (Reported) Entered as Reported by: CHINO DUNCAN on 11/14/221419 Albuterol Sulfate (Ventolin Hfa) 1 Puff Puff, 2 PUFF IH Q4H PRN for SHORTNESS OF BREATH, (Reported) Entered as Reported by: CHINO DUNCAN on 06/06/21 1002 Amiodarone HCl (Amiodarone HCl) 200 Mg Tablet, 200 MG PO DAILY, (Reported) Entered as Reported by: CHINO DUNCAN on 11/14/221419 Atorvastatin Calcium (Atorvastatin Calcium) 40 Mg Tablet, 40 MG PO DAILY, (Reported) Entered as Reported by: ODIN PAZ on 08/18/20 09 Carvedilol (Carvedilol) 12.5 Mg Tablet, 12.5 MG PO BID WITH MEALS, (Reported) Entered as Reported by: CHINO DUNCAN on 11/14/221419 Furosemide (Furosemide) 40 Mg Tablet, 40 MG PO DAILY, (Reported) Entered as Reported by: CHINO DUNCAN on 11/14/221419 Gabapentin (Gabapentin) 100 Mg Capsule, 200 MG PO HS, (Reported) Entered as Reported by: CHINO DUNCAN on 11/14/221419 Glipizide (Glipizide) 10 Mg Tablet, 10 MG PO DAILY, (Reported) Entered as Reported by: CHINO DUNCAN on 11/14/221419 Ibuprofen (Ibuprofen) 200 Mg Tablet, 400 MG PO Q8H PRN for PAIN-MILD (1-4), (Reported) Entered as Reported by: CHINO DUNCAN on 11/14/221419 Metformin HCl (Metformin HCl ER) 500 Mg Tab.er.24h, 1,000 MG PO 1800 W/MEAL, (Reported) Entered as Reported by: CHINO DUNCAN on 11/14/221419 Potassium Chloride (Potassium Chloride) 20 Meq Tab.er.prt, 20 MEQ PO DAILY, (Reported) Entered as Reported by: CHINO DUNCAN on 11/14/221419 Rivaroxaban (Xarelto) 20 Mg Tablet, 20 MG PO HS, (Reported) Entered as Reported by: ODIN PAZ on 08/18/20 09 Spironolactone (Spironolactone) 25 Mg Tablet, 25 MG PO DAILY, (Reported) Entered as Reported by: CHINO DUNCAN on 11/14/221419 Tiotropium [place] (Spiriva Respimat 2.5MCG/ACTUATION) 2.5 Mcg/Actuation Mist.inhal, 2 PUFF INH DAILY, (Reported) Entered as Reported by: CHINO DUNCAN on 11/14/221419 Zolpidem Tartrate (Ambien) 10 Mg Tablet, 5 MG PO HS, (Reported) Entered as Reported by: CHINO DUNCAN on 11/14/221419 Review of Systems Review of Systems Constitutional: see HPI, malaise EENTM: see HPI Respiratory: short of breath Cardiovascular: palpitations Gastrointestinal: no symptoms reported Genitourinary: no symptoms reported Musculoskeletal: no symptoms reported Skin: no symptoms reported Psychiatric/Neurological: Headache Hematologic/Lymphatic: No Symptoms Reported Immunological/Allergic: no symptoms reported Past Hyehuln-Kbwnto-Eleudq Hx Immunizations Up To Date Tetanus Booster (TDap): Less than 5yrs First/Initial COVID19 Vaccinat: X1 Second COVID19 Vaccination Vishal: unvaccinated Third COVID19 Vaccination Date: unvaccinated Seasonal Allergies Seasonal Allergies: No Past Medical History Surgery/Hospitalization HX: DM 2, COPD, HTN, AFIB, LEFT LEG INFECTION, TRAUMATIC INJURY PERINEUM, LYMPHEDEMA Surgeries: Yes (hernia,debridement of foot) Appendectomy Respiratory: Yes Sleep Apnea Currently Using CPAP: Yes Currently Using BIPAP: No Cardiac: No Atrial Fibrillation, Chronic Edema/Swelling Neurological: No Genitourinary: No Gastrointestinal: No Musculoskeletal: Yes Arthritis, Chronic Back Pain Endocrine: Yes (MORBID OBESITY) Diabetes, Non-Insulin dep HEENT: No Cancer: No Psychosocial: No Integumentary: Yes (CHRONIC LEG WOUNDS) Blood Disorders: No Family Medical History Cancer Siblings in good health. No kids. Physical Exam Vital Signs Vital Signs - First Documented 12/02/22 15:10 Temp 36.2 Pulse 119 Resp 24 B/P (MAP) 113/62 (79) Pulse Ox 92 O2 Delivery Nasal Cannula O2 Flow Rate 2.00 Capillary Refill : Height, Weight, BMI Height: '" Weight: lbs. oz. kg; 49.44 BMI Method: General Appearance: Moderate Distress, Obese HEENT: PERRL/EOMI, Normal ENT Inspection, Moist Mucous Membranes Neck: Full Range of Motion, Normal Inspection, Non Tender, Supple Respiratory: Chest Non Tender, Lungs Clear, Normal Breath Sounds (No wheezing), No Accessory Muscle Use Cardiovascular: Normal Peripheral Pulses, Irregularly Irregular, Tachycardia Gastrointestinal: No Organomegaly, Non Tender, Soft, Other (Obese abdomen) Back: Normal Inspection, No CVA Tenderness, No Vertebral Tenderness Extremity: Normal Range of Motion Neurologic/Psychiatric: Alert, Oriented x3, No Motor/Sensory Deficits, Normal Mood/Affect, rehabilitation program coordinator II-XII Norm as Tested, Other (Patient is able to ambulate but appears lethargic) Skin: Other (Hyperpigmentation of bilateral lower legs due to a bad cellulitis infection he had recently) Focused Exam Lactate Level 12/02/22 15:15: Lactic Acid Level 1.83 Lactic Acid Level Laboratory Tests Test 12/02/22 15:15 Lactic Acid Level 1.83 MMOL/L (0.50-2.00) Progress/Results/Core Measures Suspected Sepsis SIRS Temperature: Pulse: Respiratory Rate: Laboratory Tests 12/02/22 15:15: White Blood Count 9.8 Blood Pressure / Mean: 12/02/22 15:15: Lactic Acid Level 1.83 Laboratory Tests 12/02/22 15:15: Creatinine 0.83, INR Comment 1.8H, Platelet Count 224, Total Bilirubin 0.6 Results/Orders Lab Results Laboratory Tests Test 12/02/22 15:15 12/02/22 15:43 12/02/22 16:13 Range/Units White Blood Count 9.8 4.3-11.0 10^3/uL Red Blood Count 4.34 4.30-5.52 10^6/uL Hemoglobin 13.2 L 13.3-17.7 g/dL Hematocrit 43 40-54 % Mean Corpuscular Volume 98 80-99 fL Mean Corpuscular Hemoglobin 30 25-34 pg Mean Corpuscular Hemoglobin Concent 31 L 32-36 g/dL Red Cell Distribution Width 14.2 10.0-14.5 % Platelet Count 224 130-400 10^3/uL Mean Platelet Volume 9.7 9.0-12.2 fL Immature Granulocyte % (Auto) 0 % Neutrophils (%) (Auto) 67 42-75 % Lymphocytes (%) (Auto) 22 12-44 % Monocytes (%) (Auto) 9 0-12 % Eosinophils (%) (Auto) 1 0-10 % Basophils (%) (Auto) 1 0-10 % Neutrophils # (Auto) 6.5 1.8-7.8 10^3/uL Lymphocytes # (Auto) 2.2 1.0-4.0 10^3/uL Monocytes # (Auto) 0.9 0.0-1.0 10^3/uL Eosinophils # (Auto) 0.1 0.0-0.3 10^3/uL Basophils # (Auto) 0.1 0.0-0.1 10^3/uL Immature Granulocyte # (Auto) 0.0 0.0-0.1 10^3/uL Prothrombin Time 21.7 H 12.2-14.7 SEC INR Comment 1.8 H 0.8-1.4 Activated Partial Thromboplast Time 33 24-35 SEC D-Dimer 0.72 H 0.00-0.49 UG/ML Sodium Level 135 135-145 MMOL/L Potassium Level 4.6 3.6-5.0 MMOL/L Chloride Level 96 L 98-107 MMOL/L Carbon Dioxide Level 27 21-32 MMOL/L Anion Gap 12 5-14 MMOL/L Blood Urea Nitrogen 22 H 7-18 MG/DL Creatinine 0.83 0.60-1.30 MG/DL Estimat Glomerular Filtration Rate 99 BUN/Creatinine Ratio 27 Glucose Level 144 H 70-105 MG/DL Lactic Acid Level 1.83 0.50-2.00 MMOL/L Calcium Level 9.1 8.5-10.1 MG/DL Corrected Calcium 9.7 8.5-10.1 MG/DL Magnesium Level 1.7 1.6-2.4 MG/DL Total Bilirubin 0.6 0.1-1.0 MG/DL Aspartate Amino Transf (AST/SGOT) 23 5-34 U/L Alanine Aminotransferase (ALT/SGPT) 37 0-55 U/L Alkaline Phosphatase 134 40-136 U/L Troponin I < 0.30 <0.30 NG/ML C-Reactive Protein 6.18 H <0.50 MG/DL Pro-B-Type Natriuretic Peptide 1043.0 H <125.0 PG/ML Total Protein 7.0 6.4-8.2 GM/DL Albumin 3.3 3.2-4.5 GM/DL Blood Gas Puncture Site LEFT WRIST Blood Gas Patient Temperature 36.2 Arterial Blood pH 7.42 7.37-7.43 Arterial Blood Partial Pressure CO2 53 H 35-45 MMHG Arterial Blood Partial Pressure O2 82 79-93 MMHG Arterial Blood HCO3 34 H 23-27 MMOL/L Arterial Blood Total CO2 36.0 H 21.0-31.0 MMOL/L Arterial Blood Oxygen Saturation 96 94-100 % Arterial Blood Base Excess 8.4 H -2.5-2.5 MMOL/L Jasiel Test NEG Blood Gas Ventilator Setting NO Blood Gas Inspired Oxygen 3 Urine Color YELLOW Urine Clarity CLEAR Urine pH 6.0 5-9 Urine Specific [place] 1.020 1.016-1.022 Urine Protein 1+ H NEGATIVE Urine Glucose (UA) NEGATIVE NEGATIVE Urine Ketones NEGATIVE NEGATIVE Urine Nitrite NEGATIVE NEGATIVE Urine Bilirubin NEGATIVE NEGATIVE Urine Urobilinogen 1.0 < = 1.0 MG/DL Urine Leukocyte Esterase NEGATIVE NEGATIVE Urine RBC (Auto) NEGATIVE NEGATIVE Urine RBC 0-2 /HPF Urine WBC NONE /HPF Urine Squamous Epithelial Cells 2-5 /HPF Urine Crystals NONE /LPF Urine Bacteria NEGATIVE /HPF Urine Casts NONE /LPF Urine Mucus SMALL H /LPF Urine Culture Indicated NO Urine Opiates Screen NEGATIVE NEGATIVE Urine Oxycodone Screen NEGATIVE NEGATIVE Urine Methadone Screen NEGATIVE NEGATIVE Urine Propoxyphene Screen NEGATIVE NEGATIVE Urine Barbiturates Screen NEGATIVE NEGATIVE Ur Tricyclic Antidepressants Screen NEGATIVE NEGATIVE Urine Phencyclidine Screen NEGATIVE NEGATIVE Urine Amphetamines Screen NEGATIVE NEGATIVE Urine Methamphetamines Screen NEGATIVE NEGATIVE Urine Benzodiazepines Screen NEGATIVE NEGATIVE Urine Cocaine Screen NEGATIVE NEGATIVE Urine Cannabinoids Screen NEGATIVE NEGATIVE My Orders Orders - ADAM ADKINS MD Chest 1 View Ap/Pa Only (12/02/22 15:18) Aspirin Chewable Tablet (Baby Aspirin Ch (12/02/22 15:30) Diltiazem Injection (Cardizem Injection) (12/02/22 15:30) Diltiazem Drip Pre-Mix (Cardizem Drip Pr (12/02/22 15:19) Ed Iv/Invasive Line Start (12/02/22 15:21) Ns Iv 1000 Ml (Sodium Chloride 0.9%) (12/02/22 15:30) Cbc With Automated Diff (12/02/22 15:22) Comprehensive Metabolic Panel (12/02/22 15:22) Fibrin Degradation Products (12/02/22 15:22) Drug Screen Stat (Urine) (12/02/22 15:22) Lactic Acid Analyzer (12/02/22 15:22) Magnesium (12/02/22 15:22) Protime With Inr (12/02/22 15:22) Partial Thromboplastin Time (12/02/22 15:22) Ua Culture If Indicated (12/02/22 15:22) Blood Culture (12/02/22 15:22) Probnp Fs (12/02/22 15:22) Crp Fs (12/02/22 15:22) Troponin I Fs (12/02/22 15:22) Ct Head Wo-R/O Stroke (12/02/22 15:43) Arterial Blood Gas (12/02/22 15:43) Ct Angio Chest W (12/02/22 15:58) Iohexol Injection (Omnipaque 350 Mg/Ml 1 (12/02/22 16:30) Received Contrast (Hold Metformin- Contr (12/02/22 16:30) Ns (Ivpb) (Sodium Chloride 0.9% Ivpb Bag (12/02/22 16:30) Mannitol 20% Iv Premix (Osmitrol 20% Pre (12/02/22 17:45) Mannitol 20% Iv Premix (Osmitrol 20% Pre (12/02/22 17:45) Medications Given in ED Current Medications Medications Dose Ordered Sig/Robert Route Start Time Stop Time Status Last Admin Dose Admin Aspirin 324 mg ONCE ONCE PO 12/02/22 15:30 12/02/22 15:31 DC 12/02/22 15:29 324 MG Diltiazem HCl 5 mg ONCE ONCE IVP 12/02/22 15:30 12/02/22 15:31 DC 12/02/22 15:29 5 MG Iohexol 100 ml ONCE ONCE IV 12/02/22 16:30 12/02/22 16:31 DC 12/02/22 16:36 100 ML Mannitol 500 ml @ 1,000 mls/hr ONCE ONCE IV 12/02/22 17:45 12/02/22 18:14 UNV 12/02/22 17:51 1,000 MLS/HR Sodium Chloride 100 ml ONCE ONCE IV 12/02/22 16:30 12/02/22 16:31 DC 12/02/22 16:36 80 ML Vital Signs/I&O 12/02/22 12/02/22 12/02/22 15:10 15:29 15:35 Temp 36.2 Pulse 119 125 123 Resp 24 B/P (MAP) 113/62 (79) 113/62 116/68 Pulse Ox 92 O2 Delivery Nasal Cannula O2 Flow Rate 2.00 Capillary Refill : Progress Note : Progress Note 1. A-FIB in RVR: - Pt was given Duo neb by EMS, and SOB improed after Cardizem kicked in, with decreased need for O2 ( lowered to 2L which is his home baseline) with O2 sat ay 97% - Pt is on Xarelta at home - Pt's heart rate in 130's on director of operations when initially brought in - CXR: see report - Troponin: undetectable - pro-BNP:1,043 - UA is negative for infection - UDS is negative - EKG shows A-Fib in RVR - ASA 324mg given on initial presentation - Pt is on 3L of O2 in the ER, he is on home O2 of 2L. While pt went to do errands he was not on any O2 at all. - Pt is on Coreg and Lasix at home - Cardizem bolus and drip STAT. Pt's heart rate has improved to 87-100 range after cardizem , with improvement of O2 saturation - NS IVF bolus 2. 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 Findings are at high risk for causing further compromise of the ventricular system resulting in acute hydrocephalus. Although the patient is a couple weeks out from stroke the mass effect appears worse than prior. Would consider observation in a neuro ICU and consider treatment of cerebellar edema. 0.9 cm hyperdensity within the left anterior temporal lobe with surrounding confluent white matter hypoattenuation may represent an intraparenchymal hematoma or hemorrhagic lesion. Recommend further workup with MRI of the brain with and without contrast. - Mannitol iv STAT, to be given over 30 minutes - Discussed with [facility] Neurologist, Dr Dickson, who agreed with Mannitol and recommended ICU, discussed with in neurocritical care, and accepted for transfer to ICU. 3. LUNG MASS WITH POSSIBLE METS TO BRAIN: - CXR: Unchanged left apical lung mass. Right basilar opacity may represent atelectasis or infiltrate. - D-dimer is slightly elevated at 0.72. Decided to do CTA CHEST to rule out PE in lieu of undetailed cancer history discovered on review of prior imaging. Extent of lung mass seen with the CTA, encroaching into the pleura and causing erosion of the 3rd rib. - Pt was unaware of the details of the mass or mets. He has his first oncology appointment next week with Dr Grimes in [place], [place]. - Pt will need an Oncology consult Diagnostic Imaging Diagonstic Imaging: Xray, CT Plain Films/CT/US/NM/MRI: chest, head Comments [facility] [address] [place], [place] NAME: CLAUDETTE SEGOVIA [facility] REC#: [id number] PT STATUS: REG ER : 1960 PHYSICIAN: ADAM ADKINS MD ADMIT DATE: 12/02/22/ER FS Signed Date of Exam:12/02/22 CT HEAD WO-R/O STROKE PROCEDURE: CT head wo r/o stroke. TECHNIQUE: Multiple contiguous axial images were obtained through the brain without the use of intravenous contrast. Auto Exposure Controls were utilized during the CT exam to meet ALARA standards for radiation dose reduction. INDICATION: Unsteadiness, dizziness,. Comparison CT of the head on 11/15/2022. FINDINGS: Redemonstration of large infarct within the left cerebellar hemisphere which is causing severe mass effect on the 4th ventricle and trace enlargement of the lateral ventricles compared to the prior exam. 0.9 cm hyperdensity within the left anterior temporal lobe with increased surrounding confluent hypoattenuation within the white matter. The subarachnoid cisterns are maintained. Paranasal sinuses and mastoids are clear. No midline shift. Skull is intact. IMPRESSION: Redemonstration of large left PICA territory infarct in the left cerebellar hemisphere with increased significant mass effect on the 4th ventricle and trace enlargement of the lateral ventricles. Findings are at high risk for causing further compromise of the ventricular system resulting in acute hydrocephalus. Although the patient is a couple weeks out from stroke the mass effect appears worse than prior. Would consider observation in a neuro ICU and consider treatment of cerebellar edema. 0.9 cm hyperdensity within the left anterior temporal lobe with surrounding confluent white matter hypoattenuation may represent an intraparenchymal hematoma or hemorrhagic lesion. Recommend further workup with MRI of the brain with and without contrast. Dictated by: Dictated on workstation # [id number] Dict: 12/02/22 1637 Trans: 12/02/22 1650 [facility] [id number] Interpreted by: ISAIAS BOWMAN DO Electronically signed by: ISAIAS BOWMAN DO 12/02/22 1650 [facility], [place] NAME: CLAUDETTE SEGOVIA [facility] REC#: [id number] PT STATUS: REG ER : 1960 PHYSICIAN: ADAM ADKINS MD ADMIT DATE: 12/02/22/ER FS Draft Date of Exam:12/02/22 CT ANGIO CHEST W PROCEDURE: CT angiography of the chest with contrast. TECHNIQUE: Multiple contiguous axial images were obtained through the chest after uneventful bolus administration of intravenous contrast. 3D reconstructed CTA MIP acquisitions were also performed. Auto Exposure Controls were utilized during the CT exam to meet ALARA standards for radiation dose reduction. INDICATION: Elevated D-dimer, shortness of breath, known lung mass. COMPARISON: 11/13/2022. FINDINGS: The pulmonary arteries are diagnostic to the segmental level. No filling defect is seen to indicate a pulmonary embolus. The heart is mildly large. There is no evidence of right heart strain. The aorta is normal in caliber. There are prominent hilar lymph nodes, bilaterally. A marker node in the right hilum measures 1.5 cm in the short axis (image 83 series 6, similar to the prior exam). Multiple left hilar lymph nodes are noted, with a conglomeration of nodes measuring 3.2 x 2.0 cm in size (image 56 series 6), which is similar to the prior study. No significant axillary adenopathy is seen. Redemonstrated is a pleural-based mass in the posterior left upper lung which measures about 8.2 x 5.8 cm in size, similar to the prior exam. There is invasion of the underlying pleura as well as erosion of the 3rd rib. No new mass is seen in the lungs. There is mild atelectasis. There is no pneumothorax and no significant pleural effusion. Imaged portions of the upper abdomen demonstrate no acute abnormality. No acute osseous abnormality is seen in the spine. There are degenerative changes present. IMPRESSION: 1. No pulmonary embolus. 2. Redemonstrated left apical lung mass, with invasion of the underlying pleura and 3rd rib, similar to the prior exam. 3. Bilateral hilar lymphadenopathy, similar to the prior study. Dictated on workstation # [id number] Dict: 12/02/22 1639 Trans: 12/02/22 1650 [facility] [id number] Interpreted by: MILO SAUCEDO MD Electronically signed by: [facility], [place] NAME: CLAUDETTE SEGOVIA [facility] REC#: [id number] PT STATUS: REG ER : 1960 PHYSICIAN: ADAM ADKINS MD ADMIT DATE: 12/02/22/ER FS Signed Date of Exam:12/02/22 CHEST 1 VIEW AP/PA ONLY HISTORY: Palpitations. COMPARISON: 11/13/2022. TECHNIQUE: Frontal view of the chest. FINDINGS: Lung volumes are normal. There is thickening of the left apical pleura with left apical airspace opacity, similar to the prior exam. This represents a lung mass seen on the prior CT. There is a linear opacity in the right lung base. There is mild cardiomegaly which appears stable. There is no large effusion or pneumothorax. IMPRESSION: Unchanged left apical lung mass. Right basilar opacity may represent atelectasis or infiltrate. Dictated by: Dictated on workstation # [id number] Dict: 12/02/22 1532 Trans: 12/02/22 1554 [facility] [id number] Interpreted by: MILO SAUCEDO MD Electronically signed by: MILO SAUCEDO MD 12/02/22 1554 Departure Communication (Admissions) Time/Spoke to Admitting Phy: 17:10 Dr Mena Time/Spoke to Consulting Phy: 17:05 Discussed with stroke neurologist: Dr Dickson Impression Primary Impression: Atrial fibrillation with RVR Additional Impressions: Cerebellar edema Lung mass Disposition: XFER SHT-TRM HOSP Condition: Improved Admissions Decision to Admit Reason: Admit from ER (General) Decision to Admit/Date: December 02, 2022 Time/Decision to Admit Time: 17:00 Transfer Transfer Reason: Exceeds level of care Time Spoke to Accepting Phy: 17:05 Transfer Progress Notes - Discussed with stroke neurologist evaristo, Dr Dickson, and then discussed and accepted by , neuro-critical care for admission to ICU Transfer Facility: [facility] Method of Transfer: EMS Departure-Patient Inst. Referrals: [facility] (PCP/Family) Primary Care Physician ADAM ADKINS MD December 02, 2022 15:18
[2022-12-02] MEDS ORDERED: dilTIAZem DRIP PRE-MIX 125 ML IV STA (15:19)
[2022-12-02 15:26] LABS: BASOPHILS # (AUTO) 0.1 10^3/uL (0.0-0.1); BASOPHILS % (AUTO) 1 % (0-10); EOSINOPHILS # (AUTO) 0.1 10^3/uL (0.0-0.3); EOSINOPHILS % (AUTO) 1 % (0-10); HEMATOCRIT 43 % (40-54); HEMOGLOBIN 13.2 g/dL (13.3-17.7); LYMPHOCYTES # (AUTO) 2.2 10^3/uL (1.0-4.0); LYMPHOCYTES % (AUTO) 22 % (12-44); MEAN CORPUSCULAR HEMOGLOBIN 30 pg (25-34); MEAN CORPUSCULAR HGB CONC 31 g/dL (32-36); MEAN CORPUSCULAR VOLUME 98 fL (80-99); MEAN PLATELET VOLUME 9.7 fL (9.0-12.2); MONOCYTES # (AUTO) 0.9 10^3/uL (0.0-1.0); MONOCYTES % (AUTO) 9 % (0-12); NEUTROPHILS # (AUTO) 6.5 10^3/uL (1.8-7.8); NEUTROPHILS % (AUTO) 67 % (42-75); PLATELET COUNT 224 10^3/uL (130-400); WHITE BLOOD COUNT 9.8 10^3/uL (4.3-11.0)
[2022-12-02] MEDS ORDERED: NS IV 1000 ML 1,000 ML IV SCH (15:30)
[2022-12-02] MEDS ORDERED: ASPIRIN 81 MG CHEW (CHILDREN'S ASA) PO ONE (15:30)
--- NOTE | 2022-12-02 15:36 | Diagnostic Imaging Report ---
HISTORY: Palpitations. COMPARISON: 11/13/2022. TECHNIQUE: Frontal view of the chest. FINDINGS: Lung volumes are normal. There is thickening of the left apical pleura with left apical airspace opacity, similar to the prior exam. This represents a lung mass seen on the prior CT. There is a linear opacity in the right lung base. There is mild cardiomegaly which appears stable. There is no large effusion or pneumothorax. IMPRESSION: Unchanged left apical lung mass. Right basilar opacity may represent atelectasis or infiltrate. Dictated by: Dictated on workstation # [id number]
[2022-12-02 15:41] LABS: INR 1.8 (0.8-1.4); PROTHROMBIN TIME PATIENT 21.7 SEC (12.2-14.7)
[2022-12-02 15:46] LABS: ALANINE AMINOTRANSFERASE 37 U/L (0-55); ALBUMIN 3.3 GM/DL (3.2-4.5); ALKALINE PHOSPHATASE 134 U/L (40-136); BILIRUBIN,TOTAL 0.6 MG/DL (0.1-1.0); BUN/CREATININE RATIO 27; CALCIUM 9.1 MG/DL (8.5-10.1); CARBON DIOXIDE 27 MMOL/L (21-32); CHLORIDE 96 MMOL/L (98-107); CREATININE SERUM 0.83 MG/DL (0.60-1.30); GFR ESTIMATED 99; GLUCOSE 144 MG/DL (70-105); MAGNESIUM 1.7 MG/DL (1.6-2.4); POTASSIUM 4.6 MMOL/L (3.6-5.0); SODIUM 135 MMOL/L (135-145)
[2022-12-02 15:48] LABS: FIBRIN DEGRADATION PRODUCTS 0.72 UG/ML (0.00-0.49)
[2022-12-02 15:59] LABS: ABG BASE EXCESS 8.4 MMOL/L (-2.5-2.5); ABG OXYGEN SATURATION 96 % (94-100); ABG PCO2 53 MMHG (35-45); ABG PH 7.42 (7.37-7.43); ABG PO2 82 MMHG (79-93)
[2022-12-02 16:00] LABS: ALLENS TEST NEG; INSPIRED O2 3; PATIENT TEMP 36.2; VENTILATOR NO
[2022-12-02 16:18] LABS: BILIRUBIN,URINE NEGATIVE (NEGATIVE); CLARITY,URINE CLEAR; COLOR,URINE YELLOW; GLUCOSE, URINE (UA) NEGATIVE (NEGATIVE); KETONES,URINE NEGATIVE (NEGATIVE); LEUKOCYTE ESTERASE ,URINE NEGATIVE (NEGATIVE); NITRITE,URINE NEGATIVE (NEGATIVE); PROTEIN,URINE 1+ (NEGATIVE)
[2022-12-02 16:20] LABS: BACTERIA,URINE NEGATIVE /HPF; RBC,URINE 0-2 /HPF
[2022-12-02 16:28] LABS: AMPHETAMINE SCREEN, URINE NEGATIVE (NEGATIVE); BARBITURATE SCREEN URINE NEGATIVE (NEGATIVE); BENZODIAZEPINES SCREEN URINE NEGATIVE (NEGATIVE); CANNABINOID SCREEN, URINE NEGATIVE (NEGATIVE); COCAINE SCREEN URINE NEGATIVE (NEGATIVE); METHADONE STAT NEGATIVE (NEGATIVE); OPIATE SCREEN URINE NEGATIVE (NEGATIVE); OXYCODONE STAT NEGATIVE (NEGATIVE); PROPOXYPHENE STAT NEGATIVE (NEGATIVE); TRICYCLIC ANTIDEPRESSANTS SCRE NEGATIVE (NEGATIVE)
[2022-12-02] MEDS ORDERED: NS 100 ML (IVPB) BAG IV ONE (16:30)
[2022-12-02] MEDS ORDERED: IOHEXOL 350 MG/ML 100 ML (OMNIPAQUE 350) VIAL IV ONE (16:30)
[2022-12-02] MEDS ORDERED: HOLD METFORMIN - RECEIVED CONTRAST 20 ML VIAL IV SCH (16:30)
--- NOTE | 2022-12-02 16:51 | Diagnostic Imaging Report ---
PROCEDURE: CT head wo r/o stroke. TECHNIQUE: Multiple contiguous axial images were obtained through the brain without the use of intravenous contrast. Auto Exposure Controls were utilized during the CT exam to meet ALARA standards for radiation dose reduction. INDICATION: Unsteadiness, dizziness,. Comparison CT of the head on 11/15/2022. FINDINGS: Redemonstration of large infarct within the left cerebellar hemisphere which is causing severe mass effect on the 4th ventricle and trace enlargement of the lateral ventricles compared to the prior exam. 0.9 cm hyperdensity within the left anterior temporal lobe with increased surrounding confluent hypoattenuation within the white matter. The subarachnoid cisterns are maintained. Paranasal sinuses and mastoids are clear. No midline shift. Skull is intact. IMPRESSION: Redemonstration of large left PICA territory infarct in the left cerebellar hemisphere with increased significant mass effect on the 4th ventricle and trace enlargement of the lateral ventricles. Findings are at high risk for causing further compromise of the ventricular system resulting in acute hydrocephalus. Although the patient is a couple weeks out from stroke the mass effect appears worse than prior. Would consider observation in a neuro ICU and consider treatment of cerebellar edema. 0.9 cm hyperdensity within the left anterior temporal lobe with surrounding confluent white matter hypoattenuation may represent an intraparenchymal hematoma or hemorrhagic lesion. Recommend further workup with MRI of the brain with and without contrast. Dictated by: Dictated on workstation # [id number]
--- NOTE | 2022-12-02 16:51 | Diagnostic Imaging Report ---
PROCEDURE: CT angiography of the chest with contrast. TECHNIQUE: Multiple contiguous axial images were obtained through the chest after uneventful bolus administration of intravenous contrast. 3D reconstructed CTA MIP acquisitions were also performed. Auto Exposure Controls were utilized during the CT exam to meet ALARA standards for radiation dose reduction. INDICATION: Elevated D-dimer, shortness of breath, known lung mass. COMPARISON: 11/13/2022. FINDINGS: The pulmonary arteries are diagnostic to the segmental level. No filling defect is seen to indicate a pulmonary embolus. The heart is mildly large. There is no evidence of right heart strain. The aorta is normal in caliber. There are prominent hilar lymph nodes, bilaterally. A marker node in the right hilum measures 1.5 cm in the short axis (image 83 series 6, similar to the prior exam). Multiple left hilar lymph nodes are noted, with a conglomeration of nodes measuring 3.2 x 2.0 cm in size (image 56 series 6), which is similar to the prior study. No significant axillary adenopathy is seen. Redemonstrated is a pleural-based mass in the posterior left upper lung which measures about 8.2 x 5.8 cm in size, similar to the prior exam. There is invasion of the underlying pleura as well as erosion of the 3rd rib. No new mass is seen in the lungs. There is mild atelectasis. There is no pneumothorax and no significant pleural effusion. Imaged portions of the upper abdomen demonstrate no acute abnormality. No acute osseous abnormality is seen in the spine. There are degenerative changes present. IMPRESSION: 1. No pulmonary embolus. 2. Redemonstrated left apical lung mass, with invasion of the underlying pleura and 3rd rib, similar to the prior exam. 3. Bilateral hilar lymphadenopathy, similar to the prior study. Dictated by: Dictated on workstation # [id number]
[2022-12-02] MEDS ORDERED: MANNITOL 20% (OSMITROL) PREMIX 500 ML BAG IV STA (16:59)
[2022-12-02] MEDS ORDERED: MANNITOL 20% IV PREMIX 500 ML IV ONE (17:45)
[2022-12-02] MEDS ORDERED: MANNITOL 20% (OSMITROL) PREMIX 500 ML BAG IV SCH (17:45)
[2022-12-02 20:25] VITALS: BP 107/68
== END 2022-12-02 20:25 ==
LOC: EDUNIT# 15:10 → ER FS 15:11
DX: I48.91 Unspecified atrial fibrillation (principal); G93.6 Cerebral edema; R91.8 Other nonspecific abnormal finding of lung field; J44.9 Chronic obstructive pulmonary disease, unspecified; Z99.81 Dependence on supplemental oxygen; Z79.01 Long term (current) use of anticoagulants; Z79.899 Other long term (current) drug therapy; Z28.311 Partially vaccinated for COVID-19
CPT/HCPCS: 36415; 70450; 71045; 71275; 80053; 80306; 81000; 82805; 83605; 83735; 83880; 84484; 85025; 85379; 85610; 85730; 86141; 87040; 87077; 93005; 99291; Q9967